=== PATIENT | male | born 1975 | race Caucasian/White ===

== ENCOUNTER 2018-10-20 14:09 | Observation (INO) | payer BC, SELFPAY ==
[2018-10-20] VITALS (14 sets, daily range): BP systolic 106–138; BP diastolic 58–88; PULSE 50–62; RESP 14–17; TEMP 36.6–36.8; O2SAT 96–100; BMI 34.0; BMI 33.9
--- NOTE | 2018-10-20 14:24 | EKG12_ITS ---
Test Reason : CHEST PAIN Blood Pressure : / mmHG Vent. Rate : 057 BPM Atrial Rate : 057 BPM P-R Int : 132 ms QRS Dur : 094 ms QT Int : 410 ms P-R-T Axes : 056 041 036 degrees QTc Int : 399 ms Sinus bradycardia Otherwise normal ECG Confirmed by VIK VINCENT, GREY ([id number]), primer expeditor and drier SUGEY CHANG ([id number]) on 10/24/2018 10:42:28 AM Referred By: STEVEN Confirmed By:GREY CHERY MD
--- NOTE | 2018-10-20 14:24 | RAD_ITS ---
STUDY: X-RAY CHEST REASON FOR EXAM: Male, 43 years old. Chest pain. TECHNIQUE: Single AP portable view of the chest. COMPARISON: None. FINDINGS: EKG electrodes are seen. The lungs are clear and expanded. Scattered calcified granulomas. There is no demonstrated pleural abnormality. Normal size heart. Normal mediastinum and eun. Normal visualized pulmonary arteries. Normal visualized aortic arch and descending thoracic aorta. There are degenerative changes of the visualized thoracic spine. Normal visualized ribs, clavicles, and shoulders. There is no demonstrated abnormality of the visualized soft tissue structures of the upper abdomen. RAD/Chest 1 View (Portable) IMPRESSION: Normal x-ray examination of the chest. Electronically Signed: Irvin Schumacher MD at 15:10 EST Tel [phone], Service support ,
[2018-10-20 14:54] LABS: Absolute Lymphocyte Count 1.44 X10^3/ul (0.83-4.51); Basophil# 0.01 X10^3/uL; Basophil% 0.3 % (0-1); Eosinophil# 0.05 X10^3/uL; Eosinophils% 1.3 % (0-5); Hematocrit 40.3 % (40-54); Lymphocyte # 1.44 X10^3/ul (4.0); Lymphocyte % 36.9 % (19-41); Mean Corp Hgb Conc 34.7 g/gl (32-36); Mean Corpuscular Hgb 30.4 pg (27.0-32.0); Mean Corpuscular Volume 87.6 fL (80-94); Mean Platelet Vol. 10.1 fl (6.2-12.0); Monocyte# 0.44 X10^3/uL; Monocyte% 11.3 % (0-10); Neutrophil # 1.96 X10^3/uL (2.7-7.7); Neutrophil % 50.2 % (47-70); Platelet Count 130 K/mm3 (150-450); RBC Distribution Width CV 13.2 % (11.6-14.6); RBC Distribution Width SD 42.1 fl (35.1-43.9); White Blood Count 3.9 K/mm3 (4.4-11.0)
[2018-10-20 14:55] LABS: POSITIVE COUNT NO; POSITIVE DIFFERENTIAL NO; POSITIVE MORPHOLOGY NO
[2018-10-20 14:56] LABS: Prothrombin Time (Protime)PT. 13.4 SECONDS (11.7-14.9)
[2018-10-20 15:08] LABS: Anion Gap 9 (5-15); BUN 13 mg/dL (7-18); BUN/Creat Ratio 12.9 RATIO (10-20); Calcium,Total 8.8 mg/dL (8.5-10.1); Chloride 105 mmol/L (98-107); Creatinine, Serum 1.01 mg/dL (0.70-1.30); EST Glomerular Filtration Rate 85 mL/min (>60); Est Glom Filt Rate - Afr Amer 103 mL/min (>60); Estimated Creatinine Clearance 96.37 ml/min; Glucose 87 mg/dL (74-106); Potassium 3.8 mmol/L (3.5-5.1); Sodium Level 141 mmol/L (136-145)
[2018-10-20] MEDS: Aspirin 81 MG TAB.CHEW 243 MG PO (15:13)
--- NOTE | 2018-10-20 15:13 | ED.VISSUMM ---
- ER Visit Summary Date of Service: 10/20/18 Chief Complaint: Chest pain History of Present Illness: The patient is a 43 M who presents for 1 week of intermittent chest pain. Patient has been having left-sided chest pain that waxes and wanes in intensity. Last time he was pain-free was this morning. He describes it as a pressure that does not radiate into the arms, back, right chest, abdomen or neck. It is worse with breathing and movement of his torso, but is constantly. Patient denies fever, shortness of breath, abdominal pain, nausea or vomiting, URI symptoms. Patient took 81 mg of aspirin prior to presentation. He has a history of myocardial infarction, hypertension, hypercholesterolemia, status post 1 stent. He is on Plavix. Physical Examination: Vital signs: afebrile, hemodynamically stable, no hypoxia on room air General: well nourished, well developed, in no distress Skin: warm, dry, no rash, no pallor HEENT: normocephalic and atraumatic; PERRL, EOMI, moist mucous membranes Cardiovascular: regular rate and rhythm without murmurs, no peripheral edema, 2+ pulses all distal extremities Respiratory: No increased work of breathing, lungs are clear to auscultation bilaterally, no rales, rhonchi or wheezing Abdominal: Abdomen is soft, nontender with normoactive bowel sounds, no guarding or rebound, no masses MSK: Moves all extremities, no deformities, normal strength Neuro: Awake and alert, oriented ?4. No facial droop, sensation and motor function intact and symmetric Test Results: Abnormal Lab Results 10/20/18 10/20/18 10/20/18 14:34 14:34 14:34 WBC 3.9 L RBC 4.60 Hgb 14.0 Hct 40.3 MCV 87.6 MCH 30.4 MCHC 34.7 RDW 13.2 RDW Differential 42.1 Plt Count 130 L MPV 10.1 Immature Gran % (Auto) 0.000 Neut % (Auto) 50.2 Lymph % (Auto) 36.9 [place] % (Auto) 11.3 H Eos % (Auto) 1.3 Baso % (Auto) 0.3 Absolute Neuts (auto) 2.0 Absolute Lymphs (auto) 1.44 Total Counted Not Reportable PT 13.4 INR 1.0 Sodium 141 Potassium 3.8 Chloride 105 Carbon Dioxide 27.0 Anion Gap 9 BUN 13 Creatinine 1.01 Estim Creat Clear Calc 96.37 Est GFR (MDRD) Af Amer 103 Est GFR (MDRD) Non-Af 85 BUN/Creatinine Ratio 12.9 Glucose 87 Calcium 8.8 Troponin I < 0.015 Clinical Impression(s) from Imaging Studies Chest X-Ray 10/20/18 14:24 IMPRESSION: Normal x-ray examination of the chest. Electronically Signed: Irvin Schumacher MD at 15:10 EST Tel [phone], Service support , Medications Given Discontinued Medications Aspirin (Aspirin, Baby) 243 mg PO X1 ONE Stop: 10/20/18 15:09 Last Admin: 10/20/18 15:13 Dose: 243 mg Nitroglycerin (Nitrostat) 0.4 mg SUBLINGUAL X1 ONE Stop: 10/20/18 16:00 Last Admin: 10/20/18 16:06 Dose: 0.4 mg Emergency Department Course and Treatment: Patient currently is pain-free. He was given 3 baby aspirin. EKG showed a sinus rhythm rate of [address] changes, no ectopy. Prominent T waves in V2. Chest x-ray showed no acute process. Troponin negative. Labs otherwise unremarkable. On reevaluation of the patient, he stated he was still having the dull discomfort in the left chest, and thus he was ordered nitro. Patient was discussed with Dr. Hayes, marshmallow machine operator, who recommended patient receive further chest pain rule out. Patient was discussed with Dr. Bronson for admission as observation status for chest pain with significant cardiac history. Treatment Plan: [] Disposition: [] Impression: Chest pain, history of ACS This note was generated with [employer] dictation software. It may contain incorrect words, spelling, and punctuation that were not noted in review of the chart prior to signing ED Disposition - Plan for ED Patient: Chief Complaint: Chest Pain Referrals: Jonah Feliz PA [Primary Care Provider] -
--- NOTE | 2018-10-20 15:16 | ED.DCSUM_ITS ---
- ER Visit Summary Date of Service: 10/20/18 Chief Complaint: Chest pain History of Present Illness: The patient is a 43 M who presents for 1 week of intermittent chest pain. Patient has been having left-sided chest pain that waxes and wanes in intensity. Last time he was pain-free was this morning. He describes it as a pressure that does not radiate into the arms, back, right chest, abdomen or neck. It is worse with breathing and movement of his torso, but is constantly. Patient denies fever, shortness of breath, abdominal pain, nausea or vomiting, URI symptoms. Patient took 81 mg of aspirin prior to presentation. He has a history of myocardial infarction, hypertension, hypercholesterolemia, status post 1 stent. He is on Plavix. Physical Examination: Vital signs: afebrile, hemodynamically stable, no hypoxia on room air General: well nourished, well developed, in no distress Skin: warm, dry, no rash, no pallor HEENT: normocephalic and atraumatic; PERRL, EOMI, moist mucous membranes Cardiovascular: regular rate and rhythm without murmurs, no peripheral edema, 2+ pulses all distal extremities Respiratory: No increased work of breathing, lungs are clear to auscultation bilaterally, no rales, rhonchi or wheezing Abdominal: Abdomen is soft, nontender with normoactive bowel sounds, no guarding or rebound, no masses MSK: Moves all extremities, no deformities, normal strength Neuro: Awake and alert, oriented ?4. No facial droop, sensation and motor function intact and symmetric Test Results: Abnormal Lab Results 10/20/18 10/20/18 10/20/18 14:34 14:34 14:34 WBC 3.9 L RBC 4.60 Hgb 14.0 Hct 40.3 MCV 87.6 MCH 30.4 MCHC 34.7 RDW 13.2 RDW Differential 42.1 Plt Count 130 L MPV 10.1 Immature Gran % (Auto) 0.000 Neut % (Auto) 50.2 Lymph % (Auto) 36.9 [place] % (Auto) 11.3 H Eos % (Auto) 1.3 Baso % (Auto) 0.3 Absolute Neuts (auto) 2.0 Absolute Lymphs (auto) 1.44 Total Counted Not Reportable PT 13.4 INR 1.0 Sodium 141 Potassium 3.8 Chloride 105 Carbon Dioxide 27.0 Anion Gap 9 BUN 13 Creatinine 1.01 Estim Creat Clear Calc 96.37 Est GFR (MDRD) Af Amer 103 Est GFR (MDRD) Non-Af 85 BUN/Creatinine Ratio 12.9 Glucose 87 Calcium 8.8 Troponin I < 0.015 Clinical Impression(s) from Imaging Studies Chest X-Ray 10/20/18 14:24 IMPRESSION: Normal x-ray examination of the chest. Electronically Signed: Irvin Schumacher MD at 15:10 EST Tel [phone], Service support , Medications Given Discontinued Medications Aspirin (Aspirin, Baby) 243 mg PO X1 ONE Stop: 10/20/18 15:09 Last Admin: 10/20/18 15:13 Dose: 243 mg Nitroglycerin (Nitrostat) 0.4 mg SUBLINGUAL X1 ONE Stop: 10/20/18 16:00 Last Admin: 10/20/18 16:06 Dose: 0.4 mg Emergency Department Course and Treatment: Patient currently is pain-free. He was given 3 baby aspirin. EKG showed a sinus rhythm rate of [address] changes, no ectopy. Prominent T waves in V2. Chest x-ray showed no acute process. Troponin negative. Labs otherwise unremarkable. On reevaluation of the patient, he stated he was still having the dull discomfort in the left chest, and thus he was ordered nitro. Patient was discussed with Dr. Hayes, dry cleaning machine operator, who recommended patient receive further chest pain rule out. Patient was discussed with Dr. Bronson for admission as observation status for chest pain with significant cardiac history. Treatment Plan: [] Disposition: [] Impression: Chest pain, history of ACS This note was generated with [employer] dictation software. It may contain incorrect words, spelling, and punctuation that were not noted in review of the chart prior to signing ED Disposition - Plan for ED Patient: Chief Complaint: Chest Pain Referrals: Jonah Feliz PA [Primary Care Provider] -
--- NOTE | 2018-10-20 16:53 | HP.PCM_ITS ---
Problem List (1) Hyperlipidemia Status: Chronic (2) Hypertension Status: Chronic (3) Depression Status: Chronic (4) CAD (coronary artery disease) Status: Chronic History of Present Illness Date of Admission: 10/20/18 Chief Complaint: Chest pain. The patient is a 43 year old M who presents emergency room due to chest pain. Patient states this has been ongoing intermittently over the past week. He denies chest pain associated with exertion. He states he seems to notice increased pain with movement of his upper extremities and turning of neck. He denies associated shortness of breath, dizziness, lightheadedness, diaphoresis. He has not taken anything to relieve his pain. He denies pain radiation. He reports his last stress test was in May 2018 while he was in [place]. This was reported to be normal. He has a past medical history of CAD status post PCI, hypertension, hyperlipidemia, depression, GERD. He follows with Dr. Alan, [facility] cardiology. Past Medical History Past Medical History (Chronic Problems): Chronic Problems Hyperlipidemia (Chronic) Hypertension (Chronic) Depression (Chronic) CAD (coronary artery disease) (Chronic) Allergies No Known Allergies Allergy (Verified 11/02/16 15:17) Home Medications: Ambulatory Orders Medication Instructions Recorded Escitalopram Oxalate [Lexapro] 10 mg PO DAILY 11/09/15 Aspirin [Aspirin, Baby] 81 mg PO DAILY@0800 10/20/18 Atorvastatin Calcium [Lipitor] 80 mg PO QHS 10/20/18 Clopidogrel Bisulfate [Plavix] 75 mg PO DAILY 10/20/18 Erythromycin Ophthalmic 1 applicatio EACH EYE QHS 10/20/18 Fluorometholone 1 drop EACH EYE TID 10/20/18 Isosorbide Mononitrate [Imdur] 30 mg PO DAILY 10/20/18 Metoprolol(XL)Succ [Toprol Xl 25 mg PO QHS 10/20/18 (Beta German)] Nitroglycerin [Nitrostat] 0.4 mg SUBLINGUAL Q5M PRN 10/20/18 Ranitidine [Zantac] 150 mg PO BID 10/20/18 Surgical History: - - Turbinate surgery, septoplasty. Psychiatric History: Depression Lives: With Family Smoking Status: Never smoker Tobacco Use: Non-smoker Alcohol: Occasional Drugs: None - *Family History Maternal History Items: Hypertension Paternal History Items: - - Leukemia Review of Systems Constitutional: Denies: Chills, Fever, Weight Change HEENT: Denies: Head Aches, Sinus Congestion, Sinus Drainage Cardiovascular: Reports: Chest Pain. Denies: Edema, Light Headedness, Palpitations, Syncope Respiratory: Denies: Cough, Shortness of breath at rest, Sputum production Gastrointestinal: Denies: Abdominal Pain, Nausea, Vomiting Genitourinary: Denies: Dysuria Musculoskeletal: Denies: Joint Pain, Joint Tenderness Skin: Denies: Rash, Wounds Neurological: Denies: Numbness, Tingling, Focal weakness Psychiatric: Reports: Depression Hematologic/ Lymphatic: Denies: Easy Bruising, Easy Bleeding VTE Information - Inpt Only VTE Present on Admission: No VTE Mechan Device Prophylaxis: None VTE Pharm Prophylaxis ordered?: Yes - Physical Exam General: Alert, Oriented x3, Cooperative HEENT: Atraumatic, PERRLA, EOMI, Normocephalic Neck: Supple, No JVD, Negative Carotid Bruits Lungs: Clear to auscultation, Normal air movement Cardiovascular: Regular Rhythm, Normal S1, Normal S2, No murmurs, - - Mildly bradycardic Abdomen: Bowel Sounds Present, Soft, Non Tender, Non-Distended Extremities: No clubbing, No cyanosis, No edema, Capillary Refill Less than 3 Seconds Skin: No rashes, No breakdown Musculoskeletal: No Tenderness to Palpation of Joints or Extremities Neurological: Cranial nerves II-XII grossly intact, Neuro grossly intact Psych/Mental Status: Normal Affect, Appropriate Vital Signs Temp Pulse Resp BP Pulse Ox 98.2 F 53 L 17 106/67 98 10/20/18 14:10 10/20/18 16:24 10/20/18 16:24 10/20/18 16:24 10/20/18 16:24 Oxygen Flow Rate (L/min) 2 Oxygen Delivery Method Nasal Cannula Weight: 237 lb Body Mass Index (BMI) 34.0 Laboratory Tests Past 24 Hrs 10/20/18 10/20/18 10/20/18 14:34 14:34 14:34 WBC 3.9 L RBC 4.60 Hgb 14.0 Hct 40.3 MCV 87.6 MCH 30.4 MCHC 34.7 RDW 13.2 RDW Differential 42.1 Plt Count 130 L MPV 10.1 Immature Gran % (Auto) 0.000 Neut % (Auto) 50.2 Lymph % (Auto) 36.9 [place] % (Auto) 11.3 H Eos % (Auto) 1.3 Baso % (Auto) 0.3 Absolute Neuts (auto) 2.0 Absolute Lymphs (auto) 1.44 Total Counted Not Reportable PT 13.4 INR 1.0 Sodium 141 Potassium 3.8 Chloride 105 Carbon Dioxide 27.0 Anion Gap 9 BUN 13 Creatinine 1.01 Estim Creat Clear Calc 96.37 Est GFR (MDRD) Af Amer 103 Est GFR (MDRD) Non-Af 85 BUN/Creatinine Ratio 12.9 Glucose 87 Calcium 8.8 Troponin I < 0.015 Assessment/Plan 1. Atypical chest pain-patient reports typically associated with movement. Given prior history of [place], rule out ACS. EKG sinus bradycardia without ST-T changes. Troponin negative. Trend enzymes. Repeat EKG in a.m. Stress test in a.m. 2. CAD status post PCI-follows with Dr. Alan, [facility] cardiology. Continue asp irin, statin, Plavix, isosorbide, metoprolol. 3. Hypertension-stable, continue home isosorbide, metoprolol. 4. Hyperlipidemia-continue statin. 5. Depression-continue home Lexapro regimen. 6. GERD- Continue PPI. DVT prophylaxis-Lovenox subcu This patient was seen by KATLYN Cali under the supervision of Dr. Bronson.
--- NOTE | 2018-10-20 17:10 | EKG12_ITS ---
Test Reason : CP ADMISSION Blood Pressure : / mmHG Vent. Rate : 047 BPM Atrial Rate : 047 BPM P-R Int : 134 ms QRS Dur : 090 ms QT Int : 452 ms P-R-T Axes : 058 030 016 degrees QTc Int : 400 ms Sinus bradycardia Confirmed by ASHLI VINCENT, BARBARA ([id number]), editor farm journal SUGEY CHANG ([id number]) on 10/24/2018 11:42:25 AM Referred By: RASHID Confirmed By:BARBARA CORNELIUS MD
[2018-10-20] MEDS: Erythromycin Base 1 OPTH.TUBE 1 APPLIC EACH EYE (22:21)
[2018-10-20] MEDS: FLUOROMETHOLONE 5 ML DROPS.SUSP EACH EYE (22:22)
[2018-10-20] MEDS: Atorvastatin Calcium 80 MG Tablet PO (22:25)
[2018-10-20] MEDS: Famotidine 20 MG Tablet PO (22:25)
[2018-10-21 04:00] VITALS: BP 135/72; PULSE 56; RESP 16; TEMP 36.6; O2SAT 97
[2018-10-21] MEDS: FLUOROMETHOLONE 5 ML DROPS.SUSP EACH EYE ×2 (05:38→12:09)
[2018-10-21] MEDS: Aspirin 81 MG TAB.CHEW PO (05:39)
[2018-10-21] MEDS: Clopidogrel Bisulfate 75 MG Tablet PO (05:39)
--- NOTE | 2018-10-21 05:55 | EKG12_ITS ---
Test Reason : AM EKG Blood Pressure : / mmHG Vent. Rate : 054 BPM Atrial Rate : 054 BPM P-R Int : 138 ms QRS Dur : 092 ms QT Int : 438 ms P-R-T Axes : 070 041 003 degrees QTc Int : 415 ms Sinus bradycardia Confirmed by ASHLI VINCENT, BARBARA ([id number]), assistant editor SUGEY CHANG ([id number]) on 10/24/2018 11:30:14 AM Referred By: DR PEDRO Confirmed By:BARBARA CORNELIUS MD
[2018-10-21 06:00] LABS: Absolute Lymphocyte Count 1.15 X10^3/ul (0.83-4.51); Absolute Neutrophil Count 1.6 X10^3/uL (2.0-7.7); Basophil# 0.02 X10^3/uL; Basophil% 0.6 % (0-1); Eosinophil# 0.09 X10^3/uL; Eosinophils% 2.7 % (0-5); Hematocrit 39.3 % (40-54); Hemoglobin 13.6 g/dl (13.0-16.5); Lymphocyte # 1.15 X10^3/ul (4.0); Lymphocyte % 35.1 % (19-41); Mean Corp Hgb Conc 34.6 g/gl (32-36); Mean Corpuscular Hgb 30.5 pg (27.0-32.0); Mean Corpuscular Volume 88.1 fL (80-94); Mean Platelet Vol. 10.6 fl (6.2-12.0); Monocyte% 12.2 % (0-10); Neutrophil # 1.61 X10^3/uL (2.7-7.7); Neutrophil % 49.1 % (47-70); Platelet Count 123 K/mm3 (150-450); RBC Distribution Width CV 13.1 % (11.6-14.6); RBC Distribution Width SD 41.1 fl (35.1-43.9); Red Blood Count 4.46 M/mm3 (4.6-6.2); White Blood Count 3.3 K/mm3 (4.4-11.0)
[2018-10-21 06:02] LABS: POSITIVE COUNT NO; POSITIVE DIFFERENTIAL NO; POSITIVE MORPHOLOGY NO
[2018-10-21 06:03] LABS: International Normalized Ratio 1.1; Prothrombin Time (Protime)PT. 14.1 SECONDS (11.7-14.9)
[2018-10-21 06:04] LABS: Partial Thromboplast Time 27.8 Seconds (24.1-36.2)
[2018-10-21 06:10] LABS: Anion Gap 8 (5-15); BUN 10 mg/dL (7-18); BUN/Creat Ratio 11.4 RATIO (10-20); Calcium,Total 8.8 mg/dL (8.5-10.1); Chloride 106 mmol/L (98-107); Creatinine, Serum 0.88 mg/dL (0.70-1.30); EST Glomerular Filtration Rate 100 mL/min (>60); Est Glom Filt Rate - Afr Amer 121 mL/min (>60); Estimated Creatinine Clearance 110.61 ml/min; Glucose 90 mg/dL (74-106); Potassium 3.7 mmol/L (3.5-5.1); Sodium Level 141 mmol/L (136-145)
[2018-10-21 10:00] VITALS: BP 138/81; PULSE 58; RESP 16; TEMP 36.4; O2SAT 96
--- NOTE | 2018-10-21 11:23 | DCINST_ITS ---
- Discharge Diagnoses Current Active Problems: Current Active and Chronic Problems Hyperlipidemia (Chronic) Hypertension (Chronic) Depression (Chronic) CAD (coronary artery disease) (Chronic) You will use the following diet at home:: Cardiac Discharge Activity: Return to Normal Activity Call your doctor if you observe: Shortness of breath, Dizziness, Fainting spells, Chest pain Allergies/Adverse Reactions: Allergies No Known Allergies Allergy (Verified 11/02/16 15:17) Medications to take at Discharge Escitalopram Oxalate [Lexapro] 10 mg PO DAILY 11/09/15 Aspirin [Aspirin, Baby] 81 mg PO DAILY@0800 10/20/18 Atorvastatin Calcium [Lipitor] 80 mg PO QHS 10/20/18 Clopidogrel Bisulfate [Plavix] 75 mg PO DAILY 10/20/18 Erythromycin Ophthalmic 1 applicatio EACH EYE QHS 10/20/18 Fluorometholone 1 drop EACH EYE TID 10/20/18 Isosorbide Mononitrate [Imdur] 30 mg PO DAILY 10/20/18 Nitroglycerin [Nitrostat] 0.4 mg SUBLINGUAL Q5M PRN 10/20/18 Ranitidine [Zantac] 150 mg PO BID 10/20/18 Acetaminophen [Tylenol Extra Strength] 1,000 mg PO Q8H PRN PRN #30 tablet 10/21/18 Metoprolol(XL)Succ [Toprol Xl (Beta German)] 12.5 mg PO QHS #0 10/21/18 The following prescriptions were given: Acetaminophen [Tylenol Extra Strength] 1,000 mg PO Q8H PRN PRN #30 tablet PRN Reason: Pain Primary Care Physician: Jonah Feliz PA [Primary Care Provider] - Please follow up with your Primary Care Physician in: 1 Week Test Results: Test results from this visit will be discussed in further detail at your follow- up appointment, if applicable. Please Follow Up With: Dada Rebolledo DO - Pulmonary, establish for ANTOINETTE When: 2-4 Weeks Please Follow Up With: Gary Alan MD When: 1-2 Weeks Proposed Discharge Date: 10/21/18
--- NOTE | 2018-10-21 11:53 | STRESSREP ---
Stress Test Report Date: 10/21/2018 Procedure: Exercise tolerance test/imaging study Indications: Chest pain; CAD; PCI Consent: Per the patient Procedure: The patient exercised on a [place] protocol for 10 minutes completing Stage III and 1 minute of Stage IV achieving a peak heart rate of 160 bpm (90 % predicted maximal heart rate) with a peak blood pressure 160/82 mmHg and a peak MET capacity of 11 METs. The baseline ECG demonstrated sinus bradycardia; nonspecific ST/T wave abnormality. The peak exercise ECG demonstrated no obvious ECG changes. There were occasional PVCs pretest, during exercise, and recovery; intermittent ventricular bigeminy/trigeminy during exercise. The functional capacity was considered good. There was [no complaint of chest discomfort during exercise or recovery]. The examination was discontinued secondary to dyspnea. Impression: 1. Technically adequate (percent predicted maximal heart rate greater than 85%) exercise tolerance test 2. Peak exercise ECG with no obvious ECG changes 3. There were occasional PVCs pretest, during exercise, and recovery; intermittent ventricular bigeminy/trigeminy during exercise 4. Nuclear images pending Myocardial perfusion imaging study: Technique: The patient was injected with 14.1 mCi of technetium 99m Cardiolite and subsequently rest SPECT Cardiolite nuclear imaging was obtained in the horizontal long, vertical long, and short axis views. The patient exercised on a [place]in protocol for 10 minutes completing Stage III and 1 minute of Stage IV achieving a peak heart rate of 160 bpm (90 % predicted maximal heart rate) with a peak blood pressure 162/82 mmHg and a peak MET capacity of 11 METs. The patient was injected with 44.4 mCi of technetium 99m Cardiolite and subsequently stress SPECT Cardiolite nuclear imaging was obtained in the horizontal long, vertical long, and short axis views. A gated Cardiolite study at peak stress was obtained. Interpretation: Rest and stress SPECT Cardiolite nuclear imaging status post realignment, normalization, and attenuation correction, demonstrates the appearance of a small area of subtle diminished tracer uptake near the apical segments without significant change between rest and stress. [There is end systolic thickening and brightening]. The gated Cardiolite study demonstrates [myocardial thickening and inward wall motion]. The reported LVEF is 59 %. Impression: 1. Rest and stress SPECT Cardiolite nuclear imaging demonstrate perfusion changes appearing compatible with physiologic apical thinning with no myocardial perfusion changes considered diagnostic for associated stress-induced myocardial ischemia or previous myocardial injury/infarction. 2. The gated Cardiolite study reports an LVEF of 59%. This note was generated with [employer] software. It may contain incorrect words, spelling, and punctuation that were not noted in checking the note before signing.
[2018-10-21 12:04] VITALS: PULSE 59
[2018-10-21] MEDS: Isosorbide Mononitrate 30 MG Tablet PO (12:07)
[2018-10-21] MEDS: Escitalopram Oxalate 10 MG Tablet PO (12:08)
[2018-10-21] MEDS: Famotidine 20 MG Tablet PO (12:08)
--- NOTE | 2018-10-21 12:15 | PCM.DC.SUM ---
<Ade Melgoza - Last Filed: 10/21/18 12:22> Discharge Date and Diagnosis Date of Admission: 10/20/18 Date of Discharge: 10/21/18 - Primary Discharge Diagnosis 1. Musculoskeletal chest pain 2. CAD with history of PCI/prior [place] 3. Hypertension 4. Hyperlipidemia 5. Depression 6. GERD - Secondary Discharge Diagnosis Chronic Problems Hyperlipidemia (Chronic) Hypertension (Chronic) Depression (Chronic) CAD (coronary artery disease) (Chronic) Hospital Course and Treatment Imaging Results: Diagnostic Data Chest X-Ray 10/20/18 14:24 IMPRESSION: Normal x-ray examination of the chest. Electronically Signed: Irvin Schmuacher MD at 15:10 EST Tel [phone], Service support , Operations: None Procedures: Stress test Summary of Care Provided: The patient is a 43 year old M admitted 10/20/2018 due to chest pain. 1. Musculoskeletal chest pain-pain reproducible with movement of head/neck and arms. ACS ruled out. EKG sinus bradycardia without ST-T changes. Troponin negative. Trend enzymes. Patient underwent nuclear stress test which was negative for ischemia. Discharge on Tylenol 1,000mg every 8 hours as needed for pain. Follow-up with primary care physician 1 week. Follow-up with primary certified ophthalmic assistant, Dr. Washburn [facility] cardiology in 1-2 weeks. 2. CAD status post PCI-follows with Dr. Alan, [facility] cardiology. Continue aspirin, statin, Plavix, isosorbide, metoprolol. Home metoprolol regimen decreased to 12.5 mg p.o. nightly due to mild bradycardia. 3. Hypertension-stable, continue home isosorbide, metoprolol. 4. Hyperlipidemia-continue statin. 5. Depression-continue home Lexapro regimen. 6. GERD- Continue PPI. General: Alert, Oriented x3, Cooperative HEENT: Atraumatic, PERRLA, EOMI, Normocephalic Neck: Supple, No JVD, Negative Carotid Bruits Lungs: Clear to auscultation, Normal air movement Cardiovascular: Regular Rhythm, Normal S1, Normal S2, No murmurs, - - Mildly bradycardic Abdomen: Bowel Sounds Present, Soft, Non Tender, Non-Distended Extremities: No clubbing, No cyanosis, No edema, Capillary Refill Less than 3 Seconds Skin: No rashes, No breakdown Musculoskeletal: No Tenderness to Palpation of Joints or Extremities Neurological: Cranial nerves II-XII grossly intact, Neuro grossly intact Psych/Mental Status: Normal Affect, Appropriate Patient seen and examined prior to discharge. Physical assessment as noted above. Patient is stable for discharge with follow up recommendations as noted above. This patient was seen by KATLYN Cali under the supervision of Dr. Nicholas. - Physical Exam Vital Signs Temp Pulse Resp BP Pulse Ox 97.6 F L 58 L 16 138/81 H 96 10/21/18 10:00 10/21/18 10:00 10/21/18 10:00 10/21/18 10:00 10/21/18 10:00 Oxygen Flow Rate (L/min) 2 Oxygen Delivery Method Room Air Weight: 236 lb 8.896 oz Body Mass Index (BMI) 33.9 Intake and Output for Last 24 Hours 10/19/18 10/20/18 10/21/18 23:59 23:59 23:59 Intake Total 200 / 200 450 / 450 Balance 200 / 200 450 / 450 Laboratory Tests Past 24 Hrs 10/20/18 10/20/18 10/20/18 14:34 14:34 14:34 WBC 3.9 L RBC 4.60 Hgb 14.0 Hct 40.3 MCV 87.6 MCH 30.4 MCHC 34.7 RDW 13.2 RDW Differential 42.1 Plt Count 130 L MPV 10.1 Immature Gran % (Auto) 0.000 Neut % (Auto) 50.2 Lymph % (Auto) 36.9 [place] % (Auto) 11.3 H Eos % (Auto) 1.3 Baso % (Auto) 0.3 Absolute Neuts (auto) 2.0 Absolute Lymphs (auto) 1.44 Total Counted Not Reportable PT 13.4 INR 1.0 APTT Sodium 141 Potassium 3.8 Chloride 105 Carbon Dioxide 27.0 Anion Gap 9 BUN 13 Creatinine 1.01 Estim Creat Clear Calc 96.37 Est GFR (MDRD) Af Amer 103 Est GFR (MDRD) Non-Af 85 BUN/Creatinine Ratio 12.9 Glucose 87 Calcium 8.8 Troponin I < 0.015 10/20/18 10/20/18 10/21/18 17:25 20:52 05:30 WBC 3.3 L RBC 4.46 L Hgb 13.6 Hct 39.3 L MCV 88.1 MCH 30.5 MCHC 34.6 RDW 13.1 RDW Differential 41.1 Plt Count 123 L MPV 10.6 Immature Gran % (Auto) 0.300 Neut % (Auto) 49.1 Lymph % (Auto) 35.1 [place] % (Auto) 12.2 H Eos % (Auto) 2.7 Baso % (Auto) 0.6 Absolute Neuts (auto) 1.6 L Absolute Lymphs (auto) 1.15 Total Counted Not Reportable PT INR APTT Sodium Potassium Chloride Carbon Dioxide Anion Gap BUN Creatinine Estim Creat Clear Calc Est GFR (MDRD) Af Amer Est GFR (MDRD) Non-Af BUN/Creatinine Ratio Glucose Calcium Troponin I < 0.015 < 0.015 10/21/18 10/21/18 05:30 05:30 WBC RBC Hgb Hct MCV MCH MCHC RDW RDW Differential Plt Count MPV Immature Gran % (Auto) Neut % (Auto) Lymph % (Auto) [place] % (Auto) Eos % (Auto) Baso % (Auto) Absolute Neuts (auto) Absolute Lymphs (auto) Total Counted PT 14.1 INR 1.1 APTT 27.8 Sodium 141 Potassium 3.7 Chloride 106 Carbon Dioxide 27.0 Anion Gap 8 BUN 10 Creatinine 0.88 Estim Creat Clear Calc 110.61 Est GFR (MDRD) Af Amer 121 Est GFR (MDRD) Non-Af 100 BUN/Creatinine Ratio 11.4 Glucose 90 Calcium 8.8 Troponin I Discharge Diet: Low fat/ Low Cholesterol Discharge Activity: Return to Normal Activity Call your doctor if you observe: Shortness of breath, Dizziness, Fainting spells, Chest pain Home Medications: Medications to take at Discharge Escitalopram Oxalate [Lexapro] 10 mg PO DAILY 11/09/15 Aspirin [Aspirin, Baby] 81 mg PO DAILY@0800 10/20/18 Atorvastatin Calcium [Lipitor] 80 mg PO QHS 10/20/18 Clopidogrel Bisulfate [Plavix] 75 mg PO DAILY 10/20/18 Erythromycin Ophthalmic 1 applicatio EACH EYE QHS 10/20/18 Fluorometholone 1 drop EACH EYE TID 10/20/18 Isosorbide Mononitrate [Imdur] 30 mg PO DAILY 10/20/18 Nitroglycerin [Nitrostat] 0.4 mg SUBLINGUAL Q5M PRN 10/20/18 Ranitidine [Zantac] 150 mg PO BID 10/20/18 Acetaminophen [Tylenol Extra Strength] 1,000 mg PO Q8H PRN PRN #30 tablet 10/21/18 Metoprolol(XL)Succ [Toprol Xl (Beta German)] 12.5 mg PO QHS #0 10/21/18 Following Prescrptions Were Given to Patient: Acetaminophen [Tylenol Extra Strength] 1,000 mg PO Q8H PRN PRN #30 tablet PRN Reason: Pain Primary Care Physician: Jonah Feliz PA [Primary Care Provider] - Please follow up with your Primary Care Physician in: 1 Week Please Follow Up With: Dada Rebolledo DO - Pulmonary, establish for ANTOINETTE When: 2-4 Weeks Please Follow Up With: Gary Alan MD When: 1-2 Weeks Disposition: Home Minutes spent on discharge:: 35 Patient Condition:: Stable Medical Necessity - Tobacco Use Smoking Status: Never smoker Tobacco Use: Non-smoker Meaningful Use Info Meaningful Use Diagnoses (Choose all that apply): None applicable <Paintsil,[place] - Last Filed: 10/21/18 13:46> Discharge Date and Diagnosis - Secondary Discharge Diagnosis Chronic Problems Hyperlipidemia (Chronic) Hypertension (Chronic) Depression (Chronic) CAD (coronary artery disease) (Chronic) Hospital Course and Treatment Imaging Results: 10/21/18 05:55 Nuclear Stress Test - Treadmil [NM] AM (NON MEDS) Summary of Care Provided: The patient is a 43 year old M with past medical history of CAD/[place], hypertension, hyperlipidemia, ANTOINETTE on CPAP who comes in with complaints of chest pain, which comes and goes ongoing for about a week. No associated dizziness or palpitations orthopnea PND or diaphoresis. His admitting EKG was unremarkable without any ST-T changes. He was admitted to a telemetry bed, monitored with his bradycardia noted on telemetry. He had a stress test in the morning that was negative. Physical exam on admission was suggestive of musculoskeletal pain. Patient was managed on Tylenol as needed, and advised to continue his aspirin and Plavix. Follow-up with Dr. Washburn in the outpatient Subjective: The day of discharge, patient complains of slight left sided chest pain, worse with deep palpation. Denied any dizziness or palpitations or shortness of breath - Physical Exam General: Alert, Oriented x3, Cooperative, No apparent distress HEENT: Atraumatic, PERRLA, EOMI, Normocephalic Oral: Moist Mucosa Neck: Supple, No JVD, Negative Carotid Bruits Lungs: Clear to auscultation, Normal air movement Cardiovascular: Regular rate, Regular Rhythm, Normal S1, Normal S2, No murmurs, - - Tenderness over the left anterior chest wall Abdomen: Bowel Sounds Present, Soft, Non Tender, Non-Distended, No Hepato-splenomegaly - on deep palpation Extremities: No edema, Capillary Refill Less than 3 Seconds Skin: No rashes, No breakdown Musculoskeletal: No Tenderness to Palpation of Joints or Extremities Neurological: Cranial nerves II-XII grossly intact, Neuro grossly intact Psych/Mental Status: Normal Affect, Appropriate Vital Signs Temp Pulse Resp BP Pulse Ox 97.6 F L 59 L 16 138/81 H 96 10/21/18 10:00 10/21/18 12:04 10/21/18 10:00 10/21/18 10:00 10/21/18 10:00 Oxygen Flow Rate (L/min) 2 Oxygen Delivery Method Room Air Weight: 107.3 kg Body Mass Index (BMI) 33.9 Intake and Output for Last 24 Hours 10/19/18 10/20/18 10/21/18 23:59 23:59 23:59 Intake Total 200 / 200 450 / 450 Balance 200 / 200 450 / 450 Laboratory Tests Past 24 Hrs 10/20/18 10/20/18 10/20/18 14:34 14:34 14:34 WBC 3.9 L RBC 4.60 Hgb 14.0 Hct 40.3 MCV 87.6 MCH 30.4 MCHC 34.7 RDW 13.2 RDW Differential 42.1 Plt Count 130 L MPV 10.1 Immature Gran % (Auto) 0.000 Neut % (Auto) 50.2 Lymph % (Auto) 36.9 [place] % (Auto) 11.3 H Eos % (Auto) 1.3 Baso % (Auto) 0.3 Absolute Neuts (auto) 2.0 Absolute Lymphs (auto) 1.44 Total Counted Not Reportable PT 13.4 INR 1.0 APTT Sodium 141 Potassium 3.8 Chloride 105 Carbon Dioxide 27.0 Anion Gap 9 BUN 13 Creatinine 1.01 Estim Creat Clear Calc 96.37 Est GFR (MDRD) Af Amer 103 Est GFR (MDRD) Non-Af 85 BUN/Creatinine Ratio 12.9 Glucose 87 Calcium 8.8 Troponin I < 0.015 10/20/18 10/20/18 10/21/18 17:25 20:52 05:30 WBC 3.3 L RBC 4.46 L Hgb 13.6 Hct 39.3 L MCV 88.1 MCH 30.5 MCHC 34.6 RDW 13.1 RDW Differential 41.1 Plt Count 123 L MPV 10.6 Immature Gran % (Auto) 0.300 Neut % (Auto) 49.1 Lymph % (Auto) 35.1 [place] % (Auto) 12.2 H Eos % (Auto) 2.7 Baso % (Auto) 0.6 Absolute Neuts (auto) 1.6 L Absolute Lymphs (auto) 1.15 Total Counted Not Reportable PT INR APTT Sodium Potassium Chloride Carbon Dioxide Anion Gap BUN Creatinine Estim Creat Clear Calc Est GFR (MDRD) Af Amer Est GFR (MDRD) Non-Af BUN/Creatinine Ratio Glucose Calcium Troponin I < 0.015 < 0.015 10/21/18 10/21/18 05:30 05:30 WBC RBC Hgb Hct MCV MCH MCHC RDW RDW Differential Plt Count MPV Immature Gran % (Auto) Neut % (Auto) Lymph % (Auto) [place] % (Auto) Eos % (Auto) Baso % (Auto) Absolute Neuts (auto) Absolute Lymphs (auto) Total Counted PT 14.1 INR 1.1 APTT 27.8 Sodium 141 Potassium 3.7 Chloride 106 Carbon Dioxide 27.0 Anion Gap 8 BUN 10 Creatinine 0.88 Estim Creat Clear Calc 110.61 Est GFR (MDRD) Af Amer 121 Est GFR (MDRD) Non-Af 100 BUN/Creatinine Ratio 11.4 Glucose 90 Calcium 8.8 Troponin I Code Visit OBSV E&M: 94052 Observation care discharge
--- NOTE | 2018-10-21 12:19 | DS.PCM_ITS ---
<Ade Melgoza - Last Filed: 10/21/18 12:22> Discharge Date and Diagnosis Date of Admission: 10/20/18 Date of Discharge: 10/21/18 - Primary Discharge Diagnosis 1. Musculoskeletal chest pain 2. CAD with history of PCI/prior [place] 3. Hypertension 4. Hyperlipidemia 5. Depression 6. GERD - Secondary Discharge Diagnosis Chronic Problems Hyperlipidemia (Chronic) Hypertension (Chronic) Depression (Chronic) CAD (coronary artery disease) (Chronic) Hospital Course and Treatment Imaging Results: Diagnostic Data Chest X-Ray 10/20/18 14:24 IMPRESSION: Normal x-ray examination of the chest. Electronically Signed: Irvin Schumacher MD at 15:10 EST Tel [phone], Service support , Operations: None Procedures: Stress test Summary of Care Provided: The patient is a 43 year old M admitted 10/20/2018 due to chest pain. 1. Musculoskeletal chest pain-pain reproducible with movement of head/neck and arms. ACS ruled out. EKG sinus bradycardia without ST-T changes. Troponin negative. Trend enzymes. Patient underwent nuclear stress test which was negative for ischemia. Discharge on Tylenol 1,000mg every 8 hours as needed for pain. Follow-up with primary care physician 1 week. Follow-up with primary car diologist, Dr. Washburn [facility] cardiology in 1-2 weeks. 2. CAD status post PCI-follows with Dr. Alan, [facility] cardiology. Continue aspirin, statin, Plavix, isosorbide, metoprolol. Home metoprolol regimen decreased to 12.5 mg p.o. nightly due to mild bradycardia. 3. Hypertension-stable, continue home isosorbide, metoprolol. 4. Hyperlipidemia-continue statin. 5. Depression-continue home Lexapro regimen. 6. GERD- Continue PPI. General: Alert, Oriented x3, Cooperative HEENT: Atraumatic, PERRLA, EOMI, Normocephalic Neck: Supple, No JVD, Negative Carotid Bruits Lungs: Clear to auscultation, Normal air movement Cardiovascular: Regular Rhythm, Normal S1, Normal S2, No murmurs, - - Mildly bradycardic Abdomen: Bowel Sounds Present, Soft, Non Tender, Non-Distended Extremities: No clubbing, No cyanosis, No edema, Capillary Refill Less than 3 Seconds Skin: No rashes, No breakdown Musculoskeletal: No Tenderness to Palpation of Joints or Extremities Neurological: Cranial nerves II-XII grossly intact, Neuro grossly intact Psych/Mental Status: Normal Affect, Appropriate Patient seen and examined prior to discharge. Physical assessment as noted above. Patient is stable for discharge with follow up recommendations as noted above. This patient was seen by KATLYN Cali under the supervision of Dr. Nicholas. - Physical Exam Vital Signs Temp Pulse Resp BP Pulse Ox 97.6 F L 58 L 16 138/81 H 96 10/21/18 10:00 10/21/18 10:00 10/21/18 10:00 10/21/18 10:00 10/21/18 10:00 Oxygen Flow Rate (L/min) 2 Oxygen Delivery Method Room Air Weight: 236 lb 8.896 oz Body Mass Index (BMI) 33.9 Intake and Output for Last 24 Hours 10/19/18 10/20/18 10/21/18 23:59 23:59 23:59 Intake Total 200 / 200 450 / 450 Balance 200 / 200 450 / 450 Laboratory Tests Past 24 Hrs 10/20/18 10/20/18 10/20/18 14:34 14:34 14:34 WBC 3.9 L RBC 4.60 Hgb 14.0 Hct 40.3 MCV 87.6 MCH 30.4 MCHC 34.7 RDW 13.2 RDW Differential 42.1 Plt Count 130 L MPV 10.1 Immature Gran % (Auto) 0.000 Neut % (Auto) 50.2 Lymph % (Auto) 36.9 [place] % (Auto) 11.3 H Eos % (Auto) 1.3 Baso % (Auto) 0.3 Absolute Neuts (auto) 2.0 Absolute Lymphs (auto) 1.44 Total Counted Not Reportable PT 13.4 INR 1.0 APTT Sodium 141 Potassium 3.8 Chloride 105 Carbon Dioxide 27.0 Anion Gap 9 BUN 13 Creatinine 1.01 Estim Creat Clear Calc 96.37 Est GFR (MDRD) Af Amer 103 Est GFR (MDRD) Non-Af 85 BUN/Creatinine Ratio 12.9 Glucose 87 Calcium 8.8 Troponin I < 0.015 12/10/18 12/10/18 12/11/18 17:25 20:52 05:30 WBC 3.3 L RBC 4.46 L Hgb 13.6 Hct 39.3 L MCV 88.1 MCH 30.5 MCHC 34.6 RDW 13.1 RDW Differential 41.1 Plt Count 123 L MPV 10.6 Immature Gran % (Auto) 0.300 Neut % (Auto) 49.1 Lymph % (Auto) 35.1 [place] % (Auto) 12.2 H Eos % (Auto) 2.7 Baso % (Auto) 0.6 Absolute Neuts (auto) 1.6 L Absolute Lymphs (auto) 1.15 Total Counted Not Reportable PT INR APTT Sodium Potassium Chloride Carbon Dioxide Anion Gap BUN Creatinine Estim Creat Clear Calc Est GFR (MDRD) Af Amer Est GFR (MDRD) Non-Af BUN/Creatinine Ratio Glucose Calcium Troponin I < 0.015 < 0.015 10/21/18 10/21/18 05:30 05:30 WBC RBC Hgb Hct MCV MCH MCHC RDW RDW Differential Plt Count MPV Immature Gran % (Auto) Neut % (Auto) Lymph % (Auto) [place] % (Auto) Eos % (Auto) Baso % (Auto) Absolute Neuts (auto) Absolute Lymphs (auto) Total Counted PT 14.1 INR 1.1 APTT 27.8 Sodium 141 Potassium 3.7 Chloride 106 Carbon Dioxide 27.0 Anion Gap 8 BUN 10 Creatinine 0.88 Estim Creat Clear Calc 110.61 Est GFR (MDRD) Af Amer 121 Est GFR (MDRD) Non-Af 100 BUN/Creatinine Ratio 11.4 Glucose 90 Calcium 8.8 Troponin I Discharge Diet: Low fat/ Low Cholesterol Discharge Activity: Return to Normal Activity Call your doctor if you observe: Shortness of breath, Dizziness, Fainting spells, Chest pain Home Medications: Medications to take at Discharge Escitalopram Oxalate [Lexapro] 10 mg PO DAILY 11/09/15 Aspirin [Aspirin, Baby] 81 mg PO DAILY@0800 10/20/18 Atorvastatin Calcium [Lipitor] 80 mg PO QHS 10/20/18 Clopidogrel Bisulfate [Plavix] 75 mg PO DAILY 10/20/18 Erythromycin Ophthalmic 1 applicatio EACH EYE QHS 10/20/18 Fluorometholone 1 drop EACH EYE TID 10/20/18 Isosorbide Mononitrate [Imdur] 30 mg PO DAILY 10/20/18 Nitroglycerin [Nitrostat] 0.4 mg SUBLINGUAL Q5M PRN 10/20/18 Ranitidine [Zantac] 150 mg PO BID 10/20/18 Acetaminophen [Tylenol Extra Strength] 1,000 mg PO Q8H PRN PRN #30 tablet 10/21/18 Metoprolol(XL)Succ [Toprol Xl (Beta German)] 12.5 mg PO QHS #0 10/21/18 Following Prescrptions Were Given to Patient: Acetaminophen [Tylenol Extra Strength] 1,000 mg PO Q8H PRN PRN #30 tablet PRN Reason: Pain Primary Care Physician: Jonah Feliz PA [Primary Care Provider] - Please follow up with your Primary Care Physician in: 1 Week Please Follow Up With: Dada Rebolledo DO - Pulmonary, establish for ANTOINETTE When: 2-4 Weeks Please Follow Up With: Gary Alan MD When: 1-2 Weeks Disposition: Home Minutes spent on discharge:: 35 Patient Condition:: Stable Medical Necessity - Tobacco Use Smoking Status: Never smoker Tobacco Use: Non-smoker Meaningful Use Info Meaningful Use Diagnoses (Choose all that apply): None applicable <Paintsil,[place] - Last Filed: 10/21/18 13:46> Discharge Date and Diagnosis - Secondary Discharge Diagnosis Chronic Problems Hyperlipidemia (Chronic) Hypertension (Chronic) Depression (Chronic) CAD (coronary artery disease) (Chronic) Hospital Course and Treatment Imaging Results: 10/21/18 05:55 Nuclear Stress Test - Treadmil [NM] AM (NON MEDS) Summary of Care Provided: The patient is a 43 year old M with past medical history of CAD/[place], hypertension, hyperlipidemia, ANTOINETTE on CPAP who comes in with complaints of chest pain, which comes and goes ongoing for about a week. No associated dizziness or palpitations orthopnea PND or diaphoresis. His admitting EKG was unremarkable without any ST-T changes. He was admitted to a telemetry bed, monitored with his bradycardia noted on telemetry. He had a stress test in the morning that was negative. Physical exam on admission was suggestive of musculoskeletal pain. Patient was managed on Tylenol as needed, and advised to continue his aspirin and Plavix. Follow-up with Dr. Washburn in the outpatient Subjective: The day of discharge, patient complains of slight left sided chest pain, worse with deep palpation. Denied any dizziness or palpitations or shortness of breath - Physical Exam General: Alert, Oriented x3, Cooperative, No apparent distress HEENT: Atraumatic, PERRLA, EOMI, Normocephalic Oral: Moist Mucosa Neck: Supple, No JVD, Negative Carotid Bruits Lungs: Clear to auscultation, Normal air movement Cardiovascular: Regular rate, Regular Rhythm, Normal S1, Normal S2, No murmurs, - - Tenderness over the left anterior chest wall Abdomen: Bowel Sounds Present, Soft, Non Tender, Non-Distended, No Hepato- splenomegaly - on deep palpation Extremities: No edema, Capillary Refill Less than 3 Seconds Skin: No rashes, No breakdown Musculoskeletal: No Tenderness to Palpation of Joints or Extremities Neurological: Cranial nerves II-XII grossly intact, Neuro grossly intact Psych/Mental Status: Normal Affect, Appropriate Vital Signs Temp Pulse Resp BP Pulse Ox 97.6 F L 59 L 16 138/81 H 96 10/21/18 10:00 10/21/18 12:04 10/21/18 10:00 10/21/18 10:00 10/21/18 10:00 Oxygen Flow Rate (L/min) 2 Oxygen Delivery Method Room Air Weight: 107.3 kg Body Mass Index (BMI) 33.9 Intake and Output for Last 24 Hours 10/19/18 10/20/18 10/21/18 23:59 23:59 23:59 Intake Total 200 / 200 450 / 450 Balance 200 / 200 450 / 450 Laboratory Tests Past 24 Hrs 10/20/18 10/20/18 10/20/18 14:34 14:34 14:34 WBC 3.9 L RBC 4.60 Hgb 14.0 Hct 40.3 MCV 87.6 MCH 30.4 MCHC 34.7 RDW 13.2 RDW Differential 42.1 Plt Count 130 L MPV 10.1 Immature Gran % (Auto) 0.000 Neut % (Auto) 50.2 Lymph % (Auto) 36.9 [place] % (Auto) 11.3 H Eos % (Auto) 1.3 Baso % (Auto) 0.3 Absolute Neuts (auto) 2.0 Absolute Lymphs (auto) 1.44 Total Counted Not Reportable PT 13.4 INR 1.0 APTT Sodium 141 Potassium 3.8 Chloride 105 Carbon Dioxide 27.0 Anion Gap 9 BUN 13 Creatinine 1.01 Estim Creat Clear Calc 96.37 Est GFR (MDRD) Af Amer 103 Est GFR (MDRD) Non-Af 85 BUN/Creatinine Ratio 12.9 Glucose 87 Calcium 8.8 Troponin I < 0.015 10/20/18 10/20/18 10/21/18 17:25 20:52 05:30 WBC 3.3 L RBC 4.46 L Hgb 13.6 Hct 39.3 L MCV 88.1 MCH 30.5 MCHC 34.6 RDW 13.1 RDW Differential 41.1 Plt Count 123 L MPV 10.6 Immature Gran % (Auto) 0.300 Neut % (Auto) 49.1 Lymph % (Auto) 35.1 [place] % (Auto) 12.2 H Eos % (Auto) 2.7 Baso % (Auto) 0.6 Absolute Neuts (auto) 1.6 L Absolute Lymphs (auto) 1.15 Total Counted Not Reportable PT INR APTT Sodium Potassium Chloride Carbon Dioxide Anion Gap BUN Creatinine Estim Creat Clear Calc Est GFR (MDRD) Af Amer Est GFR (MDRD) Non-Af BUN/Creatinine Ratio Glucose Calcium Troponin I < 0.015 < 0.015 10/21/18 10/21/18 05:30 05:30 WBC RBC Hgb Hct MCV MCH MCHC RDW RDW Differential Plt Count MPV Immature Gran % (Auto) Neut % (Auto) Lymph % (Auto) [place] % (Auto) Eos % (Auto) Baso % (Auto) Absolute Neuts (auto) Absolute Lymphs (auto) Total Counted PT 14.1 INR 1.1 APTT 27.8 Sodium 141 Potassium 3.7 Chloride 106 Carbon Dioxide 27.0 Anion Gap 8 BUN 10 Creatinine 0.88 Estim Creat Clear Calc 110.61 Est GFR (MDRD) Af Amer 121 Est GFR (MDRD) Non-Af 100 BUN/Creatinine Ratio 11.4 Glucose 90 Calcium 8.8 Troponin I Code Visit OBSV E&M: [id number] Observation care discharge
--- OUTSIDE RECORDS SUMMARY | 2018-12-06 21:47 | XMS RPT_ITS ---
:1975 Author Organization OHIP Care Team Providers Name Role Phone Teresa Pedro Admitting Unavailable Jonah Feliz Primary Care Unavailable Teresa Pedro Consulting Unavailable Teresa Pedro Attending Unavailable Jonah Feliz Primary Care Unavailable Teresa Pedro Admitting Unavailable Paintsil, [place] Attending Unavailable Teresa Pedro Admitting Unavailable Jonah Feliz Primary Care Unavailable Paintsil, [place] Consulting Unavailable Paintsil, [place] Attending Unavailable Durga, Ryan Attending Unavailable Teresa Pedro Referring Unavailable Opheliaisteri, Ryan Attending Unavailable Timmy Torre Referring Unavailable Dada Rebolledo D.O. Attending Unavailable Jonah Feliz Referring Unavailable MONIQUE, GARY E Attending Unavailable MONIQUE, GARY E Referring Unavailable Jonah FELIZ (PA-C) Attending Unavailable MONIQUE, GARY E Attending Unavailable TYE, BIMAL J Attending Unavailable Jonah FELIZ (PA-C) Referring Unavailable MONIQUE, GARY E Attending Unavailable TYE, BIMAL J Referring Unavailable TYE, BIMAL J Attending Unavailable MONIQUE, GARY E Referring Unavailable MONIQUE, GARY E Referring Unavailable MONIQUE, GARY E Referring Unavailable MONIQUE, GARY E Attending Unavailable MONIQUE, GARY E Referring Unavailable MONIQUE, GARY E Referring Unavailable MONIQUE, GARY E Referring Unavailable Jonah FELIZ (EVER-C) Attending Unavailable MONIQUE, GARY E Referring Unavailable Jonah FELIZ (PA-C) Attending Unavailable Jonha FELIZ (PA-C) Referring Unavailable ELVIRA PATRICK (RD) Attending Unavailable MONIQUE, GARY E Referring Unavailable TYE, BIMAL J Attending Unavailable MONIQUE, GARY Attending Unavailable MONIQUE, GARY Referring Unavailable IMCA Primary Care Unavailable MONIQUE, GARY Attending Unavailable MONIQUE, GARY Referring Unavailable MONIQUE, GARY Attending Unavailable IMCA Referring Unavailable [facility] Primary Care Unavailable PROBLEMS PROBLEMS DATE TYPE CONDITION / CODE ATTENDING STATUS SOURCE 12/01/2018 Unknown G47.33 - Obstructive Dada Rebolledo, Active [place] sleep apnea (adult) [facility] G47.33(ICD-10) Repository 11/12/2018 Unknown R07.9 - Chest pain, [place], Active [place] unspecified / [facility] R07.9(ICD-10) Hospital Repository 11/19/2018 Unknown R00.1 - Bradycardia, [place], Active [place] unspecified / [facility] R00.1(ICD-10) Hospital Repository 11/19/2018 Unknown R07.89 - Other chest [place], Active [place] pain / [facility] R07.89(ICD-10) Hospital Repository 11/19/2018 Unknown I10 - Essential [place], Active [place] (primary) [facility] hypertension / Hospital I10(ICD-10) Repository 11/19/2018 Unknown I25.10 - [place], Active [place] Atherosclerotic [facility] heart disease of Hospital big sandy coronary Repository artery without angina pectoris / I25.10(ICD-10) 11/19/2018 Unknown Z95.5 - Presence of [place], Active [place] coronary angioplasty [facility] implant and graft / Hospital Z95.5(ICD-10) Repository 06/16/2018 Active Decreased white NA Active [place] blood cell count, Clinic Main unspecified / [place] D72.819(ICD-10) Repository 06/16/2018 Active Essential (primary) NA Active [place] hypertension / Clinic [facility] I10(ICD-10) [place] Repository 09/19/2017 Active Atherosclerotic NA Active [place] heart disease of [facility] big sandy coronary [place] artery without Repository angina pectoris / I25.10(ICD-10) 05/05/2018 Active Viral wart, NA Active [place] unspecified / Clinic Main B07.9(ICD-10) [place] Repository 12/09/2017 Active Unknown / MONIQUE, Active [place] UNK(Unknown) [facility] Other [place] Repository 12/09/2017 Admitting Unknown / MONIQUE, Active [place] [facility] diagnosis UNK(Unknown) [facility] Repository PROCEDURES PROCEDURES No Procedure Records FoundRESULTS RESULTS PULMONARY VISIT REPORT Observed: 12/01/2018 Status: F Source: [place] 1:39 PM [facility] REPOSITORY [facility] of [address] [place] [address] OFFICE VISIT Date of Service: 12/01/18 MR#: [id number] Acct: [id number] Name: ALLISONHARSHIL Rep #: [id number] : 1975 Provider: Dada Rebolledo D.O. Age/Sex: 43/M [facility] Status: Signed Assessment AND Plan 1. ANTOINETTE (obstructive sleep apnea) G47.33 Plan The patient has known obstructive sleep apnea and is currently prescribed nocturnal CPAP therapy. His current pressure settings are not known. However, despite reporting compliance with the use of nocturnal Pap therapy, he reports residual nonrestorative sleep and daytime hypersomnolence. Therefore, I have recommended that the patient undergo a re-titration polysomnogram. His settings will be updated accordingly upon completion of the test. Orders Orders: 2. CAD (coronary artery disease) I25.10 Plan Continue current medical management. Plan Detail Other Medications New: Follow Up 6 Weeks (DMB) HPI HPI Comments Details: The patient is a 43-year-old male who presents to the clinic today in referral for evaluation of obstructive sleep apnea. The patient reports having been diagnosed with obstructive sleep apnea multitude of years ago. He was previously evaluated by a sleep medicine physician in [place]. He is not able to tell me exactly how long it has been since his last polysomnogram. However, he states that his current CPAP machine was replaced in 2015. He states that he sleeps on average approximately 6 hours nightly. 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 He does report compliance with his currently prescribed nocturnal CPAP therapy. However, despite its use, the patient does report residual nonrestorative sleep and daytime hypersomnolence. His weight has remained relatively stable since his initial diagnostic polysomnogram. The patient is a lifelong non-smoker. His prior DME provider was [facility]. He is currently transitioning to [facility]. He denies fevers, chills or night sweats. He additionally denies the presence of chest pain, dizziness or lightheadedness. Intake Vital Signs12/01/18 Height 5 ft 10 in 12/01/18 Weight: 236 lb 12/01/18 Body Mass Index (BMI) 33.8 Intake Visit Reasons: HOPSITALIZATION SLEEP APNEA Chief Complaint: Chest Pain Real Estate Assessor Required: No Is patient in pain?: No Allergies No Known Allergies Allergy (Verified 12/01/18 13:06) Medications Escitalopram Oxalate [Lexapro] 10 mg PO DAILY 11/09/15 [History Confirmed 12/01/18] Aspirin [Aspirin, Baby] 81 mg PO DAILY@0800 10/20/18 [History Confirmed 12/01/18] Atorvastatin Calcium [Lipitor] 80 mg PO QHS 10/20/18 [History Confirmed 12/01/18] Clopidogrel Bisulfate [Plavix] 75 mg PO DAILY 10/20/18 [History Confirmed 12/01/18] Erythromycin Ophthalmic 1 applicatio EACH EYE QHS 10/20/18 [History Confirmed 12/01/18] Fluorometholone 1 drp EACH EYE TID 10/20/18 [History Confirmed 12/01/18] Isosorbide Mononitrate [Imdur] 30 mg PO DAILY 10/20/18 [History Confirmed 12/01/18] Nitroglycerin [Nitrostat] 0.4 mg SUBLINGUAL Q5M PRN 10/20/18 [History Confirmed 12/01/18] Ranitidine [Zantac] 150 mg PO BID 10/20/18 [History Confirmed 12/01/18] Acetaminophen [Tylenol Extra Strength] 1,000 mg PO Q8H PRN PRN #30 tab 10/21/18 [Rx Confirmed 12/01/18] Metoprolol(XL)Succ [Toprol Xl (Beta Cassidy)] 12.5 mg PO QHS #0 10/21/18 [Rx Confirmed 12/01/18] Lactobacillus acidophilus capsule 10,000 mmu cells PO DAILY 12/01/18 [History Confirmed 12/01/18] clotrimazole-betamethasone 1 %-0.05 % topical cream 1 applic TOPICAL HS g 12/01/18 [History Confirmed 12/01/18] melatonin 10 mg capsule 20 mg PO HS cap 12/01/18 [History Confirmed 12/01/18] nystatin 100,000 unit/gram topical cream 1 applic TOPICAL BID 12/01/18 [History Confirmed 12/01/18] PFSH Family History Father ALL (acute lymphoblastic leukemia) Arthritis Glaucoma Mother Tachycardia Sister Thyroid disorder Social History household members: significant other housing: house 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, [employer] pets and animals: No Smoking Status: Never smoker second hand exposure: No alcohol intake: current alcohol intake frequency: a few times a week Alcohol type: hard liquor, beer substance use type: does not use Review of Systems Const CONSTITUTIONAL: Negative anorexia, body ache, chills, daytime sleepiness, fever(s), night sweats, oral thrush, stops breathing during sleep, weight loss, sleeping in chair, fatigue, weight loss, weight gain, frequent colds, seasonal allergies, other, orthopnea or headache(s) EETM Ear Nose Throat Mouth: Positive hearing normal; negative hoarseness, dry mouth in morning, change in vision, itchy eyes, eye pain, swallowing Difficulty, ear pain, nose bleed, headache(s), mouth pain, nasal congestion, nasal discharge, post nasal drip, sinus pain, sinus pressure, sore throat, other or hard of hearing Cardio Cardiovascular: Negative chest pain, chest pain at rest, chest pain with activity, irregular heart rhythm, edema, shortness of breath when lying down, palpitations, murmur or other Resp Respiratory: Positive as per HPI and shortness of breath shortness of breath: Positive with activity; negative pain with cough, wheezing, chest congestion, cough, chest tightness, pain on inspiration, inhalers, increase use of rescue inhalers, snoring, apnea or other Gastro Gastrointestional: Negative bloody stools, change in appetite, difficulty swallowing, reflux, hematemesis, melena stool, loose stool, constipation or other Genitourinary: Negative blood in urine, nocturia, pain with urination or other Musc Musculoskeletal: Negative body pain, back pain, neck pain or other Skin/Breast Skin/Breast: Negative dry skin, itching, rash, unusual bruising, breast lump or other Neuro Neurological: Negative restless legs, confusion, weakness or other Psych Psychocological: Negative abnormal sleep pattern, anxiety, thoughts of hurting self/others, hopelessness or other Lymph Lymphatic: Negative easy bleeding, easy bruising, swollen lymph nodes or other Exam Const Constitutional: Positive cooperative, in no acute respiratory distress, well developed, well nourished, good hygiene, obese and conversant Head Head: Positive normocephalic and atraumatic; negative cyanosis of lips/distal nose Eyes Eye: Positive clear conjunctiva; negative nystagmus or scleral abnormality Ears Ear: Positive external ears normal and hearing normal; negative hard of hearing Nose Nose: Positive external nose normal; negative epistaxis Mouth Mouth: Positive oral mucosae normal and posterior oropharynx is adequate; negative no lesions or post nasal drip Mallampati Score: II: Mallampati Score Neck Neck: Positive normal visual inspection and trachea midline; negative lymphadenopathy Chest Wall Chest: Positive symmetric chest movement Normal AP diameter. Resp lung sounds: Positive clear to auscultation and good air exchange; negative wheezes, rhonchi or rales Cardio Cardiac: Positive regular rate, regular rhythm, S1 normal and S2 normal; negative rub, gallop or murmur GI GI: Positive normal bowel sounds and obese Soft without distention Genitourinary: Positive deferred Musc Musculoskeletal: Positive steady gait Skin Pulmonary Skin Exam: Positive intact; negative lesion, ulcers, dermal atrophy or rash Pulses Pulse: Yes Pedal pulses present: Extremities Extremities: No clubbing, No cyanosis, No edema Neuro Neurologic: Yes no focal neuro deficits, Yes cooperative, Yes conversant Lymph Lymphatic: No lymphadenopathy Psych Appearance: Positive grossly normal Mental Status: Positive mental status grossly normal Mood: Positive congruent mood Affect: Positive normal affect Coding Level of Care Code Off vis,new,level 4 Diagnoses ANTOINETTE (obstructive sleep apnea) G47.33 CAD (coronary artery disease) I25.10 12/01/18 1339 <Electronically signed by Dada Rebolledo DO> Date Dada Rebolledo DO Cosigner Signature: Date (if applicable) CC: Jonah Feliz OBSOLETRichard Observed: 12/01/2018 Status: COMPLETED Source: [place] 12:00 AM [facility] Refill (CAWSTR) HARSHIL ALLISON ([id number]) 1975 M Date Time Provider Department 12/01/18 GARY AMAYA During your visit today, we recorded the following information about you: Allergies As of Date: 12/01/2018 Noted Allergy Reaction SEASONAL ALLERGIES 07/29/2018 14 - Other: See Comments Comments: Sneezing, runny nose Date Reviewed: 10/27/2018 Reviewed by: Britney Romero Ma - Fully Assessed Reason for Visit: Refill Request [94] Order(s):isosorbide mononitrate ER (IMDUR) 30 mg 24 hr tabletTAKE 1 TABLET BY MOUTH EVERY DAYDisp: 90 tabletRfl: 3 metoprolol succinate ER (TOPROL XL) 25 mg 24 hr tabletTAKE 1 TABLET EVERY DAYDisp: 90 tabletRfl: 3 Prescriptions as of 12/01/2018 Sig: ISOSORBIDE MONONITRATE ER 30 * TAKE 1 TABLET BY MOUTH EVERY * METOPROLOL SUCCINATE ER 25 MG* TAKE 1 TABLET EVERY DAY FLUOROMETHOLONE 0.1 % EYE REBEL* Use 1 Drop in both eyes three* NYSTATIN 100,000 UNIT/GRAM TO* Apply 1 application to affect* ATORVASTATIN 80 MG TABLET Take 1 tablet by mouth once d* CLOPIDOGREL 75 MG TABLET TAKE 1 TABLET EVERY DAY ESCITALOPRAM 10 MG TABLET Take 1 tablet by mouth once d* FLUTICASONE 50 MCG/ACTUATION * Use 2 Sprays in each nostril * LORATADINE 10 MG TABLET Take 1 tablet by mouth once d* MELATONIN 10 MG DISINTEGRATIN* Take 1 tablet by mouth daily * ACETAMINOPHEN 500 MG TABLET Take 1,000 mg by mouth every * CLOTRIMAZOLE-BETAMETHASONE 1 * Apply 1 application to affect* ATORVASTATIN 80 MG TABLET Take 1 tablet by mouth once d* ASPIRIN 81 MG CHEWABLE TABLET Take 81 mg by mouth once danni* RANITIDINE 150 MG TABLET Take 150 mg by mouth twice da* NITROGLYCERIN 0.4 MG SUBLINGU* Dissolve 0.4 mg under the ton* Problem List As Of Date 12/01/2018 Noted Resolved Coronary artery disease involving big sandy [place]*INVALID FOR* More... Depression, major [F32.9] INVALID FOR* Eczema [L30.9] INVALID FOR* GERD without esophagitis [K21.9] INVALID FOR* ANTOINETTE (obstructive sleep apnea) [G47.33] INVALID FOR* CPAP (continuous positive airway pressure) depe*INVALID FOR* Hypertension, essential [I10] INVALID FOR* Chronic neck and back pain [M54.2, M54.9, G89.2*INVALID FOR* Prescriptions ordered this encounter Disp Refills Start End ISOSORBIDE MONONITRATE ER 30 MG TABL* 90 t* 3 12/01/2018 Cmt: Med-sync patient. IF TOO SOON, WE WILL PUT NEW RX ON HOLD FOR NEXT CYCLE. Sig: TAKE 1 TABLET BY MOUTH EVERY DAY METOPROLOL SUCCINATE ER 25 MG TABLET* 90 t* 3 12/01/2018 Cmt: Med-sync patient. IF TOO SOON, WE WILL PUT NEW RX ON HOLD FOR NEXT CYCLE. Sig: TAKE 1 TABLET EVERY DAY Medications Discontinued During This Encounter isosorbide mononitrate ER (IMDUR) 30* 30 t* 6 05/22/2018 12/01/2018 Route: ORAL Sig: Take 1 tablet by mouth once daily. Disc: Reason for discontinue is not on file. metoprolol succinate ER (TOPROL XL) * 90 t* 3 12/09/2017 12/01/2018 Route: ORAL Sig: Take 1 tablet by mouth once daily. Disc: Reason for discontinue is not on file. Encounter Status:Closed by DIMITRI MORRISON MA on 12/01/18 PROGRESS Observed: 10/27/2018 Status: COMPLETED Source: [place] 1:29 PM [facility] O ID: [id number] Author: Bimal Yepez Service: (none) Author Type: Physician Type: Progress Notes Filed: 10/27/2018 3:32 PM Note Text: No chief complaint on file. HPI: Patient presents today for office visit for hospital follow up(not TCM) Nursing Notes: Britney Romero Ma 10/27/2018 1:27 PM Unsigned HOSPITAL/ER FOLLOW UP: Reason for visit: chest pain , x 2 weeks Which facility: [facility] Date of visit: 10/20/18 -10/21/18 Diagnosis: Musculoskeletal chest pain Testing done: chest xray, stress test, labs Treatment given: none Current symptoms: still currently with chest pain. DERM: Rash in groin area. 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 No OTC creams used this time. Has has this in the past and antifungal helped. White count was minimally decreased at 3.9. They suggested he have him follow up with Dada Rebolledo for ANTOINETTE and Dr. Amaya. Chest pain hurts when moving. Has a stressful job. No trauma. No cough or fever or chills. Has occasional heartburn but does take ranitidine. Still using cpap. Sees Dr. Rebolledo on 12/01. Has a wart on left hand. Discussed using compound w. Component Latest Ref Rng AND Units 05/05/2018 06/16/2018 WBC 3.70 - 11.00 k/uL 3.45 (L) 3.78 RBC 4.20 - 6.00 m/uL 4.49 4.61 Hemoglobin 13.0 - 17.0 g/dL 13.5 14.0 Hematocrit 39.0 - 51.0 % 40.2 41.0 MCV 80.0 - 100.0 fL 89.5 88.9 MCH 26.0 - 34.0 pG 30.1 30.4 MCHC 30.5 - 36.0 g/dL 33.6 34.1 RDW-CV 11.5 - 15.0 % 14.1 13.3 Platelet Count 150 - 400 k/uL 160 138 (L) MPV 9.0 - 12.7 fL 11.2 11.7 Neut% % 52.2 48.7 Abs Neut (ANC) 1.45 - 7.50 k/uL 1.79 1.84 Lymph% % 33.0 35.2 Abs Lymph 1.00 - 4.00 k/uL 1.14 1.33 [place]% % 12.2 12.7 Abs [place] <0.87 k/uL 0.42 0.48 Eosin% % 2.0 2.6 Abs Eosin <0.46 k/uL 0.07 0.10 Baso% % 0.6 0.8 Abs Baso <0.11 k/uL <0.03 0.03 Nucleated Reds 0 /100 WBC 0.0 0.0 Absolute nRBC <0.01 k/uL <0.01 <0.01 Diff Type Auto Diff Auto Diff Protein, Total 6.3 - 8.0 g/dL 7.5 Albumin 3.9 - 4.9 g/dL 4.1 Calcium 8.5 - 10.2 mg/dL 9.2 Bilirubin, Total 0.2 - 1.3 mg/dL 0.4 Alkaline Phosphatase 36 - 108 U/L 73 AST 14 - 40 U/L 36 Glucose 74 - 99 mg/dL 93 BUN 9 - 24 mg/dL 8 (L) Creatinine 0.73 - 1.22 mg/dL 0.88 Sodium 136 - 144 mmol/L 140 Potassium 3.7 - 5.1 mmol/L 4.3 Chloride 97 - 105 mmol/L 103 CO2 22 - 30 mmol/L 25 Anion Gap 9 - 18 mmol/L 12 ALT 10 - 54 U/L 36 eGFR- >60 eGFR-All Other Races . >60 Cholesterol, Total <200 mg/dL 104 Triglyceride <150 mg/dL 72 HDL Cholesterol >39 mg/dL 43 LDL Cholesterol <100 mg/dL 47 Non HDL Cholesterol <130 mg/dL 61 Fasting Time hrs 10 VLDL Cholesterol <30 mg/dL 14 TC:HDL Ratio <5.10 2.42 LDL:HDL Ratio <2.54 1.09 MEDICATIONS: Current Outpatient Prescriptions: aspirin 81 mg chewable tablet Take 81 mg by mouth once daily. atorvastatin (LIPITOR) 80 mg tablet Take 1 tablet by mouth once daily. clopidogrel (PLAVIX) 75 mg tablet TAKE 1 TABLET EVERY DAY escitalopram oxalate (LEXAPRO) 10 mg tablet Take 1 tablet by mouth once daily. fluticasone (FLONASE) 50 mcg/actuation nasal spray Use 2 Sprays in each nostril once daily. Rinse mouth after use. isosorbide mononitrate ER (IMDUR) 30 mg 24 hr tablet Take 1 tablet by mouth once daily. loratadine (CLARITIN) 10 mg tablet Take 1 tablet by mouth once daily. melatonin 10 mg ODT Take 1 tablet by mouth daily at bedtime. metoprolol succinate ER (TOPROL XL) 25 mg 24 hr tablet Take 1 tablet by mouth once daily. ranitidine (ZANTAC) 150 mg tablet Take 150 mg by mouth twice daily. acetaminophen (TYLENOL EXTRA STRENGTH) 500 mg tablet Take 1,000 mg by mouth every 8 hours as needed. atorvastatin (LIPITOR) 80 mg tablet Take 1 tablet by mouth once daily. clotrimazole-betamethasone (LOTRISONE) cream Apply 1 application to affected area twice daily. UNTIL CLEAR FOR UP TO 2-3 WEEKS fluorometholone (FML LIQUID FILM) 0.1 % ophthalmic suspension Use 1 Drop in both eyes three times daily. nitroglycerin sublingual (NITROQUICK) 0.4 mg SL tablet Dissolve 0.4 mg under the tongue every 5 minutes as needed. No current facility-administered medications for this visit. ALLERGIES: ALLERGIES Allergen Reactions - Seasonal Allergies Other: See Comments Sneezing, runny nose PAST MEDICAL HISTORY Diagnosis Date - GERD (gastroesophageal reflux disease) - STEMI (ST elevation myocardial infarction) ([facility]) 06/2017 PAST SURGICAL HISTORY Procedure Laterality Date - SEPTOPLASTY 2007 Turbinate Reduction FAMILY HISTORY Problem Relation Age of Onset - Heart Mother irregular heart - Hypertension Mother - Hyperlipidemia Mother - Hypertension Father - Glaucoma Father - other (Other) Father AML in remission - Thyroid Sister Social History Marital status: Spouse name: Years of education: Number of children: 4 Social History Main Topics Smoking status: Former Smoker Packs/day: 0.00 Years: 0.00 Types: Cigars Smokeless tobacco: Never Used Comment: rare use Alcohol use: Yes Comment: occasional: beer mixed drinks weekends Drug use: No Sexual activity: Yes Partners with: Female control/protection: Condom Social History Narrative Watch sports, Gro, JumpSoft, 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 REVIEW OF SYSTEMS : No history of dysuria, frequency or incontinence All other reviewed and negative other than HPI. HEALTH MAINTENANCE: Reviewed health maintenance issues today and recommended the following in detail. There are no preventive care reminders to display for this patient. VITALS: BP 122/68 Pulse 64 Resp 16 Wt 107.3 kg (236 lb 9.6 oz) BMI 33.23 kg/m? Last 4 Encounter Wt Readings: Date: Wt: 10/27/2018 107.3 kg (236 lb 9.6 oz) 09/01/2018 109.3 kg (241 lb) 09/01/2018 110.7 kg (244 lb) 07/29/2018 104.8 kg (231 lb) PHYSICAL EXAMINATION: General appearance: Well appearing, alert, in no acute distress, well-hydrated, well nourished. Skin: red fungal appearing rash. Small wart on hand-discussed otc treatment. Head: Normocephalic, no masses, lesions, tenderness or abnormalities Lungs: lungs clear to auscultation. No wheezing, rhonchi, rales Heart: RRR without murmur, gallop, or rubs. No ectopy Abdomen: Normal abdominal exam, Abdomen soft, non-tender. Bowel sounds normal. No masses, organomegaly Extremities: No deformities, edema, skin discoloration, clubbing or cyanosis. Good capillary refill. Musculoskeletal: No joint swelling, deformity, or tenderness Chest wall tenderness. ASSESSMENT/PLAN: 1. Chest pain, unspecified type - ICD9: 786.50, ICD10: R07.9 (primary diagnosis) - appears musculoskeletal. - tylenol prn, ice - consider physical therapy if persists. 2. Hypertension, essential - ICD9: 401.9, ICD10: I10 - good control - Continue current medication(s) - Goal of BP <130/80 3. Coronary artery disease involving big sandy coronary artery of big sandy heart without angina pectoris - ICD9: 414.01, ICD10: I25.10 - call if any issues. 4. ANTOINETTE (obstructive sleep apnea) - ICD9: 327.23, ICD10: G47.33 - stable. 5. CPAP (continuous positive airway pressure) dependence - ICD9: V46.8, ICD10: Z99.89 See pulm 6. Tinea cruris - ICD9: 110.3, ICD10: B35.6 Call if any issues. - NYSTATIN 100,000 UNIT/GRAM TOPICAL CREAM 7. Leukopenia, unspecified type - ICD9: 288.50, ICD10: D72.819 - recheck labs. - CBC + DIFF Bimal Yepez MD CNOV Observed: 10/27/2018 Status: COMPLETED Source: [place] 12:00 PM [facility] Office Visit (FAMPWS) HARSHIL ALLISON ([id number]) 1975 M Date Time Provider Department 10/27/18 12:00 PM BIMAL YEPEZ FAMPWS During your visit today, we recorded the following information about you: Pulse Respiration Blood pressure Weight 64/minute 16/minute 122/68 107.3 kg Britney Romero Ma 10/27/2018 1:35 PM Signed HOSPITAL/ER FOLLOW UP: Reason for visit: chest pain , x 2 weeks Which facility: [facility] Date of visit: 10/20/18 -10/21/18 Diagnosis: Musculoskeletal chest pain Testing done: chest xray, stress test, labs Treatment given: none Current symptoms: still currently with chest pain. DERM: Rash in groin area. 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 No OTC creams used this time. Has has this in the past and antifungal helped. Bimal Yepez MD 10/27/2018 3:32 PM Signed No chief complaint on file. HPI: Patient presents today for office visit for hospital follow up(not TCM) Nursing Notes: Britney Danielletaiwo Quinn 10/27/2018 1:27 PM Unsigned HOSPITAL/ER FOLLOW UP: Reason for visit: chest pain , x 2 weeks Which facility: [facility] Date of visit: 10/20/18 -10/21/18 Diagnosis: Musculoskeletal chest pain Testing done: chest xray, stress test, labs Treatment given: none Current symptoms: still currently with chest pain. DERM: Rash in groin area. 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 No OTC creams used this time. Has has this in the past and antifungal helped. White count was minimally decreased at 3.9. They suggested he have him follow up with Dada Rebolledo for ANTOINETTE and Dr. Amaya. Chest pain hurts when moving. Has a stressful job. No trauma. No cough or fever or chills. Has occasional heartburn but does take ranitidine. Still using cpap. Sees Dr. Rebolledo on 12/01. Has a wart on left hand. Discussed using compound w. Component Latest Ref Rng AND Units 05/05/2018 06/16/2018 WBC 3.70 - 11.00 k/uL 3.45 (L) 3.78 RBC 4.20 - 6.00 m/uL 4.49 4.61 Hemoglobin 13.0 - 17.0 g/dL 13.5 14.0 Hematocrit 39.0 - 51.0 % 40.2 41.0 MCV 80.0 - 100.0 fL 89.5 88.9 MCH 26.0 - 34.0 pG 30.1 30.4 MCHC 30.5 - 36.0 g/dL 33.6 34.1 RDW-CV 11.5 - 15.0 % 14.1 13.3 Platelet Count 150 - 400 k/uL 160 138 (L) MPV 9.0 - 12.7 fL 11.2 11.7 Neut% % 52.2 48.7 Abs Neut (ANC) 1.45 - 7.50 k/uL 1.79 1.84 Lymph% % 33.0 35.2 Abs Lymph 1.00 - 4.00 k/uL 1.14 1.33 [place]% % 12.2 12.7 Abs [place] <0.87 k/uL 0.42 0.48 Eosin% % 2.0 2.6 Abs Eosin <0.46 k/uL 0.07 0.10 Baso% % 0.6 0.8 Abs Baso <0.11 k/uL <0.03 0.03 Nucleated Reds 0 /100 WBC 0.0 0.0 Absolute nRBC <0.01 k/uL <0.01 <0.01 Diff Type Auto Diff Auto Diff Protein, Total 6.3 - 8.0 g/dL 7.5 Albumin 3.9 - 4.9 g/dL 4.1 Calcium 8.5 - 10.2 mg/dL 9.2 Bilirubin, Total 0.2 - 1.3 mg/dL 0.4 Alkaline Phosphatase 36 - 108 U/L 73 AST 14 - 40 U/L 36 Glucose 74 - 99 mg/dL 93 BUN 9 - 24 mg/dL 8 (L) Creatinine 0.73 - 1.22 mg/dL 0.88 Sodium 136 - 144 mmol/L 140 Potassium 3.7 - 5.1 mmol/L 4.3 Chloride 97 - 105 mmol/L 103 CO2 22 - 30 mmol/L 25 Anion Gap 9 - 18 mmol/L 12 ALT 10 - 54 U/L 36 eGFR- >60 eGFR-All Other Races . >60 Cholesterol, Total <200 mg/dL 104 Triglyceride <150 mg/dL 72 HDL Cholesterol >39 mg/dL 43 LDL Cholesterol <100 mg/dL 47 Non HDL Cholesterol <130 mg/dL 61 Fasting Time hrs 10 VLDL Cholesterol <30 mg/dL 14 TC:HDL Ratio <5.10 2.42 LDL:HDL Ratio <2.54 1.09 MEDICATIONS: Current Outpatient Prescriptions: aspirin 81 mg chewable tablet Take 81 mg by mouth once daily. atorvastatin (LIPITOR) 80 mg tablet Take 1 tablet by mouth once daily. clopidogrel (PLAVIX) 75 mg tablet TAKE 1 TABLET EVERY DAY escitalopram oxalate (LEXAPRO) 10 mg tablet Take 1 tablet by mouth once daily. fluticasone (FLONASE) 50 mcg/actuation nasal spray Use 2 Sprays in each nostril once daily. Rinse mouth after use. isosorbide mononitrate ER (IMDUR) 30 mg 24 hr tablet Take 1 tablet by mouth once daily. loratadine (CLARITIN) 10 mg tablet Take 1 tablet by mouth once daily. melatonin 10 mg ODT Take 1 tablet by mouth daily at bedtime. metoprolol succinate ER (TOPROL XL) 25 mg 24 hr tablet Take 1 tablet by mouth once daily. ranitidine (ZANTAC) 150 mg tablet Take 150 mg by mouth twice daily. acetaminophen (TYLENOL EXTRA STRENGTH) 500 mg tablet Take 1,000 mg by mouth every 8 hours as needed. atorvastatin (LIPITOR) 80 mg tablet Take 1 tablet by mouth once daily. clotrimazole-betamethasone (LOTRISONE) cream Apply 1 application to affected area twice daily. UNTIL CLEAR FOR UP TO 2-3 WEEKS fluorometholone (FML LIQUID FILM) 0.1 % ophthalmic suspension Use 1 Drop in both eyes three times daily. nitroglycerin sublingual (NITROQUICK) 0.4 mg SL tablet Dissolve 0.4 mg under the tongue every 5 minutes as needed. No current facility-administered medications for this visit. ALLERGIES: ALLERGIES Allergen Reactions - Seasonal Allergies Other: See Comments Sneezing, runny nose PAST MEDICAL HISTORY Diagnosis Date - GERD (gastroesophageal reflux disease) - STEMI (ST elevation myocardial infarction) ([facility]) 06/2017 PAST SURGICAL HISTORY Procedure Laterality Date - SEPTOPLASTY 2007 Turbinate Reduction FAMILY HISTORY Problem Relation Age of Onset - Heart Mother irregular heart - Hypertension Mother - Hyperlipidemia Mother - Hypertension Father - Glaucoma Father - other (Other) Father AML in remission - Thyroid Sister Social History Marital status: Spouse name: Years of education: Number of children: 4 Social History Main Topics Smoking status: Former Smoker Packs/day: 0.00 Years: 0.00 Types: Cigars Smokeless tobacco: Never Used Comment: rare use Alcohol use: Yes Comment: occasional: beer mixed drinks weekends Drug use: No Sexual activity: Yes Partners with: Female control/protection: Condom Social History Narrative Watch 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 REVIEW OF SYSTEMS : No history of dysuria, frequency or incontinence All other reviewed and negative other than HPI. HEALTH MAINTENANCE: Reviewed health maintenance issues today and recommended the following in detail. There are no preventive care reminders to display for this patient. VITALS: BP 122/68 Pulse 64 Resp 16 Wt 107.3 kg (236 lb 9.6 oz) BMI 33.23 kg/m? Last 4 Encounter Wt Readings: Date: Wt: 10/27/2018 107.3 kg (236 lb 9.6 oz) 09/01/2018 109.3 kg (241 lb) 09/01/2018 110.7 kg (244 lb) 07/29/2018 104.8 kg (231 lb) PHYSICAL EXAMINATION: General appearance: Well appearing, alert, in no acute distress, well-hydrated, well nourished. Skin: red fungal appearing rash. Small wart on hand-discussed otc treatment. Head: Normocephalic, no masses, lesions, tenderness or abnormalities Lungs: lungs clear to auscultation. No wheezing, rhonchi, rales Heart: RRR without murmur, gallop, or rubs. No ectopy Abdomen: Normal abdominal exam, Abdomen soft, non-tender. Bowel sounds normal. No masses, organomegaly Extremities: No deformities, edema, skin discoloration, clubbing or cyanosis. Good capillary refill. Musculoskeletal: No joint swelling, deformity, or tenderness Chest wall tenderness. ASSESSMENT/PLAN: 1. Chest pain, unspecified type - ICD9: 786.50, ICD10: R07.9 (primary diagnosis) - appears musculoskeletal. - tylenol prn, ice - consider physical therapy if persists. 2. Hypertension, essential - ICD9: 401.9, ICD10: I10 - good control - Continue current medication(s) - Goal of BP <130/80 3. Coronary artery disease involving big sandy coronary artery of big sandy heart without angina pectoris - ICD9: 414.01, ICD10: I25.10 - call if any issues. 4. ANTOINETTE (obstructive sleep apnea) - ICD9: 327.23, ICD10: G47.33 - stable. 5. CPAP (continuous positive airway pressure) dependence - ICD9: V46.8, ICD10: Z99.89 See pulm 6. Tinea cruris - ICD9: 110.3, ICD10: B35.6 Call if any issues. - NYSTATIN 100,000 UNIT/GRAM TOPICAL CREAM 7. Leukopenia, unspecified type - ICD9: 288.50, ICD10: D72.819 - recheck labs. - CBC + DIFF Bimal Yepez MD Referring Provider: SELF [[id number]] Allergies As of Date: 10/27/2018 Noted Allergy Reaction SEASONAL ALLERGIES 07/29/2018 14 - Other: See Comments Comments: Sneezing, runny nose Date Reviewed: 10/27/2018 Reviewed by: Britney Romero Ma - Fully Assessed Primary Visit Diagnosis:Chest pain, unspecified type [R07.9] Other Visit Diagnoses:Hypertension, essential [I10] Coronary artery disease involving big sandy coronary artery of big sandy heart without angina pectoris [I25.10] ANTOINETTE (obstructive sleep apnea) [G47.33] CPAP (continuous positive airway pressure) dependence [Z99.89] Tinea cruris [B35.6] Leukopenia, unspecified type [D72.819] Order(s):CBC + DIFF [SQCBCDIF] Order #: [id number] FUTURE nystatin (MYCOSTATIN) creamApply 1 application to affected area twice daily.Disp: 45 gRfl: 0 Prescriptions as of 10/27/2018 Sig: ASPIRIN 81 MG CHEWABLE TABLET Take 81 mg by mouth once danni* ATORVASTATIN 80 MG TABLET Take 1 tablet by mouth once d* CLOPIDOGREL 75 MG TABLET TAKE 1 TABLET EVERY DAY ESCITALOPRAM 10 MG TABLET Take 1 tablet by mouth once d* FLUTICASONE 50 MCG/ACTUATION * Use 2 Sprays in each nostril * ISOSORBIDE MONONITRATE ER 30 * Take 1 tablet by mouth once d* LORATADINE 10 MG TABLET Take 1 tablet by mouth once d* MELATONIN 10 MG DISINTEGRATIN* Take 1 tablet by mouth daily * METOPROLOL SUCCINATE ER 25 MG* Take 1 tablet by mouth once d* RANITIDINE 150 MG TABLET Take 150 mg by mouth twice da* ACETAMINOPHEN 500 MG TABLET Take 1,000 mg by mouth every * ATORVASTATIN 80 MG TABLET Take 1 tablet by mouth once d* CLOTRIMAZOLE-BETAMETHASONE 1 * Apply 1 application to affect* FLUOROMETHOLONE 0.1 % EYE REBEL* Use 1 Drop in both eyes three* NITROGLYCERIN 0.4 MG SUBLINGU* Dissolve 0.4 mg under the ton* NYSTATIN 100,000 UNIT/GRAM TO* Apply 1 application to affect* Problem List As Of Date 10/27/2018 Noted Resolved Coronary artery disease involving big sandy talbert*INVALID FOR* More... Depression, major [F32.9] INVALID FOR* Eczema [L30.9] INVALID FOR* GERD without esophagitis [K21.9] INVALID FOR* ANTOINETTE (obstructive sleep apnea) [G47.33] INVALID FOR* CPAP (continuous positive airway pressure) depe*INVALID FOR* Hypertension, essential [I10] INVALID FOR* Chronic neck and back pain [M54.2, M54.9, G89.2*INVALID FOR* Visit Notes: >> Britney Romero Ma [facility] Oct 27, 2018 1:18 PM Status: Signed HOSPITAL/ER FOLLOW UP: Reason for visit: chest pain , x 2 weeks Which facility: [facility] Date of visit: 10/20/18 -10/21/18 Diagnosis: Musculoskeletal chest pain Testing done: chest xray, stress test, labs Treatment given: none Current symptoms: still currently with chest pain. DERM: Rash in groin area. 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 No OTC creams used this time. Has has this in the past and antifungal helped. Prescriptions ordered this encounter Disp Refills Start End NYSTATIN 100,000 UNIT/GRAM TOPICAL C* 45 g 0 10/27/2018 Route: TOPICAL Sig: Apply 1 application to affected area twice daily. Disposition: Return if symptoms worsen or fail to improve. Follow-up and Disposition History Recorded Letter Text [facility] [address] [place], [place] [address] Harshil Allison [address] [place], [place] [id number] Clinic #: [id number] 10/27/2018 Patient was seen in the office today Sincerely: Bimal Yepez MD Encounter Status:Closed by BIMAL YEPEZ MD on 10/27/18 12 LEAD ELECTROCARDIOGRAM Observed: 10/24/2018 Status: F Source: [place] 11:42 AM [facility] Cardiovascular Services [address] [place] [address] 12 Lead EKG 10/20/18 1722 MR#: [id number] Acct: [id number] Name: HARSHIL ALLISON Rep #: [id number] : 1975 43 From: Ryan Cornelius MD Attending Dr: Ruth Nicholas MD Status: DIS MOHSEN Ordering Dr: Jonah Pedro DO Date: 10/20/18 Location: [facility] Sex: M C Admitted: 10/20/18 Test Reason : CP ADMISSION Blood Pressure : / mmHG Vent. Rate : 047 BPM Atrial Rate : 047 BPM P-R Int : 134 ms QRS Dur : 090 ms QT Int : 452 ms P-R-T Axes : 058 030 016 degrees QTc Int : 400 ms Sinus bradycardia Confirmed by RYAN CORNELIUS MD ([id number]), editor in chief newspaper SUGEY CHANG ([id number]) on 10/24/2018 11:42:25 AM Referred By: RASHID Confirmed By:RYAN CORNELIUS MD 10/24/18 1142 Date Ryan Cornelius MD CC: Jonah Feliz; Ruth Nicholas MD; Teresa Pedro Signed 12 LEAD ELECTROCARDIOGRAM Observed: 10/24/2018 Status: F Source: [place] 11:30 AM [facility] Cardiovascular Services [address] [place] [address] 12 Lead EKG 10/21/18 0533 MR#: [id number] Acct: [id number] Name: HARSHIL ALLISON Rep #: [id number] : 1975 43 From: Ryan Cornelius MD Attending Dr: Ruth Nicholas MD Status: DIS MOHSEN Ordering Dr: Jonah Pedro DO Date: 10/21/18 Location: [facility] Sex: M C Admitted: 10/20/18 Test Reason : AM EKG Blood Pressure : / mmHG Vent. Rate : 054 BPM Atrial Rate : 054 BPM P-R Int : 138 ms QRS Dur : 092 ms QT Int : 438 ms P-R-T Axes : 070 041 003 degrees QTc Int : 415 ms Sinus bradycardia Confirmed by RYAN CORNELIUS MD ([id number]), editor in chief newspaper SUGEY CHANG ([id number]) on 10/24/2018 11:30:14 AM Referred By: DR PEDRO Confirmed By:RYAN CORNELIUS MD 10/24/18 1130 Date Ryan Cornelius MD CC: Jonah Feliz; Ruth Nicholas MD; Teresa Pedro Signed 12 LEAD ELECTROCARDIOGRAM Observed: 10/24/2018 Status: F Source: [place] 10:42 AM [facility] Cardiovascular Services [address] [address] 12 Lead EKG 10/20/18 1423 MR#: [id number] Acct: [id number] Name: HARSHIL ALLISON Rep #: [id number] : 1975 43 From: Cuate Massey MD Attending Dr: Ruth Nicholas MD Status: DIS MOHSEN Ordering Dr: Provider,Ed P. Date: 10/20/18 Location: [facility] Sex: M C Admitted: 10/20/18 Test Reason : CHEST PAIN Blood Pressure : / mmHG Vent. Rate : 057 BPM Atrial Rate : 057 BPM P-R Int : 132 ms QRS Dur : 094 ms QT Int : 410 ms P-R-T Axes : 056 041 036 degrees QTc Int : 399 ms Sinus bradycardia Otherwise normal ECG Confirmed by VIK VINCENT, CUATE ([id number]), editor in chief newspaper SUGEY CHANG ([id number]) on 10/24/2018 10:42:28 AM Referred By: LD Confirmed By:CUATE MASSEY MD 10/24/18 1042 Date Cuate Massey MD CC: oJnah Feliz; Ruth Nicholas MD; ED PHYSICIAN PROVIDER Signed DISCHARGE SUMMARY Observed: 10/21/2018 Status: F Source: [place] 1:46 PM [facility] Medical Records Department [address] [place] [address] Discharge Summary 10/21/18 1215 MR#: [id number] Acct: [id number] Name: HARSHIL ALLISON Rep #: [id number] : 1975 43 From: Ade PACKC PCP: Jonah Feliz Status: DIS MOHSEN Y [id number] <Ade Melgoza - Last Filed: 10/21/18 12:22> Discharge Date and Diagnosis Date of Admission: 10/20/18 Date of Discharge: 10/21/18 - Primary Discharge Diagnosis 1. Musculoskeletal chest pain 2. CAD with history of PCI/prior SC 3. Hypertension 4. Hyperlipidemia 5. Depression 6. GERD - Secondary Discharge Diagnosis Chronic Problems Hyperlipidemia (Chronic) Hypertension (Chronic) Depression (Chronic) CAD (coronary artery disease) (Chronic) Hospital Course and Treatment Imaging Results: Diagnostic Data Chest X-Ray 10/20/18 14:24 IMPRESSION: Normal x-ray examination of the chest. Electronically Signed: Irvin Schumacher MD at 15:10 EST Tel [phone], Service support , Operations: None Procedures: Stress test Summary of Care Provided: The patient is a 43 year old M admitted 10/20/2018 due to chest pain. 1. Musculoskeletal chest pain-pain reproducible with movement of head/neck and arms. ACS ruled out. EKG sinus bradycardia without ST-T changes. Troponin negative. Trend enzymes. Patient underwent nuclear stress test which was negative for ischemia. Discharge on Tylenol 1,000mg every 8 hours as needed for pain. Follow-up with primary care physician 1 week. Follow-up with primary developer advisor, Dr. Washburn [facility] cardiology in 1-2 weeks. 2. CAD status post PCI-follows with Dr. Amaya, [facility] cardiology. Continue aspirin, statin, Plavix, isosorbide, metoprolol. Home metoprolol regimen decreased to 12.5 mg p.o. nightly due to mild bradycardia. 3. Hypertension-stable, continue home isosorbide, metoprolol. 4. Hyperlipidemia-continue statin. 5. Depression-continue home Lexapro regimen. 6. GERD- Continue PPI. General: Alert, Oriented x3, Cooperative HEENT: Atraumatic, PERRLA, EOMI, Normocephalic Neck: Supple, No JVD, Negative Carotid Bruits Lungs: Clear to auscultation, Normal air movement Cardiovascular: Regular Rhythm, Normal S1, Normal S2, No murmurs, - - Mildly bradycardic Abdomen: Bowel Sounds Present, Soft, Non Tender, Non-Distended Extremities: No clubbing, No cyanosis, No edema, Capillary Refill Less than 3 Seconds Skin: No rashes, No breakdown Musculoskeletal: No Tenderness to Palpation of Joints or Extremities Neurological: Cranial nerves II-XII grossly intact, Neuro grossly intact Psych/Mental Status: Normal Affect, Appropriate Patient seen and examined prior to discharge. Physical assessment as noted above. Patient is stable for discharge with follow up recommendations as noted above. This patient was seen by KATLYN Cali under the supervision of Dr. Nicholas. - Physical Exam Vital Signs Temp Pulse Resp BP Pulse Ox 97.6 F L 58 L 16 138/81 H 96 10/21/18 10:00 10/21/18 10:00 10/21/18 10:00 10/21/18 10:00 10/21/18 10:00 Oxygen Flow Rate (L/min) 2 Oxygen Delivery Method Room Air Weight: 236 lb 8.896 oz Body Mass Index (BMI) 33.9 Intake and Output for Last 24 Hours Intake Total 200 / 200 450 / 450 Balance 200 / 200 450 / 450 Laboratory Tests Past 24 Hrs WBC 3.3 L RBC 4.46 L Hgb 13.6 Hct 39.3 L MCV 88.1 MCH 30.5 MCHC 34.6 RDW 13.1 RDW Differential 41.1 WBC RBC Hgb Hct Discharge Diet: Low fat/ Low Cholesterol Discharge Activity: Return to Normal Activity Call your doctor if you observe: Shortness of breath, Dizziness, Fainting spells, Chest pain Home Medications: Medications to take at Discharge Escitalopram Oxalate [Lexapro] 10 mg PO DAILY 11/09/15 Aspirin [Aspirin, Baby] 81 mg PO DAILY@0800 10/20/18 Atorvastatin Calcium [Lipitor] 80 mg PO QHS 10/20/18 Clopidogrel Bisulfate [Plavix] 75 mg PO DAILY 10/20/18 Erythromycin Ophthalmic 1 applicatio EACH EYE QHS 10/20/18 Fluorometholone 1 drop EACH EYE TID 10/20/18 Isosorbide Mononitrate [Imdur] 30 mg PO DAILY 10/20/18 Nitroglycerin [Nitrostat] 0.4 mg SUBLINGUAL Q5M PRN 10/20/18 Ranitidine [Zantac] 150 mg PO BID 10/20/18 Acetaminophen [Tylenol Extra Strength] 1,000 mg PO Q8H PRN PRN #30 tablet 10/21/18 Metoprolol(XL)Succ [Toprol Xl (Beta Cassidy)] 12.5 mg PO QHS #0 10/21/18 Following Prescrptions Were Given to Patient: Acetaminophen [Tylenol Extra Strength] 1,000 mg PO Q8H PRN PRN #30 tablet PRN Reason: Pain Primary Care Physician: Jonah Feliz PA [Primary Care Provider] - Please follow up with your Primary Care Physician in: 1 Week Please Follow Up With: Dada Rebolledo DO - Pulmonary, establish for ANTOINETTE When: 2-4 Weeks Please Follow Up With: Gary Amaya MD When: 1-2 Weeks Disposition: Home Minutes spent on discharge:: 35 Patient Condition:: Stable Medical Necessity - Tobacco Use Smoking Status: Never smoker Tobacco Use: Non-smoker Meaningful Use Info Meaningful Use Diagnoses (Choose all that apply): None applicable <YuHuntington - Last Filed: 10/21/18 13:46> Discharge Date and Diagnosis - Secondary Discharge Diagnosis Chronic Problems Hyperlipidemia (Chronic) Hypertension (Chronic) Depression (Chronic) CAD (coronary artery disease) (Chronic) Hospital Course and Treatment Imaging Results: 10/21/18 05:55 Nuclear Stress Test - Treadmil [NM] AM (NON MEDS) Summary of Care Provided: The patient is a 43 year old M with past medical history of CAD/SC, hypertension, hyperlipidemia, ANTOINETTE on CPAP who comes in with complaints of chest pain, which comes and goes ongoing for about a week. No associated dizziness or palpitations orthopnea PND or diaphoresis. His admitting EKG was unremarkable without any ST-T changes. He was admitted to a telemetry bed, monitored with his bradycardia noted on telemetry. He had a stress test in the morning that was negative. Physical exam on admission was suggestive of musculoskeletal pain. Patient was managed on Tylenol as needed, and advised to continue his aspirin and Plavix. Follow-up with Dr. Washburn in the outpatient Subjective: The day of discharge, patient complains of slight left sided chest pain, worse with deep palpation. Denied any dizziness or palpitations or shortness of breath - Physical Exam General: Alert, Oriented x3, Cooperative, No apparent distress HEENT: Atraumatic, PERRLA, EOMI, Normocephalic Oral: Moist Mucosa Neck: Supple, No JVD, Negative Carotid Bruits Lungs: Clear to auscultation, Normal air movement Cardiovascular: Regular rate, Regular Rhythm, Normal S1, Normal S2, No murmurs, - - Tenderness over the left anterior chest wall Abdomen: Bowel Sounds Present, Soft, Non Tender, Non-Distended, No Hepato-splenomegaly - on deep palpation Extremities: No edema, Capillary Refill Less than 3 Seconds Skin: No rashes, No breakdown Musculoskeletal: No Tenderness to Palpation of Joints or Extremities Neurological: Cranial nerves II-XII grossly intact, Neuro grossly intact Psych/Mental Status: Normal Affect, Appropriate Vital Signs Temp Pulse Resp BP Pulse Ox 97.6 F L 59 L 16 138/81 H 96 10/21/18 10:00 10/21/18 12:04 10/21/18 10:00 10/21/18 10:00 10/21/18 10:00 Oxygen Flow Rate (L/min) 2 Oxygen Delivery Method Room Air Weight: 107.3 kg Body Mass Index (BMI) 33.9 Intake and Output for Last 24 Hours Intake Total 200 / 200 450 / 450 Balance 200 / 200 450 / 450 Laboratory Tests Past 24 Hrs WBC 3.3 L RBC 4.46 L Hgb 13.6 Hct 39.3 L MCV 88.1 MCH 30.5 MCHC 34.6 RDW 13.1 RDW Differential 41.1 WBC RBC Hgb Hct Code Visit OBSV MICHAEL: [id number] Observation care discharge 10/21/18 1223 <Electronically signed by Ade POTTS> Date Ade POTTS 10/21/18 1346<Electronically signed by Ruth Nicholas MD> Cosigner Signature (if applicable): Date Ruth Nicholas MD CC: Jonah Feliz; [employer]SEM[employer] Ade Melgoza; Ruth Nicholas MD; Gary Amaya MD Signed STRESS REPORT Observed: 10/21/2018 Status: F Source: [place] 11:57 AM [facility] Cardiovascular Services [address] [place] [address] MR#: [id number] Acct: [id number] Name: HARSHIL ALLISON Rep #: [id number] : 1975 43 From: Ryan Cornelius MD Primary Care: Jonah Feliz Status: ADM MOHSEN Ordering Dr: Suman: Jonah oPmpa Stress Test Report Date: 10/21/2018 Procedure: Exercise tolerance test/imaging study Indications: Chest pain; CAD; PCI Consent: Per the patient Procedure: The patient exercised on a [place] protocol for 10 minutes completing Stage III and 1 minute of Stage IV achieving a peak heart rate of 160 bpm (90 % predicted maximal heart rate) with a peak blood pressure 160/82 mmHg and a peak MET capacity of 11 METs. The baseline ECG demonstrated sinus bradycardia; nonspecific ST/T wave abnormality. The peak exercise ECG demonstrated no obvious ECG changes. There were occasional PVCs pretest, during exercise, and recovery; intermittent ventricular bigeminy/trigeminy during exercise. The functional capacity was considered good. There was [no complaint of chest discomfort during exercise or recovery]. The examination was discontinued secondary to dyspnea. Impression: 1. Technically adequate (percent predicted maximal heart rate greater than 85%) exercise tolerance test 2. Peak exercise ECG with no obvious ECG changes 3. There were occasional PVCs pretest, during exercise, and recovery; intermittent ventricular bigeminy/trigeminy during exercise 4. Nuclear images pending Myocardial perfusion imaging study: Technique: The patient was injected with 14.1 mCi of technetium 99m Cardiolite and subsequently rest SPECT Cardiolite nuclear imaging was obtained in the horizontal long, vertical long, and short axis views. The patient exercised on a Destin protocol for 10 minutes completing Stage III and 1 minute of Stage IV achieving a peak heart rate of 160 bpm (90 % predicted maximal heart rate) with a peak blood pressure 162/82 mmHg and a peak MET capacity of 11 METs. The patient was injected with 44.4 mCi of technetium 99m Cardiolite and subsequently stress SPECT Cardiolite nuclear imaging was obtained in the horizontal long, vertical long, and short axis views. A gated Cardiolite study at peak stress was obtained. Interpretation: Rest and stress SPECT Cardiolite nuclear imaging status post realignment, normalization, and attenuation correction, demonstrates the appearance of a small area of subtle diminished tracer uptake near the apical segments without significant change between rest and stress. [There is end systolic thickening and brightening]. The gated Cardiolite study demonstrates [myocardial thickening and inward wall motion]. The reported LVEF is 59 %. Impression: 1. Rest and stress SPECT Cardiolite nuclear imaging demonstrate perfusion changes appearing compatible with physiologic apical thinning with no myocardial perfusion changes considered diagnostic for associated stress-induced myocardial ischemia or previous myocardial injury/infarction. 2. The gated Cardiolite study reports an LVEF of 59%. This note was generated with [employer] software. It may contain incorrect words, spelling, and punctuation that were not noted in checking the note before signing. 10/21/18 115 <Electronically signed by Ryan Cornelius MD> Date Ryan Cornelius MD CC: Jonah Feliz; Ruth Nicholas MD Date Dictated: 10/21/181152 Date Transcribed: 10/21/181152 Blocking Machine Operator Second: PM Signed DISCHARGE INSTRUCTION Observed: 10/21/2018 Status: F Source: [place] 11:23 AM [facility] Medical Records Department [address] [place] [address] Instructions for Home/Discharge Instructions 10/21/18 1121 MR#: [id number] Acct: [id number] Name: HARSHIL ALLISON Luis Rep #: [id number] : 1975 43 From: Ade POTTS PCP: Jonah Feliz Status: ADM MOHSEN - Discharge Diagnoses Current Active Problems: Current Active and Chronic Problems Hyperlipidemia (Chronic) Hypertension (Chronic) Depression (Chronic) CAD (coronary artery disease) (Chronic) You will use the following diet at home:: Cardiac Discharge Activity: Return to Normal Activity Call your doctor if you observe: Shortness of breath, Dizziness, Fainting spells, Chest pain Allergies/Adverse Reactions: Allergies No Known Allergies Allergy (Verified 11/02/16 15:17) Medications to take at Discharge Escitalopram Oxalate [Lexapro] 10 mg PO DAILY 11/09/15 Aspirin [Aspirin, Baby] 81 mg PO DAILY@0800 10/20/18 Atorvastatin Calcium [Lipitor] 80 mg PO QHS 10/20/18 Clopidogrel Bisulfate [Plavix] 75 mg PO DAILY 10/20/18 Erythromycin Ophthalmic 1 applicatio EACH EYE QHS 10/20/18 Fluorometholone 1 drop EACH EYE TID 10/20/18 Isosorbide Mononitrate [Imdur] 30 mg PO DAILY 10/20/18 Nitroglycerin [Nitrostat] 0.4 mg SUBLINGUAL Q5M PRN 10/20/18 Ranitidine [Zantac] 150 mg PO BID 10/20/18 Acetaminophen [Tylenol Extra Strength] 1,000 mg PO Q8H PRN PRN #30 tablet 10/21/18 Metoprolol(XL)Succ [Toprol Xl (Beta Cassidy)] 12.5 mg PO QHS #0 10/21/18 The following prescriptions were given: Acetaminophen [Tylenol Extra Strength] 1,000 mg PO Q8H PRN PRN #30 tablet PRN Reason: Pain Primary Care Physician: Jonah Feliz PA [Primary Care Provider] - Please follow up with your Primary Care Physician in: 1 Week Test Results: Test results from this visit will be discussed in further detail at your follow-up appointment, if applicable. Please Follow Up With: Dada Rebolledo, DO - Pulmonary, establish for ANTOINETTE When: 2-4 Weeks Please Follow Up With: Gary Amaya MD When: 1-2 Weeks Proposed Discharge Date: 10/21/18 10/21/18 1123 <Electronically signed by Ade POTTS> Date Ade POTTS CC: Jonah Feliz CBC W/DIFF, AUTOMATED Collected: 10/21/2018 Status: F Source: [place] 5:30 AM [facility] [place] CODE TESTS RESULT OUT OF RANGE REFERENCE UNITS LAB L100.1000 4.4-11.0 K/mm3 Low WBC 3.3 LAB L100.1200 4.6-6.2 M/mm3 Low RBC 4.46 LAB L100.1300 13.0-16.5 g/dl Normal HGB 13.6 LAB L100.1400 40-54 % Low HCT 39.3 LAB L100.1500 80-94 fL Normal MCV 88.1 LAB L100.1600 27.0-32.0 pg Normal MCH 30.5 LAB L100.1700 32-36 g/gl Normal MCHC 34.6 LAB L100.1810 11.6-14.6 % Normal RDW CV 13.1 LAB L100.1820 35.1-43.9 fl Normal RDW SD 41.1 LAB L100.1900 150-450 K/mm3 Low PLT 123 LAB L100.2000 6.2-12.0 fl Normal MPV 10.6 LAB L100.2100 47-70 % Normal NEUT% 49.1 LAB L100.2200 19-41 % Normal LY% 35.1 LAB L100.2300 0-10 % High MONO% 12.2 LAB L100.2400 0-5 % Normal EO% 2.7 LAB L100.2500 0-1 % Normal BASO% 0.6 LAB L100.2550 0.0-0.9 % Normal IM GRAN % 0.300 Result Comment: IG% - Immature Granulocytes (promyelocytes, myelocytes and metamyelocytes) > 1% indicates that a LEFT SHIFT is Present. LAB L100.2620 2.0-7.7 X10 3/uL Low Absolute Neut 1.6 LAB L100.2720 0.83-4.51 X10 3/ul Normal Absolute Lymph 1.15 Performed By: #### L100.0100 #### [facility] [address] [place], [place], [id number] PROTHROMBIN TIME W/INR Collected: 10/21/2018 Status: F Source: [place] 5:30 AM [facility] [place] TYPE CODE TESTS RESULT OUT OF RANGE REFERENCE UNITS LAB L300.4150 11.7-14.9 SECONDS Normal PROTIME 14.1 LAB L300.4200 Normal INR 1.1 Performed By: #### L300.3900, L300.4310, L500.2500 #### [facility] [address] [place], [address] PARTIAL THROMBOPLAST Collected: 10/21/2018 Status: F Source: [place] TIME 5:30 AM [facility] [place] TYPE CODE TESTS RESULT OUT OF RANGE REFERENCE UNITS LAB L300.4310 24.1-36.2 Seconds Normal PTT 27.8 Performed By: #### L300.3900, L300.4310, L500.2500 #### [facility] [address] [place], [address] BASIC METABOLIC Collected: 10/21/2018 Status: F Source: [place] PROFILE (B[place]) 5:30 AM [facility] [place] TYPE CODE TESTS RESULT OUT OF RANGE REFERENCE UNITS LAB L501.0100 74-106 mg/dL Normal GLU 90 Result Comment: Please note revised GLUCOSE reference range effective 2017. LAB L501.1000 7-18 mg/dL Normal BUN 10 LAB L501.1100 0.70-1.30 mg/dL Normal CREAT,SERUM 0.88 Result Comment: The validity of the calculated GFR AND GFRAA in patients over 70 years has not been determined. Clinical correlation is essential. LAB L501.1110 >60 mL/min Normal EST GFR 100 Result Comment: Non- GFR Calc LAB L501.1115 >60 mL/min Normal EST GFR - AA 121 Result Comment: GFR Calc LAB L501.1255 ml/min Normal Estimated CRCL 110.61 LAB L501.1300 10-20 RATIO BUN/CRE Normal 11.4 LAB L501.2200 8.5-10 mg/dL .1 CA Normal 8.8 LAB L501.5300 136-14 mmol/L 5 NA Normal 141 LAB L501.5600 3.5-5. mmol/L 1 K Normal 3.7 LAB L501.5900 98-107 mmol/L CL Normal 106 LAB L501.6100 21.0-3 mmol/L 2.0 CO2 Normal 27.0 LAB L501.6200 5-15 GAP Normal 8 Performed By: #### L300.3900, L300.4310, L500.2500 #### [facility] [address] [place], [address] TROPONIN-I Collected: 10/20/2018 Status: F Source: [place] 8:52 PM [facility] [place] Order Comment: 'TROP' Serial specimen #1, #2 or #3: 3 TYPE CODE TESTS RESULT OUT OF RANGE REFERENCE UNITS LAB L501.4010 <0.045 ng/mL Normal < 0.015 TROPONIN-I Result Comment: TROPONIN-I EXPECTED VALUES <0.045 Negative 0.045 - 0.590 Consistent with Cardiac Damage > OR = 0.600 Critical Value Not every elevated troponin is indicative of SC. These values should be used with clinical judgement in examining the patient's clinical picture for diagnosis. To establish a diagnosis of SC versus myocardial injury, there must be a demonstrated rise and/or fall in the troponin values, in addition to ischemic symptoms, EKG changes, new regional wall motion abnormality, and/or angiographical evidence. PLEASE NOTE: REFERENCE RANGES EDITED 18 Performed By: #### L501.4010 #### [facility] [address] [place], [address] HISTORY AND PHYSICAL Observed: 10/20/2018 Status: F Source: [place] EXAM 8:50 PM [facility] [place] [facility] Medical Records Department [address] [place] [address] History and Physical 10/20/18 1648 MR#: [id number] Acct: [id number] Name: HARSHIL ALLSION Rep #: [id number] : 1975 43 From: Ade Melgoza [employer] PCP: Jonah Feliz Status: ADM MOHSEN Y Location: [place] [address] ADDENDUM by Teresa Pedro on 10/20/18 at 2050 Code Visit This patient was seen in conjunction with Ade Melgoza NP. I have independently interviewed and examined the patient and reviewed pertinent historical, laboratory and other data. Please refer to history and physical note for details of this patient's presentation, findings and recommendations. I have reviewed Ade's note and concur fully with documented findings. In brief, patient is a 43YO male admitted with chest pain. Patient describes chest pain that has been present unremittingly for 1 week. He does have a history of coronary artery disease, hyperlipidemia, hypertension and depression. 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 He tells us he had a stress test in May 2018 in [place] and it was reportedly normal. He follows with Dr. Goyo Washburn for cardiology. He denies any cough, nausea, vomiting, diaphoresis, radiation of the pain. Physical examination: Alert and oriented x3, no apparent distress neck-brisk carotid upstroke with good pulse volume, no JVD Lungs-clear to auscultation throughout with no wheezes, rhonchi or rales Heart-regular rate and rhythm, normal S1, normal S2, no murmur, no gallop, no rub, no ectopic activity No calf tenderness Abdomen - soft, nontender, nondistended, normal bowel sounds Assessment: 1. Atypical chest pain in a patient with a history of coronary artery disease 2. Hypertension 3. Hyperlipidemia 4. Depression I have discussed my assessment with sicca and orders have been written. I talked with the patient about thrombocytopenia and leukopenia. He denies any history of lupus. He does not drink to excess. Denies any recent cough, sore throat. He states he has been told in the past that his white blood cell count and platelets were low but has not seen a engineering technical specialist. I advised him to consider consultation with hematology in the future. OBSV Richard RAMIREZ M: [id number] Initial observation care L3 10/20/182049 <Electronically signed by Jonah Pedro DO> Date Jonah Pedro DO cc: Jonah Feliz; KATLYN Melgoza; Teresa Pedro * Signed Problem List (1) Hyperlipidemia Status: Chronic (2) Hypertension Status: Chronic (3) Depression Status: Chronic (4) CAD (coronary artery disease) Status: Chronic History of Present Illness Date of Admission: 10/20/18 Chief Complaint: Chest pain. The patient is a 43 year old M who presents emergency room due to chest pain. Patient states this has been ongoing intermittently over the past week. He denies chest pain associated with exertion. He states he seems to notice increased pain with movement of his upper extremities and turning of neck. He denies associated shortness of breath, dizziness, lightheadedness, diaphoresis. He has not taken anything to relieve his pain. He denies pain radiation. He reports his last stress test was in May 2018 while he was in [place]. This was reported to be normal. He has a past medical history of CAD status post PCI, hypertension, hyperlipidemia, depression, GERD. He follows with Dr. Amaya, [facility] cardiology. Past Medical History Past Medical History (Chronic Problems): Chronic Problems Hyperlipidemia (Chronic) Hypertension (Chronic) Depression (Chronic) CAD (coronary artery disease) (Chronic) Allergies No Known Allergies Allergy (Verified 11/02/16 15:17) Home Medications: Ambulatory Orders Medication Instructions Recorded Surgical History: - - Turbinate surgery, septoplasty. Psychiatric History: Depression Lives: With Family Smoking Status: Never smoker Tobacco Use: Non-smoker Alcohol: Occasional Drugs: None - *Family History Maternal History Items: Hypertension Paternal History Items: - - Leukemia Review of Systems Constitutional: Denies: Chills, Fever, Weight Change HEENT: Denies: Head Aches, Sinus Congestion, Sinus Drainage Cardiovascular: Reports: Chest Pain. Denies: Edema, Light Headedness, Palpitations, Syncope Respiratory: Denies: Cough, Shortness of breath at rest, Sputum production Gastrointestinal: Denies: Abdominal Pain, Nausea, Vomiting Genitourinary: Denies: Dysuria Musculoskeletal: Denies: Joint Pain, Joint Tenderness Skin: Denies: Rash, Wounds Neurological: Denies: Numbness, Tingling, Focal weakness Psychiatric: Reports: Depression Hematologic/ Lymphatic: Denies: Easy Bruising, Easy Bleeding VTE Information - Inpt Only VTE Present on Admission: No VTE Mechan Device Prophylaxis: None VTE Pharm Prophylaxis ordered?: Yes - Physical Exam General: Alert, Oriented x3, Cooperative HEENT: Atraumatic, PERRLA, EOMI, Normocephalic Neck: Supple, No JVD, Negative Carotid Bruits Lungs: Clear to auscultation, Normal air movement Cardiovascular: Regular Rhythm, Normal S1, Normal S2, No murmurs, - - Mildly bradycardic Abdomen: Bowel Sounds Present, Soft, Non Tender, Non-Distended Extremities: No clubbing, No cyanosis, No edema, Capillary Refill Less than 3 Seconds Skin: No rashes, No breakdown Musculoskeletal: No Tenderness to Palpation of Joints or Extremities Neurological: Cranial nerves II-XII grossly intact, Neuro grossly intact Psych/Mental Status: Normal Affect, Appropriate Vital Signs Temp Pulse Resp BP Pulse Ox 98.2 F 53 L 17 106/67 98 10/20/18 14:10 10/20/18 16:24 10/20/18 16:24 10/20/18 16:24 10/20/18 16:24 Oxygen Flow Rate (L/min) 2 Oxygen Delivery Method Nasal Cannula Weight: 237 lb Body Mass Index (BMI) 34.0 Laboratory Tests Past 24 Hrs Assessment/Plan 1. Atypical chest pain-patient reports typically associated with movement. Given prior history of SC, rule out ACS. EKG sinus bradycardia without ST-T changes. Troponin negative. Trend enzymes. Repeat EKG in a.m. Stress test in a.m. 2. CAD status post PCI-follows with Dr. Amaya, [facility] cardiology. Continue aspirin, statin, Plavix, isosorbide, metoprolol. 3. Hypertension-stable, continue home isosorbide, metoprolol. 4. Hyperlipidemia-continue statin. 5. Depression-continue home Lexapro regimen. 6. GERD- Continue PPI. DVT prophylaxis-Lovenox subcu This patient was seen by KATLYN Cali under the supervision of Dr. Pedro. 10/20/18 1701 <Electronically signed by Ade PACKC> Date Ade PACKC 10/20/182043<Electronically signed by Jonah Pdero DO> Cosigner Signature: Date (if applicable) Jonah Pedro DO CC: Jonah Feliz; AKTLYN Melgoza; Teresa Pedro Signed TROPONIN-I Collected: 10/20/2018 Status: F Source: [place] 5:25 PM [facility] [place] Order Comment: 'TROP' Serial specimen #1, #2 or #3: 2 TYPE CODE TESTS RESULT OUT OF RANGE REFERENCE UNITS LAB L501.4010 <0.045 ng/mL Normal < 0.015 TROPONIN-I Result Comment: TROPONIN-I EXPECTED VALUES <0.045 Negative 0.045 - 0.590 Consistent with Cardiac Damage > OR = 0.600 Critical Value Not every elevated troponin is indicative of SC. These values should be used with clinical judgement in examining the patient's clinical picture for diagnosis. To establish a diagnosis of SC versus myocardial injury, there must be a demonstrated rise and/or fall in the troponin values, in addition to ischemic symptoms, EKG changes, new regional wall motion abnormality, and/or angiographical evidence. PLEASE NOTE: REFERENCE RANGES EDITED 18 Performed By: #### L501.4010 #### [facility] [address] [place], [address] EMERGENCY DEPARTMENT Observed: 10/20/2018 Status: F Source: [place] SUMMARY 5:24 PM [facility] [place] [facility] Medical Records Department [address] [place] [address] Emergency Department Summary 10/20/18 1513 MR#: [id number] Acct: [id number] Name: HARSHIL ALLISON Rep #: [id number] : 1975 43 From: Britney Sheffield MD PCP: Jonah Feliz Status: ADM MOHSEN - ER Visit Summary Date of Service: 10/20/18 Chief Complaint: Chest pain History of Present Illness: The patient is a 43 M who presents for 1 week of intermittent chest pain. Patient has been having left-sided chest pain that waxes and wanes in intensity. Last time he was pain-free was this morning. He describes it as a pressure that does not radiate into the arms, back, right chest, abdomen or neck. It is worse with breathing and movement of his torso, but is constantly. Patient denies fever, shortness of breath, abdominal pain, nausea or vomiting, URI symptoms. Patient took 81 mg of aspirin prior to presentation. He has a history of myocardial infarction, hypertension, hypercholesterolemia, status post 1 stent. He is on Plavix. Physical Examination: Vital signs: afebrile, hemodynamically stable, no hypoxia on room air General: well nourished, well developed, in no distress Skin: warm, dry, no rash, no pallor HEENT: normocephalic and atraumatic; PERRL, EOMI, moist mucous membranes Cardiovascular: regular rate and rhythm without murmurs, no peripheral edema, 2+ pulses all distal extremities Respiratory: No increased work of breathing, lungs are clear to auscultation bilaterally, no rales, rhonchi or wheezing Abdominal: Abdomen is soft, nontender with normoactive bowel sounds, no guarding or rebound, no masses MSK: Moves all extremities, no deformities, normal strength Neuro: Awake and alert, oriented 4. No facial droop, sensation and motor function intact and symmetric Test Results: Abnormal Lab Results Clinical Impression(s) from Imaging Studies Chest X-Ray 10/20/18 14:24 IMPRESSION: Normal x-ray examination of the chest. Electronically Signed: Irvin Schumacher MD at 15:10 EST Tel [phone], Service support , Medications Given Discontinued Medications Aspirin (Aspirin, Baby) 243 mg PO X1 ONE Stop: 10/20/18 15:09 Last Admin: 10/20/18 15:13 Dose: 243 mg Nitroglycerin (Nitrostat) 0.4 mg SUBLINGUAL X1 ONE Stop: 10/20/18 16:00 Last Admin: 10/20/18 16:06 Dose: 0.4 mg Emergency Department Course and Treatment: Patient currently is pain-free. He was given 3 baby aspirin. EKG showed a sinus rhythm rate of [address] changes, no ectopy. Prominent T waves in V2. Chest x-ray showed no acute process. Troponin negative. Labs otherwise unremarkable. On reevaluation of the patient, he stated he was still having the dull discomfort in the left chest, and thus he was ordered nitro. Patient was discussed with Dr. Hayes, developer advisor, who recommended patient receive further chest pain rule out. Patient was discussed with Dr. Pedro for admission as observation status for chest pain with significant cardiac history. Treatment Plan: [] Disposition: [] Impression: Chest pain, history of ACS This note was generated with Content Fleetation software. It may contain incorrect words, spelling, and punctuation that were not noted in review of the chart prior to signing ED Disposition - Plan for ED Patient: Chief Complaint: Chest Pain Referrals: Jonah Feliz PA [Primary Care Provider] - What to do if you have Problems For any increased pain, shortness of breath, bleeding, nausea or vomiting, chest pain, or any unexpected problems, contact your Primary Care Provider. Call [facility] ([phone]) or report to the closest Emergency Room. Call 911 if necessary. 10/20/18 1724 <Electronically signed by Britney Sheffield MD> Date Britney Sheffield MD Cosigner Signature (If Indicated): Date CC: Jonah Feliz CBC W/DIFF, AUTOMATED Collected: 10/20/2018 Status: F Source: [place] 2:34 PM [facility] [place] TYPE CODE TESTS RESULT OUT OF RANGE REFERENCE UNITS LAB L100.1000 4.4-11.0 K/mm3 Low WBC 3.9 LAB L100.1200 4.6-6.2 M/mm3 Normal RBC 4.60 LAB L100.1300 13.0-16.5 g/dl Normal HGB 14.0 LAB L100.1400 40-54 % Normal HCT 40.3 LAB L100.1500 80-94 fL Normal MCV 87.6 LAB L100.1600 27.0-32.0 pg Normal MCH 30.4 LAB L100.1700 32-36 g/gl Normal MCHC 34.7 LAB L100.1810 11.6-14.6 % Normal RDW CV 13.2 LAB L100.1820 35.1-43.9 fl Normal RDW SD 42.1 LAB L100.1900 150-450 K/mm3 Low PLT 130 LAB L100.2000 6.2-12.0 fl Normal MPV 10.1 LAB L100.2100 47-70 % Normal NEUT% 50.2 LAB L100.2200 19-41 % Normal LY% 36.9 LAB L100.2300 0-10 % High MONO% 11.3 LAB L100.2400 0-5 % Normal EO% 1.3 LAB L100.2500 0-1 % Normal BASO% 0.3 LAB L100.2550 0.0-0.9 % Normal IM GRAN % 0.000 Result Comment: IG% - Immature Granulocytes (promyelocytes, myelocytes and metamyelocytes) > 1% indicates that a LEFT SHIFT is Present. LAB L100.2620 2.0-7.7 X10 3/uL Normal Absolute Neut 2.0 LAB L100.2720 0.83-4.51 X10 3/ul Normal Absolute Lymph 1.44 Performed By: #### L100.0100, L500.2500, L501.4010, L300.3900 #### [facility] [address] [place], [address] BASIC METABOLIC Collected: 10/20/2018 Status: F Source: [place] PROFILE ([facility]) 2:34 PM [facility] [place] TYPE CODE TESTS RESULT OUT OF RANGE REFERENCE UNITS LAB L501.0100 74-106 mg/dL Normal GLU 87 Result Comment: Please note revised GLUCOSE reference range effective 2017. LAB L501.1000 7-18 mg/dL Normal BUN 13 LAB L501.1100 0.70-1.30 mg/dL Normal CREAT,SERUM 1.01 Result Comment: The validity of the calculated GFR AND GFRAA in patients over 70 years has not been determined. Clinical correlation is essential. LAB L501.1110 >60 mL/min Normal EST GFR 85 Result Comment: Non- GFR Calc LAB L501.1115 >60 mL/min Normal EST GFR - AA 103 Result Comment: GFR Calc LAB L501.1255 ml/min Normal Estimated CRCL 96.37 LAB L501.1300 10-20 RATIO Normal BUN/CRE 12.9 LAB L501.2200 8.5-10 mg/dL Normal .1 CA 8.8 LAB L501.5300 136-14 mmol/L Normal 5 NA 141 LAB L501.5600 3.5-5. mmol/L Normal 1 K 3.8 LAB L501.5900 98-107 mmol/L Normal CL 105 LAB L501.6100 21.0-3 mmol/L Normal 2.0 CO2 27.0 LAB L501.6200 5-15 Normal GAP 9 Performed By: #### L100.0100, L500.2500, L501.4010, L300.3900 #### [facility] [address] [place], [address] TROPONIN-I Collected: 10/20/2018 Status: F Source: [place] 2:34 PM [facility] [place] TYPE CODE TESTS RESULT OUT OF RANGE REFERENCE UNITS LAB L501.4010 <0.045 ng/mL Normal < 0.015 TROPONIN-I Result Comment: TROPONIN-I EXPECTED VALUES <0.045 Negative 0.045 - 0.590 Consistent with Cardiac Damage > OR = 0.600 Critical Value Not every elevated troponin is indicative of SC. These values should be used with clinical judgement in examining the patient's clinical picture for diagnosis. To establish a diagnosis of SC versus myocardial injury, there must be a demonstrated rise and/or fall in the troponin values, in addition to ischemic symptoms, EKG changes, new regional wall motion abnormality, and/or angiographical evidence. PLEASE NOTE: REFERENCE RANGES EDITED 18 Performed By: #### L100.0100, L500.2500, L501.4010, L300.3900 #### [facility] [address] [facility] [place], [address] PROTHROMBIN TIME W/INR Collected: 10/20/2018 Status: F Source: [place] 2:34 PM [facility] [place] TYPE CODE TESTS RESULT OUT OF RANGE REFERENCE UNITS LAB L300.4150 11.7-14.9 SECONDS Normal PROTIME 13.4 LAB L300.4200 Normal INR 1.0 Performed By: #### L100.0100, L500.2500, L501.4010, L300.3900 #### [facility] [address] [place], [address] CHEST 1 VIEW Observed: 10/20/2018 Status: F Source: [place] (PORTABLE) 2:25 PM [facility] [place] [facility] Imaging Services [address] [place] [address] Chest 1 View (Portable) MR#: [id number] Acct: [id number] Name: HARSHIL ALLISON Rep #: [id number] : 1975 M 43 From: Irvin Schumacher MD PCP: Jonah Feliz Status: PRE ER Study: Chest 1 View (Portable) Date of Exam: 10/20/18 Exam# [id number] Ordering Dr: Britney Sheffield MD STUDY: X-RAY CHEST REASON FOR EXAM: Male, 43 years old. Chest pain. TECHNIQUE: Single AP portable view of the chest. COMPARISON: None. FINDINGS: EKG electrodes are seen. The lungs are clear and expanded. Scattered calcified granulomas. There is no demonstrated pleural abnormality. Normal size heart. Normal mediastinum and eun. Normal visualized pulmonary arteries. Normal visualized aortic arch and descending thoracic aorta. There are degenerative changes of the visualized thoracic spine. Normal visualized ribs, clavicles, and shoulders. There is no demonstrated abnormality of the visualized soft tissue structures of the upper abdomen. RAD/Chest 1 View (Portable) IMPRESSION: Normal x-ray examination of the chest. Electronically Signed: Irvin Schumacher MD at 15:10 EST Tel [phone], Service support , CC: Jonah Feliz; Britney Sheffield MD Blocking Machine Operator Second: Signed OBSOLETE Observed: 09/29/2018 Status: COMPLETED Source: [place] 12:00 AM CLIN[facility] OTHER CAMPUS REPOSITORY Refill (AGCARDWST) HARSHIL ALLISON ([id number]) 1975 M Date Time Provider Department 09/29/18 MONIQUE GARY E AGCARDWST During your visit today, we recorded the following information about you: Allergies As of Date: 09/29/2018 Noted Allergy Reaction SEASONAL ALLERGIES 07/29/2018 14 - Other: See Comments Comments: Sneezing, runny nose Date Reviewed: 09/01/2018 Reviewed by: Elvira (Skinny) Celina - Fully Assessed Reason for Visit: Refill Request [94] Order(s):atorvastatin (LIPITOR) 80 mg tabletTake 1 tablet by mouth once daily.Disp: 90 tabletRfl: 3 Prescriptions as of 09/29/2018 Sig: ATORVASTATIN 80 MG TABLET Take 1 tablet by mouth once d* CLOPIDOGREL 75 MG TABLET TAKE 1 TABLET EVERY DAY ESCITALOPRAM 10 MG TABLET Take 1 tablet by mouth once d* FLUTICASONE 50 MCG/ACTUATION * Use 2 Sprays in each nostril * LORATADINE 10 MG TABLET Take 1 tablet by mouth once d* MELATONIN 1 MG TABLET Take 2 tablets by mouth daily* ISOSORBIDE MONONITRATE ER 30 * Take 1 tablet by mouth once d* ACETAMINOPHEN 500 MG TABLET Take 1,000 mg by mouth every * CLOTRIMAZOLE-BETAMETHASONE 1 * Apply 1 application to affect* METOPROLOL SUCCINATE ER 25 MG* Take 1 tablet by mouth once d* ATORVASTATIN 80 MG TABLET Take 1 tablet by mouth once d* ASPIRIN 81 MG CHEWABLE TABLET Take 81 mg by mouth once danni* RANITIDINE 150 MG TABLET Take 150 mg by mouth once kira* NITROGLYCERIN 0.4 MG SUBLINGU* Dissolve 0.4 mg under the ton* Problem List As Of Date 09/29/2018 Noted Resolved Coronary artery disease involving [place]*INVALID FOR* More... Depression, major [F32.9] INVALID FOR* Eczema [L30.9] INVALID FOR* GERD without esophagitis [K21.9] INVALID FOR* ANTOINETTE (obstructive sleep apnea) [G47.33] INVALID FOR* CPAP (continuous positive airway pressure) depe*INVALID FOR* Hypertension, essential [I10] INVALID FOR* Chronic neck and back pain [M54.2, M54.9, G89.2*INVALID FOR* Prescriptions ordered this encounter Disp Refills Start End ATORVASTATIN 80 MG TABLET 90 t* 3 09/29/2018 Cmt: Med-sync patient. If too soon, we will put new RX on hold for next cycle. Route: ORAL Sig: Take 1 tablet by mouth once daily. 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 No 0 on a scale of 0 to 10 Diet History: Breakfast - oatmeal instant (maple brown sugar, fruit and cream)with water; coffee 1/3 caf black; on weekends may add cream occasionally and sugar or flavored creamer Snack - boredom eating while driving. Lunch - pork loin or chicken breast, veggies, katey chips Snack - veggies Dinner - pork loin or chicken breast, tuna fish with guac and [place], veggies, occ canned veg (low sodium), wraps; bread Snack - no, likely late dinner Beverages - water, 1-2 cans pop per day Vitamins/Supplements - no BBQ sauce, hot sauce, ital dressing Packing meals for the week Peppers, carrots, alex, cucumber, spinach, snap peas Snack on katey chips, tortilla chips and guac (two throughout the week) On truck bread, peanut butter and honey. microwave Allergies: Seasonal Allergies Medications: Current Outpatient Prescriptions: clopidogrel (PLAVIX) 75 mg tablet TAKE 1 TABLET EVERY DAY Disp: 30 tablet Rfl: 11 escitalopram oxalate (LEXAPRO) 10 mg tablet Take 1 tablet by mouth once daily. Disp: 30 tablet Rfl: 5 fluticasone (FLONASE) 50 mcg/actuation nasal spray Use 2 Sprays in each nostril once daily. Rinse mouth after use. Disp: 1 Bottle Rfl: 11 loratadine (CLARITIN) 10 mg tablet Take 1 tablet by mouth once daily. Disp: 30 tablet Rfl: 11 melatonin 1 mg tablet Take 2 tablets by mouth daily at bedtime. Disp: Rfl: isosorbide mononitrate ER (IMDUR) 30 mg 24 hr tablet Take 1 tablet by mouth once daily. Disp: 30 tablet Rfl: 6 acetaminophen (TYLENOL EXTRA STRENGTH) 500 mg tablet Take 1,000 mg by mouth every 8 hours as needed. Disp: Rfl: clotrimazole-betamethasone (LOTRISONE) cream Apply 1 application to affected area twice daily. UNTIL CLEAR FOR UP TO 2-3 WEEKS Disp: 30 g Rfl: 2 metoprolol succinate ER (TOPROL XL) 25 mg 24 hr tablet Take 1 tablet by mouth once daily. Disp: 90 tablet Rfl: 3 atorvastatin (LIPITOR) 80 mg tablet Take 1 tablet by mouth once daily. Disp: 90 tablet Rfl: 3 aspirin 81 mg chewable tablet Take 81 mg by mouth once daily. Disp: Rfl: ranitidine (ZANTAC) 150 mg tablet Take 150 mg by mouth once daily. Disp: Rfl: nitroglycerin sublingual (NITROQUICK) 0.4 mg SL tablet Dissolve 0.4 mg under the tongue every 5 minutes as needed. Disp: Rfl: No current facility-administered medications for this visit. Anthropometrics: Height: Last 1 Encounter Ht Readings: Date: Ht: 09/01/2018 179.7 cm (5' 10.75) Current weight: Last 1 Encounter Wt Readings: Date: Wt: 09/01/2018 109.3 kg (241 lb) Body mass index is 33.85 kg/m?. Resting Metabolic Rate: 2002 NUTRITION ASSESSMENT: Malnutrition Screening Significant unintentional weight loss? No Eating less than 75% of usual intake for more than 2 weeks? No RECOMMENDED MALNUTRITION DIAGNOSIS: NO MALNUTRITION IDENTIFIED Educational materials provided: Cholesterol Lowering Strategies, Healthy Eating for a Low Fat, Low Cholesterol Diet, Fiber (Improving your health with), Plant Based Sources of [place] 3 Fats, Low-fat vegan diet in treatment and management of heart diease and Mediterranean Diet READINESS TO LEARN Cognitive ability: Alert and oriented Motivation to learn: Interested Family support: Unable to assess - Family not present Instruction provided to: Patient Patient learns best by: Individual Instruction Factors affecting learning: None Physical limitations affecting learning: None Patient presents for initial MNT a relates to ASHD, HTN. Questions about how to eat. 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 Intake noted for high vegetable intake, including lean meats, mostly whole grain starches, healthy fats but larger portions; does include sugar and sugar beverages daily. Excess snacking during the day related to boredom while driving. No exercise and sedentary during the day Nutrition Diagnosis: Inadequate bio active substance intake related to food and nutrition related knowledge deficit as evidenced by low intake/lack of plant stanols, phytochemicals, [place] 3 f.a. . Nutrition Intervention 09/01/2018: comprehensive nutrition educaiton 1. Consider tracking intake with apps [employer] or [employer]. 2. Add in regular exercise 30-45 min most days preferably all 3. All beverages calorie free and sugar free, no regular pop 4. Choose whole grain, high fiber breads and cereals only 1. follow a low-fat low-cholesterol diet 2. Do not skip meals. Cholesterol levels may be higher when you eat fewer meals. 3. Consume whole grains (whole grain breads/cereals, oatmeal, barley, popcorn). Include 20-35 grams of fiber per day. 4. Consume fresh/frozen fruit and vegetables (blueberries, nectarines, raspberries, apples, apricots, figs, prunes, dark leafy greens and include a variety of colors) 5. Consume lean protein (chicken, turkey breast, fish lean beef and pork). Avoid eating red meats more than twice per week. Aim for cheese and meats with 3 grams of fat or less per ounce. 6. Use low fat cooking methods such as baking, broiling, roasted, and grilled 7. Use healthy fats such as olive oil, flaxseed oil, walnuts, almonds, pecans, olives and avocado but in limited amounts. 8. Increase foods rich in omega-3 fatty acids (salmon, tuna, mclaughlin, sardines, rodney) Aim for 2 servings per week (6 ounces total). Almonds/walnuts and ground flaxseed (2 Tablespoons/day). 10. Read food labels. Avoid products made with partially hydrogenated fats/oils. 11 Use fucntional foods:Plant sterols and stanols (1.3 grams plant sterols or 3.4 grams plant stanols per day); 3 g/d of glucan fiber from oats and barley; 7g/day or more fro psyllium seed husk such as Metamucil; 25 g/day soy protien; 1.5 oz/day tree nuts. 12. If you are overweight, losing weight will help lower your total cholesterol level and raise your HDL level. Try using the Healthy Plate method. 13. Be physically active for at least 30-45 minutes per day 5-6 days per week. Nutrition Monitoring AND Evaluation: lipid lowering diet Criteria: patient update Need for Follow up: 4-6 week Referred/Supervised by: Dar/Pratima SCHMID Billing Type: Initial Assess/15 min 3 units SIGNATURE: Elvira Patrick MS RD LD PATIENT NAME: Harshil Allison DATE: September 01, 2018 TIME: 10:52 AM Elvira Patrick MS RD LD 09/01/2018 11:29 AM Addendum 1. Consider tracking intake with apps [employer] or [employer]. 2. Add in regular exercise 30-45 min most days preferably all 3. All beverages calorie free and sugar free, no regular pop 4. Choose whole grain, high fiber breads and cereals only 1. follow a low-fat low-cholesterol diet 2. Do not skip meals. Cholesterol levels may be higher when you eat fewer meals. 3. Consume whole grains (whole grain breads/cereals, oatmeal, barley, popcorn). Include 20-35 grams of fiber per day. 4. Consume fresh/frozen fruit and vegetables (blueberries, nectarines, raspberries, apples, apricots, figs, prunes, dark leafy greens and include a variety of colors) 5. Consume lean protein (chicken, turkey breast, fish lean beef and pork). Avoid eating red meats more than twice per week. Aim for cheese and meats with 3 grams of fat or less per ounce. 6. Use low fat cooking methods such as baking, broiling, roasted, and grilled 7. Use healthy fats such as olive oil, flaxseed oil, walnuts, almonds, pecans, olives and avocado but in limited amounts. 8. Increase foods rich in omega-3 fatty acids (salmon, tuna, mclaughlin, sardines, rodney) Aim for 2 servings per week (6 ounces total). Almonds/walnuts and ground flaxseed (2 Tablespoons/day). 10. Read food labels. Avoid products made with partially hydrogenated fats/oils. 11 Use fucntional foods:Plant sterols and stanols (1.3 grams plant sterols or 3.4 grams plant stanols per day); 3 g/d of glucan fiber from oats and barley; 7g/day or more fro psyllium seed husk such as Metamucil; 25 g/day soy protien; 1.5 oz/day tree nuts. 12. If you are overweight, losing weight will help lower your total cholesterol level and raise your HDL level. Try using the Healthy Plate method. 13. Be physically active for at least 30-45 minutes per day 5-6 days per week. Previous Version Document on: 09/01/2018 by: Elvira Patrick [[id number]] of: [employer] Worksheet Document on: 09/01/2018 by: Elvira Patrick [[id number]] of: After Visit Summary Other instructions from your clinician: 1. Consider tracking intake with apps [employer] or [employer]. 2. Add in regular exercise 30-45 min most days preferably all 3. All beverages calorie free and sugar free, no regular pop 4. Choose whole grain, high fiber breads and cereals only 1. follow a low-fat low-cholesterol diet 2. Do not skip meals. Cholesterol levels may be higher when you eat fewer meals. 3. Consume whole grains (whole grain breads/cereals, oatmeal, barley, popcorn). Include 20-35 grams of fiber per day. 4. Consume fresh/frozen fruit and vegetables (blueberries, nectarines, raspberries, apples, apricots, figs, prunes, dark leafy greens and include a variety of colors) 5. Consume lean protein (chicken, turkey breast, fish lean beef and pork). Avoid eating red meats more than twice per week. Aim for cheese and meats with 3 grams of fat or less per ounce. 6. Use low fat cooking methods such as baking, broiling, roasted, and grilled 7. Use healthy fats such as olive oil, flaxseed oil, walnuts, almonds, pecans, olives and avocado but in limited amounts. 8. Increase foods rich in omega-3 fatty acids (salmon, tuna, mclaughlin, sardines, rodney) Aim for 2 servings per week (6 ounces total). Almonds/walnuts and ground flaxseed (2 Tablespoons/day). 10. Read food labels. Avoid products made with partially hydrogenated fats/oils. 11 Use fucntional foods:Plant sterols and stanols (1.3 grams plant sterols or 3.4 grams plant stanols per day); 3 g/d of glucan fiber from oats and barley; 7g/day or more fro psyllium seed husk such as Metamucil; 25 g/day soy protien; 1.5 oz/day tree nuts. 12. If you are overweight, losing weight will help lower your total cholesterol level and raise your HDL level. Try using the Healthy Plate method. 13. Be physically active for at least 30-45 minutes per day 5-6 days per week. Primary Visit Diagnosis:Coronary artery disease involving [place] coronary artery of [place] heart without angina pectoris [I25.10] Other Visit Diagnoses:Hypertension, essential [I10] Class 1 obesity due to excess calories with serious comorbidity and body mass index (BMI) of 34.0 to 34.9 in adult [E66.09, Z68.34] Dietary counseling [Z71.3] During your visit today, we recorded the following information about you: Weight Height 109.3 kg 1.797 m Allergies As of Date: 09/01/2018 Noted Allergy Reaction SEASONAL ALLERGIES 07/29/2018 14 - Other: See Comments Comments: Sneezing, runny nose Date Reviewed: 09/01/2018 Reviewed by: Elvira Patrick - Fully Assessed Prescriptions as of 09/01/2018 Sig: CLOPIDOGREL 75 MG TABLET TAKE 1 TABLET EVERY DAY ESCITALOPRAM 10 MG TABLET Take 1 tablet by mouth once d* FLUTICASONE 50 MCG/ACTUATION * Use 2 Sprays in each nostril * LORATADINE 10 MG TABLET Take 1 tablet by mouth once d* MELATONIN 1 MG TABLET Take 2 tablets by mouth daily* ISOSORBIDE MONONITRATE ER 30 * Take 1 tablet by mouth once d* ACETAMINOPHEN 500 MG TABLET Take 1,000 mg by mouth every * CLOTRIMAZOLE-BETAMETHASONE 1 * Apply 1 application to affect* METOPROLOL SUCCINATE ER 25 MG* Take 1 tablet by mouth once d* ATORVASTATIN 80 MG TABLET Take 1 tablet by mouth once d* ASPIRIN 81 MG CHEWABLE TABLET Take 81 mg by mouth once danni* RANITIDINE 150 MG TABLET Take 150 mg by mouth once kira* NITROGLYCERIN 0.4 MG SUBLINGU* Dissolve 0.4 mg under the ton* Encounter Status:Closed by CELINA HARRIS, ELVIRA on 09/01/18 PROGRESS Observed: 09/01/2018 Status: COMPLETED Source: [place] 10:49 AM [facility] ID: [id number] Author: Elvira Patrick Service: (none) Author Type: Registered Dietitian Type: Progress Notes Filed: 09/01/2018 12:31 PM Note Text: Nutrition Therapy Initial Assessment Patient states reason for visit: for healthy eating Activity: Patient's exercise is: Activities of Daily 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 No 0 on a scale of 0 to 10 Diet History: Breakfast - oatmeal instant (maple brown sugar, fruit and cream)with water; coffee 1/3 caf black; on weekends may add cream occasionally and sugar or flavored creamer Snack - boredom eating while driving. Lunch - pork loin or chicken breast, veggies, katey chips Snack - veggies Dinner - pork loin or chicken breast, tuna fish with guac and [place], veggies, occ canned veg (low sodium), wraps; bread Snack - no, likely late dinner Beverages - water, 1-2 cans pop per day Vitamins/Supplements - no BBQ sauce, hot sauce, ital dressing Packing meals for the week Peppers, carrots, alex, cucumber, spinach, snap peas Snack on katey chips, tortilla chips and guac (two throughout the week) On truck bread, peanut butter and honey. microwave Allergies: Seasonal Allergies Medications: Current Outpatient Prescriptions: clopidogrel (PLAVIX) 75 mg tablet TAKE 1 TABLET EVERY DAY Disp: 30 tablet Rfl: 11 escitalopram oxalate (LEXAPRO) 10 mg tablet Take 1 tablet by mouth once daily. Disp: 30 tablet Rfl: 5 fluticasone (FLONASE) 50 mcg/actuation nasal spray Use 2 Sprays in each nostril once daily. Rinse mouth after use. Disp: 1 Bottle Rfl: 11 loratadine (CLARITIN) 10 mg tablet Take 1 tablet by mouth once daily. Disp: 30 tablet Rfl: 11 melatonin 1 mg tablet Take 2 tablets by mouth daily at bedtime. Disp: Rfl: isosorbide mononitrate ER (IMDUR) 30 mg 24 hr tablet Take 1 tablet by mouth once daily. Disp: 30 tablet Rfl: 6 acetaminophen (TYLENOL EXTRA STRENGTH) 500 mg tablet Take 1,000 mg by mouth every 8 hours as needed. Disp: Rfl: clotrimazole-betamethasone (LOTRISONE) cream Apply 1 application to affected area twice daily. UNTIL CLEAR FOR UP TO 2-3 WEEKS Disp: 30 g Rfl: 2 metoprolol succinate ER (TOPROL XL) 25 mg 24 hr tablet Take 1 tablet by mouth once daily. Disp: 90 tablet Rfl: 3 atorvastatin (LIPITOR) 80 mg tablet Take 1 tablet by mouth once daily. Disp: 90 tablet Rfl: 3 aspirin 81 mg chewable tablet Take 81 mg by mouth once daily. Disp: Rfl: ranitidine (ZANTAC) 150 mg tablet Take 150 mg by mouth once daily. Disp: Rfl: nitroglycerin sublingual (NITROQUICK) 0.4 mg SL tablet Dissolve 0.4 mg under the tongue every 5 minutes as needed. Disp: Rfl: No current facility-administered medications for this visit. Anthropometrics: Height: Last 1 Encounter Ht Readings: Date: Ht: 09/01/2018 179.7 cm (5' 10.75) Current weight: Last 1 Encounter Wt Readings: Date: Wt: 09/01/2018 109.3 kg (241 lb) Body mass index is 33.85 kg/m?. Resting Metabolic Rate: 2003 NUTRITION ASSESSMENT: Malnutrition Screening Significant unintentional weight loss? No Eating less than 75% of usual intake for more than 2 weeks? No RECOMMENDED MALNUTRITION DIAGNOSIS: NO MALNUTRITION IDENTIFIED Educational materials provided: Cholesterol Lowering Strategies, Healthy Eating for a Low Fat, Low Cholesterol Diet, Fiber (Improving your health with), Plant Based Sources of [place] 3 Fats, Low-fat vegan diet in treatment and management of heart diease and Mediterranean Diet READINESS TO LEARN Cognitive ability: Alert and oriented Motivation to learn: Interested Family support: Unable to assess - Family not present Instruction provided to: Patient Patient learns best by: Individual Instruction Factors affecting learning: None Physical limitations affecting learning: None Patient presents for initial MNT a relates to ASHD, HTN. Questions about how to eat. 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 Intake noted for high vegetable intake, including lean meats, mostly whole grain starches, healthy fats but larger portions; does include sugar and sugar beverages daily. Excess snacking during the day related to boredom while driving. No exercise and sedentary during the day Nutrition Diagnosis: Inadequate bio active substance intake related to food and nutrition related knowledge deficit as evidenced by low intake/lack of plant stanols, phytochemicals, [place] 3 f.a. . Nutrition Intervention 09/01/2018: comprehensive nutrition educaiton 1. Consider tracking intake with apps [employer] or [employer]. 2. Add in regular exercise 30-45 min most days preferably all 3. All beverages calorie free and sugar free, no regular pop 4. Choose whole grain, high fiber breads and cereals only 1. follow a low-fat low-cholesterol diet 2. Do not skip meals. Cholesterol levels may be higher when you eat fewer meals. 3. Consume whole grains (whole grain breads/cereals, oatmeal, barley, popcorn). Include 20-35 grams of fiber per day. 4. Consume fresh/frozen fruit and vegetables (blueberries, nectarines, raspberries, apples, apricots, figs, prunes, dark leafy greens and include a variety of colors) 5. Consume lean protein (chicken, turkey breast, fish lean beef and pork). Avoid eating red meats more than twice per week. Aim for cheese and meats with 3 grams of fat or less per ounce. 6. Use low fat cooking methods such as baking, broiling, roasted, and grilled 7. Use healthy fats such as olive oil, flaxseed oil, walnuts, almonds, pecans, olives and avocado but in limited amounts. 8. Increase foods rich in omega-3 fatty acids (salmon, tuna, mclaughlin, sardines, rodney) Aim for 2 servings per week (6 ounces total). Almonds/walnuts and ground flaxseed (2 Tablespoons/day). 10. Read food labels. Avoid products made with partially hydrogenated fats/oils. 11 Use fucntional foods:Plant sterols and stanols (1.3 grams plant sterols or 3.4 grams plant stanols per day); 3 g/d of glucan fiber from oats and barley; 7g/day or more fro psyllium seed husk such as Metamucil; 25 g/day soy protien; 1.5 oz/day tree nuts. 12. If you are overweight, losing weight will help lower your total cholesterol level and raise your HDL level. Try using the Healthy Plate method. 13. Be physically active for at least 30-45 minutes per day 5-6 days per week. Nutrition Monitoring AND Evaluation: lipid lowering diet Criteria: patient update Need for Follow up: 4-6 week Referred/Supervised by: Dar/Pratima SCHMID Billing Type: Initial Assess/15 min 3 units SIGNATURE: Elvira Patrick MS RD LD PATIENT NAME: Harshil Allison DATE: September 01, 2018 TIME: 10:52 AM PROGRESS Observed: 09/01/2018 Status: COMPLETED Source: [place] 10:02 AM [facility] [place] RE[facility]IT[facility] ID: [id number] Author: Jonah Delgadillo (Vikash) Tray Service: (none) Author Type: Physician Manager Latin Type: Progress Notes Filed: 09/02/2018 8:07 AM Note Text: 43 year old male with c/o 1. Still having vision problems from keratitis a month ago. See Dr. García. Has problems seeing at night. 2. Chronic neck and back pain: doing well. Would like adjustment today. Stiff. Worse with benja. No radiating pain, numbness, tingling or los of strength 3. Hand eczema improved with cortisone cream. Fairly well controlled with minimal use. 4. NSTEMI/ angina: doesn't recall last with episode with chest pain. Scheduled f/u in January 5. ANTOINETTE: compliant 6. Depression: doing well. Compliant with Lexapro. Not in counseling currently. 7. GERD: a little more lately. Notes at night. Takes extra tablet Ranitidine 150mg. 8. HLD: stable compliant with atorvastatin. No muscles aches, diarrhea. HISTORIES FAMILY HISTORY Problem Relation Age of Onset - Heart Mother irregular heart - Hypertension Mother - Hyperlipidemia Mother - Hypertension Father - Glaucoma Father - other (Other) Father AML in remission - Thyroid Sister PAST MEDICAL HISTORY Diagnosis Date - GERD (gastroesophageal reflux disease) - STEMI (ST elevation myocardial infarction) ([facility]) 06/2017 PAST SURGICAL HISTORY Procedure Laterality Date - SEPTOPLASTY 2006 Turbinate Reduction Social History Marital status: Spouse name: Years of education: Number of children: 4 Social History Main Topics Smoking status: Former Smoker Packs/day: 0.00 Years: 0.00 Types: Cigars Smokeless tobacco: Never Used Comment: rare use Alcohol use: Yes Comment: occasional: beer mixed drinks weekends Drug use: No Sexual activity: Yes Partners with: Female control/protection: Condom Social History Narrative Watch sports, Gro, [employer], dance ACTIVE PROBLEM LIST Coronary Artery Disease Involving [place] Coronary Artery of [place] Heart Without Angina Pectoris Depression, Major Eczema Gerd Without Esophagitis Antoinette (Obstructive Sleep Apnea) Cpap (Continuous Positive Airway Pressure) Dependence Current Outpatient Prescriptions: clopidogrel (PLAVIX) 75 mg tablet TAKE 1 TABLET EVERY DAY Disp: 30 tablet Rfl: 11 escitalopram oxalate (LEXAPRO) 10 mg tablet Take 1 tablet by mouth once daily. Disp: 30 tablet Rfl: 5 fluticasone (FLONASE) 50 mcg/actuation nasal spray Use 2 Sprays in each nostril once daily. Rinse mouth after use. Disp: 1 Bottle Rfl: 11 loratadine (CLARITIN) 10 mg tablet Take 1 tablet by mouth once daily. Disp: 30 tablet Rfl: 11 melatonin 1 mg tablet Take 2 tablets by mouth daily at bedtime. Disp: Rfl: isosorbide mononitrate ER (IMDUR) 30 mg 24 hr tablet Take 1 tablet by mouth once daily. Disp: 30 tablet Rfl: 6 acetaminophen (TYLENOL EXTRA STRENGTH) 500 mg tablet Take 1,000 mg by mouth every 8 hours as needed. Disp: Rfl: clotrimazole-betamethasone (LOTRISONE) cream Apply 1 application to affected area twice daily. UNTIL CLEAR FOR UP TO 2-3 WEEKS Disp: 30 g Rfl: 2 metoprolol succinate ER (TOPROL XL) 25 mg 24 hr tablet Take 1 tablet by mouth once daily. Disp: 90 tablet Rfl: 3 atorvastatin (LIPITOR) 80 mg tablet Take 1 tablet by mouth once daily. Disp: 90 tablet Rfl: 3 aspirin 81 mg chewable tablet Take 81 mg by mouth once daily. Disp: Rfl: ranitidine (ZANTAC) 150 mg tablet Take 150 mg by mouth once daily. Disp: Rfl: nitroglycerin sublingual (NITROQUICK) 0.4 mg SL tablet Dissolve 0.4 mg under the tongue every 5 minutes as needed. Disp: Rfl: No current facility-administered medications for this visit. There are no preventive care reminders to display for this patient. EXAM: BP 100/70 Pulse (!) 56 Temp 36.1 ?C (97 ?F) (Tympanic) Resp 16 Wt 110.7 kg (244 lb) BMI 34.23 kg/m? weight increase Pleasant adult male in no acute distress. Alert and oriented all spheres. Normal affect and cognition. Speech normal. No deficits to learning or comprehension. Mood positive Skin warm, dry, pink to lips and nailbeds. Normal turgor. Respirations regular and unlabored. HEENT WNL. TM's clear. Nose and oropharynx free from injection or lesion. No cervical lymph nodes. Thyroid non-tender, no masses Chest CTA. HRRR without murmur or gallop.Extrem: no clubbing, cyanosis, edema. Extremities are warm and pink with prompt capillary refill. Neck supple. Mild restrictions bilaterally with rotation. side bending. Back some tenderness upper back. Extrem: no clubbing, cyanosis, edema. Distal pulses 2+/4, prompt capillary refill. OMT: HVLA to cervical and thoracic segments. ASSESSMENT/PLAN: 1. Coronary artery disease involving big sandy coronary artery of big sandy heart without angina pectoris - ICD9: 414.01, ICD10: I25.10 (primary diagnosis) Stable, asymptomatic 2. Episode of recurrent major depressive disorder, unspecified depression episode severity (HCC) - ICD9: 296.30, ICD10: F33.9 Stable. Local Dirtapro works. Not seeing therapist currently 3. Eczema, unspecified type - ICD9: 692.9, ICD10: L30.9 - discussed skin care of rash - follow up if symptoms persist or worsen. 4. GERD without esophagitis - ICD9: 530.81, ICD10: K21.9 - Discussed lifestyle modifications including losing weight, limiting caffeine, no meals three hours before sleep and head of bed elevation: strongly encouraged. 5. ANTOINETTE (obstructive sleep apnea) - ICD9: 327.23, ICD10: G47.33 Compliant 6. Hypertension, essential - ICD9: 401.9, ICD10: I10 - good control - Recommended regular aerobic exercise. - Recommend home blood pressure monitoring, to bring results in on next visit - Goal of BP <130/80 7. Chronic neck and back pain - ICD9: 723.1, 724.5, ICD10: M54.2, M54.9, G89.29 Somatic dysfucntion - Ice for localized tenderness - OMT prn Recheck in 6 months Jonah Feliz PA-C CNOV Observed: 09/01/2018 Status: COMPLETED Source: [place] 9:40 AM [facility] Office Visit (FAMPWS) HARSHIL ALLISON ([id number]) 1975 M Date Time Provider Department 09/01/18 9:40 AM Jonah FELIZ) NISHA During your visit today, we recorded the following information about you: Temperature Pulse Respiration Blood pressure 97 degrees 56/minute 16/minute 100/70 Weight 110.7 kg Jonah Feliz PA-C 09/02/2018 8:07 AM Addendum 43 year old male with c/o 1. Still having vision problems from keratitis a month ago. See Dr. García. Has problems seeing at night. 2. Chronic neck and back pain: doing well. Would like adjustment today. Stiff. Worse with benja. No radiating pain, numbness, tingling or los of strength 3. Hand eczema improved with cortisone cream. Fairly well controlled with minimal use. 4. NSTEMI/ angina: doesn't recall last with episode with chest pain. Scheduled f/u in January 5. ANTOINETTE: compliant 6. Depression: doing well. Compliant with Lexapro. Not in counseling currently. 7. GERD: a little more lately. Notes at night. Takes extra tablet Ranitidine 150mg. 8. HLD: stable compliant with atorvastatin. No muscles aches, diarrhea. HISTORIES FAMILY HISTORY Problem Relation Age of Onset - Heart Mother irregular heart - Hypertension Mother - Hyperlipidemia Mother - Hypertension Father - Glaucoma Father - other (Other) Father AML in remission - Thyroid Sister PAST MEDICAL HISTORY Diagnosis Date - GERD (gastroesophageal reflux disease) - STEMI (ST elevation myocardial infarction) ([facility]) 06/2017 PAST SURGICAL HISTORY Procedure Laterality Date - SEPTOPLASTY 2007 Turbinate Reduction Social History Marital status: Spouse name: Years of education: Number of children: 4 Social History Main Topics Smoking status: Former Smoker Packs/day: 0.00 Years: 0.00 Types: Cigars Smokeless tobacco: Never Used Comment: rare use Alcohol use: Yes Comment: occasional: beer mixed drinks weekends Drug use: No Sexual activity: Yes Partners with: Female control/protection: Condom Social History Narrative Watch [employer], Gro, [employer], dance ACTIVE PROBLEM LIST Coronary Artery Disease Involving [place] Coronary Artery of [place] Heart Without Angina Pectoris Depression, Major Eczema Gerd Without Esophagitis Antoinette (Obstructive Sleep Apnea) Cpap (Continuous Positive Airway Pressure) Dependence Current Outpatient Prescriptions: clopidogrel (PLAVIX) 75 mg tablet TAKE 1 TABLET EVERY DAY Disp: 30 tablet Rfl: 11 escitalopram oxalate (LEXAPRO) 10 mg tablet Take 1 tablet by mouth once daily. Disp: 30 tablet Rfl: 5 fluticasone (FLONASE) 50 mcg/actuation nasal spray Use 2 Sprays in each nostril once daily. Rinse mouth after use. Disp: 1 Bottle Rfl: 11 loratadine (CLARITIN) 10 mg tablet Take 1 tablet by mouth once daily. Disp: 30 tablet Rfl: 11 melatonin 1 mg tablet Take 2 tablets by mouth daily at bedtime. Disp: Rfl: isosorbide mononitrate ER (IMDUR) 30 mg 24 hr tablet Take 1 tablet by mouth once daily. Disp: 30 tablet Rfl: 6 acetaminophen (TYLENOL EXTRA STRENGTH) 500 mg tablet Take 1,000 mg by mouth every 8 hours as needed. Disp: Rfl: clotrimazole-betamethasone (LOTRISONE) cream Apply 1 application to affected area twice daily. UNTIL CLEAR FOR UP TO 2-3 WEEKS Disp: 30 g Rfl: 2 metoprolol succinate ER (TOPROL XL) 25 mg 24 hr tablet Take 1 tablet by mouth once daily. Disp: 90 tablet Rfl: 3 atorvastatin (LIPITOR) 80 mg tablet Take 1 tablet by mouth once daily. Disp: 90 tablet Rfl: 3 aspirin 81 mg chewable tablet Take 81 mg by mouth once daily. Disp: Rfl: ranitidine (ZANTAC) 150 mg tablet Take 150 mg by mouth once daily. Disp: Rfl: nitroglycerin sublingual (NITROQUICK) 0.4 mg SL tablet Dissolve 0.4 mg under the tongue every 5 minutes as needed. Disp: Rfl: No current facility-administered medications for this visit. There are no preventive care reminders to display for this patient. EXAM: BP 100/70 Pulse (!) 56 Temp 36.1 ?C (97 ?F) (Tympanic) Resp 16 Wt 110.7 kg (244 lb) BMI 34.23 kg/m? weight increase Pleasant adult male in no acute distress. Alert and oriented all spheres. Normal affect and cognition. Speech normal. No deficits to learning or comprehension. Mood positive Skin warm, dry, pink to lips and nailbeds. Normal turgor. Respirations regular and unlabored. HEENT WNL. TM's clear. Nose and oropharynx free from injection or lesion. No cervical lymph nodes. Thyroid non-tender, no masses Chest CTA. HRRR without murmur or gallop.Extrem: no clubbing, cyanosis, edema. Extremities are warm and pink with prompt capillary refill. Neck supple. Mild restrictions bilaterally with rotation. side bending. Back some tenderness upper back. Extrem: no clubbing, cyanosis, edema. Distal pulses 2+/4, prompt capillary refill. OMT: HVLA to cervical and thoracic segments. ASSESSMENT/PLAN: 1. Coronary artery disease involving big sandy coronary artery of big sandy heart without angina pectoris - ICD9: 414.01, ICD10: I25.10 (primary diagnosis) Stable, asymptomatic 2. Episode of recurrent major depressive disorder, unspecified depression episode severity (HCC) - ICD9: 296.30, ICD10: F33.9 Stable. lexapro works. Not seeing therapist currently 3. Eczema, unspecified type - ICD9: 692.9, ICD10: L30.9 - discussed skin care of rash - follow up if symptoms persist or worsen. 4. GERD without esophagitis - ICD9: 530.81, ICD10: K21.9 - Discussed lifestyle modifications including losing weight, limiting caffeine, no meals three hours before sleep and head of bed elevation: strongly encouraged. 5. ANTOINETTE (obstructive sleep apnea) - ICD9: 327.23, ICD10: G47.33 Compliant 6. Hypertension, essential - ICD9: 401.9, ICD10: I10 - good control - Recommended regular aerobic exercise. - Recommend home blood pressure monitoring, to bring results in on next visit - Goal of BP <130/80 7. Chronic neck and back pain - ICD9: 723.1, 724.5, ICD10: M54.2, M54.9, G89.29 Somatic dysfucntion - Ice for localized tenderness - OMT prn Recheck in 6 months Jonah Feliz PA-C Referring Provider: Jonah FELIZ (VIKASH) [[id number]] Allergies As of Date: 09/01/2018 Noted Allergy Reaction SEASONAL ALLERGIES 07/29/2018 14 - Other: See Comments Comments: Sneezing, runny nose Date Reviewed: 09/01/2018 Reviewed by: Elvira (Jil Patrick - Fully Assessed Reason for Visit: F/U 6 months [1177] Primary Visit Diagnosis:Coronary artery disease involving big sandy coronary artery of big sandy heart without angina pectoris [I25.10] Other Visit Diagnoses:Episode of recurrent major depressive disorder, unspecified depression episode severity (HCC) [F33.9] Eczema, unspecified type [L30.9] GERD without esophagitis [K21.9] ANTOINETTE (obstructive sleep apnea) [G47.33] Hypertension, essential [I10] Chronic neck and back pain [M54.2, M54.9, G89.29] Prescriptions as of 09/01/2018 Sig: CLOPIDOGREL 75 MG TABLET TAKE 1 TABLET EVERY DAY ESCITALOPRAM 10 MG TABLET Take 1 tablet by mouth once d* FLUTICASONE 50 MCG/ACTUATION * Use 2 Sprays in each nostril * LORATADINE 10 MG TABLET Take 1 tablet by mouth once d* MELATONIN 1 MG TABLET Take 2 tablets by mouth daily* ISOSORBIDE MONONITRATE ER 30 * Take 1 tablet by mouth once d* ACETAMINOPHEN 500 MG TABLET Take 1,000 mg by mouth every * CLOTRIMAZOLE-BETAMETHASONE 1 * Apply 1 application to affect* METOPROLOL SUCCINATE ER 25 MG* Take 1 tablet by mouth once d* ATORVASTATIN 80 MG TABLET Take 1 tablet by mouth once d* ASPIRIN 81 MG CHEWABLE TABLET Take 81 mg by mouth once danni* RANITIDINE 150 MG TABLET Take 150 mg by mouth once kira* NITROGLYCERIN 0.4 MG SUBLINGU* Dissolve 0.4 mg under the ton* Problem List As Of Date 09/01/2018 Noted Resolved Coronary artery disease involving big sandy talbert*INVALID FOR* More... Depression, major [F32.9] INVALID FOR* Eczema [L30.9] INVALID FOR* GERD without esophagitis [K21.9] INVALID FOR* ANTOINETTE (obstructive sleep apnea) [G47.33] INVALID FOR* CPAP (continuous positive airway pressure) depe*INVALID FOR* Hypertension, essential [I10] INVALID FOR* Chronic neck and back pain [M54.2, M54.9, G89.2*INVALID FOR* Medications Discontinued During This Encounter ciprofloxacin HCl (CILOXAN) 0.3 % op* 1 Jose Luis* 0 07/29/2018 09/01/2018 Class: Print RX Route: BOTH EYES Sig: Use 1 Drop in both eyes four times daily. Disc: Reason for discontinue is not on file. clindamycin (CLEOCIN) 150 mg capsule 40 c* 0 05/05/2018 09/01/2018 Route: ORAL Sig: Take 1 capsule by mouth four times daily. Patient not taking: Reported on 05/22/2018 Disc: Reason for discontinue is not on file. diphenhydrAMINE (BENADRYL) 25 mg cap* 09/01/2018 Class: Historical Med Route: ORAL Sig: Take 50 mg by mouth at bedtime as needed. Disc: Reason for discontinue is not on file. [id number]-[id number]-YS (TYLE* 30 t* 0 07/26/2018 09/01/2018 Route: ORAL Sig: Take 1 Dose by mouth as directed. Disc: Reason for discontinue is not on file. Disposition: Return in about 6 months (around 03/02/2019). Follow-up and Disposition History Recorded Letter Text [facility] [address], [place] [address] Harshil Allison [facility] [address] Clinic #: [id number] 09/01/2018 To Whom it may concern, Harshil Allison was examined here for an acute conjunctivitis and keratitis which required referral to an billing adjudicator. I am recommending restriction on night driving until his next follow up 09/22/18. Thank you, Luan Feliz PA-C Encounter Status:Closed by Jonah FELIZ PA-C on 09/01/18 PROGRESS Observed: 08/04/2018 Status: COMPLETED Source: [place] 2:38 PM [facility] HNO ID: [id number] Author: Mando Norris (Chadd Avina Service: (none) Author Type: Parole Hearing Officer Type: Progress Notes Filed: 08/04/2018 2:38 PM Note Text: Cardiac rehab session report and summary documented in [employer] system. TONEY Zelaya CNOV Observed: 08/04/2018 Status: COMPLETED Source: [place] 1:30 PM [facility] Office Visit (CAWSTR) HARSHIL ALLISON ([id number]) 1975 M Date Time Provider Department 08/04/18 1:30 PM CHANTE AVINA (JANICE) CAWSTR During your visit today, we recorded the following information about you: TONEY Zelaya 08/04/2018 2:38 PM Signed Cardiac rehab session report and summary documented in [employer] system. TONEY Zelaya Referring Provider: GARY AMAYA [[id number]] Allergies As of Date: 08/04/2018 Noted Allergy Reaction SEASONAL ALLERGIES 07/29/2018 14 - Other: See Comments Comments: Sneezing, runny nose Date Reviewed: 07/29/2018 Reviewed by: Leanne Gallardo Ma - Fully Assessed Reason for Visit: Cardiac Rehab [[id number]] Primary Visit Diagnosis:Stable angina (HCC) [I20.8] Prescriptions as of 08/04/2018 Sig: CLOPIDOGREL 75 MG TABLET TAKE 1 TABLET EVERY DAY ESCITALOPRAM 10 MG TABLET Take 1 tablet by mouth once d* FLUTICASONE 50 MCG/ACTUATION * Use 2 Sprays in each nostril * LORATADINE 10 MG TABLET Take 1 tablet by mouth once d* CIPROFLOXACIN 0.3 % EYE DROPS Use 1 Drop in both eyes four * MELATONIN 1 MG TABLET Take 2 tablets by mouth daily* [id number]* Take 1 Dose by mouth as direc* ISOSORBIDE MONONITRATE ER 30 * Take 1 tablet by mouth once d* CLINDAMYCIN HCL 150 MG CAPSULE Take 1 capsule by mouth four * Patient not taking: Reported on 05/22/2018 DIPHENHYDRAMINE 25 MG CAPSULE Take 50 mg by mouth at bedtim* ACETAMINOPHEN 500 MG TABLET Take 1,000 mg by mouth every * CLOTRIMAZOLE-BETAMETHASONE 1 * Apply 1 application to affect* METOPROLOL SUCCINATE ER 25 MG* Take 1 tablet by mouth once d* ATORVASTATIN 80 MG TABLET Take 1 tablet by mouth once d* ASPIRIN 81 MG CHEWABLE TABLET Take 81 mg by mouth once danni* RANITIDINE 150 MG TABLET Take 150 mg by mouth once kira* NITROGLYCERIN 0.4 MG SUBLINGU* Dissolve 0.4 mg under the ton* Problem List As Of Date 08/04/2018 Noted Resolved Coronary artery disease involving big sandy talbert*INVALID FOR* More... Depression, major [F32.9] INVALID FOR* Eczema [L30.9] INVALID FOR* GERD without esophagitis [K21.9] INVALID FOR* ANTOINETTE (obstructive sleep apnea) [G47.33] INVALID FOR* CPAP (continuous positive airway pressure) depe*INVALID FOR* Encounter Status:Closed by Mando BAÑUELOS on 08/04/18 OBSOLETE Observed: 07/30/2018 Status: COMPLETED Source: [place] 12:00 AM CLINIC OTHER [place] REPOSITORY Refill (AGCARDWST) HARSHIL ALLISON ([id number]) 1975 M Date Time Provider Department 07/30/18 GARY AMAYA AGCARDWST During your visit today, we recorded the following information about you: Allergies As of Date: 07/30/2018 Noted Allergy Reaction SEASONAL ALLERGIES 07/29/2018 14 - Other: See Comments Comments: Sneezing, runny nose Date Reviewed: 07/29/2018 Reviewed by: Leanne Gallardo Ma - Fully Assessed Reason for Visit: Refill Request [94] Order(s):clopidogrel (PLAVIX) 75 mg tabletTAKE 1 TABLET EVERY DAYDisp: 30 tabletRfl: 11 Prescriptions as of 07/30/2018 Sig: CLOPIDOGREL 75 MG TABLET TAKE 1 TABLET EVERY DAY FLUTICASONE 50 MCG/ACTUATION * Use 2 Sprays in each nostril * LORATADINE 10 MG TABLET Take 1 tablet by mouth once d* CIPROFLOXACIN 0.3 % EYE DROPS Use 1 Drop in both eyes four * MELATONIN 1 MG TABLET Take 2 tablets by mouth daily* POLYMYXIN B SULFATE 10,000 UN* Use 1 Drop in both eyes every* [id number]* Take 1 Dose by mouth as direc* ISOSORBIDE MONONITRATE ER 30 * Take 1 tablet by mouth once d* CLINDAMYCIN HCL 150 MG CAPSULE Take 1 capsule by mouth four * Patient not taking: Reported on 05/22/2018 DIPHENHYDRAMINE 25 MG CAPSULE Take 50 mg by mouth at bedtim* ACETAMINOPHEN 500 MG TABLET Take 1,000 mg by mouth every * CLOTRIMAZOLE-BETAMETHASONE 1 * Apply 1 application to affect* X ESCITALOPRAM 10 MG TABLET Take 1 tablet by mouth once d* METOPROLOL SUCCINATE ER 25 MG* Take 1 tablet by mouth once d* ATORVASTATIN 80 MG TABLET Take 1 tablet by mouth once d* ASPIRIN 81 MG CHEWABLE TABLET Take 81 mg by mouth once danni* RANITIDINE 150 MG TABLET Take 150 mg by mouth once kira* NITROGLYCERIN 0.4 MG SUBLINGU* Dissolve 0.4 mg under the ton* Problem List As Of Date 07/30/2018 Noted Resolved Coronary artery disease involving big sandy talbert*INVALID FOR* More... Depression, major [F32.9] INVALID FOR* Eczema [L30.9] INVALID FOR* GERD without esophagitis [K21.9] INVALID FOR* ANTOINETTE (obstructive sleep apnea) [G47.33] INVALID FOR* CPAP (continuous positive airway pressure) depe*INVALID FOR* Prescriptions ordered this encounter Disp Refills Start End CLOPIDOGREL 75 MG TABLET 30 t* 11 07/31/2018 Cmt: Med-syn patient. If too soon, we will put new RX on hold for next cycle. Sig: TAKE 1 TABLET EVERY DAY Medications Discontinued During This Encounter clopidogrel (PLAVIX) 75 mg tablet 90 t* 3 12/09/2017 07/31/2018 Route: ORAL Sig: Take 1 tablet by mouth once daily. Disc: Reason for discontinue is not on file. Encounter Status:Closed by SHAVONNE ORTIZ RN on 07/31/18 PROGRESS Observed: 07/29/2018 Status: COMPLETED Source: [place] 4:52 PM [facility] HNO ID: [id number] Author: Jonah Feliz Service: (none) Author Type: Physician Manager Latin Type: Progress Notes Filed: 07/29/2018 5:07 PM Note Text: 43 year old male complaining of redness, irritation and crusting of Bilateral eye(s) Duration: 7 days Change or loss of vision? Yes: halos and blurring continuous in both eyes over last 3 days. Irritation? Yes Pain? No Light sensitivity? No Itching? Yes Matting? Yes Tearing? No Discharge? No FB exposure? No Nasal congestion? Yes Sinus pressure? Yes Cough? Yes Production? No Seasonal allergy history? Yes Any prescription or OTC treatments since onset of symptoms?: Yes If Yes what medications: Bleph !0 prescribed 3 days ago in [facility]. No improvement. Denies excessive rubbing. 2. Chronic mild neck and upper back pain. EXAM: OBJECTIVE: BP 100/66 Pulse 72 Resp 16 Wt 104.8 kg (231 lb) BMI 32.41 kg/m? General appearance: Pleasant overweight adult man in no acute distress. Respirations: regular, unlabored Color: pink to lips and nailbeds Skin: warm, dry, no unusual rashes or lesions Head: Normocephalic Eyes: bilateral eye (s) with marked diffuse conjunctival injection without active exudate. PERRLA, EOMI, corneal light reflex symmetric bilaterally. mild light sensitivity. no preauricular lymph node. Vision intact to small print. mild limbal flush and edema. Anterior chambers are deep. Ears: TM's and ear canals are clear bilaterally with normal landmarks, no swelling or deformity external ear Nose/Sinuses: Nose patent. No turbinate swelling. Active exudate: none. Maxillary and frontal sinuses nontender to percussion. Neck: Neck supple, no lymphadenopathy; thyroid without mass or tenderness. Chest: normally shaped, equal expansion with breaths. Lungs: Lungs clear to auscultation and percussion. No crackles or wheezes. Heart: RRR without murmur, gallop, or rubs. S1 and S2 normal. Neck supple. Mild restricted ROM to left with lateral rotation and side bending. Spurling's negative. ASSESSMENT/PLAN: 1. Bacterial conjunctivitis - ICD9: 372.39, 041.9, ICD10: H10.9 (primary diagnosis) - see medication orders - course and contagiousness issues discussed, including hand washing. - Instructed to call if high fever, development of periorbital redness or swelling, eye pain, visual changes, concerns or if symptoms persist. - Referral to Ophthalmology due to sx of vision disturbance, worrisome for iritis. Sent to [facility] for futrhter evaluation 2. Seasonal allergic rhinitis due to pollen - ICD9: 477.0, ICD10: J30.1 Refill meds 3. Somatic dysfunction of cervical region - ICD9: 739.1, ICD10: M99.01 Follow up prn Push fluids, Ice/ moist heat, lineaments, OTC analgesics as needed,. Stretching and posture reviewed. VIKASH Keller Observed: 07/29/2018 Status: COMPLETED Source: [place] 10:40 AM [facility] Office Visit (FAMPWS) HARSHIL ALLISON ([id number]) 1975 M Date Time Provider Department 07/29/18 10:40 AM Jonah FELIZ) FAMPWS During your visit today, we recorded the following information about you: Pulse Respiration Blood pressure Weight 72/minute 16/minute 100/66 104.8 kg M Elie Feliz PA-C 07/29/2018 1:03 PM Signed [facility] or conjunctivitis is a self-limited (goes away without treatment) condition usually caused by viruses, although it may also be caused by bacteria, allergies, or any kind or irritation or injury to the eye. All forms are self-limited, but sometimes antibiotic drops will help a bacterial infection go away quicker. Antibiotics ( which kill bacteria) will not help viral conjunctivitis. BACTERIAL conjunctivitis often has marked redness though little irritation with a lot of green or yellow pus that drains. It is very contagious through contact. VIRAL conjunctivitis is often associated with cold symptoms, and in children, ear infection. It may vary with the amount of redness, is mildly irritating and usually has little drainage other than some crusting on waking. It does not need to be treated with antibiotics unless there is draining pus. It is mildly contagious, and can be transferred through contact with eyes or with cold secretions. It is difficult to prevent transfer of the infection into the other eye. If you touch the eye, make sure to wash your hands. Cold symptoms with conjunctivitis may last anywhere from 2 days to 2 weeks. The infection may be transmitted to others through contact with eye or nasal secretions, sneezing, or coughing. ALLERGIC conjunctivitis is usually very itchy with intense urge to rub eyes and often accompanied by burning in the eyes or skin around the eyes. It is not uncommon to have some mild crusts on eyelashes on waking, and often will have small amounts of stringy, rope-like mucus. It usually comes along with other allergy symptoms such as sneezing, watery nasal drip, throat irritation and/ or dry cough. It is not contagious. If there is crusted drainage in the morning, remove gently by soaking the area with a warm wet washcloth. If you wear contacts, leave then out until the infection has completely cleared. If you wear them, protein deposits can build up on the contact which can scratch the cornea. If at any point you develop eye pain, inability to keep the eye open in direct light, visual disturbance that does not resolve with blinking, or symptoms persist longer than 3-4 days without improvement, call the office immediately. If symptoms fail to improve in 5-7 days, fever > 100.5F, general worsening, or other concerning symptoms, call Jonah Feliz PA-C or return to [facility]. Ciloxin eye drops as directed per prescription. If the eye seems to be worse after using the drops, it is possible it could be a reaction to the medication. If this persists, call the office. Jonah Feliz PA-C 07/29/2018 5:07 PM Signed 43 year old male complaining of redness, irritation and crusting of Bilateral eye(s) Duration: 7 days Change or loss of vision? Yes: halos and blurring continuous in both eyes over last 3 days. Irritation? Yes Pain? No Light sensitivity? No Itching? Yes Matting? Yes Tearing? No Discharge? No FB exposure? No Nasal congestion? Yes Sinus pressure? Yes Cough? Yes Production? No Seasonal allergy history? Yes Any prescription or OTC treatments since onset of symptoms?: Yes If Yes what medications: Bleph !0 prescribed 3 days ago in . No improvement. Denies excessive rubbing. 2. Chronic mild neck and upper back pain. EXAM: OBJECTIVE: BP 100/66 Pulse 72 Resp 16 Wt 104.8 kg (231 lb) BMI 32.41 kg/m? General appearance: Pleasant overweight adult man in no acute distress. Respirations: regular, unlabored Color: pink to lips and nailbeds Skin: warm, dry, no unusual rashes or lesions Head: Normocephalic Eyes: bilateral eye (s) with marked diffuse conjunctival injection without active exudate. PERRLA, EOMI, corneal light reflex symmetric bilaterally. mild light sensitivity. no preauricular lymph node. Vision intact to small print. mild limbal flush and edema. Anterior chambers are deep. Ears: TM's and ear canals are clear bilaterally with normal landmarks, no swelling or deformity external ear Nose/Sinuses: Nose patent. No turbinate swelling. Active exudate: none. Maxillary and frontal sinuses nontender to percussion. Neck: Neck supple, no lymphadenopathy; thyroid without mass or tenderness. Chest: normally shaped, equal expansion with breaths. Lungs: Lungs clear to auscultation and percussion. No crackles or wheezes. Heart: RRR without murmur, gallop, or rubs. S1 and S2 normal. Neck supple. Mild restricted ROM to left with lateral rotation and side bending. Spurling's negative. ASSESSMENT/PLAN: 1. Bacterial conjunctivitis - ICD9: 372.39, 041.9, ICD10: H10.9 (primary diagnosis) - see medication orders - course and contagiousness issues discussed, including hand washing. - Instructed to call if high fever, development of periorbital redness or swelling, eye pain, visual changes, concerns or if symptoms persist. - Referral to Ophthalmology due to sx of vision disturbance, worrisome for iritis. Sent to [facility] for futrhter evaluation 2. Seasonal allergic rhinitis due to pollen - ICD9: 477.0, ICD10: J30.1 Refill meds 3. Somatic dysfunction of cervical region - ICD9: 739.1, ICD10: M99.01 Follow up prn Push fluids, Ice/ moist heat, lineaments, OTC analgesics as needed,. Stretching and posture reviewed. Jonah Feliz PA-C Referring Provider: SELF [[id number]] Allergies As of Date: 07/29/2018 Noted Allergy Reaction SEASONAL ALLERGIES 07/29/2018 14 - Other: See Comments Comments: Sneezing, runny nose Date Reviewed: 07/29/2018 Reviewed by: Leanne Gallardo Ma - Fully Assessed Reason for Visit: Conjunctivitis [24] Cmt: both eyes Primary Visit Diagnosis:Bacterial conjunctivitis [H10.9] Other Visit Diagnoses:Seasonal allergic rhinitis due to pollen [J30.1] Somatic dysfunction of cervical region [M99.01] Order(s):fluticasone (FLONASE) 50 mcg/actuation nasal sprayUse 2 Sprays in each nostril once daily. Rinse mouth after use.Disp: 1 BottleRfl: 11 loratadine (CLARITIN) 10 mg tabletTake 1 tablet by mouth once daily.Disp: 30 tabletRfl: 11 ciprofloxacin HCl (CILOXAN) 0.3 % ophthalmic solutionUse 1 Drop in both eyes four times daily.Disp: 1 BottleRfl: 0 Prescriptions as of 07/29/2018 Sig: MELATONIN 1 MG TABLET Take 2 tablets by mouth daily* POLYMYXIN B SULFATE 10,000 UN* Use 1 Drop in both eyes every* ISOSORBIDE MONONITRATE ER 30 * Take 1 tablet by mouth once d* ACETAMINOPHEN 500 MG TABLET Take 1,000 mg by mouth every * ESCITALOPRAM 10 MG TABLET Take 1 tablet by mouth once d* CLOTRIMAZOLE-BETAMETHASONE 1 * Apply 1 application to affect* METOPROLOL SUCCINATE ER 25 MG* Take 1 tablet by mouth once d* CLOPIDOGREL 75 MG TABLET Take 1 tablet by mouth once d* ATORVASTATIN 80 MG TABLET Take 1 tablet by mouth once d* ASPIRIN 81 MG CHEWABLE TABLET Take 81 mg by mouth once danni* RANITIDINE 150 MG TABLET Take 150 mg by mouth once kira* NITROGLYCERIN 0.4 MG SUBLINGU* Dissolve 0.4 mg under the ton* FLUTICASONE 50 MCG/ACTUATION * Use 2 Sprays in each nostril * LORATADINE 10 MG TABLET Take 1 tablet by mouth once d* CIPROFLOXACIN 0.3 % EYE DROPS Use 1 Drop in both eyes four * PMWUCUCBJOKGB-ONQBHMHQINDRU-C* Take 1 Dose by mouth as direc* CLINDAMYCIN HCL 150 MG CAPSULE Take 1 capsule by mouth four * Patient not taking: Reported on 05/22/2018 DIPHENHYDRAMINE 25 MG CAPSULE Take 50 mg by mouth at bedtim* Problem List As Of Date 07/29/2018 Noted Resolved Coronary artery disease involving big sandy talbert*INVALID FOR* More... Depression, major [F32.9] INVALID FOR* Eczema [L30.9] INVALID FOR* GERD without esophagitis [K21.9] INVALID FOR* ANTOINETTE (obstructive sleep apnea) [G47.33] INVALID FOR* CPAP (continuous positive airway pressure) depe*INVALID FOR* Other instructions from your clinician: [facility] [employer] or conjunctivitis is a self-limited (goes away without treatment) condition usually caused by viruses, although it may also be caused by bacteria, allergies, or any kind or irritation or injury to the eye. All forms are self-limited, but sometimes antibiotic drops will help a bacterial infection go away quicker. Antibiotics ( which kill bacteria) will not help viral conjunctivitis. BACTERIAL conjunctivitis often has marked redness though little irritation with a lot of green or yellow pus that drains. It is very contagious through contact. VIRAL conjunctivitis is often associated with cold symptoms, and in children, ear infection. It may vary with the amount of redness, is mildly irritating and usually has little drainage other than some crusting on waking. It does not need to be treated with antibiotics unless there is draining pus. It is mildly contagious, and can be transferred through contact with eyes or with cold secretions. It is difficult to prevent transfer of the infection into the other eye. If you touch the eye, make sure to wash your hands. Cold symptoms with conjunctivitis may last anywhere from 2 days to 2 weeks. The infection may be transmitted to others through contact with eye or nasal secretions, sneezing, or coughing. ALLERGIC conjunctivitis is usually very itchy with intense urge to rub eyes and often accompanied by burning in the eyes or skin around the eyes. It is not uncommon to have some mild crusts on eyelashes on waking, and often will have small amounts of stringy, rope-like mucus. It usually comes along with other allergy symptoms such as sneezing, watery nasal drip, throat irritation and/ or dry cough. It is not contagious. If there is crusted drainage in the morning, remove gently by soaking the area with a warm wet washcloth. If you wear contacts, leave then out until the infection has completely cleared. If you wear them, protein deposits can build up on the contact which can scratch the cornea. If at any point you develop eye pain, inability to keep the eye open in direct light, visual disturbance that does not resolve with blinking, or symptoms persist longer than 3-4 days without improvement, call the office immediately. If symptoms fail to improve in 5-7 days, fever > 100.5F, general worsening, or other concerning symptoms, call Jonah Feliz PA-C or return to [facility]. Ciloxin eye drops as directed per prescription. If the eye seems to be worse after using the drops, it is possible it could be a reaction to the medication. If this persists, call the office. Prescriptions ordered this encounter Disp Refills Start End FLUTICASONE 50 MCG/ACTUATION NASAL S* 1 Jose Luis* 11 07/29/2018 Class: OTC Route: EACH NOSTRIL Sig: Use 2 Sprays in each nostril once daily. Rinse mouth after use. LORATADINE 10 MG TABLET 30 t* 11 07/29/2018 Class: OTC Route: ORAL Sig: Take 1 tablet by mouth once daily. CIPROFLOXACIN 0.3 % EYE DROPS 1 Jose Luis* 0 07/29/2018 Class: Print RX Route: BOTH EYES Sig: Use 1 Drop in both eyes four times daily. Encounter Status:Closed by Jonah FELIZ PA-C on 07/29/18 PROGRESS Observed: 07/28/2018 Status: COMPLETED Source: [place] 2:38 PM [facility] HNO ID: [id number] Author: Mando Avina (Rcep) Service: (none) Author Type: Parole Hearing Officer Type: Progress Notes Filed: 07/28/2018 2:39 PM Note Text: Cardiac rehab session report and summary documented in [facility] system. TONEY Zelaya CNOV Observed: 07/28/2018 Status: COMPLETED Source: [place] 1:30 PM [facility] Office Visit (CA[facility]STR) HARSHIL ALLISON ([id number]) 1975 M Date Time Provider Department 07/28/18 1:30 PM CHANTE AVINA) [facility] During your visit today, we recorded the following information about you: TONEY Zelaya 07/28/2018 2:39 PM Signed Cardiac rehab session report and summary documented in [facility] system. TONEY Zelaya Referring Provider: GARY AMAYA [[id number]] Allergies As of Date: 07/28/2018 (No Known Allergies) Date Reviewed: 07/07/2018 Reviewed by: Shavonne Ortiz RN - Fully Assessed Reason for Visit: Cardiac Rehab [[id number]] Primary Visit Diagnosis:Stable angina (HCC) [I20.8] Prescriptions as of 07/28/2018 Sig: MELATONIN 1 MG TABLET Take 2 tablets by mouth daily* POLYMYXIN B SULFATE 10,000 UN* Use 1 Drop in both eyes every* YBAXNXATYFUGK-YJMRVLVXMCKAJ-Y* Take 1 Dose by mouth as direc* ISOSORBIDE MONONITRATE ER 30 * Take 1 tablet by mouth once d* CLINDAMYCIN HCL 150 MG CAPSULE Take 1 capsule by mouth four * Patient not taking: Reported on 05/22/2018 DIPHENHYDRAMINE 25 MG CAPSULE Take 50 mg by mouth at bedtim* ACETAMINOPHEN 500 MG TABLET Take 1,000 mg by mouth every * ESCITALOPRAM 10 MG TABLET Take 1 tablet by mouth once d* CLOTRIMAZOLE-BETAMETHASONE 1 * Apply 1 application to affect* METOPROLOL SUCCINATE ER 25 MG* Take 1 tablet by mouth once d* CLOPIDOGREL 75 MG TABLET Take 1 tablet by mouth once d* ATORVASTATIN 80 MG TABLET Take 1 tablet by mouth once d* ASPIRIN 81 MG CHEWABLE TABLET Take 81 mg by mouth once danni* RANITIDINE 150 MG TABLET Take 150 mg by mouth once kira* NITROGLYCERIN 0.4 MG SUBLINGU* Dissolve 0.4 mg under the ton* Problem List As Of Date 07/28/2018 Noted Resolved Coronary artery disease involving big sandy talbert*INVALID FOR* More... Depression, major [F32.9] INVALID FOR* Eczema [L30.9] INVALID FOR* GERD without esophagitis [K21.9] INVALID FOR* ANTOINETTE (obstructive sleep apnea) [G47.33] INVALID FOR* CPAP (continuous positive airway pressure) depe*INVALID FOR* Encounter Status:Closed by Mando BAÑUELOS on 07/28/18 PROGRESS Observed: 07/26/2018 Status: COMPLETED Source: [place] 1:19 PM [facility] O ID: [id number] Author: Alisa Hill Service: (none) Author Type: Nurse Practitioner Type: Progress Notes Filed: 07/26/2018 1:24 PM Note Text: Subjective Conjunctivitis Associated symptoms include congestion, eye discharge and eye redness. Pertinent negatives include no fever, no double vision, no photophobia, no ear pain, no headaches, no sore throat, no cough, no wheezing and no eye pain. pt presents with c/o bilateral eye redness and yellow drainage x 2 days. Has also had nasal congestion and post nasal drip x 5 days. Feels those sx are improving. Review of Systems Constitutional: Negative for chills and fever. HENT: Positive for congestion. Negative for ear pain and sore throat. Eyes: Positive for discharge and redness. Negative for blurred vision, double vision, photophobia and pain. Respiratory: Negative for cough, sputum production, shortness of breath and wheezing. Cardiovascular: Negative for chest pain. Skin: Negative. Neurological: Negative for headaches. Objective Physical Exam Constitutional: He is oriented to person, place, and time and well-developed, well-nourished, and in no distress. No distress. HENT: Head: Normocephalic. Right Ear: Hearing, tympanic membrane, external ear and ear canal normal. Left Ear: Hearing, tympanic membrane, external ear and ear canal normal. Nose: Nose normal. No mucosal edema. Mouth/Throat: Uvula is midline, oropharynx is clear and moist and mucous membranes are normal. No oropharyngeal exudate. Eyes: Pupils are equal, round, and reactive to light. EOM are normal. Right eye exhibits discharge and exudate. Right eye exhibits no chemosis and no hordeolum. Left eye exhibits discharge and exudate. Left eye exhibits no chemosis and no hordeolum. Right conjunctiva is injected. Left conjunctiva is injected. Pupils unequal: vision 20/20 via steven card. Neck: Neck supple. Cardiovascular: Normal rate, regular rhythm and normal heart sounds. Exam reveals no gallop and no friction rub. No murmur heard. Pulmonary/Chest: Effort normal and breath sounds normal. No respiratory distress. He has no wheezes. He has no rales. Neurological: He is alert and oriented to person, place, and time. Skin: Skin is warm and dry. He is not diaphoretic. BP 106/82 Pulse 70 Temp 36.4 ?C (97.5 ?F) (Left Tympanic) Resp 16 Wt 104.1 kg (229 lb 9.6 oz) SpO2 98% BMI 32.21 kg/m? .Patient presents with: Conjunctivitis: x 24 hours PAST MEDICAL HISTORY Diagnosis Date - GERD (gastroesophageal reflux disease) - STEMI (ST elevation myocardial infarction) ([facility]) 06/2017 PAST SURGICAL HISTORY Procedure Laterality Date - SEPTOPLASTY 2007 Turbinate Reduction ALLERGIES Patient has no known allergies. MEDICATIONS melatonin 1 mg tablet Take 2 tablets by mouth daily at bedtime. isosorbide mononitrate ER (IMDUR) 30 mg 24 hr tablet Take 1 tablet by mouth once daily. acetaminophen (TYLENOL EXTRA STRENGTH) 500 mg tablet Take 1,000 mg by mouth every 8 hours as needed. escitalopram oxalate (LEXAPRO) 10 mg tablet Take 1 tablet by mouth once daily. clotrimazole-betamethasone (LOTRISONE) cream Apply 1 application to affected area twice daily. UNTIL CLEAR FOR UP TO 2-3 WEEKS metoprolol succinate ER (TOPROL XL) 25 mg 24 hr tablet Take 1 tablet by mouth once daily. clopidogrel (PLAVIX) 75 mg tablet Take 1 tablet by mouth once daily. atorvastatin (LIPITOR) 80 mg tablet Take 1 tablet by mouth once daily. aspirin 81 mg chewable tablet Take 81 mg by mouth once daily. ranitidine (ZANTAC) 150 mg tablet Take 150 mg by mouth once daily. nitroglycerin sublingual (NITROQUICK) 0.4 mg SL tablet Dissolve 0.4 mg under the tongue every 5 minutes as needed. trimethoprim-polymyxin eye drops (POLYTRIM) ophthalmic solution Use 1 Drop in both eyes every 6 hours for 7 days. Use in the affected eye. Fyuyhfecfksbm-Nwueakbveqodb-XI (TYLENOL COLD HEAD CONGEST SEVR) 5-325-200 mg tab Take 1 Dose by mouth as directed. clindamycin (CLEOCIN) 150 mg capsule Take 1 capsule by mouth four times daily. diphenhydrAMINE (BENADRYL) 25 mg capsule Take 50 mg by mouth at bedtime as needed. FAMILY HISTORY Problem Relation Age of Onset - Heart Mother irregular heart - Hypertension Mother - Hyperlipidemia Mother - Hypertension Father - Glaucoma Father - other (Other) Father AML in remission - Thyroid Sister Social History Substance Use Topics - Smoking status: Former Smoker Types: Cigars - Smokeless tobacco: Never Used Comment: rare use - Alcohol use Yes Comment: occasional: beer mixed drinks weekends ASSESSMENT/PLAN: 1. Viral URI - ICD9: 465.9, ICD10: J06.9 (primary diagnosis) - Discussed viral etiology and rationale for treatment. - Symptomatic treatment with prn analgesia - Supportive care with fluids and rest - Follow up in 3-5 days if symptoms persist or sooner if worsening of symptoms - DNNCZWAELOLUY-PMNBYRFJHDDYX-JOPCPFCSZJL 5 MG-325 MG-200 MG TABLET 2. Bacterial conjunctivitis - ICD9: 372.39, 041.9, ICD10: H10.9 - see medication orders - course and contagiousness issues discussed, including hand washing. - Instructed to call if high fever, development of periorbital redness or swelling, eye pain, visual changes, concerns or if symptoms persist. - POLYMYXIN B SULFATE 10,000 UNIT-TRIMETHOPRIM 1 MG/ML EYE DROPS The patient is instructed to return or seek emergency treatment if symptoms become worse or with any acute change in condition. The patient verbalizes understanding and is in agreement with plan of care. Alisa Hill CNP CNOV Observed: 07/26/2018 Status: COMPLETED Source: [place] 12:30 PM [facility] Office Visit (WSTR) HARSHIL ALLISON ([id number]) 1975 M Date Time Provider Department 07/26/18 12:30 PM ALISA HILL [facility] During your visit today, we recorded the following information about you: Temperature Pulse Respiration Blood pressure 97.5 degrees 70/minute 16/minute 106/82 Weight 104.1 kg Alisa Hill APRN.CNP 07/26/2018 1:24 PM Signed Subjective Conjunctivitis Associated symptoms include congestion, eye discharge and eye redness. Pertinent negatives include no fever, no double vision, no photophobia, no ear pain, no headaches, no sore throat, no cough, no wheezing and no eye pain. pt presents with c/o bilateral eye redness and yellow drainage x 2 days. Has also had nasal congestion and post nasal drip x 5 days. Feels those sx are improving. Review of Systems Constitutional: Negative for chills and fever. HENT: Positive for congestion. Negative for ear pain and sore throat. Eyes: Positive for discharge and redness. Negative for blurred vision, double vision, photophobia and pain. Respiratory: Negative for cough, sputum production, shortness of breath and wheezing. Cardiovascular: Negative for chest pain. Skin: Negative. Neurological: Negative for headaches. Objective Physical Exam Constitutional: He is oriented to person, place, and time and well-developed, well-nourished, and in no distress. No distress. HENT: Head: Normocephalic. Right Ear: Hearing, tympanic membrane, external ear and ear canal normal. Left Ear: Hearing, tympanic membrane, external ear and ear canal normal. Nose: Nose normal. No mucosal edema. Mouth/Throat: Uvula is midline, oropharynx is clear and moist and mucous membranes are normal. No oropharyngeal exudate. Eyes: Pupils are equal, round, and reactive to light. EOM are normal. Right eye exhibits discharge and exudate. Right eye exhibits no chemosis and no hordeolum. Left eye exhibits discharge and exudate. Left eye exhibits no chemosis and no hordeolum. Right conjunctiva is injected. Left conjunctiva is injected. Pupils unequal: vision 20/20 via steven card. Neck: Neck supple. Cardiovascular: Normal rate, regular rhythm and normal heart sounds. Exam reveals no gallop and no friction rub. No murmur heard. Pulmonary/Chest: Effort normal and breath sounds normal. No respiratory distress. He has no wheezes. He has no rales. Neurological: He is alert and oriented to person, place, and time. Skin: Skin is warm and dry. He is not diaphoretic. BP 106/82 Pulse 70 Temp 36.4 ?C (97.5 ?F) (Left Tympanic) Resp 16 Wt 104.1 kg (229 lb 9.6 oz) SpO2 98% BMI 32.21 kg/m? .Patient presents with: Conjunctivitis: x 24 hours PAST MEDICAL HISTORY Diagnosis Date - GERD (gastroesophageal reflux disease) - STEMI (ST elevation myocardial infarction) ([facility]) 06/2017 PAST SURGICAL HISTORY Procedure Laterality Date - SEPTOPLASTY 2007 Turbinate Reduction ALLERGIES Patient has no known allergies. MEDICATIONS melatonin 1 mg tablet Take 2 tablets by mouth daily at bedtime. isosorbide mononitrate ER (IMDUR) 30 mg 24 hr tablet Take 1 tablet by mouth once daily. acetaminophen (TYLENOL EXTRA STRENGTH) 500 mg tablet Take 1,000 mg by mouth every 8 hours as needed. escitalopram oxalate (LEXAPRO) 10 mg tablet Take 1 tablet by mouth once daily. clotrimazole-betamethasone (LOTRISONE) cream Apply 1 application to affected area twice daily. UNTIL CLEAR FOR UP TO 2-3 WEEKS metoprolol succinate ER (TOPROL XL) 25 mg 24 hr tablet Take 1 tablet by mouth once daily. clopidogrel (PLAVIX) 75 mg tablet Take 1 tablet by mouth once daily. atorvastatin (LIPITOR) 80 mg tablet Take 1 tablet by mouth once daily. aspirin 81 mg chewable tablet Take 81 mg by mouth once daily. ranitidine (ZANTAC) 150 mg tablet Take 150 mg by mouth once daily. nitroglycerin sublingual (NITROQUICK) 0.4 mg SL tablet Dissolve 0.4 mg under the tongue every 5 minutes as needed. trimethoprim-polymyxin eye drops (POLYTRIM) ophthalmic solution Use 1 Drop in both eyes every 6 hours for 7 days. Use in the affected eye. Seoqxqsfivvbr-Umvewascjcmmc-XQ (TYLENOL COLD HEAD CONGEST SEVR) 5-325-200 mg tab Take 1 Dose by mouth as directed. clindamycin (CLEOCIN) 150 mg capsule Take 1 capsule by mouth four times daily. diphenhydrAMINE (BENADRYL) 25 mg capsule Take 50 mg by mouth at bedtime as needed. FAMILY HISTORY Problem Relation Age of Onset - Heart Mother irregular heart - Hypertension Mother - Hyperlipidemia Mother - Hypertension Father - Glaucoma Father - other (Other) Father AML in remission - Thyroid Sister Social History Substance Use Topics - Smoking status: Former Smoker Types: Cigars - Smokeless tobacco: Never Used Comment: rare use - Alcohol use Yes Comment: occasional: beer mixed drinks weekends ASSESSMENT/PLAN: 1. Viral URI - ICD9: 465.9, ICD10: J06.9 (primary diagnosis) - Discussed viral etiology and rationale for treatment. - Symptomatic treatment with prn analgesia - Supportive care with fluids and rest - Follow up in 3-5 days if symptoms persist or sooner if worsening of symptoms - EJKMWGOLEEDST-YOEYLRYUNOAHU-HCXVVKOWTFQ 5 MG-325 MG-200 MG TABLET 2. Bacterial conjunctivitis - ICD9: 372.39, 041.9, ICD10: H10.9 - see medication orders - course and contagiousness issues discussed, including hand washing. - Instructed to call if high fever, development of periorbital redness or swelling, eye pain, visual changes, concerns or if symptoms persist. - POLYMYXIN B SULFATE 10,000 UNIT-TRIMETHOPRIM 1 MG/ML EYE DROPS The patient is instructed to return or seek emergency treatment if symptoms become worse or with any acute change in condition. The patient verbalizes understanding and is in agreement with plan of care. Alisa Hill CNP Referring Provider: SELF [[id number]] Allergies As of Date: 07/26/2018 (No Known Allergies) Date Reviewed: 07/07/2018 Reviewed by: Shavonne Ortiz RN - Fully Assessed Reason for Visit: Conjunctivitis [24] Cmt: x 24 hours Primary Visit Diagnosis:Viral URI [J06.9] Other Visit Diagnosis:Bacterial conjunctivitis [H10.9] Order(s):trimethoprim-polymyxin eye drops (POLYTRIM) ophthalmic solutionUse 1 Drop in both eyes every 6 hours for 7 days. Use in the affected eye.Disp: 1.4 mLRfl: 0 Rmrqckqyittat-Kqyymyxkbmuae-OG (TYLENOL COLD HEAD CONGEST SEVR) 5-325-200 mg tabTake 1 Dose by mouth as directed.Disp: 30 tabletRfl: 0 Prescriptions as of 07/26/2018 Sig: MELATONIN 1 MG TABLET Take 2 tablets by mouth daily* ISOSORBIDE MONONITRATE ER 30 * Take 1 tablet by mouth once d* ACETAMINOPHEN 500 MG TABLET Take 1,000 mg by mouth every * ESCITALOPRAM 10 MG TABLET Take 1 tablet by mouth once d* CLOTRIMAZOLE-BETAMETHASONE 1 * Apply 1 application to affect* METOPROLOL SUCCINATE ER 25 MG* Take 1 tablet by mouth once d* CLOPIDOGREL 75 MG TABLET Take 1 tablet by mouth once d* ATORVASTATIN 80 MG TABLET Take 1 tablet by mouth once d* ASPIRIN 81 MG CHEWABLE TABLET Take 81 mg by mouth once danni* RANITIDINE 150 MG TABLET Take 150 mg by mouth once kira* NITROGLYCERIN 0.4 MG SUBLINGU* Dissolve 0.4 mg under the ton* POLYMYXIN B SULFATE 10,000 UN* Use 1 Drop in both eyes every* ARZBZPEJONBWF-TUFCABRHBGUSM-F* Take 1 Dose by mouth as direc* CLINDAMYCIN HCL 150 MG CAPSULE Take 1 capsule by mouth four * Patient not taking: Reported on 05/22/2018 DIPHENHYDRAMINE 25 MG CAPSULE Take 50 mg by mouth at bedtim* Problem List As Of Date 07/26/2018 Noted Resolved Coronary artery disease involving big sandy talbert*INVALID FOR* More... Depression, major [F32.9] INVALID FOR* Eczema [L30.9] INVALID FOR* GERD without esophagitis [K21.9] INVALID FOR* ANTOINETTE (obstructive sleep apnea) [G47.33] INVALID FOR* CPAP (continuous positive airway pressure) depe*INVALID FOR* Prescriptions ordered this encounter Disp Refills Start End POLYMYXIN B SULFATE 10,000 UNIT-TRIM* 1.4 * 0 07/26/2018 08/02/2018 Route: BOTH EYES Sig: Use 1 Drop in both eyes every 6 hours for 7 days. Use in the affected eye. HJGCNSQNVSNTL-JVFSBZGIGNVXL-HFRXFUSE* 30 t* 0 07/26/2018 Route: ORAL Sig: Take 1 Dose by mouth as directed. Letter Text Alisa Hill APRN.CNP Urgent [facility] [address] [facility] [address] Dept: [phone] 07/26/2018 Harshil Allison [address] [facility] [address] To Whom it May Concern: This is to certify that Harshil Allison was seen at our office for medical care. If you have any questions please feel free to call. Sincerely: Alisa Hill APRN.CNP Encounter Status:Closed by ALISA HILL CNP on 07/26/18 CNOV Observed: 07/07/2018 Status: COMPLETED Source: [place] 1:30 PM [facility] Office Visit (CAWSTR) HARSHIL ALLISON ([id number]) 1975 M Date Time Provider Department 07/07/18 1:30 PM CHANTE AVINA) CA[facility] During your visit today, we recorded the following information about you: TONEY Zelaya 07/07/2018 10:33 AM Signed Cardiac rehab session report and summary documented in [facility] system. Fabi Avina [facility] Referring Provider: GARY AMAYA [[id number]] Allergies As of Date: 07/07/2018 (No Known Allergies) Date Reviewed: 07/07/2018 Reviewed by: Shavonne Ortiz RN - Fully Assessed Reason for Visit: Cardiac Rehab [3551] Primary Visit Diagnosis:Stable angina (HCC) [I20.8] Prescriptions as of 07/07/2018 Sig: ISOSORBIDE MONONITRATE ER 30 * Take 1 tablet by mouth once d* CLINDAMYCIN HCL 150 MG CAPSULE Take 1 capsule by mouth four * Patient not taking: Reported on 05/22/2018 DIPHENHYDRAMINE 25 MG CAPSULE Take 50 mg by mouth at bedtim* ACETAMINOPHEN 500 MG TABLET Take 1,000 mg by mouth every * ESCITALOPRAM 10 MG TABLET Take 1 tablet by mouth once d* CLOTRIMAZOLE-BETAMETHASONE 1 * Apply 1 application to affect* METOPROLOL SUCCINATE ER 25 MG* Take 1 tablet by mouth once d* CLOPIDOGREL 75 MG TABLET Take 1 tablet by mouth once d* ATORVASTATIN 80 MG TABLET Take 1 tablet by mouth once d* ASPIRIN 81 MG CHEWABLE TABLET Take 81 mg by mouth once danni* RANITIDINE 150 MG TABLET Take 150 mg by mouth once kira* NITROGLYCERIN 0.4 MG SUBLINGU* Dissolve 0.4 mg under the ton* Problem List As Of Date 07/07/2018 Noted Resolved Coronary artery disease involving big sandy talbert*INVALID FOR* More... Depression, major [F32.9] INVALID FOR* Eczema [L30.9] INVALID FOR* GERD without esophagitis [K21.9] INVALID FOR* ANTOINETTE (obstructive sleep apnea) [G47.33] INVALID FOR* CPAP (continuous positive airway pressure) depe*INVALID FOR* Encounter Status:Closed by Mando BAÑUELOS on 07/07/18 PROGRESS Observed: 07/07/2018 Status: COMPLETED Source: [place] 10:32 AM [facility] O ID: [id number] Author: Mando Norris (janice) Alvaro Service: (none) Author Type: Parole Hearing Officer Type: Progress Notes Filed: 07/07/2018 10:33 AM Note Text: Cardiac rehab session report and summary documented in [facility] system. TONEY Zelaya PROGRESS Observed: 07/07/2018 Status: COMPLETED Source: [place] 9:02 AM [facility] O ID: [id number] Author: Gary Amaya Service: (none) Author Type: Physician Type: Progress Notes Filed: 07/08/2018 8:27 AM Note Text: PERTINENT CARDIAC HISTORY ASHD - IMI 06/27, PCI dominant Cx (DIDIER) 06/27 HL ANTOINETTE - CPAP ADHERENCE TO GUIDELINES PORTER-I or ARB for HF with prior LVEF<40 (NQF 0081) - N/A ASA or Plavix for ASHD (NQF 0067) - met Beta cassidy for ASHD with prior SC or prior LVEF<40 (NQF 0070) - met Beta cassidy for HF with prior LVEF<40 (NQF 0083) - N/A PORTER-I or ARB for ASHD with DM or prior LVEF<40 (NQF 0066) - met Statin therapy for ASHD or FHL or DM - met BMI documented and plan if >25 (NQF 0421) - lifestyle recommendation form Tobacco use screening and referral (NQF 0028) - lifestyle recommendation form Recommendation for whole food, plant based diet - lifestyle recommendation form CLINICAL IMPRESSION/PLAN: Harshil Allison has stable ischemic heart disease. I've encouraged him to continue his long acting nitrates. We discussed the concept of endothelial dysfunction related to small vessel disease and moderate plaque. He has been encouraged to continue his move toward plant based diet. He has no epicardial lesions at this time which are flow-limiting. I will see him in 6 months or as needed. If there is increased chest pain or shortness of breath, he has been advised to contact me. Written and verbal health teaching given to patient, patient verbalizes understanding and agrees with treatment plan. DIAGNOSIS FOR VISIT: ASHD Hyperlipidemia HISTORY OF PRESENT ILLNESS Harshil Allison returns for follow-up of his coronary disease. 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 His back pain has improved with Osteopathic treatment. He's had no angina. He denies orthopnea, edema, syncope, palpitations, TIAs, amaurosis. He has started his isosorbide and is tolerating this well. Has an appointment with administrative assistant coordinator in the near future. He is committed to moving toward a plant based diet. ALLERGIES: ALLERGIES No Known Allergies CURRENT OUTPATIENT MEDICATIONS: isosorbide mononitrate ER (IMDUR) 30 mg 24 hr tablet Take 1 tablet by mouth once daily. acetaminophen (TYLENOL EXTRA STRENGTH) 500 mg tablet Take 1,000 mg by mouth every 8 hours as needed. escitalopram oxalate (LEXAPRO) 10 mg tablet Take 1 tablet by mouth once daily. clotrimazole-betamethasone (LOTRISONE) cream Apply 1 application to affected area twice daily. UNTIL CLEAR FOR UP TO 2-3 WEEKS metoprolol succinate ER (TOPROL XL) 25 mg 24 hr tablet Take 1 tablet by mouth once daily. clopidogrel (PLAVIX) 75 mg tablet Take 1 tablet by mouth once daily. atorvastatin (LIPITOR) 80 mg tablet Take 1 tablet by mouth once daily. aspirin 81 mg chewable tablet Take 81 mg by mouth once daily. ranitidine (ZANTAC) 150 mg tablet Take 150 mg by mouth once daily. nitroglycerin sublingual (NITROQUICK) 0.4 mg SL tablet Dissolve 0.4 mg under the tongue every 5 minutes as needed. clindamycin (CLEOCIN) 150 mg capsule Take 1 capsule by mouth four times daily. diphenhydrAMINE (BENADRYL) 25 mg capsule Take 50 mg by mouth at bedtime as needed. PHYSICAL EXAMINATION: VITAL SIGNS: BP 144/77 Pulse 58 Wt 240 lb 11.2 oz (109.2kg) Chest: Clear to percussion and auscultation. Trachea is midline. Air entry is equal. Cardiac: Regular rhythm. S1 and S2 are normal. PMI is nondisplaced. There is a soft systolic ejection. Carotids are brisk without bruits. JVP is less than 10 cm. Abdomen: Soft and nontender. There are no pulsatile masses or bruits. No liver enlargement. Bowel sounds are active. Extremities: No edema. Pulses are intact and symmetrical. Recent labs were reviewed. LDL is 47. Electronically Signed: Gary Amaya MD July 07, 2018 9:02 AM CC: VIKASH Keller Observed: 07/07/2018 Status: COMPLETED Source: [place] 8:30 AM [facility] Office Visit ([facility]) HARSHIL ALLISON ([id number]) 1975 M Date Time Provider Department 07/07/18 8:30 AM GARY AMAYA During your visit today, we recorded the following information about you: Pulse Blood pressure Weight 58/minute 144/77 109.2 kg Gary Amaya MD 07/08/2018 8:27 AM Signed PERTINENT CARDIAC HISTORY ASHD - IMI 06/27, PCI dominant Cx (DIDIER) 06/27 HL ANTOINETTE - CPAP ADHERENCE TO GUIDELINES PORTER-I or ARB for HF with prior LVEF<40 (NQF 0081) - N/A ASA or Plavix for ASHD (NQF 0067) - met Beta cassidy for ASHD with prior SC or prior LVEF<40 (NQF 0070) - met Beta cassidy for HF with prior LVEF<40 (NQF 0083) - N/A PORTER-I or ARB for ASHD with DM or prior LVEF<40 (NQF 0066) - met Statin therapy for ASHD or FHL or DM - met BMI documented and plan if >25 (NQF 0421) - lifestyle recommendation form Tobacco use screening and referral (NQF 0028) - lifestyle recommendation form Recommendation for whole food, plant based diet - lifestyle recommendation form CLINICAL IMPRESSION/PLAN: Harshil Allison has stable ischemic heart disease. I've encouraged him to continue his long acting nitrates. We discussed the concept of endothelial dysfunction related to small vessel disease and moderate plaque. He has been encouraged to continue his move toward plant based diet. He has no epicardial lesions at this time which are flow-limiting. I will see him in 6 months or as needed. If there is increased chest pain or shortness of breath, he has been advised to contact me. Written and verbal health teaching given to patient, patient verbalizes understanding and agrees with treatment plan. DIAGNOSIS FOR VISIT: ASHD Hyperlipidemia HISTORY OF PRESENT ILLNESS Harshil Allison returns for follow-up of his coronary disease. 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 His back pain has improved with Osteopathic treatment. He's had no angina. He denies orthopnea, edema, syncope, palpitations, TIAs, amaurosis. He has started his isosorbide and is tolerating this well. Has an appointment with administrative assistant coordinator in the near future. He is committed to moving toward a plant based diet. ALLERGIES: ALLERGIES No Known Allergies CURRENT OUTPATIENT MEDICATIONS: isosorbide mononitrate ER (IMDUR) 30 mg 24 hr tablet Take 1 tablet by mouth once daily. acetaminophen (TYLENOL EXTRA STRENGTH) 500 mg tablet Take 1,000 mg by mouth every 8 hours as needed. escitalopram oxalate (LEXAPRO) 10 mg tablet Take 1 tablet by mouth once daily. clotrimazole-betamethasone (LOTRISONE) cream Apply 1 application to affected area twice daily. UNTIL CLEAR FOR UP TO 2-3 WEEKS metoprolol succinate ER (TOPROL XL) 25 mg 24 hr tablet Take 1 tablet by mouth once daily. clopidogrel (PLAVIX) 75 mg tablet Take 1 tablet by mouth once daily. atorvastatin (LIPITOR) 80 mg tablet Take 1 tablet by mouth once daily. aspirin 81 mg chewable tablet Take 81 mg by mouth once daily. ranitidine (ZANTAC) 150 mg tablet Take 150 mg by mouth once daily. nitroglycerin sublingual (NITROQUICK) 0.4 mg SL tablet Dissolve 0.4 mg under the tongue every 5 minutes as needed. clindamycin (CLEOCIN) 150 mg capsule Take 1 capsule by mouth four times daily. diphenhydrAMINE (BENADRYL) 25 mg capsule Take 50 mg by mouth at bedtime as needed. PHYSICAL EXAMINATION: VITAL SIGNS: BP 144/77 Pulse 58 Wt 240 lb 11.2 oz (109.2kg) Chest: Clear to percussion and auscultation. Trachea is midline. Air entry is equal. Cardiac: Regular rhythm. S1 and S2 are normal. PMI is nondisplaced. There is a soft systolic ejection. Carotids are brisk without bruits. JVP is less than 10 cm. Abdomen: Soft and nontender. There are no pulsatile masses or bruits. No liver enlargement. Bowel sounds are active. Extremities: No edema. Pulses are intact and symmetrical. Recent labs were reviewed. LDL is 47. Electronically Signed: Gary Amaya MD July 07, 2018 9:02 AM CC: VIKASH Keller MD 07/07/2018 9:02 AM Signed LIFESTYLE CHANGE A healthy lifestyle is the most important component of your overall treatment plan. Please give serious thought to the following areas and commit to making residential changes. EAT A WHOLE FOOD, PLANT BASED DIET The nutrition your body gets is more important than the medicine you take. What matters most is the overall way you eat. We encourage you to minimize the use of animal products (which include dairy and all meats except fatty fish) and use whole, unprocessed plant foods to provide your protein, vitamins and other nutrients. We have a lot of information to share with you on this topic. This is not a diet. It is a way of life that you will keep with you. EXERCISE REGULARLY It is not important to spend hours in the gym, lifting weights and perspiring heavily. A total of 2-3 hours per week of aerobic (causing you to be moderately short of breath) exercise is sufficient to improve your health. Talk to us before you begin a new exercise program, if you have heart disease or experience shortness of breath or chest pain. REDUCE STRESS Chronic emotional and physical stress leads to disease. Ways of reducing stress include meditation, visualization, prayer, yoga and other forms of relaxation therapy. Consistency is the reaves. Find a technique that works for you and do it every day. CULTIVATE RELATIONSHIPS Loneliness and isolation have a major negative impact on health. Seek out others who can love, care for and nurture you. Avoid hurtful relationships. MAINTAIN IDEAL BODY WEIGHT The best way to do this is to do all the things above. Our bodies naturally find the right weight if we keep moving and feed ourselves the right food. If your BMI is greater than 25, we strongly recommend a referral to a weight management program. Please speak to us or your family physician about available programs. AVOID NICOTINE IN ALL FORMS This includes all tobacco products, whether chewed, smoked, vaped, or rubbed on the skin. Smoking cessation programs, which can make use of tobacco substitutes, medications to suppress cravings and behavior management, are available. Please contact your family physician about programs in your area. Referring Provider: GARY AMAYA [[id number]] Allergies As of Date: 07/07/2018 (No Known Allergies) Date Reviewed: 07/07/2018 Reviewed by: Shavonne Ortiz RN - Fully Assessed Reason for Visit: Recheck [92] Primary Visit Diagnosis:Other hyperlipidemia [E78.4] Other Visit Diagnosis:ASHD (arteriosclerotic heart disease) [I25.10] Prescriptions as of 07/07/2018 Sig: ISOSORBIDE MONONITRATE ER 30 * Take 1 tablet by mouth once d* ACETAMINOPHEN 500 MG TABLET Take 1,000 mg by mouth every * ESCITALOPRAM 10 MG TABLET Take 1 tablet by mouth once d* CLOTRIMAZOLE-BETAMETHASONE 1 * Apply 1 application to affect* METOPROLOL SUCCINATE ER 25 MG* Take 1 tablet by mouth once d* CLOPIDOGREL 75 MG TABLET Take 1 tablet by mouth once d* ATORVASTATIN 80 MG TABLET Take 1 tablet by mouth once d* ASPIRIN 81 MG CHEWABLE TABLET Take 81 mg by mouth once danni* RANITIDINE 150 MG TABLET Take 150 mg by mouth once kira* NITROGLYCERIN 0.4 MG SUBLINGU* Dissolve 0.4 mg under the ton* CLINDAMYCIN HCL 150 MG CAPSULE Take 1 capsule by mouth four * Patient not taking: Reported on 05/22/2018 DIPHENHYDRAMINE 25 MG CAPSULE Take 50 mg by mouth at bedtim* Problem List As Of Date 07/07/2018 Noted Resolved Coronary artery disease involving big sandy talbert*INVALID FOR* More... Depression, major [F32.9] INVALID FOR* Eczema [L30.9] INVALID FOR* GERD without esophagitis [K21.9] INVALID FOR* ANTOINETTE (obstructive sleep apnea) [G47.33] INVALID FOR* CPAP (continuous positive airway pressure) depe*INVALID FOR* Other instructions from your clinician: LIFESTYLE CHANGE A healthy lifestyle is the most important component of your overall treatment plan. Please give serious thought to the following areas and commit to making residential changes. EAT A WHOLE FOOD, PLANT BASED DIET The nutrition your body gets is more important than the medicine you take. What matters most is the overall way you eat. We encourage you to minimize the use of animal products (which include dairy and all meats except fatty fish) and use whole, unprocessed plant foods to provide your protein, vitamins and other nutrients. We have a lot of information to share with you on this topic. This is not a diet. It is a way of life that you will keep with you. EXERCISE REGULARLY It is not important to spend hours in the gym, lifting weights and perspiring heavily. A total of 2-3 hours per week of aerobic (causing you to be moderately short of breath) exercise is sufficient to improve your health. Talk to us before you begin a new exercise program, if you have heart disease or experience shortness of breath or chest pain. REDUCE STRESS Chronic emotional and physical stress leads to disease. Ways of reducing stress include meditation, visualization, prayer, yoga and other forms of relaxation therapy. Consistency is the reaves. Find a technique that works for you and do it every day. CULTIVATE RELATIONSHIPS Loneliness and isolation have a major negative impact on health. Seek out others who can love, care for and nurture you. Avoid hurtful relationships. MAINTAIN IDEAL BODY WEIGHT The best way to do this is to do all the things above. Our bodies naturally find the right weight if we keep moving and feed ourselves the right food. If your BMI is greater than 25, we strongly recommend a referral to a weight management program. Please speak to us or your family physician about available programs. AVOID NICOTINE IN ALL FORMS This includes all tobacco products, whether chewed, smoked, vaped, or rubbed on the skin. Smoking cessation programs, which can make use of tobacco substitutes, medications to suppress cravings and behavior management, are available. Please contact your family physician about programs in your area. Encounter Status:Closed by GARY AMAYA MD on 07/08/18 PROGRESS Observed: 06/30/2018 Status: COMPLETED Source: [place] 2:43 PM [facility] HNO ID: [id number] Author: Mando Desouzaember Avina Service: (none) Author Type: Parole Hearing Officer Type: Progress Notes Filed: 06/30/2018 2:44 PM Note Text: Cardiac rehab session report and summary documented in [facility] system. Fabi Avina JANICE CNOV Observed: 06/30/2018 Status: COMPLETED Source: [place] 1:30 PM [facility] Office Visit ([facility]) HARSHIL ALLISON ([id number]) 1975 M Date Time Provider Department 06/30/18 1:30 PM CHANTE AVINA ([facility]) [facility] During your visit today, we recorded the following information about you: TONEY Zelaya 06/30/2018 2:44 PM Signed Cardiac rehab session report and summary documented in [facility] system. TONEY Zelaya Referring Provider: GARY AMAYA [[id number]] Allergies As of Date: 06/30/2018 (No Known Allergies) Date Reviewed: 06/16/2018 Reviewed by: Renate Arreola LPN - Fully Assessed Reason for Visit: Cardiac Rehab [[id number]] Primary Visit Diagnosis:Stable angina (HCC) [I20.8] Prescriptions as of 06/30/2018 Sig: ISOSORBIDE MONONITRATE ER 30 * Take 1 tablet by mouth once d* CLINDAMYCIN HCL 150 MG CAPSULE Take 1 capsule by mouth four * Patient not taking: Reported on 05/22/2018 DIPHENHYDRAMINE 25 MG CAPSULE Take 50 mg by mouth at bedtim* ACETAMINOPHEN 500 MG TABLET Take 1,000 mg by mouth every * ESCITALOPRAM 10 MG TABLET Take 1 tablet by mouth once d* CLOTRIMAZOLE-BETAMETHASONE 1 * Apply 1 application to affect* METOPROLOL SUCCINATE ER 25 MG* Take 1 tablet by mouth once d* CLOPIDOGREL 75 MG TABLET Take 1 tablet by mouth once d* ATORVASTATIN 80 MG TABLET Take 1 tablet by mouth once d* ASPIRIN 81 MG CHEWABLE TABLET Take 81 mg by mouth once danni* RANITIDINE 150 MG TABLET Take 150 mg by mouth once kira* NITROGLYCERIN 0.4 MG SUBLINGU* Dissolve 0.4 mg under the ton* Problem List As Of Date 06/30/2018 Noted Resolved Coronary artery disease involving big sandy talbert*INVALID FOR* More... Depression, major [F32.9] INVALID FOR* Eczema [L30.9] INVALID FOR* GERD without esophagitis [K21.9] INVALID FOR* ANTOINETTE (obstructive sleep apnea) [G47.33] INVALID FOR* CPAP (continuous positive airway pressure) depe*INVALID FOR* Encounter Status:Closed by Mando BAÑUELOS on 06/30/18 PROGRESS Observed: 06/23/2018 Status: COMPLETED Source: [place] 3:23 PM [facility] HNO ID: [id number] Author: Mando Desouzaember Avina Service: (none) Author Type: Parole Hearing Officer Type: Progress Notes Filed: 06/23/2018 3:24 PM Note Text: Cardiac rehab session report and summary documented in [facility] system. TONEY Zelaya CNOV Observed: 06/23/2018 Status: COMPLETED Source: [place] 1:30 PM [facility] Office Visit ([facility]) HARSHIL ALLISON ([id number]) 1975 M Date Time Provider Department 06/23/18 1:30 PM CHANTE AVINAJANICE) [facility] During your visit today, we recorded the following information about you: TONEY Zelaya 06/23/2018 3:24 PM Signed Cardiac rehab session report and summary documented in [facility] system. TONEY Zelaya Referring Provider: GARY AMAYA [[id number]] Allergies As of Date: 06/23/2018 (No Known Allergies) Date Reviewed: 06/16/2018 Reviewed by: Renate Arreola LPN - Fully Assessed Reason for Visit: Cardiac Rehab [[id number]] Primary Visit Diagnosis:Stable angina (HCC) [I20.8] Prescriptions as of 06/23/2018 Sig: ISOSORBIDE MONONITRATE ER 30 * Take 1 tablet by mouth once d* CLINDAMYCIN HCL 150 MG CAPSULE Take 1 capsule by mouth four * Patient not taking: Reported on 05/22/2018 DIPHENHYDRAMINE 25 MG CAPSULE Take 50 mg by mouth at bedtim* ACETAMINOPHEN 500 MG TABLET Take 1,000 mg by mouth every * ESCITALOPRAM 10 MG TABLET Take 1 tablet by mouth once d* CLOTRIMAZOLE-BETAMETHASONE 1 * Apply 1 application to affect* METOPROLOL SUCCINATE ER 25 MG* Take 1 tablet by mouth once d* CLOPIDOGREL 75 MG TABLET Take 1 tablet by mouth once d* ATORVASTATIN 80 MG TABLET Take 1 tablet by mouth once d* ASPIRIN 81 MG CHEWABLE TABLET Take 81 mg by mouth once danni* RANITIDINE 150 MG TABLET Take 150 mg by mouth once kira* NITROGLYCERIN 0.4 MG SUBLINGU* Dissolve 0.4 mg under the ton* Problem List As Of Date 06/23/2018 Noted Resolved Coronary artery disease involving big sandy talbert*INVALID FOR* More... Depression, major [F32.9] INVALID FOR* Eczema [L30.9] INVALID FOR* GERD without esophagitis [K21.9] INVALID FOR* ANTOINETTE (obstructive sleep apnea) [G47.33] INVALID FOR* CPAP (continuous positive airway pressure) depe*INVALID FOR* Encounter Status:Closed by Mando BAÑUELOS on 06/23/18 PROGRESS Observed: 06/16/2018 Status: COMPLETED Source: [place] 11:14 AM [facility] HNO ID: [id number] Author: Bimal Yepez Service: (none) Author Type: Physician Type: Progress Notes Filed: 06/16/2018 3:06 PM Note Text: Patient presents with: Back Pain: upper back right side to midback Rash: has used triamcinalone cream which helped some CC: back pain and rash. HPI: rash that starts in the left inner thigh, patient thinking it might be a heat rash. Patient has tried to used triamcilinone cream, has only used it once.Upper back pain. Has pain in upper back in mid thoracic spine. Reproduced with movement. No left chest pain. No change with exertion. No shortness of breath. No edema. After palpation today on exam, seems to be better. No cough or congestion. No edema. Is following with cardiology. Lab work regarding abscess, wanting to know if WBC count check has been returned. Still pending. GERD: managed with ranitidine MEDICATIONS: Current Outpatient Prescriptions: isosorbide mononitrate ER (IMDUR) 30 mg 24 hr tablet Take 1 tablet by mouth once daily. diphenhydrAMINE (BENADRYL) 25 mg capsule Take 50 mg by mouth at bedtime as needed. escitalopram oxalate (LEXAPRO) 10 mg tablet Take 1 tablet by mouth once daily. metoprolol succinate ER (TOPROL XL) 25 mg 24 hr tablet Take 1 tablet by mouth once daily. clopidogrel (PLAVIX) 75 mg tablet Take 1 tablet by mouth once daily. atorvastatin (LIPITOR) 80 mg tablet Take 1 tablet by mouth once daily. aspirin 81 mg chewable tablet Take 81 mg by mouth once daily. ranitidine (ZANTAC) 150 mg tablet Take 150 mg by mouth once daily. nitroglycerin sublingual (NITROQUICK) 0.4 mg SL tablet Dissolve 0.4 mg under the tongue every 5 minutes as needed. clindamycin (CLEOCIN) 150 mg capsule Take 1 capsule by mouth four times daily. (Patient not taking: Reported on 05/22/2018 ) acetaminophen (TYLENOL EXTRA STRENGTH) 500 mg tablet Take 1,000 mg by mouth every 8 hours as needed. clotrimazole-betamethasone (LOTRISONE) cream Apply 1 application to affected area twice daily. UNTIL CLEAR FOR UP TO 2-3 WEEKS No current facility-administered medications for this visit. ALLERGIES: ALLERGIES No Known Allergies PAST MEDICAL HISTORY Diagnosis Date - GERD (gastroesophageal reflux disease) - STEMI (ST elevation myocardial infarction) ([facility]) 06/2017 PAST SURGICAL HISTORY Procedure Laterality Date - SEPTOPLASTY 2006 Turbinate Reduction FAMILY HISTORY Problem Relation Age of Onset - Heart Mother irregular heart - Hypertension Mother - Hyperlipidemia Mother - Hypertension Father - Glaucoma Father - Other [OTHER] Father AML in remission - Thyroid Sister Social History Marital status: Spouse name: Years of education: Number of children: 4 Social History Main Topics Smoking status: Former Smoker Packs/day: 0.00 Years: 0.00 Types: Cigars Smokeless tobacco: Never Used Comment: rare use Alcohol use: Yes Comment: occasional: beer mixed drinks weekends Drug use: No Sexual activity: Yes Partners with: Female control/protection: Condom Social History Narrative Watch sports, Gro, [employer], 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 REVIEW OF SYSTEMS All other reviewed and negative other than HPI. HEALTH MAINTENANCE: Reviewed health maintenance issues today and recommended the following in detail. INFLUENZA(1) due on 07/12/2018 VITALS: BP 114/72 Pulse 64 Resp 16 Wt 103.9 kg (229 lb) BMI 32.13 kg/m? Last 4 Encounter Wt Readings: Date: Wt: 06/16/2018 103.9 kg (229 lb) 05/22/2018 103.3 kg (227 lb 12.8 oz) 05/05/2018 103.9 kg (229 lb) 04/14/2018 104.8 kg (231 lb) PHYSICAL EXAMINATION: General appearance: Well appearing, alert, in no acute distress, well-hydrated, well nourished. Skin: Rash present on inguinal crease, no raised margins, erythematous. Skin color, texture, turgor normal, no suspicious rashes or lesions. Head: Normocephalic, no masses, lesions, tenderness or abnormalities Neck: Supple, no adenopathy; thyroid symmetric, normal size, no bruits Back: Normal exam, increased tension between T4-T7, with tenderness Lungs: Lungs clear to auscultation. No wheezing, rhonchi, rales Heart: RRR without murmur, gallop, or rubs. No ectopy Abdomen: Normal abdominal exam, Abdomen soft, non-tender. Bowel sounds normal. No masses, organomegaly Extremities: No deformities, edema, skin discoloration, clubbing or cyanosis. Good capillary refill. Musculoskeletal: No joint swelling, deformity, or tenderness. Was initially tender over thoracic ASSESSMENT/PLAN: 1. Acute midline thoracic back pain - ICD9: 724.1, ICD10: M54.6 (primary diagnosis) - consider physical therapy if continues. Is currently asymptomatic. - appears to be muscular 2. Coronary artery disease involving big sandy coronary artery of big sandy heart without angina pectoris - ICD9: 414.01, ICD10: I25.10 - follow with cardiology 3. Dermatitis - ICD9: 692.9, ICD10: L30.9 - discussed skin care of rash - follow up if symptoms persist or worsen. Bimal Yepez MD CNOV Observed: 06/16/2018 Status: COMPLETED Source: [place] 11:00 AM [facility] Office Visit (FAMPWS) HARSHIL ALLISON ([id number]) 1975 M Date Time Provider Department 8/6/18 11:00 AM BIMAL YEPEZ During your visit today, we recorded the following information about you: Pulse Respiration Blood pressure Weight 64/minute 16/minute 114/72 103.9 kg Bimal Yepez MD 06/16/2018 3:06 PM Signed Patient presents with: Back Pain: upper back right side to midback Rash: has used triamcinalone cream which helped some CC: back pain and rash. HPI: rash that starts in the left inner thigh, patient thinking it might be a heat rash. Patient has tried to used triamcilinone cream, has only used it once.Upper back pain. Has pain in upper back in mid thoracic spine. Reproduced with movement. No left chest pain. No change with exertion. No shortness of breath. No edema. After palpation today on exam, seems to be better. No cough or congestion. No edema. Is following with cardiology. Lab work regarding abscess, wanting to know if WBC count check has been returned. Still pending. GERD: managed with ranitidine MEDICATIONS: Current Outpatient Prescriptions: isosorbide mononitrate ER (IMDUR) 30 mg 24 hr tablet Take 1 tablet by mouth once daily. diphenhydrAMINE (BENADRYL) 25 mg capsule Take 50 mg by mouth at bedtime as needed. escitalopram oxalate (LEXAPRO) 10 mg tablet Take 1 tablet by mouth once daily. metoprolol succinate ER (TOPROL XL) 25 mg 24 hr tablet Take 1 tablet by mouth once daily. clopidogrel (PLAVIX) 75 mg tablet Take 1 tablet by mouth once daily. atorvastatin (LIPITOR) 80 mg tablet Take 1 tablet by mouth once daily. aspirin 81 mg chewable tablet Take 81 mg by mouth once daily. ranitidine (ZANTAC) 150 mg tablet Take 150 mg by mouth once daily. nitroglycerin sublingual (NITROQUICK) 0.4 mg SL tablet Dissolve 0.4 mg under the tongue every 5 minutes as needed. clindamycin (CLEOCIN) 150 mg capsule Take 1 capsule by mouth four times daily. (Patient not taking: Reported on 05/22/2018 ) acetaminophen (TYLENOL EXTRA STRENGTH) 500 mg tablet Take 1,000 mg by mouth every 8 hours as needed. clotrimazole-betamethasone (LOTRISONE) cream Apply 1 application to affected area twice daily. UNTIL CLEAR FOR UP TO 2-3 WEEKS No current facility-administered medications for this visit. ALLERGIES: ALLERGIES No Known Allergies PAST MEDICAL HISTORY Diagnosis Date - GERD (gastroesophageal reflux disease) - STEMI (ST elevation myocardial infarction) ([facility]) 06/2017 PAST SURGICAL HISTORY Procedure Laterality Date - SEPTOPLASTY 2007 Turbinate Reduction FAMILY HISTORY Problem Relation Age of Onset - Heart Mother irregular heart - Hypertension Mother - Hyperlipidemia Mother - Hypertension Father - Glaucoma Father - Other [OTHER] Father AML in remission - Thyroid Sister Social History Marital status: Spouse name: Years of education: Number of children: 4 Social History Main Topics Smoking status: Former Smoker Packs/day: 0.00 Years: 0.00 Types: Cigars Smokeless tobacco: Never Used Comment: rare use Alcohol use: Yes Comment: occasional: beer mixed drinks weekends Drug use: No Sexual activity: Yes Partners with: Female control/protection: Condom Social History Narrative Watch sports, Gro, Jump[employer], 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 REVIEW OF SYSTEMS All other reviewed and negative other than HPI. HEALTH MAINTENANCE: Reviewed health maintenance issues today and recommended the following in detail. INFLUENZA(1) due on 07/12/2018 VITALS: BP 114/72 Pulse 64 Resp 16 Wt 103.9 kg (229 lb) BMI 32.13 kg/m? Last 4 Encounter Wt Readings: Date: Wt: 06/16/2018 103.9 kg (229 lb) 05/22/2018 103.3 kg (227 lb 12.8 oz) 05/05/2018 103.9 kg (229 lb) 04/14/2018 104.8 kg (231 lb) PHYSICAL EXAMINATION: General appearance: Well appearing, alert, in no acute distress, well-hydrated, well nourished. Skin: Rash present on inguinal crease, no raised margins, erythematous. Skin color, texture, turgor normal, no suspicious rashes or lesions. Head: Normocephalic, no masses, lesions, tenderness or abnormalities Neck: Supple, no adenopathy; thyroid symmetric, normal size, no bruits Back: Normal exam, increased tension between T4-T7, with tenderness Lungs: Lungs clear to auscultation. No wheezing, rhonchi, rales Heart: RRR without murmur, gallop, or rubs. No ectopy Abdomen: Normal abdominal exam, Abdomen soft, non-tender. Bowel sounds normal. No masses, organomegaly Extremities: No deformities, edema, skin discoloration, clubbing or cyanosis. Good capillary refill. Musculoskeletal: No joint swelling, deformity, or tenderness. Was initially tender over thoracic ASSESSMENT/PLAN: 1. Acute midline thoracic back pain - ICD9: 724.1, ICD10: M54.6 (primary diagnosis) - consider physical therapy if continues. Is currently asymptomatic. - appears to be muscular 2. Coronary artery disease involving big sandy coronary artery of big sandy heart without angina pectoris - ICD9: 414.01, ICD10: I25.10 - follow with cardiology 3. Dermatitis - ICD9: 692.9, ICD10: L30.9 - discussed skin care of rash - follow up if symptoms persist or worsen. Bimal Yepez MD Referring Provider: SELF [[id number]] Allergies As of Date: 06/16/2018 (No Known Allergies) Date Reviewed: 06/16/2018 Reviewed by: Renate Arreola LPN - Fully Assessed Reason for Visit: Back Pain [12] Cmt: upper back right side to midback Rash [1087] Cmt: has used triamcinalone cream which helped some Reason For Visit History Recorded Primary Visit Diagnosis:Acute midline thoracic back pain [M54.6] Other Visit Diagnoses:Coronary artery disease involving big sandy coronary artery of big sandy heart without angina pectoris [I25.10] Dermatitis [L30.9] Prescriptions as of 06/16/2018 Sig: ISOSORBIDE MONONITRATE ER 30 * Take 1 tablet by mouth once d* DIPHENHYDRAMINE 25 MG CAPSULE Take 50 mg by mouth at bedtim* ESCITALOPRAM 10 MG TABLET Take 1 tablet by mouth once d* METOPROLOL SUCCINATE ER 25 MG* Take 1 tablet by mouth once d* CLOPIDOGREL 75 MG TABLET Take 1 tablet by mouth once d* ATORVASTATIN 80 MG TABLET Take 1 tablet by mouth once d* ASPIRIN 81 MG CHEWABLE TABLET Take 81 mg by mouth once danni* RANITIDINE 150 MG TABLET Take 150 mg by mouth once kira* NITROGLYCERIN 0.4 MG SUBLINGU* Dissolve 0.4 mg under the ton* CLINDAMYCIN HCL 150 MG CAPSULE Take 1 capsule by mouth four * Patient not taking: Reported on 05/22/2018 ACETAMINOPHEN 500 MG TABLET Take 1,000 mg by mouth every * CLOTRIMAZOLE-BETAMETHASONE 1 * Apply 1 application to affect* Problem List As Of Date 06/16/2018 Noted Resolved Coronary artery disease involving big sandy talbert*INVALID FOR* More... Depression, major [F32.9] INVALID FOR* Eczema [L30.9] INVALID FOR* GERD without esophagitis [K21.9] INVALID FOR* ANTOINETTE (obstructive sleep apnea) [G47.33] INVALID FOR* CPAP (continuous positive airway pressure) depe*INVALID FOR* Disposition: Return if symptoms worsen or fail to improve. Follow-up and Disposition History Recorded Encounter Status:Closed by BIMAL YEPEZ MD on 06/16/18 PROGRESS Observed: 06/16/2018 Status: COMPLETED Source: [place] 10:49 AM [facility] HNO ID: [id number] Author: Mando Norris (Toney) Alvaro Service: (none) Author Type: Parole Hearing Officer Type: Progress Notes Filed: 06/16/2018 10:50 AM Note Text: Cardiac rehab session report and summary documented in [facility] system. TONEY Zelaya TROPONIN T Collected: 06/16/2018 Status: F Source: [place] 8:37 AM [facility] TYPE CODE TESTS RESULT OUT OF REFERENCE UNITS RANGE LAB TROPT 0.000-0.029 ng/mL Troponin T <0.010 Performed By: #### CHELO #### [facility] [address] [place] [id number] CBC AND DIFFERENTIAL Collected: 06/16/2018 Status: F Source: [place] 8:37 AM [facility] TYPE CODE TESTS RESULT OUT OF REFERENCE UNITS RANGE LAB WBC 3.70-11.00 k/uL WBC 3.78 LAB RBC 4.20-6.00 m/uL RBC 4.61 LAB HGB 13.0-17.0 g/dL Hemoglobin 14.0 LAB HCT 39.0-51.0 % Hematocrit 41.0 LAB MCV 80.0-100.0 fL MCV 88.9 LAB MCH 26.0-34.0 pG MCH 30.4 LAB MCHC 30.5-36.0 g/dL MCHC 34.1 LAB RDWCV 11.5-15.0 % RDW-CV 13.3 LAB PLTCT 150-400 k/uL Low Platelet Count 138 LAB MPV 9.0-12.7 fL MPV 11.7 LAB ANEUT % Neut% 48.7 LAB AANEUT 1.45-7.50 k/uL Abs Neut 1.84 LAB ALYMP % Lymph% 35.2 LAB AALYMP 1.00-4.00 k/uL Abs Lymph 1.33 LAB AMONO % [place]% 12.7 LAB AAMONO <0.87 k/uL Abs [place] 0.48 LAB AEOS % Eosin% 2.6 LAB AAEOS <0.46 k/uL Abs Eosin 0.10 LAB ABASO % Baso% 0.8 LAB AABASO <0.11 k/uL Abs Baso 0.03 LAB AUNRBC 0 /100 WBC NRBCs 0.0 LAB ABNRBC <0.01 k/uL Absolute nRBC <0.01 LAB DTYP DTYPE Auto Diff Performed By: #### CBCDIF #### [facility] [address] [place] [id number] CNOV Observed: 06/16/2018 Status: COMPLETED Source: [place] 8:30 AM [facility] Office Visit (CAWSTR) HARSHIL ALLISON ([id number]) 1975 M Date Time Provider Department 06/16/18 8:30 AM CHANTE AVINAJANICE) CAWSTR During your visit today, we recorded the following information about you: TONEY Zelaya 06/16/2018 10:50 AM Signed Cardiac rehab session report and summary documented in [facility] system. TONEY Zelaya Referring Provider: GARY AMAYA [[id number]] Allergies As of Date: 06/16/2018 (No Known Allergies) Date Reviewed: 05/22/2018 Reviewed by: Shavonne Ortiz RN - Fully Assessed Reason for Visit: Cardiac Rehab [3051] Primary Visit Diagnosis:Stable angina (HCC) [I20.8] Prescriptions as of 06/16/2018 Sig: ISOSORBIDE MONONITRATE ER 30 * Take 1 tablet by mouth once d* CLINDAMYCIN HCL 150 MG CAPSULE Take 1 capsule by mouth four * Patient not taking: Reported on 05/22/2018 DIPHENHYDRAMINE 25 MG CAPSULE Take 50 mg by mouth at bedtim* ACETAMINOPHEN 500 MG TABLET Take 1,000 mg by mouth every * ESCITALOPRAM 10 MG TABLET Take 1 tablet by mouth once d* CLOTRIMAZOLE-BETAMETHASONE 1 * Apply 1 application to affect* METOPROLOL SUCCINATE ER 25 MG* Take 1 tablet by mouth once d* CLOPIDOGREL 75 MG TABLET Take 1 tablet by mouth once d* ATORVASTATIN 80 MG TABLET Take 1 tablet by mouth once d* ASPIRIN 81 MG CHEWABLE TABLET Take 81 mg by mouth once danni* RANITIDINE 150 MG TABLET Take 150 mg by mouth once kira* NITROGLYCERIN 0.4 MG SUBLINGU* Dissolve 0.4 mg under the ton* Problem List As Of Date 06/16/2018 Noted Resolved Coronary artery disease involving big sandy talbert*INVALID FOR* More... Depression, major [F32.9] INVALID FOR* Eczema [L30.9] INVALID FOR* GERD without esophagitis [K21.9] INVALID FOR* ANTOINETTE (obstructive sleep apnea) [G47.33] INVALID FOR* CPAP (continuous positive airway pressure) depe*INVALID FOR* Encounter Status:Closed by Mando BAÑUELOS on 06/16/18 PROGRESS Observed: 05/22/2018 Status: COMPLETED Source: [place] 4:18 PM [facility] O ID: [id number] Author: Gary Amaya Service: (none) Author Type: Physician Type: Progress Notes Filed: 05/24/2018 11:51 AM Note Text: PERTINENT CARDIAC HISTORY ASHD - IMI 06/27, PCI dominant Cx (DIDIER) 06/27 HL ANTOINETTE - CPAP ADHERENCE TO GUIDELINES PORTER-I or ARB for HF with prior LVEF<40 (NQF 0081) - N/A ASA or Plavix for ASHD (NQF 0067) - met Beta cassidy for ASHD with prior SC or prior LVEF<40 (NQF 0070) - met Beta cassidy for HF with prior LVEF<40 (NQF 0083) - N/A PORTER-I or ARB for ASHD with DM or prior LVEF<40 (NQF 0066) - met Statin therapy for ASHD or FHL or DM - met BMI documented and plan if >25 (NQF 0421) - lifestyle recommendation form Tobacco use screening and referral (NQF 0028) - lifestyle recommendation form Recommendation for whole food, plant based diet - lifestyle recommendation form CLINICAL IMPRESSION/PLAN: Harshil Allison has definite ischemic heart disease. There is no obstructive disease by angiography at this time, and yet he has had slight troponin elevation. I'm not certain what his baseline troponin is. Initial troponin was undetectable. Subsequent troponins were in the 0.2 range consistent with muscle enzyme release. It is possible that he has small vessel disease or had an episode of spasm. I recommend optimal medical therapy. There is no lesion at this time requiring intervention. He has been advised to start isosorbide 30 milligrams daily. I have suggested cardiac rehabilitation so we can observe ST changes and symptoms during exercise. I also suggested physical therapy for his back pain which is contributing and is clearly musculoskeletal. This is exacerbated by range of motion, twisting and by sudden jerk to the spine. He would also benefit from nutrition consultation. He wishes to move toward a plant based diet. These consultations will be made. I encouraged him to continue his current medication. 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 However, he should avoid activities which exacerbate his musculoskeletal pain. He may benefit from long-acting calcium channel blockers if there is a component of coronary spasm or small vessel disease. He will continue high-dose statin therapy and dual antiplatelet therapy indefinitely. Troponin I level will be done in a few weeks to reestablish baseline. I will see him next month as scheduled. If he has current symptoms, he has been advised to contact me. Written and verbal health teaching given to patient, patient verbalizes understanding and agrees with treatment plan. DIAGNOSIS FOR VISIT: ASHD Hypertension HISTORY OF PRESENT ILLNESS Harshil Allison comes for follow-up of his coronary disease. He was recently in [place] on a trip and developed interscapular discomfort radiating into the pectoral region. He went to the emergency department and was observed overnight. He was discharged on the addition of long-acting nitrates, which he has not started. He's had no further discomfort of that type. He reports that he had no chest discomfort during a exercise stress test, although this was abnormal, leading to angiography. Angiography showed moderate disease in the second OM branch. He had no relief of the index pain with nitrates. He has noted similar pain while lifting or twisting in a certain fashion. He also notes pain with sudden jarring of his back like stepping down hard. He has had no exertional chest tightness. He reports stable exercise tolerance. He has returned to driving but has been limiting his activity and is no longer lifting. He denies orthopnea, edema, palpitations, TIAs, amaurosis and claudication. ALLERGIES: ALLERGIES No Known Allergies CURRENT OUTPATIENT MEDICATIONS: diphenhydrAMINE (BENADRYL) 25 mg capsule Take 50 mg by mouth at bedtime as needed. acetaminophen (TYLENOL EXTRA STRENGTH) 500 mg tablet Take 1,000 mg by mouth every 8 hours as needed. escitalopram oxalate (LEXAPRO) 10 mg tablet Take 1 tablet by mouth once daily. metoprolol succinate ER (TOPROL XL) 25 mg 24 hr tablet Take 1 tablet by mouth once daily. clopidogrel (PLAVIX) 75 mg tablet Take 1 tablet by mouth once daily. atorvastatin (LIPITOR) 80 mg tablet Take 1 tablet by mouth once daily. aspirin 81 mg chewable tablet Take 81 mg by mouth once daily. ranitidine (ZANTAC) 150 mg tablet Take 150 mg by mouth once daily. nitroglycerin sublingual (NITROQUICK) 0.4 mg SL tablet Dissolve 0.4 mg under the tongue every 5 minutes as needed. clindamycin (CLEOCIN) 150 mg capsule Take 1 capsule by mouth four times daily. clotrimazole-betamethasone (LOTRISONE) cream Apply 1 application to affected area twice daily. UNTIL CLEAR FOR UP TO 2-3 WEEKS PAST MEDICAL HISTORY Diagnosis Date - GERD (gastroesophageal reflux disease) - STEMI (ST elevation myocardial infarction) ([facility]) 06/2017 PAST SURGICAL HISTORY Procedure Laterality Date - SEPTOPLASTY 2007 Turbinate Reduction FAMILY HISTORY Problem Relation Age of Onset - Heart Mother irregular heart - Hypertension Mother - Hyperlipidemia Mother - Hypertension Father - Glaucoma Father - Other [OTHER] Father AML in remission - Thyroid Sister Social History Marital status: Spouse name: Years of education: Number of children: 4 Social History Main Topics Smoking status: Former Smoker Packs/day: 0.00 Years: 0.00 Types: Cigars Smokeless tobacco: Never Used Comment: rare use Alcohol use: Yes Comment: occasional: beer mixed drinks weekends Drug use: No Sexual activity: Yes Partners with: Female control/protection: Condom Social History Narrative Watch sports, Netflix, karioke, dance REVIEW OF SYSTEMS: General: No chills, fever, weight loss, night sweats. Respiratory: No productive cough. Cardiac: As noted above. GI: No melena. : No dysuria. Musculoskeletal: No myalgias. PHYSICAL EXAMINATION: S/he is alert and in no distress. VITAL SIGNS: BP 124/74 Pulse 63 Wt 227 lb 12.8 oz (103.3kg) SHEENT: Skin is warm and dry. No xanthelasmas appreciated. Pharynx is benign. There is no oral cyanosis. Neck: supple. No adenopathy or thyroid enlargement. Chest: Clear to percussion and auscultation. Trachea is midline. Air entry is equal. There is no chest wall tenderness. Cardiac: Regular rhythm. S1 and S2 are normal. PMI is nondisplaced. There are no murmurs, rubs or gallops. No click is heard. Carotids are brisk without bruits. JVP is less than 10 cm. Abdomen: Soft and nontender. There are no pulsatile masses or bruits. No liver enlargement. Bowel sounds are active. Extremities: No edema. Pulses are intact and symmetrical. No clubbing or cyanosis. No femoral bruits. Neurologic: Grossly normal motor and sensory. S/he is alert and oriented x4. Records from [place] were reviewed. This pain presentation was described as interscapular and partially reproducible by palpation. Peak troponin was 0.2 Initial troponin was undetectable. There was a flat curve. Stress ECG showed mild ST depression. There was equivocal inferolateral ischemia. Angiography showed moderate disease in the proximal second obtuse marginal. This was personally reviewed and I concur that this is not flow limiting. EKG showed hyperacute anterior T waves, which have been present in the past. Electronically Signed: Gary Amaya MD May 22, 2018 4:22 PM CC:VIKASH Keller Observed: 05/22/2018 Status: COMPLETED Source: [place] 3:45 PM [facility] Office Visit (NVWSTR) HARSHIL ALLISON ([id number]) 1975 M Date Time Provider Department 05/22/18 3:45 PM GARY AMAYA During your visit today, we recorded the following information about you: Pulse Blood pressure Weight 63/minute 124/74 103.3 kg Gary Amaya MD 05/24/2018 11:51 AM Signed PERTINENT CARDIAC HISTORY ASHD - IMI 06/27, PCI dominant Cx (DIDIER) 06/27 HL ANTOINETTE - CPAP ADHERENCE TO GUIDELINES PORTER-I or ARB for HF with prior LVEF<40 (NQF 0081) - N/A ASA or Plavix for ASHD (NQF 0067) - met Beta cassidy for ASHD with prior SC or prior LVEF<40 (NQF 0070) - met Beta cassidy for HF with prior LVEF<40 (NQF 0083) - N/A PORTER-I or ARB for ASHD with DM or prior LVEF<40 (NQF 0066) - met Statin therapy for ASHD or FHL or DM - met BMI documented and plan if >25 (NQF 0421) - lifestyle recommendation form Tobacco use screening and referral (NQF 0028) - lifestyle recommendation form Recommendation for whole food, plant based diet - lifestyle recommendation form CLINICAL IMPRESSION/PLAN: Harshil Allison has definite ischemic heart disease. There is no obstructive disease by angiography at this time, and yet he has had slight troponin elevation. I'm not certain what his baseline troponin is. Initial troponin was undetectable. Subsequent troponins were in the 0.2 range consistent with muscle enzyme release. It is possible that he has small vessel disease or had an episode of spasm. I recommend optimal medical therapy. There is no lesion at this time requiring intervention. He has been advised to start isosorbide 30 milligrams daily. I have suggested cardiac rehabilitation so we can observe ST changes and symptoms during exercise. I also suggested physical therapy for his back pain which is contributing and is clearly musculoskeletal. This is exacerbated by range of motion, twisting and by sudden jerk to the spine. He would also benefit from nutrition consultation. He wishes to move toward a plant based diet. These consultations will be made. I encouraged him to continue his current medication. 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 However, he should avoid activities which exacerbate his musculoskeletal pain. He may benefit from long-acting calcium channel blockers if there is a component of coronary spasm or small vessel disease. He will continue high-dose statin therapy and dual antiplatelet therapy indefinitely. Troponin I level will be done in a few weeks to reestablish baseline. I will see him next month as scheduled. If he has current symptoms, he has been advised to contact me. Written and verbal health teaching given to patient, patient verbalizes understanding and agrees with treatment plan. DIAGNOSIS FOR VISIT: ASHD Hypertension HISTORY OF PRESENT ILLNESS Harshil Allison comes for follow-up of his coronary disease. He was recently in [place] on a trip and developed interscapular discomfort radiating into the pectoral region. He went to the emergency department and was observed overnight. He was discharged on the addition of long-acting nitrates, which he has not started. He's had no further discomfort of that type. He reports that he had no chest discomfort during a exercise stress test, although this was abnormal, leading to angiography. Angiography showed moderate disease in the second OM branch. He had no relief of the index pain with nitrates. He has noted similar pain while lifting or twisting in a certain fashion. He also notes pain with sudden jarring of his back like stepping down hard. He has had no exertional chest tightness. He reports stable exercise tolerance. He has returned to driving but has been limiting his activity and is no longer lifting. He denies orthopnea, edema, palpitations, TIAs, amaurosis and claudication. ALLERGIES: ALLERGIES No Known Allergies CURRENT OUTPATIENT MEDICATIONS: diphenhydrAMINE (BENADRYL) 25 mg capsule Take 50 mg by mouth at bedtime as needed. acetaminophen (TYLENOL EXTRA STRENGTH) 500 mg tablet Take 1,000 mg by mouth every 8 hours as needed. escitalopram oxalate (LEXAPRO) 10 mg tablet Take 1 tablet by mouth once daily. metoprolol succinate ER (TOPROL XL) 25 mg 24 hr tablet Take 1 tablet by mouth once daily. clopidogrel (PLAVIX) 75 mg tablet Take 1 tablet by mouth once daily. atorvastatin (LIPITOR) 80 mg tablet Take 1 tablet by mouth once daily. aspirin 81 mg chewable tablet Take 81 mg by mouth once daily. ranitidine (ZANTAC) 150 mg tablet Take 150 mg by mouth once daily. nitroglycerin sublingual (NITROQUICK) 0.4 mg SL tablet Dissolve 0.4 mg under the tongue every 5 minutes as needed. clindamycin (CLEOCIN) 150 mg capsule Take 1 capsule by mouth four times daily. clotrimazole-betamethasone (LOTRISONE) cream Apply 1 application to affected area twice daily. UNTIL CLEAR FOR UP TO 2-3 WEEKS PAST MEDICAL HISTORY Diagnosis Date - GERD (gastroesophageal reflux disease) - STEMI (ST elevation myocardial infarction) ([facility]) 06/2017 PAST SURGICAL HISTORY Procedure Laterality Date - SEPTOPLASTY 2006 Turbinate Reduction FAMILY HISTORY Problem Relation Age of Onset - Heart Mother irregular heart - Hypertension Mother - Hyperlipidemia Mother - Hypertension Father - Glaucoma Father - Other [OTHER] Father AML in remission - Thyroid Sister Social History Marital status: Spouse name: Years of education: Number of children: 4 Social History Main Topics Smoking status: Former Smoker Packs/day: 0.00 Years: 0.00 Types: Cigars Smokeless tobacco: Never Used Comment: rare use Alcohol use: Yes Comment: occasional: beer mixed drinks weekends Drug use: No Sexual activity: Yes Partners with: Female control/protection: Condom Social History Narrative Watch sports, Gro, Jump[employer], dance REVIEW OF SYSTEMS: General: No chills, fever, weight loss, night sweats. Respiratory: No productive cough. Cardiac: As noted above. GI: No melena. : No dysuria. Musculoskeletal: No myalgias. PHYSICAL EXAMINATION: S/he is alert and in no distress. VITAL SIGNS: BP 124/74 Pulse 63 Wt 227 lb 12.8 oz (103.3kg) SHEENT: Skin is warm and dry. No xanthelasmas appreciated. Pharynx is benign. There is no oral cyanosis. Neck: supple. No adenopathy or thyroid enlargement. Chest: Clear to percussion and auscultation. Trachea is midline. Air entry is equal. There is no chest wall tenderness. Cardiac: Regular rhythm. S1 and S2 are normal. PMI is nondisplaced. There are no murmurs, rubs or gallops. No click is heard. Carotids are brisk without bruits. JVP is less than 10 cm. Abdomen: Soft and nontender. There are no pulsatile masses or bruits. No liver enlargement. Bowel sounds are active. Extremities: No edema. Pulses are intact and symmetrical. No clubbing or cyanosis. No femoral bruits. Neurologic: Grossly normal motor and sensory. S/he is alert and oriented x4. Records from [place] were reviewed. This pain presentation was described as interscapular and partially reproducible by palpation. Peak troponin was 0.2 Initial troponin was undetectable. There was a flat curve. Stress ECG showed mild ST depression. There was equivocal inferolateral ischemia. Angiography showed moderate disease in the proximal second obtuse marginal. This was personally reviewed and I concur that this is not flow limiting. EKG showed hyperacute anterior T waves, which have been present in the past. Electronically Signed: Gary Amaya MD May 22, 2018 4:22 PM CC:VIKASH Keller MD 05/22/2018 4:21 PM Signed LIFESTYLE CHANGE A healthy lifestyle is the most important component of your overall treatment plan. Please give serious thought to the following areas and commit to making residential changes. EAT A WHOLE FOOD, PLANT BASED DIET The nutrition your body gets is more important than the medicine you take. What matters most is the overall way you eat. We encourage you to minimize the use of animal products (which include dairy and all meats except fatty fish) and use whole, unprocessed plant foods to provide your protein, vitamins and other nutrients. We have a lot of information to share with you on this topic. This is not a diet. It is a way of life that you will keep with you. EXERCISE REGULARLY It is not important to spend hours in the gym, lifting weights and perspiring heavily. A total of 2-3 hours per week of aerobic (causing you to be moderately short of breath) exercise is sufficient to improve your health. Talk to us before you begin a new exercise program, if you have heart disease or experience shortness of breath or chest pain. REDUCE STRESS Chronic emotional and physical stress leads to disease. Ways of reducing stress include meditation, visualization, prayer, yoga and other forms of relaxation therapy. Consistency is the reaves. Find a technique that works for you and do it every day. CULTIVATE RELATIONSHIPS Loneliness and isolation have a major negative impact on health. Seek out others who can love, care for and nurture you. Avoid hurtful relationships. MAINTAIN IDEAL BODY WEIGHT The best way to do this is to do all the things above. Our bodies naturally find the right weight if we keep moving and feed ourselves the right food. If your BMI is greater than 25, we strongly recommend a referral to a weight management program. Please speak to us or your family physician about available programs. AVOID NICOTINE IN ALL FORMS This includes all tobacco products, whether chewed, smoked, vaped, or rubbed on the skin. Smoking cessation programs, which can make use of tobacco substitutes, medications to suppress cravings and behavior management, are available. Please contact your family physician about programs in your area. Referring Provider: SELF [200] Allergies As of Date: 05/22/2018 (No Known Allergies) Date Reviewed: 05/22/2018 Reviewed by: Shavonne Ortiz RN - Fully Assessed Reason for Visit: Recheck [92] Primary Visit Diagnosis:ASHD (arteriosclerotic heart disease) [I25.10] Other Visit Diagnosis:Hypertension, essential [I10] Order(s):CONSULT TO NUTRITION THERAPY [9020] Order #: [id number]: 1 CONSULT TO PHYSICAL THERAPY [9032] Order #: [id number]: 1 CONSULT TO CARD REHAB PHASE II [] Order #: [id number]: 1 isosorbide mononitrate ER (IMDUR) 30 mg 24 hr tabletTake 1 tablet by mouth once daily.Disp: 30 tabletRfl: 6 TROPONIN I [SQTROP] Order #: [id number] FUTURE Prescriptions as of 05/22/2018 Sig: DIPHENHYDRAMINE 25 MG CAPSULE Take 50 mg by mouth at bedtim* ACETAMINOPHEN 500 MG TABLET Take 1,000 mg by mouth every * ESCITALOPRAM 10 MG TABLET Take 1 tablet by mouth once d* METOPROLOL SUCCINATE ER 25 MG* Take 1 tablet by mouth once d* CLOPIDOGREL 75 MG TABLET Take 1 tablet by mouth once d* ATORVASTATIN 80 MG TABLET Take 1 tablet by mouth once d* ASPIRIN 81 MG CHEWABLE TABLET Take 81 mg by mouth once danni* RANITIDINE 150 MG TABLET Take 150 mg by mouth once kira* NITROGLYCERIN 0.4 MG SUBLINGU* Dissolve 0.4 mg under the ton* ISOSORBIDE MONONITRATE ER 30 * Take 1 tablet by mouth once d* CLINDAMYCIN HCL 150 MG CAPSULE Take 1 capsule by mouth four * Patient not taking: Reported on 05/22/2018 CLOTRIMAZOLE-BETAMETHASONE 1 * Apply 1 application to affect* Problem List As Of Date 05/22/2018 Noted Resolved Coronary artery disease involving big sandy talbert*INVALID FOR* More... Depression, major [F32.9] INVALID FOR* Eczema [L30.9] INVALID FOR* GERD without esophagitis [K21.9] INVALID FOR* ANTOINETTE (obstructive sleep apnea) [G47.33] INVALID FOR* CPAP (continuous positive airway pressure) depe*INVALID FOR* Other instructions from your clinician: LIFESTYLE CHANGE A healthy lifestyle is the most important component of your overall treatment plan. Please give serious thought to the following areas and commit to making residential changes. EAT A WHOLE FOOD, PLANT BASED DIET The nutrition your body gets is more important than the medicine you take. What matters most is the overall way you eat. We encourage you to minimize the use of animal products (which include dairy and all meats except fatty fish) and use whole, unprocessed plant foods to provide your protein, vitamins and other nutrients. We have a lot of information to share with you on this topic. This is not a diet. It is a way of life that you will keep with you. EXERCISE REGULARLY It is not important to spend hours in the gym, lifting weights and perspiring heavily. A total of 2-3 hours per week of aerobic (causing you to be moderately short of breath) exercise is sufficient to improve your health. Talk to us before you begin a new exercise program, if you have heart disease or experience shortness of breath or chest pain. REDUCE STRESS Chronic emotional and physical stress leads to disease. Ways of reducing stress include meditation, visualization, prayer, yoga and other forms of relaxation therapy. Consistency is the reaves. Find a technique that works for you and do it every day. CULTIVATE RELATIONSHIPS Loneliness and isolation have a major negative impact on health. Seek out others who can love, care for and nurture you. Avoid hurtful relationships. MAINTAIN IDEAL BODY WEIGHT The best way to do this is to do all the things above. Our bodies naturally find the right weight if we keep moving and feed ourselves the right food. If your BMI is greater than 25, we strongly recommend a referral to a weight management program. Please speak to us or your family physician about available programs. AVOID NICOTINE IN ALL FORMS This includes all tobacco products, whether chewed, smoked, vaped, or rubbed on the skin. Smoking cessation programs, which can make use of tobacco substitutes, medications to suppress cravings and behavior management, are available. Please contact your family physician about programs in your area. Prescriptions ordered this encounter Disp Refills Start End ISOSORBIDE MONONITRATE ER 30 MG TABL* 30 t* 6 05/22/2018 Route: ORAL Sig: Take 1 tablet by mouth once daily. Encounter Status:Closed by GARY AMAYA MD on 05/24/18 CBC AND DIFFERENTIAL Collected: 05/05/2018 Status: F Source: [place] 9:34 AM [facility] [place] REPOSITORY TYPE CODE TESTS RESULT OUT OF REFERENCE UNITS RANGE LAB WBC 3.70-11.00 k/uL Low WBC 3.45 LAB RBC 4.20-6.00 m/uL RBC 4.49 LAB HGB 13.0-17.0 g/dL Hemoglobin 13.5 LAB HCT 39.0-51.0 % Hematocrit 40.2 LAB MCV 80.0-100.0 fL MCV 89.5 LAB MCH 26.0-34.0 pG MCH 30.1 LAB MCHC 30.5-36.0 g/dL MCHC 33.6 LAB RDWCV 11.5-15.0 % RDW-CV 14.1 LAB PLTCT 150-400 k/uL Platelet Count 160 LAB MPV 9.0-12.7 fL MPV 11.2 LAB ANEUT % Neut% 52.2 LAB AANEUT 1.45-7.50 k/uL Abs Neut 1.79 LAB ALYMP % Lymph% 33.0 LAB AALYMP 1.00-4.00 k/uL Abs Lymph 1.14 LAB AMONO % [place]% 12.2 LAB AAMONO <0.87 k/uL Abs [place] 0.42 LAB AEOS % Eosin% 2.0 LAB AAEOS <0.46 k/uL Abs Eosin 0.07 LAB ABASO % Baso% 0.6 LAB AABASO <0.11 k/uL Abs Baso <0.03 LAB AUNRBC 0 /100 WBC NRBCs 0.0 LAB ABNRBC <0.01 k/uL Absolute nRBC <0.01 LAB DTYP DTYPE Auto Diff Performed By: #### CBCDIF, CMP, LIPB #### [facility] [address] [place] [id number] COMP METABOLIC PANEL Collected: 05/05/2018 Status: F Source: [place] 9:34 AM [facility] REPOSITORY TYPE CODE TESTS RESULT OUT OF REFERENCE UNITS RANGE LAB TP 6.3-8.0 g/dL Protein, Total 7.5 LAB ALB 3.9-4.9 g/dL Albumin 4.1 LAB CA 8.5-10.2 mg/dL Calcium, Total 9.2 LAB TBIL 0.2-1.3 mg/dL Bilirubin, Total 0.4 LAB ALKP 36-108 U/L Alkaline Phosphatase 73 LAB AST 14-40 U/L AST 36 LAB GLU 74-99 mg/dL Glucose 93 Result Comment: The [place] [employer] (ADA) provides guidance for cutoff values for fasting glucose and random glucose. The ADA defines fasting as no caloric intake for at least 8 hours. Fas ting plasma glucose results between 100 to 125 mg/dL indicate increased risk for diabetes (prediabetes). Fasting plasma glucose results greater than or equal to 126 mg/dL meet the criteria for diagnosis of diabetes. In the absence of unequivocal hyperglycemia, results should be confirmed by repeat testing. In a patient with classic symptoms of hyperglycemia or hyperglycemic crisis, random plasma glucose results greater than or equal to 200 mg/dL meet the criteria for diagnosis of diabetes. Reference: Standards of Medical Care in Diabetes 2016, [place] [employer]. Diabetes Care. 2016.39(Suppl 1). LAB BUN 9-24 mg/dL BUN Low 8 LAB CRET 0.73-1.22 mg/dL Creatinine 0.88 LAB NA 136-144 mmol/L Sodium 140 LAB K 3.7-5.1 mmol/L Potassium 4.3 LAB CL 97-105 mmol/L Chloride 103 LAB CO2 22-30 mmol/L CO2 25 LAB AGAP 9-18 mmol/L Anion Gap 12 LAB ALT 10-54 U/L ALT 36 LAB GFRAA eGFR- Amer. >60 LAB GFRNAA . eGFR-All Other Races >60 Result Comment: eGFR (Estimated GFR) Units of measure: mL/min/1.73 meters squared eGFR is derived from the reexpressed MDRD Study equation using the following parameters: serum creatinine, age, gender and race. The creatinine assay has been calibrated to be traceable to IDMS. An eGFR <60 mL/min/1.73m2 for >3 months is consistent with chronic kidney disease. Refer to KDOQI guidelines for clinical interpretation. In patients with unstable renal function, e.g. those with acute kidney injury, the eGFR may not accurately reflect actual GFR. Performed By: #### CBCDIF, CMP, LIPB #### [facility] [address] [place] [id number] LIPID PANEL, BASIC Collected: 05/05/2018 Status: F Source: [place] 9:34 AM [facility] REPOSITORY TYPE CODE TESTS RESULT OUT OF REFERENCE UNITS RANGE LAB CHOL <200 mg/dL Cholesterol 104 Result Comment: <200 mg/dL, Desirable 200-239 mg/dL, Borderline high >239 mg/dL, High LAB TRIGLY <150 mg/dL Triglyceride 72 Result Comment: <150 mg/dL, Normal 150-199 mg/dL, Borderline high 200-499 mg/dL, High >499 mg/dL, Very high LAB HDL >39 mg/dL HDL-Cholesterol 43 Result Comment: 40-59 mg/dL, Acceptable >59 mg/dL, High: Negative risk factor for coronary heart disease <40 mg/dL, Low: Positive risk factor for coronary heart disease LAB LDL <100 mg/dL LDL-Cholesterol 47 Result Comment: <100 mg/dL, Optimal 100-129 mg/dL, Near optimal/above optimal 130-159 mg/dL, Borderline high 160-189 mg/dL, High >189 mg/dL, Very high Secondary prevention optimal LDL Cholesterol levels are recommended to be < 70 mg/dL LAB NONHDL <130 mg/dL Non HDL Cholesterol 61 Result Comment: <130 mg/dL, Optimal 130-159 mg/dL, Near optimal/above optimal 160-189 mg/dL, Borderline high 190-219 mg/dL, High >219 mg/dL, Very high Secondary prevention optimal non HDL Cholesterol levels are recommended to be < 100 mg/dL LAB FT hrs Fasting Time 10 LAB VLDL <30 mg/dL VLDL Cholesterol 14 LAB TCHDL <5.10 TC:HDL Ratio 2.42 LAB LDLHDL <2.54 LDL:HDL Ratio 1.09 Result Comment: Reference: 1. National Cholesterol Education Program ATP III Guideline At-A-Glance Quick Desk Reference: National Heart, Lung, and Blood [place]. National Institutes of Health. 2001: NIH Publication No. 01-3305. 2. An International Atherosclerosis Society position paper: global recommendations for the management of dyslipidemia: executive summary, Atherosclerosis. 2014: 232(2):410-413. Performed By: #### CBCDIF, CMP, LIPB #### [facility] [address] [place], [place] [address] PROGRESS Observed: 05/05/2018 Status: COMPLETED Source: [place] 9:02 AM [facility] [place] REPOSITORY HNO ID: [id number] Author: Bimal Yepez Service: (none) Author Type: Physician Type: Progress Notes Filed: 05/05/2018 5:42 PM Note Text: Patient presents with: Abscess: Left arm, one week Wart: left hand HPI: Patient presents today for office visit for follow up. Complains of skin abscess. Had one cultured in the past that was MRSA. Discussed mrsa in detail. He had opened it on its own. No fever or red streaks. Has a wart on dorsum of left hand and want cryo performed again. Understands risks and benefits in detail. MEDICATIONS: Current Outpatient Prescriptions: diphenhydrAMINE (BENADRYL) 25 mg capsule Take 50 mg by mouth at bedtime as needed. acetaminophen (TYLENOL EXTRA STRENGTH) 500 mg tablet Take 1,000 mg by mouth every 8 hours as needed. escitalopram oxalate (LEXAPRO) 10 mg tablet Take 1 tablet by mouth once daily. clotrimazole-betamethasone (LOTRISONE) cream Apply 1 application to affected area twice daily. UNTIL CLEAR FOR UP TO 2-3 WEEKS clopidogrel (PLAVIX) 75 mg tablet Take 1 tablet by mouth once daily. atorvastatin (LIPITOR) 80 mg tablet Take 1 tablet by mouth once daily. aspirin 81 mg chewable tablet Take 81 mg by mouth once daily. ranitidine (ZANTAC) 150 mg tablet Take 150 mg by mouth once daily. nitroglycerin sublingual (NITROQUICK) 0.4 mg SL tablet Dissolve 0.4 mg under the tongue every 5 minutes as needed. metoprolol succinate ER (TOPROL XL) 25 mg 24 hr tablet Take 1 tablet by mouth once daily. No current facility-administered medications for this visit. ALLERGIES: ALLERGIES No Known Allergies PAST MEDICAL HISTORY Diagnosis Date - GERD (gastroesophageal reflux disease) - STEMI (ST elevation myocardial infarction) ([facility]) 06/2017 PAST SURGICAL HISTORY Procedure Laterality Date - SEPTOPLASTY 2007 Turbinate Reduction FAMILY HISTORY Problem Relation Age of Onset - Heart Mother irregular heart - Hypertension Mother - Hyperlipidemia Mother - Hypertension Father - Glaucoma Father - Other [OTHER] Father AML in remission - Thyroid Sister Social History Marital status: Spouse name: Years of education: Number of children: 4 Social History Main Topics Smoking status: Former Smoker Packs/day: 0.00 Years: 0.00 Types: Cigars Smokeless tobacco: Never Used Comment: rare use Alcohol use: Yes Comment: occasional: beer mixed drinks weekends Drug use: No Sexual activity: Yes Partners with: Female control/protection: Condom Social History Narrative Watch sports, Gro, Jump[employer], 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 REVIEW OF SYSTEMS All other reviewed and negative other than HPI. HEALTH MAINTENANCE: Reviewed health maintenance issues today and recommended the following in detail. There are no preventive care reminders to display for this patient. VITALS: BP 118/64 Pulse 68 Temp 36.4 ?C (97.6 ?F) (Tympanic) Resp 16 Wt 103.9 kg (229 lb) BMI 32.13 kg/m? Last 4 Encounter Wt Readings: Date: Wt: 05/05/2018 103.9 kg (229 lb) 04/14/2018 104.8 kg (231 lb) 02/24/2018 101.2 kg (223 lb) 02/02/2018 99.3 kg (219 lb) PHYSICAL EXAMINATION: General appearance: Well appearing, alert, in no acute distress, well-hydrated, well nourished. Skin: nickel sized area. nonfluctuent and non amenable to I and D. No red streaks or drainage. Wart as above ASSESSMENT/PLAN: 1. Abscess of left arm - ICD9: 682.3, ICD10: L02.414 (primary diagnosis) - No lymphangetic streaking, this was defined for patient to watch for and to seek medical care immediately if appears - warm compresses. - Call if symptoms worsen at all or if not better in one to two weeks - CLINDAMYCIN HCL 150 MG CAPSULE 2. Viral warts, unspecified type - ICD9: 078.10, ICD10: B07.9 - Procedure: Risks and benefits of procedure discussed including pain, hyper or hypopigmentation, damage to underlying nerves or blood vessels, and need for further treatment if ineffective. 2 freeze/thaw cycles with Cry-AC liquid nitrogen spray gun Bimal Yepez MD CNOV Observed: 05/05/2018 Status: COMPLETED Source: [place] 8:40 AM [facility] RE[facility] Office Visit ([facility]) HARSHIL ALLISON ([id number]) 1975 M Date Time Provider Department 05/05/18 8:40 AM [facility] During your visit today, we recorded the following information about you: Temperature Pulse Respiration Blood pressure 97.6 degrees 68/minute 16/minute 118/64 Weight 103.9 kg Bimal Yepez MD 05/05/2018 5:42 PM Signed Patient presents with: Abscess: Left arm, one week Wart: left hand HPI: Patient presents today for office visit for follow up. Complains of skin abscess. Had one cultured in the past that was MRSA. Discussed mrsa in detail. He had opened it on its own. No fever or red streaks. Has a wart on dorsum of left hand and want cryo performed again. Understands risks and benefits in detail. MEDICATIONS: Current Outpatient Prescriptions: diphenhydrAMINE (BENADRYL) 25 mg capsule Take 50 mg by mouth at bedtime as needed. acetaminophen (TYLENOL EXTRA STRENGTH) 500 mg tablet Take 1,000 mg by mouth every 8 hours as needed. escitalopram oxalate (LEXAPRO) 10 mg tablet Take 1 tablet by mouth once daily. clotrimazole-betamethasone (LOTRISONE) cream Apply 1 application to affected area twice daily. UNTIL CLEAR FOR UP TO 2-3 WEEKS clopidogrel (PLAVIX) 75 mg tablet Take 1 tablet by mouth once daily. atorvastatin (LIPITOR) 80 mg tablet Take 1 tablet by mouth once daily. aspirin 81 mg chewable tablet Take 81 mg by mouth once daily. ranitidine (ZANTAC) 150 mg tablet Take 150 mg by mouth once daily. nitroglycerin sublingual (NITROQUICK) 0.4 mg SL tablet Dissolve 0.4 mg under the tongue every 5 minutes as needed. metoprolol succinate ER (TOPROL XL) 25 mg 24 hr tablet Take 1 tablet by mouth once daily. No current facility-administered medications for this visit. ALLERGIES: ALLERGIES No Known Allergies PAST MEDICAL HISTORY Diagnosis Date - GERD (gastroesophageal reflux disease) - STEMI (ST elevation myocardial infarction) ([facility]) 06/2017 PAST SURGICAL HISTORY Procedure Laterality Date - SEPTOPLASTY 2006 Turbinate Reduction FAMILY HISTORY Problem Relation Age of Onset - Heart Mother irregular heart - Hypertension Mother - Hyperlipidemia Mother - Hypertension Father - Glaucoma Father - Other [OTHER] Father AML in remission - Thyroid Sister Social History Marital status: Spouse name: Years of education: Number of children: 4 Social History Main Topics Smoking status: Former Smoker Packs/day: 0.00 Years: 0.00 Types: Cigars Smokeless tobacco: Never Used Comment: rare use Alcohol use: Yes Comment: occasional: beer mixed drinks weekends Drug use: No Sexual activity: Yes Partners with: Female control/protection: Condom Social History Narrative Watch sports, Gro, Jump[employer], 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 REVIEW OF SYSTEMS All other reviewed and negative other than HPI. HEALTH MAINTENANCE: Reviewed health maintenance issues today and recommended the following in detail. There are no preventive care reminders to display for this patient. VITALS: BP 118/64 Pulse 68 Temp 36.4 ?C (97.6 ?F) (Tympanic) Resp 16 Wt 103.9 kg (229 lb) BMI 32.13 kg/m? Last 4 Encounter Wt Readings: Date: Wt: 05/05/2018 103.9 kg (229 lb) 04/14/2018 104.8 kg (231 lb) 02/24/2018 101.2 kg (223 lb) 02/02/2018 99.3 kg (219 lb) PHYSICAL EXAMINATION: General appearance: Well appearing, alert, in no acute distress, well-hydrated, well nourished. Skin: nickel sized area. nonfluctuent and non amenable to I and D. No red streaks or drainage. Wart as above ASSESSMENT/PLAN: 1. Abscess of left arm - ICD9: 682.3, ICD10: L02.414 (primary diagnosis) - No lymphangetic streaking, this was defined for patient to watch for and to seek medical care immediately if appears - warm compresses. - Call if symptoms worsen at all or if not better in one to two weeks - CLINDAMYCIN HCL 150 MG CAPSULE 2. Viral warts, unspecified type - ICD9: 078.10, ICD10: B07.9 - Procedure: Risks and benefits of procedure discussed including pain, hyper or hypopigmentation, damage to underlying nerves or blood vessels, and need for further treatment if ineffective. 2 freeze/thaw cycles with Cry-AC liquid nitrogen spray gun Bimal Yepez MD Referring Provider: SELF [200] Allergies As of Date: 05/05/2018 (No Known Allergies) Date Reviewed: 05/05/2018 Reviewed by: Britney Romero Ma - Fully Assessed Reason for Visit: Abscess [4034] Cmt: Left arm, one week Wart [927] Cmt: left hand Reason For Visit History Recorded Primary Visit Diagnosis:Abscess of left arm [L02.414] Other Visit Diagnosis:Viral warts, unspecified type [B07.9] Order(s):clindamycin (CLEOCIN) 150 mg capsuleTake 1 capsule by mouth four times daily.Disp: 40 capsuleRfl: 0 Prescriptions as of 05/05/2018 Sig: DIPHENHYDRAMINE 25 MG CAPSULE Take 50 mg by mouth at bedtim* ACETAMINOPHEN 500 MG TABLET Take 1,000 mg by mouth every * ESCITALOPRAM 10 MG TABLET Take 1 tablet by mouth once d* CLOTRIMAZOLE-BETAMETHASONE 1 * Apply 1 application to affect* CLOPIDOGREL 75 MG TABLET Take 1 tablet by mouth once d* ATORVASTATIN 80 MG TABLET Take 1 tablet by mouth once d* ASPIRIN 81 MG CHEWABLE TABLET Take 81 mg by mouth once danni* RANITIDINE 150 MG TABLET Take 150 mg by mouth once kira* NITROGLYCERIN 0.4 MG SUBLINGU* Dissolve 0.4 mg under the ton* CLINDAMYCIN HCL 150 MG CAPSULE Take 1 capsule by mouth four * METOPROLOL SUCCINATE ER 25 MG* Take 1 tablet by mouth once d* Problem List As Of Date 05/05/2018 Noted Resolved Coronary artery disease involving big sandy talbert*INVALID FOR* More... Depression, major [F32.9] INVALID FOR* Eczema [L30.9] INVALID FOR* GERD without esophagitis [K21.9] INVALID FOR* ANTOINETTE (obstructive sleep apnea) [G47.33] INVALID FOR* CPAP (continuous positive airway pressure) depe*INVALID FOR* Prescriptions ordered this encounter Disp Refills Start End CLINDAMYCIN HCL 150 MG CAPSULE 40 c* 0 05/05/2018 Route: ORAL Sig: Take 1 capsule by mouth four times daily. Medications Discontinued During This Encounter triamcinolone acetonide topical 0.5 * 15 g 3 10/23/2017 05/05/2018 Route: TOPICAL Sig: Apply 1 application to affected area twice daily. Patient not taking: Reported on 04/14/2018 Disc: Course of therapy completed Disposition: Return if symptoms worsen or fail to improve. Follow-up and Disposition History Recorded Encounter Status:Closed by BIMAL YEPEZ MD on 05/05/18 PROGRESS Observed: 04/14/2018 Status: COMPLETED Source: [place] 10:57 AM [facility] HNO ID: [id number] Author: Gary Amaya Service: (none) Author Type: Physician Type: Progress Notes Filed: 04/14/2018 5:59 PM Note Text: PERTINENT CARDIAC HISTORY [facility] - IMI 06/27, PCI dominant Cx (DIDIER) 06/27 HL ANTOINETTE - CPAP ADHERENCE TO GUIDELINES PORTER-I or ARB for HF with prior LVEF<40 (NQF 0081) - N/A ASA or Plavix for ASHD (NQF 0067) - met Beta cassidy for ASHD with prior SC or prior LVEF<40 (NQF 0070) - met Beta cassidy for HF with prior LVEF<40 (NQF 0083) - N/A PORTER-I or ARB for ASHD with DM or prior LVEF<40 (NQF 0066) - met Statin therapy for ASHD or FHL or DM - met BMI documented and plan if >25 (NQF 0421) - lifestyle recommendation form Tobacco use screening and referral (NQF 0028) - lifestyle recommendation form Recommendation for whole food, plant based diet - lifestyle recommendation form CLINICAL IMPRESSION/PLAN: Harshil Allison is doing well. His chest pain has been atypical in the past. He has had no recent interscapular pain. It is still unclear whether he was having ischemia at the time of his initial presentation. I've advised him to limit his caffeine and sodium intake. He has been released to increase the amount of lifting but I have suggested that he limit himself to 50 pounds. He will let me know if he needs further specific instructions. I've asked him to call if he has increasing chest pain or exercise intolerance. I will see him in 6 months or as needed. Written and verbal health teaching given to patient, patient verbalizes understanding and agrees with treatment plan. DIAGNOSIS FOR VISIT: COTTAGE GROVED HISTORY OF PRESENT ILLNESS Harshil Allison returns for follow-up of his coronary disease. He reports that his exercise tolerance has been good. He's had occasional musculoskeletal type pain, the most recent being around the end of January. He has been walking. He has not been doing any weightlifting for exercise, but helped his sister move several days ago and had no difficulty. He would like to increase the amount of lifting he is doing at work. He's had no recent angina. He denies orthopnea, edema, syncope, palpitations, TIAs, amaurosis and claudication. ALLERGIES: ALLERGIES No Known Allergies CURRENT OUTPATIENT MEDICATIONS: diphenhydrAMINE (BENADRYL) 25 mg capsule Take 50 mg by mouth at bedtime as needed. acetaminophen (TYLENOL EXTRA STRENGTH) 500 mg tablet Take 1,000 mg by mouth every 8 hours as needed. escitalopram oxalate (LEXAPRO) 10 mg tablet Take 1 tablet by mouth once daily. clotrimazole-betamethasone (LOTRISONE) cream Apply 1 application to affected area twice daily. UNTIL CLEAR FOR UP TO 2-3 WEEKS metoprolol succinate ER (TOPROL XL) 25 mg 24 hr tablet Take 1 tablet by mouth once daily. clopidogrel (PLAVIX) 75 mg tablet Take 1 tablet by mouth once daily. atorvastatin (LIPITOR) 80 mg tablet Take 1 tablet by mouth once daily. aspirin 81 mg chewable tablet Take 81 mg by mouth once daily. ranitidine (ZANTAC) 150 mg tablet Take 150 mg by mouth once daily. nitroglycerin sublingual (NITROQUICK) 0.4 mg SL tablet Dissolve 0.4 mg under the tongue every 5 minutes as needed. triamcinolone acetonide topical 0.5 % ointment Apply 1 application to affected area twice daily. PHYSICAL EXAMINATION: VITAL SIGNS: BP 116/82 Pulse 64 Ht 5' 10.79 (1.80m) Wt 231 lb (104.8kg) BMI 32.41 kg/(m2). Chest: Clear to percussion and auscultation. Trachea is midline. Air entry is equal. Cardiac: Regular rhythm. S1 and S2 are normal. PMI is nondisplaced. There are no murmurs, rubs or gallops. Carotids are brisk without bruits. JVP is less than 10 cm. Abdomen: Soft and nontender. There are no pulsatile masses or bruits. No liver enlargement. Bowel sounds are active. Extremities: No edema. Pulses are intact and symmetrical. Labs were reviewed. Renal function is normal. LDL was 61. Electronically Signed: Gary Amaya MD April 14, 2018 10:57 AM CC: VIKASH Keller Observed: 04/14/2018 Status: COMPLETED Source: [place] 10:30 AM [facility] Office Visit (CAWSTR) HARSHIL ALLISON ([id number]) 1975 M Date Time Provider Department 04/14/18 10:30 AM GARY AMAYA During your visit today, we recorded the following information about you: Pulse Blood pressure Weight Height 64/minute 116/82 104.8 kg 1.798 m Gary Amaya MD 04/14/2018 5:59 PM Signed PERTINENT CARDIAC HISTORY ASHD - IMI 06/27, PCI dominant Cx (DIDIER) 06/27 HL ANTOINETTE - CPAP ADHERENCE TO GUIDELINES PORTER-I or ARB for HF with prior LVEF<40 (NQF 0081) - N/A ASA or Plavix for ASHD (NQF 0067) - met Beta cassidy for ASHD with prior SC or prior LVEF<40 (NQF 0070) - met Beta cassidy for HF with prior LVEF<40 (NQF 0083) - N/A PORTER-I or ARB for ASHD with DM or prior LVEF<40 (NQF 0066) - met Statin therapy for ASHD or FHL or DM - met BMI documented and plan if >25 (NQF 0421) - lifestyle recommendation form Tobacco use screening and referral (NQF 0028) - lifestyle recommendation form Recommendation for whole food, plant based diet - lifestyle recommendation form CLINICAL IMPRESSION/PLAN: Harshil Allison is doing well. His chest pain has been atypical in the past. He has had no recent interscapular pain. It is still unclear whether he was having ischemia at the time of his initial presentation. I've advised him to limit his caffeine and sodium intake. He has been released to increase the amount of lifting but I have suggested that he limit himself to 50 pounds. He will let me know if he needs further specific instructions. I've asked him to call if he has increasing chest pain or exercise intolerance. I will see him in 6 months or as needed. Written and verbal health teaching given to patient, patient verbalizes understanding and agrees with treatment plan. DIAGNOSIS FOR VISIT: ASHD HISTORY OF PRESENT ILLNESS Harshil Allison returns for follow-up of his coronary disease. He reports that his exercise tolerance has been good. He's had occasional musculoskeletal type pain, the most recent being around the end of January. He has been walking. He has not been doing any weightlifting for exercise, but helped his sister move several days ago and had no difficulty. He would like to increase the amount of lifting he is doing at work. He's had no recent angina. He denies orthopnea, edema, syncope, palpitations, TIAs, amaurosis and claudication. ALLERGIES: ALLERGIES No Known Allergies CURRENT OUTPATIENT MEDICATIONS: diphenhydrAMINE (BENADRYL) 25 mg capsule Take 50 mg by mouth at bedtime as needed. acetaminophen (TYLENOL EXTRA STRENGTH) 500 mg tablet Take 1,000 mg by mouth every 8 hours as needed. escitalopram oxalate (LEXAPRO) 10 mg tablet Take 1 tablet by mouth once daily. clotrimazole-betamethasone (LOTRISONE) cream Apply 1 application to affected area twice daily. UNTIL CLEAR FOR UP TO 2-3 WEEKS metoprolol succinate ER (TOPROL XL) 25 mg 24 hr tablet Take 1 tablet by mouth once daily. clopidogrel (PLAVIX) 75 mg tablet Take 1 tablet by mouth once daily. atorvastatin (LIPITOR) 80 mg tablet Take 1 tablet by mouth once daily. aspirin 81 mg chewable tablet Take 81 mg by mouth once daily. ranitidine (ZANTAC) 150 mg tablet Take 150 mg by mouth once daily. nitroglycerin sublingual (NITROQUICK) 0.4 mg SL tablet Dissolve 0.4 mg under the tongue every 5 minutes as needed. triamcinolone acetonide topical 0.5 % ointment Apply 1 application to affected area twice daily. PHYSICAL EXAMINATION: VITAL SIGNS: BP 116/82 Pulse 64 Ht 5' 10.79 (1.80m) Wt 231 lb (104.8kg) BMI 32.41 kg/(m2). Chest: Clear to percussion and auscultation. Trachea is midline. Air entry is equal. Cardiac: Regular rhythm. S1 and S2 are normal. PMI is nondisplaced. There are no murmurs, rubs or gallops. Carotids are brisk without bruits. JVP is less than 10 cm. Abdomen: Soft and nontender. There are no pulsatile masses or bruits. No liver enlargement. Bowel sounds are active. Extremities: No edema. Pulses are intact and symmetrical. Labs were reviewed. Renal function is normal. LDL was 61. Electronically Signed: Gary Amaya MD April 14, 2018 10:57 AM CC: VIKASH Keller MD 04/14/2018 10:57 AM Signed LIFESTYLE CHANGE A healthy lifestyle is the most important component of your overall treatment plan. Please give serious thought to the following areas and commit to making terminal operations manager changes. EAT A WHOLE FOOD, PLANT BASED DIET The nutrition your body gets is more important than the medicine you take. What matters most is the overall way you eat. We encourage you to minimize the use of animal products (which include dairy and all meats except fatty fish) and use whole, unprocessed plant foods to provide your protein, vitamins and other nutrients. We have a lot of information to share with you on this topic. This is not a diet. It is a way of life that you will keep with you. EXERCISE REGULARLY It is not important to spend hours in the gym, lifting weights and perspiring heavily. A total of 2-3 hours per week of aerobic (causing you to be moderately short of breath) exercise is sufficient to improve your health. Talk to us before you begin a new exercise program, if you have heart disease or experience shortness of breath or chest pain. REDUCE STRESS Chronic emotional and physical stress leads to disease. Ways of reducing stress include meditation, visualization, prayer, yoga and other forms of relaxation therapy. Consistency is the reaves. Find a technique that works for you and do it every day. CULTIVATE RELATIONSHIPS Loneliness and isolation have a major negative impact on health. Seek out others who can love, care for and nurture you. Avoid hurtful relationships. MAINTAIN IDEAL BODY WEIGHT The best way to do this is to do all the things above. Our bodies naturally find the right weight if we keep moving and feed ourselves the right food. If your BMI is greater than 25, we strongly recommend a referral to a weight management program. Please speak to us or your family physician about available programs. AVOID NICOTINE IN ALL FORMS This includes all tobacco products, whether chewed, smoked, vaped, or rubbed on the skin. Smoking cessation programs, which can make use of tobacco substitutes, medications to suppress cravings and behavior management, are available. Please contact your family physician about programs in your area. Referring Provider: SELF [[id number]] Allergies As of Date: 04/14/2018 (No Known Allergies) Date Reviewed: 04/14/2018 Reviewed by: Delma La - Fully Assessed Reason for Visit: Follow Up [171] Primary Visit Diagnosis:ASHD (arteriosclerotic heart disease) [I25.10] Prescriptions as of 04/14/2018 Sig: DIPHENHYDRAMINE 25 MG CAPSULE Take 50 mg by mouth at bedtim* ACETAMINOPHEN 500 MG TABLET Take 1,000 mg by mouth every * ESCITALOPRAM 10 MG TABLET Take 1 tablet by mouth once d* CLOTRIMAZOLE-BETAMETHASONE 1 * Apply 1 application to affect* METOPROLOL SUCCINATE ER 25 MG* Take 1 tablet by mouth once d* CLOPIDOGREL 75 MG TABLET Take 1 tablet by mouth once d* ATORVASTATIN 80 MG TABLET Take 1 tablet by mouth once d* ASPIRIN 81 MG CHEWABLE TABLET Take 81 mg by mouth once danni* RANITIDINE 150 MG TABLET Take 150 mg by mouth once kira* NITROGLYCERIN 0.4 MG SUBLINGU* Dissolve 0.4 mg under the ton* TRIAMCINOLONE ACETONIDE 0.5 %* Apply 1 application to affect* Patient not taking: Reported on 04/14/2018 Problem List As Of Date 04/14/2018 Noted Resolved Coronary artery disease involving big sandy [place]*INVALID FOR* More... Depression, major [F32.9] INVALID FOR* Eczema [L30.9] INVALID FOR* GERD without esophagitis [K21.9] INVALID FOR* ANTOINETTE (obstructive sleep apnea) [G47.33] INVALID FOR* CPAP (continuous positive airway pressure) depe*INVALID FOR* Other instructions from your clinician: LIFESTYLE CHANGE A healthy lifestyle is the most important component of your overall treatment plan. Please give serious thought to the following areas and commit to making residential changes. EAT A WHOLE FOOD, PLANT BASED DIET The nutrition your body gets is more important than the medicine you take. What matters most is the overall way you eat. We encourage you to minimize the use of animal products (which include dairy and all meats except fatty fish) and use whole, unprocessed plant foods to provide your protein, vitamins and other nutrients. We have a lot of information to share with you on this topic. This is not a diet. It is a way of life that you will keep with you. EXERCISE REGULARLY It is not important to spend hours in the gym, lifting weights and perspiring heavily. A total of 2-3 hours per week of aerobic (causing you to be moderately short of breath) exercise is sufficient to improve your health. Talk to us before you begin a new exercise program, if you have heart disease or experience shortness of breath or chest pain. REDUCE STRESS Chronic emotional and physical stress leads to disease. Ways of reducing stress include meditation, visualization, prayer, yoga and other forms of relaxation therapy. Consistency is the reaves. Find a technique that works for you and do it every day. CULTIVATE RELATIONSHIPS Loneliness and isolation have a major negative impact on health. Seek out others who can love, care for and nurture you. Avoid hurtful relationships. MAINTAIN IDEAL BODY WEIGHT The best way to do this is to do all the things above. Our bodies naturally find the right weight if we keep moving and feed ourselves the right food. If your BMI is greater than 25, we strongly recommend a referral to a weight management program. Please speak to us or your family physician about available programs. AVOID NICOTINE IN ALL FORMS This includes all tobacco products, whether chewed, smoked, vaped, or rubbed on the skin. Smoking cessation programs, which can make use of tobacco substitutes, medications to suppress cravings and behavior management, are available. Please contact your family physician about programs in your area. Letter Text Gary Amaya M.D. Department of Cardiology [address] [place] [address]. [place], [place] [address] Harshil Allison April 14, 2018 1975 To whom it may concern: Harshil Allison is under my care and has been released to return to work. He has been advised to limit regular lifting to no more than 50 pounds. Sincerely, Gary Amaya MD Encounter Status:Closed by GARY AMAYA MD on 04/14/18 PROGRESS Observed: 02/24/2018 Status: COMPLETED Source: [place] 1:21 PM [facility] HNO ID: [id number] Author: Jonah Delgadillo (Pa-C) Tray Service: (none) Author Type: Physician Manager Latin Type: Progress Notes Filed: 02/24/2018 6:26 PM Note Text: 42 year old male with c/o here to establish care 1. Neck and back pain: asking for OMT. Chronic. Saw chiropractor in [place]. No numbness, tingling or radiating pain. 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 2. Hand rash. Identifies as eczema. Using bag balm. On-going for most of adult like. 3. Warts x 2 on posterior left hand. On for a few years, one for a few months. 4. NSTEMI in June 2017; sees Goyo Amaya. Has chest pain a Lot: feels like something that needs scratched. No anything similar to chest pain with SC. Reviewed with developer advisor, not concerned. On metoprolol. No use of NTG. On ASA 81mg, Lipitor and Plavix. No complications with medication. No SOB, dyspnea, orthopnea, racing or irregular heartbeats, palpitations, syncopal sx, nausea, or heartburn. 5. Identifies heartburn. Takes ranitidine OTC once a day which keeps it controlled. No change in bowel habits, black stools or rectal bleeding. 6. ANTOINETTE: wears CPAP 7. Depression. In counseling Edith Miramontes. Managed well on Lexapro over last 2 years. Sleep is good. No thought self self harm. HISTORIES No family history on file. PAST MEDICAL HISTORY Diagnosis Date - GERD (gastroesophageal reflux disease) - STEMI (ST elevation myocardial infarction) ([facility]) 06/2017 PAST SURGICAL HISTORY Procedure Laterality Date - SEPTOPLASTY 2007 Turbinate Reduction Social History Marital status: Spouse name: Years of education: Number of children: Social History Main Topics Smoking status: Former Smoker Packs/day: 0.00 Years: 0.00 Types: Cigars Smokeless status: Never Used Alcohol use: Yes Comment: occasional Drug use: No ACTIVE PROBLEM LIST Coronary Artery Disease Involving [place] Coronary Artery of [place] Heart Without Angina Pectoris Depression, Major Eczema Gerd Without Esophagitis Antoinette (Obstructive Sleep Apnea) Cpap (Continuous Positive Airway Pressure) Dependence Current Outpatient Prescriptions: diphenhydrAMINE (BENADRYL) 25 mg capsule Take 50 mg by mouth at bedtime as needed. Disp: Rfl: acetaminophen (TYLENOL EXTRA STRENGTH) 500 mg tablet Take 1,000 mg by mouth every 8 hours as needed. Disp: Rfl: escitalopram oxalate (LEXAPRO) 10 mg tablet Take 1 tablet by mouth once daily. Disp: 30 tablet Rfl: 1 metoprolol succinate ER (TOPROL XL) 25 mg 24 hr tablet Take 1 tablet by mouth once daily. Disp: 90 tablet Rfl: 3 clopidogrel (PLAVIX) 75 mg tablet Take 1 tablet by mouth once daily. Disp: 90 tablet Rfl: 3 atorvastatin (LIPITOR) 80 mg tablet Take 1 tablet by mouth once daily. Disp: 90 tablet Rfl: 3 triamcinolone acetonide topical 0.5 % ointment Apply 1 application to affected area twice daily. Disp: 15 g Rfl: 3 aspirin 81 mg chewable tablet Take 81 mg by mouth once daily. Disp: Rfl: ranitidine (ZANTAC) 150 mg tablet Take 150 mg by mouth once daily. Disp: Rfl: nitroglycerin sublingual (NITROQUICK) 0.4 mg SL tablet Dissolve 0.4 mg under the tongue every 5 minutes as needed. Disp: Rfl: No current facility-administered medications for this visit. TETANUS due on 1985 ONE PNEUMOVAX PRIOR TO AGE 64 due on 1993 EXAM: BP 100/64 Pulse 64 Temp (!) 35.9 ?C (96.7 ?F) (Tympanic) Resp 20 Ht 179.8 cm (5' 10.79) Wt 101.2 kg (223 lb) BMI 31.29 kg/m2 Pleasant overweight adult male in no acute distress. Alert and oriented all spheres. Normal affect and cognition. Speech normal. No deficits to learning or comprehension. Skin warm, dry, pink to lips and nailbeds. Normal turgor. Respirations regular and unlabored. HEENT WNL. TM's clear. Nose and oropharynx free from injection or lesion. No cervical lymph nodes. Thyroid non-tender, no masses Neck TTP on bilateral posterior muscles. Mild restriction with pain on right side. Chest CTA. HRRR without murmur or gallop. Abd: rounded, bowel sounds active. No pulsatile masses. Non- tender. No rebound, guarding, or peritoneal signs. No masses. No organomegaly. Clemente's punch: negative. No flank pain. No inguinal or axillary lymphadenopathy. Back with normal posture: even hips and shoulders. Flexion to mid calf. SIJs are open. Neck normal lordosis. Tender trigger points bilaterally. TTPs also in upper back. Extrem: no clubbing, cyanosis, edema. Extremities are warm and pink with prompt capillary refill. Bilateral hand with powdery and scaly dermatitis with cracks and small fissures in joint and palm lines. ASSESSMENT/PLAN: 1. Need for Tdap vaccination - ICD9: V06.1, ICD10: Z23 (primary diagnosis) - TDAP 2. Episode of recurrent major depressive disorder, unspecified depression episode severity (HCC) - ICD9: 296.30, ICD10: F33.9 Controlled well on medication: refill and follow - ESCITALOPRAM 10 MG TABLET 3. Coronary artery disease involving big [place] coronary artery of big [place] heart without angina pectoris - ICD9: 414.01, ICD10: I25.10 Follows with Goyo Amaya - LIPID PANEL BASIC - COMP METABOLIC PANEL . Tinea manuum - ICD9: 110.2, ICD10: B35.2 - Treat with lotrisone twice a day until rash resolves and then another week 5. Viral warts, unspecified type - ICD9: 078.10, ICD10: B07.9 We discussed risks and benefits of cryotherapy as well as other options for wart treament: agreed to proceed. 15 sec freeze twice to each area. - CBC + DIFF 6. Cervicothoracic somatic dysfunction - ICD9: 739.1, ICD10: M99.01 OMT per request: myofascial release, HVLA cervical and thoracic segments with improvement. Lesli Feliz PA-C CNOV Observed: 02/24/2018 Status: COMPLETED Source: [place] 1:00 PM [facility] Office Visit (FAMPWS) HARSHIL ALLISON ([id number]) 1975 M Date Time Provider Department 02/24/18 1:00 PM Jonah FELIZ) [facility] During your visit today, we recorded the following information about you: Temperature Pulse Respiration Blood pressure 96.7 degrees 64/minute 20/minute 100/64 Weight Height 101.2 kg 1.798 m Paty Grewal LPN 02/24/2018 1:10 PM Signed Waist circumference 37.5in M Elie Feliz PA-C 02/24/2018 6:26 PM Signed 42 year old male with c/o here to establish care 1. Neck and back pain: asking for OMT. Chronic. Saw chiropractor in [place]. No numbness, tingling or radiating pain. 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 2. Hand rash. Identifies as eczema. Using bag balm. On-going for most of adult like. 3. Warts x 2 on posterior left hand. On for a few years, one for a few months. 4. NSTEMI in June 2017; sees Goyo Amaya. Has chest pain a Lot: feels like something that needs scratched. No anything similar to chest pain with SC. Reviewed with developer advisor, not concerned. On metoprolol. No use of NTG. On ASA 81mg, Lipitor and Plavix. No complications with medication. No SOB, dyspnea, orthopnea, racing or irregular heartbeats, palpitations, syncopal sx, nausea, or heartburn. 5. Identifies heartburn. Takes ranitidine OTC once a day which keeps it controlled. No change in bowel habits, black stools or rectal bleeding. 6. ANTOINETTE: wears CPAP 7. Depression. In counseling dEith Miramontes. Managed well on Lexapro over last 2 years. Sleep is good. No thought self self harm. HISTORIES No family history on file. PAST MEDICAL HISTORY Diagnosis Date - GERD (gastroesophageal reflux disease) - STEMI (ST elevation myocardial infarction) ([facility]) 06/2017 PAST SURGICAL HISTORY Procedure Laterality Date - SEPTOPLASTY 2007 Turbinate Reduction Social History Marital status: Spouse name: Years of education: Number of children: Social History Main Topics Smoking status: Former Smoker Packs/day: 0.00 Years: 0.00 Types: Cigars Smokeless status: Never Used Alcohol use: Yes Comment: occasional Drug use: No ACTIVE PROBLEM LIST Coronary Artery Disease Involving [place] Coronary Artery of [place] Heart Without Angina Pectoris Depression, Major Eczema Gerd Without Esophagitis Antoinette (Obstructive Sleep Apnea) Cpap (Continuous Positive Airway Pressure) Dependence Current Outpatient Prescriptions: diphenhydrAMINE (BENADRYL) 25 mg capsule Take 50 mg by mouth at bedtime as needed. Disp: Rfl: acetaminophen (TYLENOL EXTRA STRENGTH) 500 mg tablet Take 1,000 mg by mouth every 8 hours as needed. Disp: Rfl: escitalopram oxalate (LEXAPRO) 10 mg tablet Take 1 tablet by mouth once daily. Disp: 30 tablet Rfl: 1 metoprolol succinate ER (TOPROL XL) 25 mg 24 hr tablet Take 1 tablet by mouth once daily. Disp: 90 tablet Rfl: 3 clopidogrel (PLAVIX) 75 mg tablet Take 1 tablet by mouth once daily. Disp: 90 tablet Rfl: 3 atorvastatin (LIPITOR) 80 mg tablet Take 1 tablet by mouth once daily. Disp: 90 tablet Rfl: 3 triamcinolone acetonide topical 0.5 % ointment Apply 1 application to affected area twice daily. Disp: 15 g Rfl: 3 aspirin 81 mg chewable tablet Take 81 mg by mouth once daily. Disp: Rfl: ranitidine (ZANTAC) 150 mg tablet Take 150 mg by mouth once daily. Disp: Rfl: nitroglycerin sublingual (NITROQUICK) 0.4 mg SL tablet Dissolve 0.4 mg under the tongue every 5 minutes as needed. Disp: Rfl: No current facility-administered medications for this visit. TETANUS due on 1985 ONE PNEUMOVAX PRIOR TO AGE 64 due on 1993 EXAM: BP 100/64 Pulse 64 Temp (!) 35.9 ?C (96.7 ?F) (Tympanic) Resp 20 Ht 179.8 cm (5' 10.79ANDquot;) Wt 101.2 kg (223 lb) BMI 31.29 kg/m2 Pleasant overweight adult male in no acute distress. Alert and oriented all spheres. Normal affect and cognition. Speech normal. No deficits to learning or comprehension. Skin warm, dry, pink to lips and nailbeds. Normal turgor. Respirations regular and unlabored. HEENT WNL. TM's clear. Nose and oropharynx free from injection or lesion. No cervical lymph nodes. Thyroid non-tender, no masses Neck TTP on bilateral posterior muscles. Mild restriction with pain on right side. Chest CTA. HRRR without murmur or gallop. Abd: rounded, bowel sounds active. No pulsatile masses. Non- tender. No rebound, guarding, or peritoneal signs. No masses. No organomegaly. Clemente's punch: negative. No flank pain. No inguinal or axillary lymphadenopathy. Back with normal posture: even hips and shoulders. Flexion to mid calf. SIJs are open. Neck normal lordosis. Tender trigger points bilaterally. TTPs also in upper back. Extrem: no clubbing, cyanosis, edema. Extremities are warm and pink with prompt capillary refill. Bilateral hand with powdery and scaly dermatitis with cracks and small fissures in joint and palm lines. ASSESSMENT/PLAN: 1. Need for Tdap vaccination - ICD9: V06.1, ICD10: Z23 (primary diagnosis) - TDAP 2. Episode of recurrent major depressive disorder, unspecified depression episode severity (HCC) - ICD9: 296.30, ICD10: F33.9 Controlled well on medication: refill and follow - ESCITALOPRAM 10 MG TABLET 3. Coronary artery disease involving big sandy coronary artery of big sandy heart without angina pectoris - ICD9: 414.01, ICD10: I25.10 Follows with Goyo Amaya - LIPID PANEL BASIC - COMP METABOLIC PANEL . Tinea manuum - ICD9: 110.2, ICD10: B35.2 - Treat with lotrisone twice a day until rash resolves and then another week 5. Viral warts, unspecified type - ICD9: 078.10, ICD10: B07.9 We discussed risks and benefits of cryotherapy as well as other options for wart treament: agreed to proceed. 15 sec freeze twice to each area. - CBC + DIFF 6. Cervicothoracic somatic dysfunction - ICD9: 739.1, ICD10: M99.01 OMT per request: myofascial release, HVLA cervical and thoracic segments with improvement. F.u priyankn VIKASH Keller PA-C 02/24/2018 2:12 PM Addendum Please return to the office on approximately 6 months. Open access hours are: Saturday 8 am-6 pm Saturday 8 am-4 pm Saturday 8 am-4 pm 8 am-6 pm Saturday 8 am-4 pm Warts: Areas should blister and peel over several days. Anticipate tenderness over treated areas. Using a corn pad or callus pad to alleviate pressure may help. If areas are draining, cover with Bacitracin ointment OTC and a dry sterile dressing. Usually areas will not drain. If any unusual symptoms such as fever, pus, red streaks or signs of infections, call the office. Otherwise, recheck in three weeks. Referring Provider: SELF [200] Allergies As of Date: 02/24/2018 (No Known Allergies) Date Reviewed: 02/24/2018 Reviewed by: Paty Grewal LPN - Fully Assessed Reason for Visit: Establish Care [42] Primary Visit Diagnosis:Need for Tdap vaccination [Z23] Other Visit Diagnoses:Episode of recurrent major depressive disorder, unspecified depression episode severity (HCC) [F33.9] Coronary artery disease involving big sandy coronary artery of big sandy heart without angina pectoris [I25.10] Tinea manuum [B35.2] Viral warts, unspecified type [B07.9] Cervicothoracic somatic dysfunction [M99.01] Order(s):escitalopram oxalate (LEXAPRO) 10 mg tabletTake 1 tablet by mouth once daily.Disp: 30 tabletRfl: 5 TDAP VACCINE AGE 7+ IM [[id number]] Order #: [id number] LIPID PANEL BASIC [SQLIPB] Order #: [id number] FUTURE COMP METABOLIC PANEL [SQCMP] Order #: [id number] FUTURE CBC + DIFF [SQCBCDIF] Order #: [id number] FUTURE clotrimazole-betamethasone (LOTRISONE) creamApply 1 application to affected area twice daily. UNTIL CLEAR FOR UP TO 2-3 WEEKSDisp: 30 gRfl: 2 Prescriptions as of 02/24/2018 Sig: DIPHENHYDRAMINE 25 MG CAPSULE Take 50 mg by mouth at bedtim* ACETAMINOPHEN 500 MG TABLET Take 1,000 mg by mouth every * ESCITALOPRAM 10 MG TABLET Take 1 tablet by mouth once d* METOPROLOL SUCCINATE ER 25 MG* Take 1 tablet by mouth once d* CLOPIDOGREL 75 MG TABLET Take 1 tablet by mouth once d* ATORVASTATIN 80 MG TABLET Take 1 tablet by mouth once d* TRIAMCINOLONE ACETONIDE 0.5 %* Apply 1 application to affect* ASPIRIN 81 MG CHEWABLE TABLET Take 81 mg by mouth once danni* RANITIDINE 150 MG TABLET Take 150 mg by mouth once kira* NITROGLYCERIN 0.4 MG SUBLINGU* Dissolve 0.4 mg under the ton* CLOTRIMAZOLE-BETAMETHASONE 1 * Apply 1 application to affect* Problem List As Of Date 02/24/2018 Noted Resolved Coronary artery disease involving big sandy talbert*INVALID FOR* More... Depression, major [F32.9] INVALID FOR* Eczema [L30.9] INVALID FOR* GERD without esophagitis [K21.9] INVALID FOR* ANTOINETTE (obstructive sleep apnea) [G47.33] INVALID FOR* CPAP (continuous positive airway pressure) depe*INVALID FOR* Other instructions from your clinician: Please return to the office on approximately 6 months. Open access hours are: Saturday 8 am-6 pm Saturday 8 am-4 pm Saturday 8 am- 4 pm 8 am- 6 pm Saturday 8 am-4 pm Warts: Areas should blister and peel over several days. Anticipate tenderness over treated areas. Using a corn pad or callus pad to alleviate pressure may help. If areas are draining, cover with Bacitracin ointment OTC and a dry sterile dressing. Usually areas will not drain. If any unusual symptoms such as fever, pus, red streaks or signs of infections, call the office. Otherwise, recheck in three weeks. Visit Notes: >> Paty Grewal LPN SatFeb 24, 2018 1:10 PM Status: Signed Waist circumference 37.5in Prescriptions ordered this encounter Disp Refills Start End ESCITALOPRAM 10 MG TABLET 30 t* 5 02/24/2018 Route: ORAL Sig: Take 1 tablet by mouth once daily. CLOTRIMAZOLE-BETAMETHASONE 1 %-0.05 * 30 g 2 02/24/2018 Route: TOPICAL Sig: Apply 1 application to affected area twice daily. UNTIL CLEAR FOR UP TO 2-3 WEEKS Medications Discontinued During This Encounter escitalopram oxalate (LEXAPRO) 10 mg* 30 t* 1 01/28/2018 02/24/2018 Route: ORAL Sig: Take 1 tablet by mouth once daily. Disc: Reason for discontinue is not on file. Disposition: Return in about 6 months (around 08/26/2018). Follow-up and Disposition History Recorded Encounter Status:Closed by Jonah FELIZ PA-C on 02/24/18 PROGRESS Observed: 02/02/2018 Status: COMPLETED Source: [place] 12:30 PM [facility] [place] REPOSITORY HNO ID: [id number] Author: Gilma (Relationship Mgr) FELIX Bansal.[employer] Service: (none) Author Type: Nurse Practitioner Type: Progress Notes Filed: 02/02/2018 12:47 PM Note Text: Subjective HPI Harshil Allison is a 42 year old male who presents with a cough, sinus congestion. He has had symptoms for one week. He has taken tylenol and benadryl and mucinex. Review of Systems Constitutional: Positive for fever (at onset of illness). HENT: Positive for congestion and sinus pain. Negative for ear pain and sore throat. Respiratory: Positive for cough. Negative for shortness of breath. Cardiovascular: Negative. Musculoskeletal: Negative. Negative for myalgias. Skin: Negative. Negative for rash. BP 102/84 Pulse 60 Temp 37.1 ?C (98.7 ?F) (Left Tympanic) Resp 16 Wt 99.3 kg (219 lb) SpO2 97% BMI 30.54 kg/m2 PAST MEDICAL HISTORY Diagnosis Date - GERD (gastroesophageal reflux disease) - STEMI (ST elevation myocardial infarction) ([facility]) 06/2017 PAST SURGICAL HISTORY Procedure Laterality Date - SEPTOPLASTY 2007 Turbinate Reduction ALLERGIES Review of patient's allergies indicates no known allergies. MEDICATIONS escitalopram oxalate (LEXAPRO) 10 mg tablet Take 1 tablet by mouth once daily. metoprolol succinate ER (TOPROL XL) 25 mg 24 hr tablet Take 1 tablet by mouth once daily. clopidogrel (PLAVIX) 75 mg tablet Take 1 tablet by mouth once daily. atorvastatin (LIPITOR) 80 mg tablet Take 1 tablet by mouth once daily. triamcinolone acetonide topical 0.5 % ointment Apply 1 application to affected area twice daily. aspirin 81 mg chewable tablet Take 81 mg by mouth once daily. ranitidine (ZANTAC) 150 mg tablet Take 150 mg by mouth once daily. nitroglycerin sublingual (NITROQUICK) 0.4 mg SL tablet Dissolve 0.4 mg under the tongue every 5 minutes as needed. No family history on file. Social History Substance Use Topics - Smoking status: Former Smoker Types: Cigars - Smokeless tobacco: Never Used - Alcohol use Yes Comment: occasional Objective Physical Exam Constitutional: He is well-developed, well-nourished, and in no distress. HENT: Head: Normocephalic. Right Ear: External ear and ear canal normal. Tympanic membrane is injected. A middle ear effusion is present. Left Ear: Tympanic membrane, external ear and ear canal normal. Nose: Nose normal. No rhinorrhea. Mouth/Throat: Uvula is midline, oropharynx is clear and moist and mucous membranes are normal. No posterior oropharyngeal edema or posterior oropharyngeal erythema. Eyes: Conjunctivae are normal. Right eye exhibits no discharge. Left eye exhibits no discharge. Neck: Neck supple. Cardiovascular: Normal rate, regular rhythm and normal heart sounds. Pulmonary/Chest: Effort normal and breath sounds normal. No respiratory distress. He has no wheezes. He has no rales. Lymphadenopathy: He has no cervical adenopathy. Neurological: He is alert. Skin: Skin is warm and dry. No rash noted. Nursing note and vitals reviewed. ASSESSMENT/PLAN: 1. Right otitis media with effusion - ICD9: 381.4, ICD10: H65.91 - Will begin treatment with Amoxicillin for 10 days - The patient should also be given Mucinex for the first 5- 7 days of treatment. - Supportive care with plenty of fluids, rest, and analgesia prn. - Follow-up with your PCP in 3-5 days if symptoms have not improved or sooner if symptoms worsen - Discussed red flags and need for immediate medical evaluation if any occur. - Discussed supportive care treatment with fluids, rest and analgesia. - Discussed expected course of illness Gilma Bansal APRN.[employer] CNOV Observed: 02/02/2018 Status: COMPLETED Source: [place] 12:15 PM [facility] Office Visit ([facility]) HARSHIL ALLISON ([id number]) 1975 M Date Time Provider Department 02/02/18 12:15 PM GILMA BANSAL ([place]) [facility] During your visit today, we recorded the following information about you: Temperature Pulse Respiration Blood pressure 98.7 degrees 60/minute 16/minute 102/84 Weight 99.3 kg Gilma Bansal APRN.[facility]OSS IBRAHIM 02/02/2018 12:47 PM Signed Subjective HPI Harshil Allison is a 42 year old male who presents with a cough, sinus congestion. He has had symptoms for one week. He has taken tylenol and benadryl and mucinex. Review of Systems Constitutional: Positive for fever (at onset of illness). HENT: Positive for congestion and sinus pain. Negative for ear pain and sore throat. Respiratory: Positive for cough. Negative for shortness of breath. Cardiovascular: Negative. Musculoskeletal: Negative. Negative for myalgias. Skin: Negative. Negative for rash. BP 102/84 Pulse 60 Temp 37.1 ?C (98.7 ?F) (Left Tympanic) Resp 16 Wt 99.3 kg (219 lb) SpO2 97% BMI 30.54 kg/m2 PAST MEDICAL HISTORY Diagnosis Date - GERD (gastroesophageal reflux disease) - STEMI (ST elevation myocardial infarction) ([facility]) 06/2017 PAST SURGICAL HISTORY Procedure Laterality Date - SEPTOPLASTY 2007 Turbinate Reduction ALLERGIES Review of patient's allergies indicates no known allergies. MEDICATIONS escitalopram oxalate (LEXAPRO) 10 mg tablet Take 1 tablet by mouth once daily. metoprolol succinate ER (TOPROL XL) 25 mg 24 hr tablet Take 1 tablet by mouth once daily. clopidogrel (PLAVIX) 75 mg tablet Take 1 tablet by mouth once daily. atorvastatin (LIPITOR) 80 mg tablet Take 1 tablet by mouth once daily. triamcinolone acetonide topical 0.5 % ointment Apply 1 application to affected area twice daily. aspirin 81 mg chewable tablet Take 81 mg by mouth once daily. ranitidine (ZANTAC) 150 mg tablet Take 150 mg by mouth once daily. nitroglycerin sublingual (NITROQUICK) 0.4 mg SL tablet Dissolve 0.4 mg under the tongue every 5 minutes as needed. No family history on file. Social History Substance Use Topics - Smoking status: Former Smoker Types: Cigars - Smokeless tobacco: Never Used - Alcohol use Yes Comment: occasional Objective Physical Exam Constitutional: He is well-developed, well-nourished, and in no distress. HENT: Head: Normocephalic. Right Ear: External ear and ear canal normal. Tympanic membrane is injected. A middle ear effusion is present. Left Ear: Tympanic membrane, external ear and ear canal normal. Nose: Nose normal. No rhinorrhea. Mouth/Throat: Uvula is midline, oropharynx is clear and moist and mucous membranes are normal. No posterior oropharyngeal edema or posterior oropharyngeal erythema. Eyes: Conjunctivae are normal. Right eye exhibits no discharge. Left eye exhibits no discharge. Neck: Neck supple. Cardiovascular: Normal rate, regular rhythm and normal heart sounds. Pulmonary/Chest: Effort normal and breath sounds normal. No respiratory distress. He has no wheezes. He has no rales. Lymphadenopathy: He has no cervical adenopathy. Neurological: He is alert. Skin: Skin is warm and dry. No rash noted. Nursing note and vitals reviewed. ASSESSMENT/PLAN: 1. Right otitis media with effusion - ICD9: 381.4, ICD10: H65.91 - Will begin treatment with Amoxicillin for 10 days - The patient should also be given Mucinex for the first 5- 7 days of treatment. - Supportive care with plenty of fluids, rest, and analgesia prn. - Follow-up with your PCP in 3-5 days if symptoms have not improved or sooner if symptoms worsen - Discussed red flags and need for immediate medical evaluation if any occur. - Discussed supportive care treatment with fluids, rest and analgesia. - Discussed expected course of illness ROSS Bautista APRN.[employer] IBRAHIM 02/02/2018 12:35 PM Addendum Treatment for Viral Upper Respiratory Tract Infections Your body will kill off the virus by itself. Additionally, you can prime your body's immune system. This may help you get better more quickly. 1. Drink lots of fluids - at least one gallon of non-caffeinated liquids per day 2. Make sure you are eating well 3. Get plenty of rest - at least 8 hours of sleep per night for adults and more for children We do not have any medications that kill off these viruses. Antibiotics are used to treat bacterial infections; however, they are not active against viral infections. There are some things that might help you feel better, though. 1. Vaporizers, humidifiers, hot showers, and hot fluids help open respiratory and sinus passages 2. [place] Nasal [place] may offer relief of nasal and head congestion 3. Edgar's Vapor Rub placed on a hot towel and draped over the head may relieve congestion 4. Tylenol and Advil help control fevers and headaches 5. Salt water gargles help relieve sore throats 6. Chloraceptic spray or throat lozenges may also help relieve sore throat symptoms 7. Mucinex will help loosen up secretions and also provide relief from a cough Occasionally, viral infections turn into something more serious. You should see your doctor or return to the Urgent Care if: 1. You have fevers for longer than five days 2. You have fevers above 102 degrees 3. You are still sick after 10 days 4. You have shortness of breath or wheezing After several days you are getting worse rather than better OTITIS MEDIA GENERAL INFORMATION: Otitis media is an infection of the middle ear. The middle ear sits behind the eardrum. This infection may be caused by a virus or bacteria and often follows a cold. Children often have repeat ear infections. Otitis media is not contagious. INSTRUCTIONS: 1. An antibiotic has been prescribed. It should be taken exactly as prescribed. Do not stop the medicine even if the symptoms go away. 2. Iqqk-xcg-rwksyxl pain medication may be taken or other pain medication as prescribed by the doctor. 3. Nothing should be placed in the ear unless instructed by your doctor. 4. The patient may return to school/daycare or work when the temperature is normal (98.6 F or 37 C). 5. The patient should not swim while the ear is infected. CONTACT YOUR DOCTOR IF YOU OR YOUR CHILD: 1. Does not feel better within 36 hours. 2. Develops a temperature over 102E F (39E C). 3. Starts vomiting or has diarrhea. 4. Develops drainage from the affected ear. 5. Has any new problem that may be related to the medicine prescribed. RETURN TO THE ED IF: 1. You or your child has a severe headache or pain around the ear. 2. You or your child notice swelling around the ear. 3. You or your child has a seizure (convulsion), twitching of the facial muscles, or passes out. 4. You or your child is dizzy, has a stiff neck, or cannot walk or talk normally. 5. Your child becomes more irritable or listless (not interested in his or her surroundings, does not get soothed by you holding him or her). Referring Provider: SELF [200] Allergies As of Date: 02/02/2018 (No Known Allergies) Date Reviewed: 02/02/2018 Reviewed by: Gilma ([facility]) FELIX Bansal.[facility] - Fully Assessed Reason for Visit: Cough [28] Chest Congestion [236] Primary Visit Diagnosis:Right otitis media with effusion [H65.91] Order(s):amoxicillin (AMOXIL) 875 mg tabletTake 1 tablet by mouth twice daily for 10 days.Disp: 20 tabletRfl: 0 Prescriptions as of 02/02/2018 Sig: AMOXICILLIN 875 MG TABLET Take 1 tablet by mouth twice * ESCITALOPRAM 10 MG TABLET Take 1 tablet by mouth once d* METOPROLOL SUCCINATE ER 25 MG* Take 1 tablet by mouth once d* CLOPIDOGREL 75 MG TABLET Take 1 tablet by mouth once d* ATORVASTATIN 80 MG TABLET Take 1 tablet by mouth once d* TRIAMCINOLONE ACETONIDE 0.5 %* Apply 1 application to affect* ASPIRIN 81 MG CHEWABLE TABLET Take 81 mg by mouth once danni* RANITIDINE 150 MG TABLET Take 150 mg by mouth once kira* NITROGLYCERIN 0.4 MG SUBLINGU* Dissolve 0.4 mg under the ton* Problem List As Of Date 02/02/2018 Noted Resolved Coronary artery disease involving big sandy talbert*INVALID FOR* More... Depression, major [F32.9] INVALID FOR* Eczema [L30.9] INVALID FOR* GERD without esophagitis [K21.9] INVALID FOR* ANTOINETTE (obstructive sleep apnea) [G47.33] INVALID FOR* CPAP (continuous positive airway pressure) depe*INVALID FOR* Other instructions from your clinician: Treatment for Viral Upper Respiratory Tract Infections Your body will kill off the virus by itself. Additionally, you can prime your body's immune system. This may help you get better more quickly. 1. Drink lots of fluids - at least one gallon of non-caffeinated liquids per day 2. Make sure you are eating well 3. Get plenty of rest - at least 8 hours of sleep per night for adults and more for children We do not have any medications that kill off these viruses. Antibiotics are used to treat bacterial infections; however, they are not active against viral infections. There are some things that might help you feel better, though. 1. Vaporizers, humidifiers, hot showers, and hot fluids help open respiratory and sinus passages 2. [place] Nasal [place] may offer relief of nasal and head congestion 3. Edgar's Vapor Rub placed on a hot towel and draped over the head may relieve congestion 4. Tylenol and Advil help control fevers and headaches 5. Salt water gargles help relieve sore throats 6. Chloraceptic spray or throat lozenges may also help relieve sore throat symptoms 7. Mucinex will help loosen up secretions and also provide relief from a cough Occasionally, viral infections turn into something more serious. You should see your doctor or return to the Urgent Care if: 1. You have fevers for longer than five days 2. You have fevers above 102 degrees 3. You are still sick after 10 days 4. You have shortness of breath or wheezing After several days you are getting worse rather than better OTITIS MEDIA GENERAL INFORMATION: Otitis media is an infection of the middle ear. The middle ear sits behind the eardrum. This infection may be caused by a virus or bacteria and often follows a cold. Children often have repeat ear infections. Otitis media is not contagious. INSTRUCTIONS: 1. An antibiotic has been prescribed. It should be taken exactly as prescribed. Do not stop the medicine even if the symptoms go away. 2. Zgqh-zat-bhmslcn pain medication may be taken or other pain medication as prescribed by the doctor. 3. Nothing should be placed in the ear unless instructed by your doctor. 4. The patient may return to school/daycare or work when the temperature is normal (98.6 F or 37 C). 5. The patient should not swim while the ear is infected. CONTACT YOUR DOCTOR IF YOU OR YOUR CHILD: 1. Does not feel better within 36 hours. 2. Develops a temperature over 102E F (39E C). 3. Starts vomiting or has diarrhea. 4. Develops drainage from the affected ear. 5. Has any new problem that may be related to the medicine prescribed. RETURN TO THE ED IF: 1. You or your child has a severe headache or pain around the ear. 2. You or your child notice swelling around the ear. 3. You or your child has a seizure (convulsion), twitching of the facial muscles, or passes out. 4. You or your child is dizzy, has a stiff neck, or cannot walk or talk normally. 5. Your child becomes more irritable or listless (not interested in his or her surroundings, does not get soothed by you holding him or her). Prescriptions ordered this encounter Disp Refills Start End AMOXICILLIN 875 MG TABLET 20 t* 0 02/02/2018 02/12/2018 Route: ORAL Sig: Take 1 tablet by mouth twice daily for 10 days. Encounter Status:Closed by GILMA BANSAL on 02/02/18 PROGRESS Observed: 12/09/2017 Status: COMPLETED Source: [place] 8:49 AM [facility]INIC OTHER [facility]AMPUS REPOSITORY O ID: [id number] Author: Gary Amaya Service: (none) Author Type: Physician Type: Progress Notes Filed: 12/09/2017 12:50 PM Note Text: PERTINENT CARDIAC HISTORY ASHD - IMI 06/27, PCI dominant Cx (DIDIER) 06/27 HL ANTOINETTE - CPAP ADHERENCE TO GUIDELINES PORTER-I or ARB for HF with prior LVEF<40 (NQF 0081) - N/A ASA or Plavix for ASHD (NQF 0067) - met Beta cassidy for ASHD with prior SC or prior LVEF<40 (NQF 0070) - met Beta cassidy for HF with prior LVEF<40 (NQF 0083) - N/A PORTER-I or ARB for ASHD with DM or prior LVEF<40 (NQF 0066) - hypotension Statin therapy for ASHD or FHL or DM - met BMI documented and plan if >25 (NQF 0421) - lifestyle recommendation form Tobacco use screening and referral (NQF 0028) - lifestyle recommendation form Recommendation for whole food, plant based diet - lifestyle recommendation form CLINICAL IMPRESSION/PLAN: Harshil Allison is doing well. His chest discomfort is atypical for ischemia and stable. I discussed the appropriate use of nitroglycerin. I've encouraged him to remain active. I asked him to contact me if he has any exercise intolerance or exercise-induced discomfort. His metoprolol will be changed to succinate, so that he can take it once daily. I've encouraged him to increase exercise and get his weight under better control. I will see him in 6 months or as needed. Written and verbal health teaching given to patient, patient verbalizes understanding and agrees with treatment plan. This note was generated using [employer] voice recognition system, and there may be some incorrect words, spellings, and punctuation that were not noted in checking the note before saving. DIAGNOSIS FOR VISIT: ASHD HISTORY OF PRESENT ILLNESS Harshil Allisno returns for follow-up of his hypertension and coronary disease. He reports that he has occasional pressure in the chest with emotional stress at work. This lasts minutes and relieved spontaneously. He has not required any nitroglycerin. He reports stable exercise tolerance. He's had no exertional chest tightness. The interscapular pain has improved. He denies orthopnea, edema, syncope, palpitations, TIAs, amaurosis and claudication. He has been using his short acting metoprolol once daily. ALLERGIES: ALLERGIES No Known Allergies CURRENT OUTPATIENT MEDICATIONS: atorvastatin (LIPITOR) 80 mg tablet Take 1 tablet by mouth once daily. metoprolol tartrate, short acting, (LOPRESSOR) 25 mg tablet Take 0.5 tablets by mouth twice daily. triamcinolone acetonide topical 0.5 % ointment Apply 1 application to affected area twice daily. escitalopram oxalate (LEXAPRO) 10 mg tablet Take 1 tablet by mouth once daily. clopidogrel (PLAVIX) 75 mg tablet Take 1 tablet by mouth once daily. aspirin 81 mg chewable tablet Take 81 mg by mouth once daily. ranitidine (ZANTAC) 150 mg tablet Take 150 mg by mouth once daily. nitroglycerin sublingual (NITROQUICK) 0.4 mg SL tablet Dissolve 0.4 mg under the tongue every 5 minutes as needed. PHYSICAL EXAMINATION: VITAL SIGNS: BP 102/62 Pulse 70 Ht 5' 11 (1.80m) Chest: Clear to percussion and auscultation. Trachea is midline. Air entry is equal. Cardiac: Regular rhythm. S1 and S2 are normal. PMI is nondisplaced. There are no murmurs, rubs or gallops. Carotids are brisk without bruits. JVP is less than 10 cm. Abdomen: Soft and nontender. There are no pulsatile masses or bruits. No liver enlargement. Bowel sounds are active. Extremities: No edema. Pulses are intact and symmetrical. Recent labs were reviewed. Renal function is normal. LDL 61. Recent nuclear stress test shows no evidence of ischemia. Electronically Signed: Gary Amaya MD December 09, 2017 8:49 AM CC: No Pcp CNOV Observed: 12/09/2017 Status: COMPLETED Source: [place] 8:30 AM [facility] REPOSITORY Office Visit (AGCARDWST) HARSHIL ALLISON ([id number]) 1975 M Date Time Provider Department 12/09/17 8:30 AM GARY AMAYA During your visit today, we recorded the following information about you: Pulse Blood pressure Height 70/minute 102/62 1.803 m Gary Amaya MD 12/09/2017 12:50 PM Signed PERTINENT CARDIAC HISTORY ASHD - IMI 06/27, PCI dominant Cx (DIDIER) 06/27 HL ANTOINETTE - CPAP ADHERENCE TO GUIDELINES PORTER-I or ARB for HF with prior LVEFANDlt;40 (NQF 0081) - N/A ASA or Plavix for ASHD (NQF 0067) - met Beta cassidy for ASHD with prior SC or prior LVEFANDlt;40 (NQF 0070) - met Beta cassidy for HF with prior LVEFANDlt;40 (NQF 0083) - N/A PORTER-I or ARB for ASHD with DM or prior LVEFANDlt;40 (NQF 0066) - hypotension Statin therapy for ASHD or FHL or DM - met BMI documented and plan if ANDgt;25 (NQ 0421) - lifestyle recommendation form Tobacco use screening and referral ([facility] 0028) - lifestyle recommendation form Recommendation for whole food, plant based diet - lifestyle recommendation form CLINICAL IMPRESSION/PLAN: Harshil Allison is doing well. His chest discomfort is atypical for ischemia and stable. I discussed the appropriate use of nitroglycerin. I've encouraged him to remain active. I asked him to contact me if he has any exercise intolerance or exercise-induced discomfort. His metoprolol will be changed to succinate, so that he can take it once daily. I've encouraged him to increase exercise and get his weight under better control. I will see him in 6 months or as needed. Written and verbal health teaching given to patient, patient verbalizes understanding and agrees with treatment plan. This note was generated using [employer] voice recognition system, and there may be some incorrect words, spellings, and punctuation that were not noted in checking the note before saving. DIAGNOSIS FOR VISIT: ASHD HISTORY OF PRESENT ILLNESS Harshil Allison returns for follow-up of his hypertension and coronary disease. He reports that he has occasional pressure in the chest with emotional stress at work. This lasts minutes and relieved spontaneously. He has not required any nitroglycerin. He reports stable exercise tolerance. He's had no exertional chest tightness. The interscapular pain has improved. He denies orthopnea, edema, syncope, palpitations, TIAs, amaurosis and claudication. He has been using his short acting metoprolol once daily. ALLERGIES: ALLERGIES No Known Allergies CURRENT OUTPATIENT MEDICATIONS: atorvastatin (LIPITOR) 80 mg tablet Take 1 tablet by mouth once daily. metoprolol tartrate, short acting, (LOPRESSOR) 25 mg tablet Take 0.5 tablets by mouth twice daily. triamcinolone acetonide topical 0.5 % ointment Apply 1 application to affected area twice daily. escitalopram oxalate (LEXAPRO) 10 mg tablet Take 1 tablet by mouth once daily. clopidogrel (PLAVIX) 75 mg tablet Take 1 tablet by mouth once daily. aspirin 81 mg chewable tablet Take 81 mg by mouth once daily. ranitidine (ZANTAC) 150 mg tablet Take 150 mg by mouth once daily. nitroglycerin sublingual (NITROQUICK) 0.4 mg SL tablet Dissolve 0.4 mg under the tongue every 5 minutes as needed. PHYSICAL EXAMINATION: VITAL SIGNS: BP 102/62 Pulse 70 Ht 5' 11ANDquot; (1.80m) Chest: Clear to percussion and auscultation. Trachea is midline. Air entry is equal. Cardiac: Regular rhythm. S1 and S2 are normal. PMI is nondisplaced. There are no murmurs, rubs or gallops. Carotids are brisk without bruits. JVP is less than 10 cm. Abdomen: Soft and nontender. There are no pulsatile masses or bruits. No liver enlargement. Bowel sounds are active. Extremities: No edema. Pulses are intact and symmetrical. Recent labs were reviewed. Renal function is normal. LDL 61. Recent nuclear stress test shows no evidence of ischemia. Electronically Signed: Gary Amaya MD December 09, 2017 8:49 AM CC: No Pcp Referring Provider: GARY AMAYA [[id number]] Allergies As of Date: 12/09/2017 (No Known Allergies) Date Reviewed: 12/09/2017 Reviewed by: Jose DesouzaRn) TAMARA Grimaldo - Fully Assessed Reason for Visit: Follow Up [171] Cmt: 3 month Primary Visit Diagnosis:Hypertension, essential [I10] Other Visit Diagnosis:ASHD (arteriosclerotic heart disease) [I25.10] Order(s):metoprolol succinate ER (TOPROL XL) 25 mg 24 hr tabletTake 1 tablet by mouth once daily.Disp: 90 tabletRfl: 3 clopidogrel (PLAVIX) 75 mg tabletTake 1 tablet by mouth once daily.Disp: 90 tabletRfl: 3 atorvastatin (LIPITOR) 80 mg tabletTake 1 tablet by mouth once daily.Disp: 90 tabletRfl: 3 Prescriptions as of 12/09/2017 Sig: CLOPIDOGREL 75 MG TABLET Take 1 tablet by mouth once d* ATORVASTATIN 80 MG TABLET Take 1 tablet by mouth once d* TRIAMCINOLONE ACETONIDE 0.5 %* Apply 1 application to affect* ESCITALOPRAM 10 MG TABLET Take 1 tablet by mouth once d* ASPIRIN 81 MG CHEWABLE TABLET Take 81 mg by mouth once danni* RANITIDINE 150 MG TABLET Take 150 mg by mouth once kira* NITROGLYCERIN 0.4 MG SUBLINGU* Dissolve 0.4 mg under the ton* METOPROLOL SUCCINATE ER 25 MG* Take 1 tablet by mouth once d* Problem List As Of Date 12/09/2017 Noted Resolved Coronary artery disease involving big sandy talbert*INVALID FOR* More... Depression, major [F32.9] INVALID FOR* Eczema [L30.9] INVALID FOR* GERD without esophagitis [K21.9] INVALID FOR* ANTOINETTE (obstructive sleep apnea) [G47.33] INVALID FOR* CPAP (continuous positive airway pressure) depe*INVALID FOR* Prescriptions ordered this encounter Disp Refills Start End METOPROLOL SUCCINATE ER 25 MG TABLET* 90 t* 3 12/09/2017 Route: ORAL Sig: Take 1 tablet by mouth once daily. CLOPIDOGREL 75 MG TABLET 90 t* 3 12/09/2017 Route: ORAL Sig: Take 1 tablet by mouth once daily. ATORVASTATIN 80 MG TABLET 90 t* 3 12/09/2017 Route: ORAL Sig: Take 1 tablet by mouth once daily. Medications Discontinued During This Encounter metoprolol tartrate, short acting, (* 30 t* 11 10/25/2017 12/09/2017 Route: ORAL Sig: Take 0.5 tablets by mouth twice daily. Disc: Reason for discontinue is not on file. clopidogrel (PLAVIX) 75 mg tablet 30 t* 11 09/09/2017 12/09/2017 Route: ORAL Sig: Take 1 tablet by mouth once daily. Disc: Reason for discontinue is not on file. atorvastatin (LIPITOR) 80 mg tablet 30 t* 11 10/25/2017 12/09/2017 Route: ORAL Sig: Take 1 tablet by mouth once daily. Disc: Reason for discontinue is not on file. Classic SmartForms filed during this visit: Extended Vitals Encounter Status:Closed by GARY AMAYA MD on 12/09/17 ALLERGIES ALLERGIES DATE TYPE / CODE NAME / CODE REACTION SEVERITY SOURCE 12/01/2018 Drug No Known Unknown [facility] All[facility]/416 Allergies/X29997 [facility] 722977(SNOM 0388(RXNORM) Repository ED CT) 07/29/2018 Environ/420 SEASONAL OTHER: SEE [facility] 563138(SNOM ALLERGIES [facility] [place] ED CT) Repository Drug NO KNOWN [facility] Class/66571 ALLERGIES Other [place] 1003(SNOMED Repository CT) NG/[id number] NO KNOWN [place] [facility] 6(SNOMED ALLERGIES [facility]) Repository ENCOUNTERS ENCOUNTERS ADMIT/DISCHARGE ACCOUNT NUMBER ADMITTING ENCOUNTER LOCATION SOURCE CLASS 12/01/2018/12/01/19 [id number] Ambulatory BMSBuilding: [place] 19 BMS.[facility] Repository 10/27/2018/10/28/20 [id number] Ambulatory [address] Repository 10/21/2018 [id number] Ambulatory BMSBuilding: [facility] Repository 10/20/2018 [id number] [place], Ambulatory BMSBuilding: [facility] BMS.[facility] Repository 10/20/2018/10/21/20 [id number] [place], Ambulatory [place] ding:PCURoom Repository : [id number]: 1 10/20/2018 [id number] [place], Ambulatory BMSBuilding: [place] [facility] BMS.[facility] Repository 10/20/2018 [id number] Ambulatory BMSBuilding: [facility] Repository 09/01/2018/09/02/20 [id number] Ambulatory [address] [place] Repository 09/01/2018/09/02/20 [id number] Ambulatory [address] [place] Repository 08/04/2018/08/04/20 [id number] Ambulatory [address] [place] Repository 07/29/2018/07/30/20 [id number] Ambulatory [address] [place] Repository 07/28/2018/07/28/20 [id number] Ambulatory [address] [place] Repository 07/26/2018/07/28/20 [id number] Ambulatory [address] [place] Repository 07/07/2018/07/08/20 [id number] Ambulatory [address] [place] Repository 07/07/2018/07/09/20 [id number] Ambulatory [address] [place] Repository 06/30/2018/07/01/20 [id number] Ambulatory [address] [place] Repository 06/27/2018 [id number] Ambulatory [facility] MEDICAL Repository CENTERBuildi ng:CAGWS 06/23/2018/06/23/20 [id number] Ambulatory [address] [place] Repository 06/16/2018/06/18/20 [id number] Ambulatory [address] [place] Repository 06/16/2018 [id number] Ambulatory [facility] [place] Repository 06/16/2018/06/16/20 [id number] Ambulatory [facility] [place] Repository 05/22/2018/05/22/20 [id number] Ambulatory [facility] [place] Repository 05/05/2018/05/05/20 [id number] Ambulatory [facility] [address] [facility] [place] Repository 05/05/2018/05/07/20 [id number] Ambulatory [place] [address] [facility] [place] Repository 04/14/2018/04/14/20 [id number] Ambulatory [place] [address] [facility] [place] Repository 02/24/2018/02/26/20 [id number] Ambulatory [place] [address] [facility] [place] Repository 02/07/2018 [id number] Ambulatory [facility] MEDICAL Repository CENTERBuildi ng:PAVITHRA 02/02/2018/02/03/20 [id number] Ambulatory [address] [place] Repository 12/09/2017/12/09/19 [id number] Ambulatory [address] Other [place] Repository 12/09/2017/12/09/19 [id number] Ambulatory [address] MEDICAL Repository CENTERBuildi ng:PAVITHRA PAYERS PAYERS ENCOUNTER GUARANTOR PAYER SUBSCRIBER SOURCE 12/01/2018 HARSHIL A Primary HARSHIL A [place] [id number] N Insurance:ANTHEMPolic BackOpsMERMUNSON [facility]ITAL[facility]: Ph.[facility] y Number: [id number], [place] [id number] Repository 53[address]Mpf: ([phone]) Date:3336-05-63PY [phone] () [id number] [place] [address] 46581UB: 12/01/2018 Secondary NOT GIVENUNK [place] Insurance:SELF PAY [facility] Number: Effective Repository Date:2018-10-21 10/21/2018 HARSHIL A Primary HARSHIL A [place] [id number] Insurance:[facility]Mon[facility] HospitalOB: [facility] earthmine [facility] y Number: [id number], [place] [id number] Repository 685[address]Bzc: ([phone]) Date:0134-65-01IZ [phone] () [id number] [place] [address] 04376OT: 10/21/2018 Secondary NOT GIVENUNK [place] Insurance:SELF PAY [facility] Number: Effective Repository Date:2018-10-21 10/20/2018 HARSHIL A Primary HARSHIL A [place] [id number] Insurance:ANTHEMPolic ZIMMERMANDOB: [facility] earthmine [facility] y Number: [id number], [place] [id number] Repository 88643Ied: ([phone]) Date:6092-24-90KO [phone] () [address] [place] [address] 69153VM: 10/20/2018 Secondary NOT GIVENUNK [place] Insurance:SELF PAY [facility] Number: Effective Repository Date:2018-10-20 10/20/2018 HARSHIL A Primary HARSHIL A [place] [id number] Insurance:ANTHEMPolic ZIMMERMANDOB: [facility] y Number: [id number], [place] [id number] Repository 18907Jxq: [phone]) Date:5864-96-01YU [phone] () [address] [place] [address] 67337WL: 10/20/2018 Secondary NOT GIVENUNK [place] Insurance:SELF PAY [facility] Number: Effective Repository Date:2018-10-20 10/20/2018 HARSHIL A Primary HARSHIL A [place] [id number] Insurance:ANTHEMPolic ZIMMERMANDOB: [facility] y Number: [id number], [place] [id number] Repository 11657Bkw: ([phone]) Date:0830-99-57JI [phone] () [id number] [place] [address] 96094AC: 10/20/2018 Secondary NOT GIVENUNK [place] Insurance:SELF PAY [facility] Number: Effective Repository Date:2018-10-20 10/20/2018 HARSHIL A Primary HARSHIL A [place] [id number] [facility] ZIMMERMANDOB: [facility] y Number: [id number], [place] [id number] Repository 56[address]Qrp: ([phone]) Date:2316-07-22VM [phone] () [id number], [place] [address]FM: 10/20/2018 Secondary NOT GIVENUNK [place] Insurance:SELF PAY [facility] Number: Effective Repository Date:2018-10-20 06/27/[address] [facility] ZIMMERMANDOB: Insurance:BLUE ACCESS ZIMMERMANDOB: Health System PPOPolicy Number: [id number] Repository [place] [id number] [place], [place] Date: [address]Vvo: () 02/07/2018 [place] Primary [facility] ZIMMERMANDOB: Insurance:BLUE ACCESS ZIMMERMANDOB: Health System PPOPolicy Number: [id number] Repository [place] [id number] [place], [place] Date: [address]Djz: () 12/09/[address] [facility] General ZIMMERMANDOB: Insurance:BLUE ACCESS ZIMMERMANDOB: Health System PPOPolicy Number: [id number] Repository [place] [id number] [place], [place] Date: [address]Hdw: ()
== END 2018-10-21 11:22 | disposition home or self-care (01) ==
LOC: ED 15:20 → PCU 16:29
PROVIDERS: Admitting Provider Internal Medicine; Emergency Provider Emergency Medicine; Family Provider Physician Assistant; PCP Physician Assistant; Visit Provider Internal Medicine
DX: R07.89 Other chest pain (principal); E78.5 Hyperlipidemia, unspecified; I25.2 Old myocardial infarction; I10 Essential (primary) hypertension; F32.9 Major depressive disorder, single episode, unspecified; I25.10 Atherosclerotic heart disease of native coronary artery without angina pectoris; K21.9 Gastro-esophageal reflux disease without esophagitis; Z79.899 Other long term (current) drug therapy; Z79.02 Long term (current) use of antithrombotics/antiplatelets; Z79.82 Long term (current) use of aspirin; Z95.5 Presence of coronary angioplasty implant and graft
CPT/HCPCS: 36415; 71045; 78452; 80048; 84484; 85025; 85610; 85730; 93005; 93017; 99218; 99284; A9500; A4216; G0378

== ENCOUNTER 2022-03-02 10:57 | Emergency (ER) | payer MEDICAID, SELFPAY ==
[2022-03-02 10:59] VITALS: BP 129/84; PULSE 76; RESP 16; TEMP 35.8; O2SAT 97; BMI 36.7
--- NOTE | 2022-03-02 11:08 | EDS_ITS ---
HPI History of Present Illness Chief Complaint: Wound Detail of Chief Complaint: Wound proximal posterior left thigh near the inferior left buttocks crease Informant: patient Onset/Context/Timing Onset: Days (First noted on Saturday) Context: Sudden Onset Timing: Continuous Quality: Redness, pain Location: Previously noted Current Severity: Mild Maximum Severity: Mild Worsened by: Nothing Relieved by: Nothing Associated Symptoms Associated Symptoms: Chills Saturday Narrative Narrative: Patient is a 46-year-old male who presents because of celluliti s/abscess proximal posterior left thigh that has gotten worse and spite of cephalexin 4 times daily. Patient did report chills on Saturday. Has had no documented fever. He is not diabetic. He is on no immunosuppressive meds. He has not attempted to drain the wound. He has been putting hot compresses in the area. He states he read quired drainage of an abscess several years ago. Prior similar symptoms: Yes Recent Illness/Hospitalization: No PFSH PFSH Medical History CAD (coronary artery disease) Depression Hyperlipidemia Hypertension [place] (myocardial infarction) ANTOINETTE (obstructive sleep apnea) Home Medications escitalopram oxalate 10 mg PO DAILY 11/09/15 [History Last Taken 10/20/18] aspirin 81 mg PO DAILY@0800 10/20/18 [History Last Taken 10/20/18] atorvastatin 80 mg PO QHS 10/20/18 [History Last Taken 10/19/18] clopidogrel 75 mg PO DAILY 10/20/18 [History Last Taken 10/20/18] erythromycin 1 applicatio EACH EYE QHS 10/20/18 [History Last Taken 10/19/18] fluorometholone 1 drp EACH EYE TID 10/20/18 [History Last Taken 10/20/18] isosorbide mononitrate 30 mg PO DAILY 10/20/18 [History Last Taken 10/20/18] nitroglycerin 0.4 mg SUBLINGUAL Q5M PRN 10/20/18 [History Last Taken Unknown] ranitidine HCl 150 mg PO BID 10/20/18 [History Last Taken 10/20/18] acetaminophen 1,000 mg PO Q8H PRN PRN #30 tab 10/21/18 [Rx Last Taken Unknown] metoprolol succinate 12.5 mg PO QHS #0 10/21/18 [Rx Last Taken 10/19/18] Lactobacillus acidophilus 10,000 mmu cells PO DAILY 12/01/18 [History Last Taken Unknown] clotrimazole-betamethasone 1 %-0.05 % topical cream 1 applic TOPICAL HS g 12/01/18 [History Last Taken Unknown] melatonin 10 mg capsule 20 mg PO HS cap 12/01/18 [History Last Taken Unknown] nystatin 100,000 unit/gram topical cream 1 applic TOPICAL BID 12/01/18 [History Last Taken Unknown] sulfamethoxazole-trimethoprim 1 tab PO BID #14 tablet 03/02/22 [Rx Last Taken Unknown] Allergy/AdvReac Type Severity Reaction Status Date / Time No Known Allergies Allergy Verified 03/02/22 11:02 Family History Father ALL (acute lymphoblastic leukemia) Arthritis Glaucoma Mother Tachycardia Sister Thyroid disorder Surgical History septoplasty and turbinate reduction Social History household members: significant other housing: house 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, [employer], [employer] pets and animals: No Smoking Status: Never smoker second hand exposure: No alcohol intake: current alcohol intake frequency: a few times a week Alcohol type: beer and hard liquor substance use type: does not use ROS ROS ED Constitutional Constitutional ED: Reports chills; Denies fever(s), subjective, sweats or weight loss Cardiovascular Cardiovascular: Denies chest pain or palpitations Respiratory/Chest Respiratory/Chest: Denies dyspnea Gastrointestinal Gastrointestinal: Denies nausea or vomiting Musculoskeletal Musculoskeletal: Denies arthralgias, back pain, myalgias or neck pain Integumentary Reports abscess and rash; Denies Abrasions Neurologic Neurologic: Denies paresthesias or weakness Hematologic/Lymphatic Hematologic/Lymphatic: Denies anemia, easy bleeding, easy bruising or lymphadenopathy EXAM Physical Exam Const Vital Signs: 03/02/22 10:59 Temperature 96.4 F L Temperature Source Temporal Pulse Rate 76 Respiratory Rate 16 Blood Pressure 129/84 H Blood Pressure Mean 99 Pulse Ox 97 Oxygen Delivery Method Room Air Positive well nourished, well developed and obese General Appearance ED: well developed and NAD; Negative for cyanotic, diaphoretic or pallor Nutritional Appearance: obese HEENT Reports moist mucous membranes Negative for trauma or tenderness Eyes PERRL and EOMs intact bilaterally General Eye ED: Negative for pale conjunctiva or scleral icterus Neck no lymphadenopathy, supple and no JVD Resp normal respiratory effort Cardio regular rate and regular rhythm Back/Spine no CVA tenderness Extremity Negative for normal to inspection Extremity Narrative: There is an area of erythema that has been highlighted by nurse at place of employment. The redness has been expanding. The area is warm, indurated and fluctuant. There is no lymphangitis. Findings are consistent with abscess and cellulitis. General Extremety ED: Yes tenderness; Negative for edema General Extremity: Negative for edema Neuro oriented x3 and CN's II-XII intact bilaterally Sensorium / Orientation: alert Motor Exam: strength 5/5 throughout Skin No no rashes or lesions noted and skin turgor normal Skin Narrative: Previously noted General Skin Exam: elasticity normal; Negative for jaundice or pallor MDM MDM MDM Narrative Medical decision making narrative: Patient has an abscess with cellulitis. Patient was informed treatment is I&D and will place on Bactrim since this most likely is due to MRSA. He was instructed to continue taking the cephalexin that he was prescribed by practitioner. Area erythema is 4.5 x 2.5 cm. Procedures Other Procedures Procedure(s): Patient was consented for incision and drainage of cellulitis abscess of the proximal posterior left thigh. He was prepped draped sterile manner. The area was Nestabs by local infiltrat ion and field block. Incision was made. Patient had slight discomfort during blunt dissection. There were multiple areas small pockets. A total of 10 cc of green purulent material was noted. Cavity was irrigated. Wick was placed. Patient received first dose of Bactrim in the emergency department. Discharge Plan Triage Chief Complaint: Wound ED Provider: Brandan Mckenzie Dx/Rx/DC Orders Clinical Impression: Abscess and cellulitis of gluteal region Prescriptions: New sulfamethoxazole-trimethoprim [sulfamethoxazole-trimethoprim] 1 TABLET tablet 1 tab PO BID Qty: 14 RF: 0 No Action Lactobacillus acidophilus [Acidophilus] capsule 10,000 mmu cells PO DAILY RF: 0 melatonin 10 mg capsule 20 mg PO HS RF: 0 clotrimazole-betamethasone 1-0.05 % cream 1 applic TOPICAL HS RF: 0 nystatin 100,000 unit/gram cream 1 applic TOPICAL BID RF: 0 escitalopram oxalate 10 MG tablet 10 mg PO DAILY RF: 0 atorvastatin 80 MG tablet 80 mg PO QHS RF: 0 clopidogrel 75 MG tablet 75 mg PO DAILY RF: 0 ranitidine HCl 150 MG tablet 150 mg PO BID RF: 0 aspirin 81 MG tablet,chewable 81 mg PO DAILY@0800 RF: 0 isosorbide mononitrate 30 MG tablet 30 mg PO DAILY RF: 0 erythromycin 1 GM ointment 1 applicatio EACH EYE QHS RF: 0 fluorometholone 5 ML drops,suspension 1 drp EACH EYE TID RF: 0 nitroglycerin 0.4 MG tablet 0.4 mg Sublingual Q5M PRN (Reason: Chest Pain) RF: 0 metoprolol succinate 25 MG tablet 12.5 mg PO QHS Qty: 0 RF: 0 acetaminophen 500 MG tablet 1,000 mg PO Q8H PRN PRN (Reason: Pain) Qty: 30 RF: 0 Primary Care Provider: Jonah Feliz Referrals: Jonah Feliz PA [Primary Care Provider] - 2 Days for wound check Activity Restrictions/Additional Instructions: Call Reji Feliz's office once you leave for wound check and removal of wick on Saturday. If you develop a temperature greater than 100, have shaking chills or if the erythema continues to expand after 24 hours return to the emergency department Disposition Disposition: Home, Self Care
[2022-03-02] MEDS: Lidocaine 1% (20 ml mdv) 20 ML Vial INFILT (11:33)
[2022-03-02] MEDS: Smz/Tmp Ds Tablet 1 TABLET PO (11:33)
== END 2022-03-02 11:57 | disposition home or self-care (01) ==
PROVIDERS: Emergency Provider Emergency Medicine; PCP Physician Assistant; Visit Provider Emergency Medicine
DX: L02.31 Cutaneous abscess of buttock (principal); I25.10 Atherosclerotic heart disease of native coronary artery without angina pectoris; L03.317 Cellulitis of buttock; I10 Essential (primary) hypertension; E78.5 Hyperlipidemia, unspecified; I25.2 Old myocardial infarction; G47.33 Obstructive sleep apnea (adult) (pediatric); F32.A Depression, unspecified; Z79.899 Other long term (current) drug therapy; Z79.82 Long term (current) use of aspirin; E66.9 Obesity, unspecified; Z68.36 Body mass index [BMI] 36.0-36.9, adult
CPT/HCPCS: 10060; 99282

== ENCOUNTER 2022-05-24 08:08 | Emergency (ER) | payer MEDICAID, SELFPAY ==
[2022-05-24 08:09] VITALS: BP 144/84; PULSE 71; RESP 16; TEMP 36.6; O2SAT 99; BMI 35.4
--- NOTE | 2022-05-24 08:24 | EDS_ITS ---
HPI History of Present Illness Chief Complaint: Wound Detail of Chief Complaint: Abscess to left posterior thigh Informant: patient Narrative Narrative: Patient presents with abscess to left posterior thigh that started initially 5 days ago. Patient was seen 2 days ago by his primary care physician and started on Keflex and Bactrim. Patient feels like the swelling is worsened. No fever at home. Patient has had to have these lanced in the past. Patient is not diabetic. [facility] Medical History CAD (coronary artery disease) Depression Hyperlipidemia Hypertension [place] (myocardial infarction) ANTOINETTE (obstructive sleep apnea) Home Medications escitalopram oxalate 10 mg tablet 10 mg PO DAILY mental health 11/09/15 [History Last Taken 10/20/18] aspirin 81 mg chewable tablet 81 mg PO DAILY@0800 health maintenance 10/20/18 [History Last Taken 10/20/18] atorvastatin 80 mg tablet 80 mg PO QHS cholesterol 10/20/18 [History Last Taken 10/19/18] clopidogrel 75 mg tablet 75 mg PO DAILY blood thinner 10/20/18 [History Last Taken 10/20/18] erythromycin 5 mg/gram (0.5 %) eye ointment 1 applicatio EACH EYE QHS 10/20/18 [History Last Taken 10/19/18] fluorometholone 0.1 % eye drops,suspension 1 drp EACH EYE TID 10/20/18 [History Last Taken 10/20/18] isosorbide mononitrate 30 mg tablet,extended release 24 hr 30 mg PO DAILY heart 10/20/18 [History Last Taken 10/20/18] nitroglycerin 0.4 mg sublingual tablet 0.4 mg sublingual Q5M PRN Chest Pain 10/20/18 [History Last Taken Unknown] ranitidine HCl 150 mg tablet 150 mg PO BID gerd 10/20/18 [History Last Taken 10/20/18] acetaminophen 500 mg tablet 1,000 mg PO Q8H PRN PRN Pain #30 tabs 10/21/18 [Rx Last Taken Unknown] metoprolol succinate 25 mg tablet,extended release 24 hr 12.5 mg PO QHS blood pressure/heart ##0 10/21/18 [Rx Last Taken 10/19/18] Lactobacillus acidophilus (Acidophilus capsule) 10,000 mmu cells PO DAILY 12/01/18 [History Last Taken Unknown] clotrimazole-betamethasone 1 %-0.05 % topical cream 1 applic topical HS 12/01/18 [History Last Taken Unknown] melatonin 10 mg capsule 20 mg PO HS 12/01/18 [History Last Taken Unknown] nystatin 100,000 unit/gram topical cream 1 applic topical BID 12/01/18 [History Last Taken Unknown] sulfamethoxazole 800 mg-trimethoprim 160 mg tablet 1 tab PO BID #14 TABLETS 03/02/22 [Rx Last Taken Unknown] Allergy/AdvReac Type Severity Reaction Status Date / Time No Known Allergies Allergy Verified 05/24/22 08:11 Family History Father ALL (acute lymphoblastic leukemia) Arthritis Glaucoma Mother Tachycardia Sister Thyroid disorder Surgical History septoplasty and turbinate reduction Social History household members: significant other housing: house current occupation: [employer], [employer], [employer] pets and animals: No Smoking Status: Never smoker second hand exposure: No alcohol intake: current alcohol intake frequency: a few times a week Alcohol type: beer and hard liquor substance use type: does not use ROS ROS ED Review of Systems ROS Unobtainable: other Constitutional Constitutional ED: Reports lethargy; Denies chills, fever(s), sweats or weight loss Eyes Eyes: Denies blurry vision, change in vision or diplopia ENT ENT ED: Denies rhinorrhea or sore throat Cardiovascular Cardiovascular: Denies chest pain, orthopnea or racing heartbeat Respiratory/Chest Respiratory/Chest: Reports dyspnea and dyspnea on exertion; Denies cough, orthopnea or sputum Gastrointestinal Gastrointestinal: Denies abdominal pain, diarrhea, nausea or vomiting Genitourinary Genitourinary ED: Denies dysuria, hematuria or urinary frequency Musculoskeletal Musculoskeletal: Denies arthralgias, back pain, myalgias or neck pain Integumentary Reports abscess and other Details: Abscess left posterior thigh ; Denies Abrasions or rash Neurologic Neurologic: Denies headache(s) or weakness Psychiatric Psychiatric: Denies anxiety, depression or suicidal thoughts Endocrine Endocrinology: Denies polydipsia, polyphagia or polyuria Hematologic/Lymphatic Hematologic/Lymphatic: Denies easy bleeding, easy bruising or lymphadenopathy Allergic/Immunologic Allergic/Immunologic ED: Denies mouth swelling, tongue swelling or urticaria EXAM Physical Exam Const Vital Signs: 05/24/22 08:09 Temperature 97.9 F Temperature Source Temporal Pulse Rate 71 Respiratory Rate 16 Blood Pressure 144/84 H Blood Pressure Mean 104 Pulse Ox 99 Oxygen Delivery Method Room Air Positive well nourished and well developed General Appearance ED: well developed and NAD HEENT Reports TM's clear and moist mucous membranes normocephalic and atraumatic; Negative for trauma or tenderness Tympanic Membrane ED: Yes TM's clear Eyes PERRL and EOMs intact bilaterally General Eye ED: Negative for pale conjunctiva or scleral icterus Neck no lymphadenopathy, supple and no JVD General: Negative for tenderness Chest Wall inspection of chest normal and palpation of chest normal Chest: Negative for tenderness Resp normal respiratory effort and clear to auscultation bilaterally Effort and Inspection: Negative for respiratory distress or pain with movement Auscultation: Negative for rhonchi, wheezes or diminished lung sounds Cardio regular rate, regular rhythm, S1 normal heart sound, S2 normal heart sound and no murmurs Peripheral Pulses: pulses 2+ throughout GI normal to inspection, nondistended, normoactive bowel sounds, soft to palpation, non-tender, non-distended and no masses Back/Spine no CVA tenderness and no thoracic nor lumbar tenderness Extremity Extremity Narrative: Left posterior thigh-patient has a soft tissue swelling measuring approximately 5 cm in diameter with some faint surrounding erythema. Central portion somewhat fluctuant and excoriated. No lymphangitic streaking noted. No significant cellulitic changes noted. General Extremety ED: Negative for edema General Extremity: Negative for edema Neuro oriented x3, CN's II-XII intact bilaterally, no sensory deficits noted and gait normal Sensorium / Orientation: awake, alert, oriented to person, oriented to place and oriented to time Motor Exam: strength 5/5 throughout and strength abnormal Psych mental status grossly normal Skin no rashes or lesions noted and no wounds MDM MDM MDM Narrative Medical decision making narrative: We performed an incision and drainage and only small amount of thick purulent debris was expressed. This point I suspect more of a cellulitic process. Patient to continue with his antibiotics. He is advised to return if increasing pain, redness, swelling, fever, or condition should worsen anyway. Procedures Other Procedures Procedure(s): Patient offered incision and drainage of suspected abscess. Patient was in agreement. Area of the skin was cleansed with Shur-Clens. Used 1% lidocaine to locally anesthetize the area about 6 cc. Using an 11 blade I made a 2 cm incision into the most central portion of the suspected abscess and small amount of thick purulent debris was expressed. I used curved hemostats to undermine the subcutaneous tissue and just minimal drainage obtained. Wound was cleansed with saline and irrigated. Clean dressing was applied. At this point I suspect more of a cellulitic process. Discharge Plan Triage Chief Complaint: Wound ED Provider: Niya Vidal Dx/Rx/DC Orders Clinical Impression: Abscess of left thigh Instructions: ED Abscess Incision And Drainage Prescriptions: No Action Lactobacillus acidophilus [Acidophilus] capsule 10,000 mmu cells PO DAILY melatonin 10 mg capsule 20 mg PO HS clotrimazole-betamethasone 1-0.05 % cream 1 applic TOPICAL HS nystatin 100,000 unit/gram cream 1 applic TOPICAL BID escitalopram oxalate 10 MG tablet 10 mg PO DAILY atorvastatin 80 MG tablet 80 mg PO QHS clopidogrel 75 MG tablet 75 mg PO DAILY Label Comments: TAKE 1 TABLET EVERY DAY ranitidine HCl 150 MG tablet 150 mg PO BID aspirin 81 MG tablet,chewable 81 mg PO DAILY@0800 isosorbide mononitrate 30 MG tablet 30 mg PO DAILY erythromycin 1 GM ointment 1 applicatio EACH EYE QHS Label Comments: Apply 1/4 application into both eyes at bedtime fluorometholone 5 ML drops,suspension 1 drp EACH EYE TID Label Comments: instill 1 drop into both eyes 3 times a day nitroglycerin 0.4 MG tablet 0.4 mg Sublingual Q5M PRN (Reason: Chest Pain) metoprolol succinate 25 MG tablet 12.5 mg PO QHS Qty: 0 0RF Label Comments: TAKE 1 TABLET EVERY DAY acetaminophen 500 MG tablet 1,000 mg PO Q8H PRN PRN (Reason: Pain) Qty: 30 0RF sulfamethoxazole-trimethoprim [sulfamethoxazole-trimethoprim] 1 TABLET tablet 1 tab PO BID Qty: 14 0RF Primary Care Provider: Jonah Feliz Referrals: Jonah Feliz PA [Primary Care Provider] - 3-5 Days Disposition Disposition: Home, Self Care
[2022-05-24] MEDS: Lidocaine 1% (20 ml mdv) 20 ML Vial 6 ML INFILT (08:26)
[2022-05-24 08:46] VITALS: BP 144/84; PULSE 71; RESP 18
[2022-05-24 08:47] VITALS: BP 144/84; PULSE 71; RESP 18; TEMP 36.6; O2SAT 99
== END 2022-05-24 08:48 | disposition home or self-care (01) ==
PROVIDERS: Emergency Provider Emergency Medicine; PCP Physician Assistant; Visit Provider Emergency Medicine
DX: L02.416 Cutaneous abscess of left lower limb (principal); I10 Essential (primary) hypertension; E78.5 Hyperlipidemia, unspecified; I25.10 Atherosclerotic heart disease of native coronary artery without angina pectoris; I25.2 Old myocardial infarction; G47.33 Obstructive sleep apnea (adult) (pediatric); F32.A Depression, unspecified; Z79.899 Other long term (current) drug therapy; Z79.82 Long term (current) use of aspirin
CPT/HCPCS: 10060; 99283

== ENCOUNTER 2022-10-04 18:14 | Emergency (ER) | payer MEDICAID, SELFPAY ==
[2022-10-04 18:14] VITALS: BP 114/67; PULSE 77; RESP 16; TEMP 36.7; O2SAT 100; BMI 35.9
--- NOTE | 2022-10-04 18:37 | EDS_ITS ---
HPI History of Present Illness Chief Complaint: Laceration Informant: patient Onset/Context/Timing Onset: Today Context: Sudden Onset Timing: Continuous Quality of Pain: - (sore) Location: right thumb Current Severity: Mild Maximum Severity: Moderate Worsened by: palpation Relieved by: leaving alone Associated Symptoms Associated Symptoms: Negative for Parasthesia, Weakness or Loss of Funtion Narrative Narrative: Patient is left hand dominant male who accidentally cut his right thumb while removing the blades from an electric carving knife. Tetanus Immunization: >10 years [facility] Medical History CAD (coronary artery disease) Depression Hyperlipidemia Hypertension [place] (myocardial infarction) ANTOINETTE (obstructive sleep apnea) Home Medications escitalopram oxalate 10 mg tablet 10 mg PO DAILY mental health 11/09/15 [History Last Taken 10/20/18] aspirin 81 mg chewable tablet 81 mg PO DAILY@0800 health maintenance 10/20/18 [History Last Taken 10/20/18] atorvastatin 80 mg tablet 80 mg PO QHS cholesterol 10/20/18 [History Last Taken 10/19/18] clopidogrel 75 mg tablet 75 mg PO DAILY blood thinner 10/20/18 [History Last Taken 10/20/18] erythromycin 5 mg/gram (0.5 %) eye ointment 1 applicatio EACH EYE QHS 10/20/18 [History Last Taken 10/19/18] fluorometholone 0.1 % eye drops,suspension 1 drp EACH EYE TID 10/20/18 [History Last Taken 10/20/18] isosorbide mononitrate 30 mg tablet,extended release 24 hr 30 mg PO DAILY heart 10/20/18 [History Last Taken 10/20/18] nitroglycerin 0.4 mg sublingual tablet 0.4 mg sublingual Q5M PRN Chest Pain 10/20/18 [History Last Taken Unknown] ranitidine HCl 150 mg tablet 150 mg PO BID gerd 10/20/18 [History Last Taken 10/20/18] acetaminophen 500 mg tablet 1,000 mg PO Q8H PRN PRN Pain #30 tabs 10/21/18 [Rx Last Taken Unknown] metoprolol succinate 25 mg tablet,extended release 24 hr 12.5 mg PO QHS blood pressure/heart ##0 10/21/18 [Rx Last Taken 10/19/18] Lactobacillus acidophilus (Acidophilus capsule) 10,000 mmu cells PO DAILY 12/01/18 [History Last Taken Unknown] clotrimazole-betamethasone 1 %-0.05 % topical cream 1 applic topical HS 12/01/18 [History Last Taken Unknown] melatonin 10 mg capsule 20 mg PO HS 12/01/18 [History Last Taken Unknown] nystatin 100,000 unit/gram topical cream 1 applic topical BID 12/01/18 [History Last Taken Unknown] sulfamethoxazole 800 mg-trimethoprim 160 mg tablet 1 tab PO BID #14 TABLETS 03/02/22 [Rx Last Taken Unknown] Allergy/AdvReac Type Severity Reaction Status Date / Time No Known Allergies Allergy Verified 05/24/22 08:11 Family History Father ALL (acute lymphoblastic leukemia) Arthritis Glaucoma Mother Tachycardia Sister Thyroid disorder Surgical History septoplasty and turbinate reduction Social History household members: significant other housing: house 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, [employer] pets and animals: No Smoking Status: Never smoker second hand exposure: No alcohol intake: current alcohol intake frequency: a few times a week Alcohol type: beer and hard liquor substance use type: does not use ROS ROS ED Constitutional Constitutional ED: Denies chills or fever(s) Musculoskeletal Musculoskeletal: Reports extremity pain; Denies neck pain Integumentary Reports wounds; Denies Abrasions or rash Neurologic Neurologic: Denies paresthesias or weakness EXAM Physical Exam Const Vital Signs: 10/04/22 18:14 Temperature 98.1 F Temperature Source Temporal Pulse Rate 77 Respiratory Rate 16 Blood Pressure 114/67 Blood Pressure Mean 82 Pulse Ox 100 Oxygen Delivery Method Room Air Positive well nourished and well developed General Appearance ED: well developed and NAD Neck full ROM and supple Back/Spine normal ROM and normal to inspection Extremity Extremity Narrative: Laceration to the ulnar aspect of the distal phalanx right thumb, no nailbed i njury, no nail injury of although the laceration abuts it, normal flexion and extension of the thumb. Neuro oriented x3, no focal motor deficits and no sensory deficits noted Sensorium / Orientation: alert Psych mental status grossly normal and thought process normal Skin Skin Narrative: 2 centimeter full-thickness laceration into subcutaneous tissue distal phalanx right thumb ulnar aspect see above. Clean-appearing. Rashes: no rashes MDM MDM MDM Narrative Medical decision making narrative: Patient's tetanus was updated and his laceration was repaired see the procedure note. Given appropriate discharge instructions after dressing it with bacitracin, sutures out in approximately 7-10 days. Procedures Lacerations R thumb: Length: 2 cm Depth: Sub Q Shape: Linear (curvilinear) Prep: Sterile Conditions and Chlorhexadine Laceration repair: Irrigated, Lidocaine (1%, 1cc), Lidocaine with epi (topical LET pretx), Local and Skin sutures Irrigated (ml): 60 Number of Sutures/Katelyn: 4 Suture Information: Ethilon, Simple and 5-0 Discharge Plan Triage Chief Complaint: Laceration ED Provider: Khoi Foss Dx/Rx/DC Orders Clinical Impression: Laceration of right thumb, Immunization, tetanus-diphtheria Instructions: ED Laceration, Hand: All Closures Prescriptions: No Action Lactobacillus acidophilus [Acidophilus] capsule 10,000 mmu cells PO DAILY melatonin 10 mg capsule 20 mg PO HS clotrimazole-betamethasone 1-0.05 % cream 1 applic TOPICAL HS nystatin 100,000 unit/gram cream 1 applic TOPICAL BID escitalopram oxalate 10 MG tablet 10 mg PO DAILY atorvastatin 80 MG tablet 80 mg PO QHS clopidogrel 75 MG tablet 75 mg PO DAILY Label Comments: TAKE 1 TABLET EVERY DAY ranitidine HCl 150 MG tablet 150 mg PO BID aspirin 81 MG tablet,chewable 81 mg PO DAILY@0800 isosorbide mononitrate 30 MG tablet 30 mg PO DAILY erythromycin 1 GM ointment 1 applicatio EACH EYE QHS Label Comments: Apply 1/4 application into both eyes at bedtime fluorometholone 5 ML drops,suspension 1 drp EACH EYE TID Label Comments: instill 1 drop into both eyes 3 times a day nitroglycerin 0.4 MG tablet 0.4 mg Sublingual Q5M PRN (Reason: Chest Pain) metoprolol succinate 25 MG tablet 12.5 mg PO QHS Qty: 0 0RF Label Comments: TAKE 1 TABLET EVERY DAY acetaminophen 500 MG tablet 1,000 mg PO Q8H PRN PRN (Reason: Pain) Qty: 30 0RF sulfamethoxazole-trimethoprim [sulfamethoxazole-trimethoprim] 1 TABLET tablet 1 tab PO BID Qty: 14 0RF Primary Care Provider: Jonah Feliz Referrals: Jonah Feliz, PA [Primary Care Provider] - 10 Day for suture removal Disposition Disposition: Home, Self Care
[2022-10-04] MEDS: Lidocaine/Epi/Tetracaine 50 ML 1 APPLIC TOPICAL (19:21)
[2022-10-04] MEDS: Diphth,Pertuss(Acell),Tet Vac 0.5 ML Vial IM (19:21)
== END 2022-10-04 20:12 | disposition home or self-care (01) ==
PROVIDERS: Emergency Provider Emergency Medicine; PCP Physician Assistant; Visit Provider Emergency Medicine
DX: S61.011A Laceration without foreign body of right thumb without damage to nail, initial encounter (principal); I25.10 Atherosclerotic heart disease of native coronary artery without angina pectoris; I10 Essential (primary) hypertension; E78.5 Hyperlipidemia, unspecified; W29.1XXA Contact with electric knife, initial encounter; Z23 Encounter for immunization
CPT/HCPCS: 12001; 90471; 90715; 99283

== ENCOUNTER 2022-11-14 15:00 | Outpatient (RCR) | payer MEDICAID, SELFPAY ==
--- NOTE | 2022-10-01 08:30 | HP.PTEVAL_ITS ---
Patient's Visit Information HARSHIL COREA is a 47 year old M referred to Physical Therapy by EVER Keller with a diagnosis of B chronic shoulder pain. Date of Evaluation: 09/27/22 Physical Therapist: Hieu Durbin DPT - Visit Plan Frequency: 2x /Week Duration: 4 Weeks Plan: Start with rhomboid and mid trap strengthening. Add in B shoulder ER, IR strengthening as well. Progress HEP. shoulder pass through x10. mid row PTB 3x10. shoulder ER PTB 2x10/ea. shoulder ER sidelying 2# 3x10/ea. patient given above as HEP 09/27/22 - Subjective Pt. is here today for his initial evaluation with diagnosis of B chronic shoulder pain. Pt. 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 He reports no mech of injury. He also has anterior L shoulder pain again no mech of injury, but seems to progress over the past few months. Increases pain: lifting, reaching, dressing. No much issues with sleeping. Decreases pain: use of analgesic cream. No N/T noted. Pt. reports greatest issue is iwth lifting over head. 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 - Pain R scapulae Pain Intensity (Out of 10): 0 Pain Intensity Range: 0, 6 L anterior shoulder Pain Intensity (Out of 10): 2 Pain Intensity Range: 0, 6 - Objective POSTURE: Pt. has slight rounded shoulders bilaterally with increased thoracic kyphosis. Pt. has slight FH posture, but is able to correct with VC/TCing. PALPATION: Pt. has tenderness along L biceps tendon and anterior shoulder. No UT or scapular issues noted. Pt. has mild tenderness along R mid trap/rhomboid region. No RTC insertional pain. NEURO: normal bilaterally with DTR and light/sharp touch. ROM: Pt. has full ROM of B shoulders, but does have mild increase in symptoms with L functional IR. No pain with R shoulder ROM. Stiffness noted in middle thoracic region. MMT: RUE: 5-/5 throughout, R mid trap- 4+/5, lower trap 4/5, rhomboid 4+/5, IR 4+/5, ER 5-/5. LUE: 5/5 throughout, except shoulder ER 4+/5, IR 4+/5, ext 5/5. - Special Tests R Shoulder Drop Sign - IS Test: Negative R Shoulder Empty Can - SS: Negative R Shoulder Belly Press - SupScap: Negative R Shoulder Neer - Impingement: Negative R Shoulder [place] - Impingement: Negative R Shoulder Biceps Load Test - Labrum: Negative R Shoulder Speeds Test - Labrum/Biceps: Negative L Shoulder Lift Off Test - Subscapular Tear: Positive L Shoulder Drop Sign - IS Test: Negative L Shoulder Empty Can - SS: Negative L Shoulder Belly Press - SupScap: Positive L Shoulder Neer - Impingement: Positive L Shoulder [place] - Impingement: Negative L Shoulder Biceps Load Test - Labrum: Negative L Shoulder Speeds Test - Labrum/Biceps: Negative - Balance/Special Test Scores Quick DASH Score: 15.9075 - Goals Goal 1:: LTG: Pt. to be I with HEP for B shoulder and scapular strengthening. Goal Time Frame: 4-6 Weeks Goal 2:: STG: pt. to report no pain with L shoulder functional IR motions. Goal Time Frame: 2 Weeks Goal 3:: LTG: Pt. to have 5/5 strength throughout BUEs without increase in symptoms. 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 Goal Time Frame: 2-4 Weeks - Rehabilitation Potential Physical Therapy Diagnosis: Pt. has signs and symptoms consistent with B chronic shoulder pain. Pt. seems to have a more scapular issues on the R side and slight RTC pathology, non tear, on L side. Pt. would benefit from PT to increase his strength in B UE and scapular musculature. Rehabilitation Potential: Excellent - Anticipated Interventions Patient/Client Instruction: Educate patient on: Condition, Plan of Care, Risk Factors, Benefits of Fitness Program For the Purpose of:: To foster healthy habits, To improve decision making, To facilitate caregiver knowledge, To improve self management, To prevent re- injury, To improve ability to perform tasks related to life management Therapeutic Exercise to Include: Strength training, Power training, Body mechanics, Postural training, Flexibilty training, Jonah Exercises, Scapular Strength/Stabilization For the Purpose of:: To decrease pain, To increase ROM, To improve nutrient delivery to tissue, To increase oxygenation perfusion, To improve muscle performance and motor function, To improve ability to perform ADL's, To improve health of tissue, To decrease soft tissue restriction, To increase flexibility/ROM Thank you for the opportunity to evaluate your patient. For Medicare and Medicare HMO plans, please review the plan of care and approve it. It will need to be FAXED BACK to us at [phone] for Medicare purposes. For Medicare only, by signing this I certify the plan of care. Please let me know if there are questions or concerns regarding this plan of care. Physician Signature: Date:
--- NOTE | 2022-10-10 16:19 | HP.PTREVAL_ITS ---
EVER Keller, It has been my pleasure to treat HARSHIL COREA over the last 2 visits for B chronic shoulder pain. Please see the progress note below for an update on the physical therapy plan of care! Subjective: Pt. reports not doing his exercises since last visit, but plans to start doing them now. Objective/Function: Pt. did bring in script for his ankle with diagnosis of L ankle instability. Pt. is now wearing an ASO brace on LLE, but not sure if it is helping or now. He has pain at ATFL, pain along lateral ankle. He reports no mech of injury, but had increasing symptoms with running on uneven ground while referring foot ball games. He had some mild laxity with inversion testing. He has some weakness into ankle EVR and slight DF. I did not see any ligament damage or severe instability. I think he would do well with ankle strengthening and proprioception exercises progressing to weaning from brace as tolerated. He is to wear the brace for sporting events to reduce ankle pain. He did well with his strengthening exercises this date without issues. Pt. reports no pain post PT. Plan Plan: Start with rhomboid and mid trap strengthening. Add in B shoulder ER, IR strengthening as well. Progress HEP. Assessed L ankle this date 10/10- add in ankle strengthening and proprioception exercises as tolerated to L ankle. 60 additional units of PT approved this date. shoulder pass through x10. mid row PTB 3x10. shoulder ER PTB 2x10/ea. shoulder ER sidelying 2# 3x10/ea. patient given above as HEP 09/27/22 Balance/Gait/Functional tests - Balance/Special Test Scores Lower Extremity Functional Score: 59 Quick DASH Score: 15.9075 Goals Goal 1:: LTG: Pt. to be I with HEP for B shoulder and scapular strengthening. Goal Time Frame: 4-6 Weeks Goal 2:: STG: pt. to report no pain with L shoulder functional IR motions. Goal Time Frame: 2 Weeks Goal 3:: LTG: Pt. to have 5/5 strength throughout BUEs without increase in symptoms. 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 Goal Time Frame: 2-4 Weeks Goal Progress: Progressing Goal 5:: LTG: Pt. to have 5/5 strength throughout L ankle EVR and DF. Goal Time Frame: 4-6 Weeks Goal Progress: Progressing Goal 6:: LTG: Pt. to have good stability of L ankle with heel raises, walking and running with decreased presence of L ankle instability and no pain. Anticipated Interventions Patient/Client Instruction: Educate patient on: Condition, Plan of Care, Risk Factors, Benefits of Fitness Program For the Purpose of:: To foster healthy habits, To improve decision making, To facilitate caregiver knowledge, To improve self management, To prevent re- injury, To improve ability to perform tasks related to life management Therapeutic Exercise to Include: Strength training, Power training, Body mechanics, Postural training, Flexibilty training, Jonah Exercises, Scapular Strength/Stabilization For the Purpose of:: To decrease pain, To increase ROM, To improve nutrient delivery to tissue, To increase oxygenation perfusion, To improve muscle performance and motor function, To improve ability to perform ADL's, To improve health of tissue, To decrease soft tissue restriction, To increase flexibility/ROM Please do not hesitate to contact me at [phone] by phone or Fax: if you have questions or concerns regarding this new plan of care! Sincerely, Hieu Durbin DPT
== END 2022-11-14 19:00 | disposition home or self-care (01) ==
LOC: PT 15:00
PROVIDERS: PCP Physician Assistant; Referring Provider Physician Assistant; Visit Provider Physician Assistant
DX: M25.511 Pain in right shoulder (principal); M25.512 Pain in left shoulder; G89.29 Other chronic pain; S93.492S Sprain of other ligament of left ankle, sequela; M25.372 Other instability, left ankle
CPT/HCPCS: 97110; 97140; 97161; 97530

== ENCOUNTER → 2023-01-16 | Outpatient (CLI) | payer MEDICAID, SELFPAY | END | disposition home or self-care (01) | LOC: SL 20:10 | PROVIDERS: PCP Physician Assistant; Visit Provider Psychiatry & Neurology Sleep Medicine | DX: G47.33 Obstructive sleep apnea (adult) (pediatric) (principal) | CPT/HCPCS: 95810 ==

== ENCOUNTER → 2023-03-08 | Outpatient (CLI) | payer MEDICAID, SELFPAY | END | disposition home or self-care (01) | LOC: SL 20:08 | PROVIDERS: PCP Physician Assistant; Referring Provider Psychiatry & Neurology Sleep Medicine; Visit Provider Psychiatry & Neurology Sleep Medicine | DX: G47.33 Obstructive sleep apnea (adult) (pediatric) (principal) | CPT/HCPCS: 95811 ==

== ENCOUNTER → 2023-04-05 | Outpatient (CLI) | payer MEDICAID, SELFPAY | END | disposition home or self-care (01) | LOC: SL 12:20 | PROVIDERS: PCP Physician Assistant; Visit Provider Psychiatry & Neurology Sleep Medicine | DX: G47.33 Obstructive sleep apnea (adult) (pediatric) (principal) ==

== ENCOUNTER → 2023-09-05 | Outpatient (CLI) | payer OTHER, SELFPAY ==
[2023-09-05 17:35] LABS: Absolute Lymphocyte Count 1.69 X10^3/uL (0.83-4.51); Absolute Neutrophil Count 2.5 X10^3/uL (2.0-7.7); Basophil# 0.04 X10^3/uL; Basophil% 0.8 % (0-1); Eosinophil# 0.07 X10^3/uL; Eosinophils% 1.4 % (0-5); Hematocrit 42.7 % (40-54); Hemoglobin 14.2 g/dL (13.0-16.5); Lymphocyte # 1.69 X10^3/ul (0.83-4.51); Lymphocyte % 34.2 % (19-41); Mean Corp Hgb Conc 33.3 g/dL (32-36); Mean Corpuscular Hgb 29.4 pg (27.0-32.0); Mean Corpuscular Volume 88.4 fL (80-94); Mean Platelet Vol. 10.8 fl (6.2-12.0); Monocyte# 0.62 X10^3/uL; Monocyte% 12.6 % (0-10); NRBC Flagged by Analyzer 0 % (0-5); Neutrophil # 2.51 X10^3/uL (2.7-7.7); Neutrophil % 50.8 % (47-70); Platelet Count 172 K/mm3 (150-450); RBC Distribution Width CV 13.5 % (11.6-14.6); RBC Distribution Width SD 43.6 fl (35.1-43.9); Red Blood Count 4.83 M/mm3 (4.6-6.2); White Blood Count 4.9 K/mm3 (4.4-11.0)
[2023-09-05 18:14] LABS: ALB/GLOB Ratio 0.8 RATIO (0.9-2.4); AST(SGOT) 35 U/L (15-37); Alanine Aminotransfer ALT/SGPT 46 U/L (16-61); Albumin, Serum 3.7 g/dL (3.2-5.0); Alkaline Phosphatase 85 U/L (45-117); Anion Gap 6 (5-15); BUN 14 mg/dL (7-18); BUN/Creat Ratio 14.1 RATIO (10-20); Calcium,Total 9.2 mg/dL (8.5-10.1); Chloride 102 mmol/L (98-107); Cholesterol 110 mg/dL (200); EST Glomerular Filtration Rate 85 mL/min (>60); Est Glom Filt Rate - Afr Amer 102 mL/min (>60); Globulin 4.7 g/dL (2.2-4.2); Glucose 91 mg/dL (74-106); High Density Lipoprotein 43 mg/dL; Potassium 3.8 mmol/L (3.5-5.1); Protein, Total 8.4 g/dL (6.4-8.2); Sodium Level 136 mmol/L (136-145); Triglycerides 72 mg/dL; Very Low Density Lipoprotein 14 mg/dL (5-40)
== END | disposition home or self-care (01) ==
LOC: MFPLAB 14:55
PROVIDERS: PCP Family Medicine; Visit Provider Family Medicine
DX: I25.10 Atherosclerotic heart disease of native coronary artery without angina pectoris (principal); I10 Essential (primary) hypertension
CPT/HCPCS: 36415; 80053; 80061; 85025

== ENCOUNTER 2024-06-17 08:18 | Day surgery (SDC) | payer OTHER, SELFPAY ==
--- NOTE | 2024-06-17 08:28 | PRE.ANES_ITS ---
ASA Classification* ASA Classification ASA Classification: 3 Assessment & Plan Anesthesia* Anesthesia Assessment Anesthesia Assessment: Discussed sedation and/or anesthesia options, risks, benefits, and alternatives with patient/parents/legal guardian/POA. Questions invited. The patient/parents/legal guardian/POA seems to understand and agrees to proceed with anesthesia plan. Reviewed the physical assessment, medical history, allergy history and patient home medications list prior to surgery/procedure/anesthetic and documented any changes. Performed airway and anesthesia risk assessments. Anesthesia Type Anesthesia Type: MAC Anesthesia Focused Assessment* Airway Assessment Mouth opens: >3 cm Mallampati Score: II Focused Labs Anesthesia Preop lab: CBC WBC 4.9 K/mm3 (4.4-11.0) 09/05/23 14:56 RBC 4.83 M/mm3 (4.6-6.2) 09/05/23 14:56 Hgb 14.2 g/dL (13.0-16.5) 09/05/23 14:56 Hct 42.7 % (40-54) 09/05/23 14:56 Plt Count 172 K/mm3 (150-450) 09/05/23 14:56 CHEMISTRY Potassium 3.8 mmol/L (3.5-5.1) 09/05/23 14:56 Sodium 136 mmol/L (136-145) 09/05/23 14:56 BUN 14 mg/dL (7-18) 09/05/23 14:56 Creatinine 1.00 mg/dL (0.70-1.30) 09/05/23 14:56 Glucose 91 mg/dL (74-106) 09/05/23 14:56 COAG PT 14.1 SECONDS (11.7-14.9) 10/21/18 05:30 Pre-Assessment Diagnosis/Proposed Procedure Planned Operative Procedure(s): COLONOSCOPY-OA Anesthesia History Anesthesia History - front desk monitor: Anesthesia History - front desk monitor Hx Hospitalization No 06/15/24 12:05 Any Problems With Anesthesia No 06/15/24 12:05 Cholinesterase deficiency No 06/15/24 12:05 You/Your Family Experience No 06/15/24 12:05 fever (hyperthermia) with Relationship Recent Exposure to Contagious Disease Does patient have nerve No 06/15/24 12:05 stimulator Patient instructed to have device shut off --Does patient have Pacemaker or ICD? When Was Last Pacemaker Check QUESTION #4 FULL TEXT: You/Your Family Experience fever (hyperthermia) with Anesthesia Last Oral Intake Last Oral intake: Last Oral Intake NPO since Meds taken in AM with sips of water? Meds patient instructed to take am of surgery PONV PONV - front desk monitor: PONV - front desk monitor Female Yes 06/15/24 12:05 HX of Motion Sickness No 06/15/24 12:05 HX of N/V After Surgery No 06/15/24 12:05 Non-Smoker Yes 06/15/24 12:05 Duration of Surgery greater No 06/15/24 12:05 than 60 minutes Number of Risk Factors 2 06/15/24 12:05 PONV Score Moderate Risk 06/15/24 12:05 Height & Weight Height & Weight: Anesthesia: Height & Weight Height 5 ft 11 in 05/11/24 10:00 Respiratory Assessment Respiratory Assessment - front desk monitor: Respiratory Tract Infection Hx - front desk monitor Hx Respiratory Tract Infection No 06/15/24 12:05 STOP Sleep Apnea STOP Sleep Apnea - front desk monitor: STOP Sleep Apnea - front desk monitor Hx Hypertension Yes: CONTROLLED ON MED 06/15/24 12:05 Hx Sleep Apnea Yes: CPAP 06/15/24 12:05 CPAP Yes 06/15/24 12:05 BIPAP No 06/15/24 12:05 Do you snore loudly (louder than talking or can be heard Do you often feel tired/ fatigued/ sleepy during daytime? Has anyone observed you stop breathing during sleep? STOP Results Positive 06/15/24 12:05 QUESTION #5 FULL TEXT : Do you snore loudly (louder than talking or can be heard through closed doors)? 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 Specify any problems Hx of Preganancy in last 3 N/A 06/15/24 12:05 Months Nurse Filling Out Transfusion VCHRISTIN 06/15/24 12:05 & Questions: Date: 06/15/24 06/15/24 12:05 Time: 12:06 06/15/24 12:05 Patient unable to answer at this time (ie. confused, unrespo /Reproduction History /Reproductive History - front desk monitor: /Reproductive Hx- front desk monitor Hx Now Gestational Age (in weeks): EDC: Hx Hx Para Hx Section SAB Active Medications Active Medications: Current Medications Generic Name Dose Route Start Last Admin Trade Name Freq PRN Reason Stop Dose Admin Lactated Ringer's 1,000 mls @ 15 mls/hr 06/17/24 08:30 IV .Q48H [facility] PFSH Medical History (Updated 06/15/24 @ 12:05 by Sheila Martell) Wears glasses MRSA infection Alcohol use Arthritis High cholesterol Excessive bleeding Gastric reflux Non-smoker CPAP (continuous positive airway pressure) dependence Sleep apnea History of stress test Cardiology follow-up encounter ANTOINETTE on CPAP Benign prostatic hyperplasia without lower urinary tract symptoms [place] (myocardial infarction) ANTOINETTE (obstructive sleep apnea) CAD (coronary artery disease) Depression Hypertension Hyperlipidemia Home Medications ?Medication ?Instructions ?Recorded ?Last Taken ?Type aspirin 81 mg chewable tablet 81 mg PO DAILY@0800 health 10/20/18 06/14/24 History maintenance atorvastatin 80 mg tablet 80 mg PO DAILY cholesterol 10/20/18 10/19/18 History erythromycin 5 mg/gram (0.5 %) eye 1 applicatio EACH EYE QHS 10/20/18 10/19/18 History ointment nitroglycerin 0.4 mg sublingual 0.4 mg sublingual Q5M PRN Chest 10/20/18 Unknown History tablet Pain acetaminophen 500 mg tablet 1,000 mg (2 x 500 mg) PO Q8H PRN 10/21/18 Unknown Rx PRN Pain #30 tabs melatonin 10 mg capsule 20 mg PO HS 12/01/18 Unknown History cyclosporine 0.05 % eye drops in a 1 drp ophthalmic (eye) BID 05/11/24 Unknown History dropperette (Restasis) diphenhydramine HCl 25 mg tablet 25 mg PO ONCE PRN sleep 05/11/24 Unknown History (Benadryl Allergy) hydrochlorothiazide 12.5 mg tablet 12.5 mg PO DAILY 05/11/24 Unknown History isosorbide mononitrate 30 mg 30 mg PO DAILY heart 05/11/24 Unknown History tablet,extended release 24 hr omeprazole 20 mg capsule,delayed 20 mg PO DAILY PRN GERD 05/11/24 Unknown History release metoprolol succinate 25 mg 12.5 mg PO DAILY blood 06/15/24 Unknown History tablet,extended release 24 hr pressure/heart Allergy/AdvReac Type Severity Reaction Status Date / Time No Known Allergies Allergy Verified 06/17/24 08:28 Family History (Updated 05/11/24 @ 09:48 by Juanita Ellison) Father ALL (acute lymphoblastic leukemia) Arthritis Glaucoma Mother Tachycardia Heart disease Sister Thyroid disorder Surgical History (Updated 05/11/24 @ 09:47 by Juanita Ellison) Hx of cardiac cath Hx of heart artery stent septoplasty and turbinate reduction Social History household members: significant other housing: house 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
[2024-06-17 08:38] VITALS: BP 135/73; PULSE 65; RESP 16; TEMP 36.4; O2SAT 96; BMI 33.2
[2024-06-17] MEDS: Lactated Ringers 1,000 ML 15 ML IV (08:42)
--- NOTE | 2024-06-17 09:30 | COLBX_PTH ---
PATIENT: HARSHIL COREA LOC: EN U#:[id number] AGE/SX: 49/M ROOM: RE06/17/[address]: Dr. Avelino Mendez DO : 1975 BED: DIS: 06/17/2024 SPEC #: [id number] RECD: 06/17/24 13:07 STATUS: JINNY ASHANTI #: [id number] RYAN: 06/17/24 09:[address]: Avelino Mendez DEPT: SURGICAL PATHOLOGY RECD BY: Abelino Lugo ENTERED: 06/17/24 13:37 SP TYPE: COLON BX OT DR: Dr. Dave Chun MD Tissues: COLON BIOPSY Procedures: Surgery Specimen Level IV HEADER OPERATION: Colonoscopy PRE-OP DIAGNOSIS: Encounter for screening for malignant neoplasm of colon TISSUE SUBMITTED: Hepatic flexure polyp biopsy MICROSCOPIC DIAGNOSIS Colonic polyp at hepatic flexure, biopsy: Tubular adenoma. AM/mr 06/18/2024 MICROSCOPIC DESCRIPTION Slides are reviewed. GROSS DESCRIPTION Received in fixative is one container labeled with the patient's name and designated Hepatic flexure polyp biopsy. The specimen consists of one irregular fragment of light trevizo soft tissue that measures 0.5 x 0.4 x 0.1 cm. The specimen is totally submitted in one cassette. GRISELDA/ 06/17/2024 TC:5 CPT:55854
--- NOTE | 2024-06-17 09:41 | HP.PCM_ITS ---
[facility] - General General Date of Admission: 06/17/24 Date of Service: 06/17/24 Chief Complaint: Screening colonoscopy HPI Narrative HARSHIL COREA, is a 49 M who presents today for screening colonoscopy. He has not had a colonoscopy in the past. He has a past medical history of hyperlipidemia hypertension, CAD and obstructive sleep apnea. He does take aspirin on a daily basis. He is not having any abdominal pain no cramping no chest pain or shortness of breath overall he is in very good health. [facility] Medical History (Updated 06/15/24 @ 12:05 by Sheila Martell) Wears glasses MRSA infection Alcohol use Arthritis High cholesterol Excessive bleeding Gastric reflux Non-smoker CPAP (continuous positive airway pressure) dependence Sleep apnea History of stress test Cardiology follow-up encounter ANTOINETTE on CPAP Benign prostatic hyperplasia without lower urinary tract symptoms [place] (myocardial infarction) ANTOINETTE (obstructive sleep apnea) CAD (coronary artery disease) Depression Hypertension Hyperlipidemia Home Medications ?Medication ?Instructions ?Recorded ?Last Taken ?Type aspirin 81 mg chewable tablet 81 mg PO DAILY@0800 health 10/20/18 06/14/24 History maintenance atorvastatin 80 mg tablet 80 mg PO DAILY cholesterol 10/20/18 06/16/24 History erythromycin 5 mg/gram (0.5 %) eye 1 applicatio EACH EYE QHS 10/20/18 06/16/24 History ointment nitroglycerin 0.4 mg sublingual 0.4 mg sublingual Q5M PRN Chest 10/20/18 06/16/24 History tablet Pain acetaminophen 500 mg tablet 1,000 mg (2 x 500 mg) PO Q8H PRN 10/21/18 Unknown Rx PRN Pain #30 tabs melatonin 10 mg capsule 20 mg PO HS 12/01/18 06/16/24 History cyclosporine 0.05 % eye drops in a 1 drp ophthalmic (eye) BID 05/11/24 06/16/24 History dropperette (Restasis) diphenhydramine HCl 25 mg tablet 25 mg PO ONCE PRN sleep 05/11/24 Unknown History (Benadryl Allergy) hydrochlorothiazide 12.5 mg tablet 12.5 mg PO DAILY 05/11/24 06/16/24 History isosorbide mononitrate 30 mg 30 mg PO DAILY heart 05/11/24 06/17/24 History tablet,extended release 24 hr omeprazole 20 mg capsule,delayed 20 mg PO DAILY PRN GERD 05/11/24 06/16/24 History release metoprolol succinate 25 mg 12.5 mg PO DAILY blood 06/15/24 06/17/24 History tablet,extended release 24 hr pressure/heart Allergy/AdvReac Type Severity Reaction Status Date / Time No Known Allergies Allergy Verified 06/17/24 08:37 Family History (Updated 05/11/24 @ 09:48 by Juanita Ellison) Father ALL (acute lymphoblastic leukemia) Arthritis Glaucoma Mother Tachycardia Heart disease Sister Thyroid disorder Surgical History (Updated 05/11/24 @ 09:47 by Juanita Ellison) Hx of cardiac cath Hx of heart artery stent septoplasty and turbinate reduction Social History household members: significant other housing: house 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, [employer] pets and animals: No Smoking Status: Never smoker second hand exposure: No alcohol intake: current alcohol intake frequency: a few times a week Alcohol type: beer and hard liquor substance use type: does not use ROS Review of Systems ROS Unobtainable: other Constitutional Constitutional: Denies fatigue, fever(s), poor appetite, weight gain or weight loss ENT HEENT: Denies mouth lesions Cardiovascular Cardiovascular: Denies abdominal bloating, abdominal edema or abdominal pain Respiratory/Chest Respiratory/Chest: Denies change in mental status, change in phlegm color, chest congestion or chest tightness Gastrointestinal Gastrointestinal: Denies belching, bloating, change in bowel habits, change in stool character, chewing difficulty, coffee ground emesis, constipation, cramping, diarrhea, dyspepsia, dysphagia, early satiety, excessive flatus, fecal incontinence, heartburn, hematemesis, hematochezia, hemorrhoids, loose stools, melena, nausea, odynophagia, rectal bleeding, tenesmus, vomiting or weight changes Genitourinary Genitourinary: Denies abdominal discomfort, burning urination or itching Musculoskeletal Musculoskeletal: Reports as per HPI; Denies muscle weakness or myalgias Integumentary Integumentary: Denies jaundice Neurologic Neurologic: Denies lack of coordination or weakness Psychiatric Psychiatric: Denies confusion, depression, memory loss, mood swings, paranoia or suicidal ideation Endocrine Endocrinology: Denies systems reviewed and no addt'l complaints, except as documented Hematologic/Lymphatic Hematologic/Lymphatic: Denies anemia, easy bleeding, easy bruising or lymphadenopathy Allergic/Immunologic Allergic/Immunologic: Denies systems reviewed and no addt'l complaints, except as documented Vital Signs Vital Signs Vital Signs: 06/17/24 08:38 06/17/24 08:38 Temperature 97.5 F L Temperature Source Temporal Pulse Rate 65 Respiratory Rate 16 Respiratory Pattern Normal Blood Pressure 135/73 H Blood Pressure Mean 93 Blood Pressure Source Monitor Blood Pressure Position Semi-Fowlers Blood Pressure Location Right Arm Pulse Ox 96 Oxygen Delivery Method Room Air Weight Weight: 238 lb 1.588 oz Body Mass Index (BMI) 33.2 Physical Exam Const alert General Appearance: cooperative Orientation / Consciousness: oriented to person HEENT hearing grossly normal bilaterally Head and Scalp: normal to inspection Face and Sinus: face symmetric Nose: external nose normal Mouth: oral and palatal mucosa normal Eyes conjunctivae normal General Eye: normal appearance of both eyes Neck full ROM General: normal visual inspection Lymph Lymphatic: no lymphadenopathy noted Chest inspection of chest normal and palpation of chest normal Chest: symmetrical chest wall rise Resp normal respiratory effort Effort and Inspection: able to speak in complete sentences Cardio regular rate GI non-distended Percussion: normal to percussion Rectal Exam: deferred Neuro Speech: speech normal Gait (Neuro): normal gait Assessment & Plan Assessment/Plan (1) Encounter for screening for malignant neoplasm of colon: PLAN: He was explained alternatives, risk, benefits including outstanding bleeding, infection, sepsis, perforation, need for emergent surgery and . He we will of an ASA of 3.
[2024-06-17 10:15] VITALS: BP 135/73; BP 98/64; RESP 63; TEMP 36.2; O2SAT 97
--- NOTE | 2024-06-17 10:18 | OP.COLON_ITS ---
Patient Name: Prem Allison Procedure Date: 06/17/2024 9:43 AM Date of : 1975 Age: 49 Procedure: Colonoscopy Indications: Screening for colorectal malignant neoplasm Providers: Avelino Mendez DO Medicines: Monitored Anesthesia Care Patient Profile: This is a 49 year old male. Refer to note in patient chart for documentation of history and physical. Last Colonoscopy: none. The patient's first colonoscopy is today. Complications: No immediate complications. Procedure: Pre-Anesthesia Assessment: - Prior to the procedure, a History and Physical was performed, and patient medications and allergies were reviewed. The patient is competent. The risks and benefits of the procedure and the sedation options and risks were discussed with the patient. All questions were answered and informed consent was obtained. Patient identification and proposed procedure were verified by the physician in the pre-procedure area. Mental Status Examination: alert and oriented. Airway Examination: normal oropharyngeal airway and neck mobility. Respiratory Examination: clear to auscultation. CV Examination: normal. Prophylactic Antibiotics: The patient does not require prophylactic antibiotics. Prior Anticoagulants: The patient has taken no anticoagulant or antiplatelet agents. ASA Grade Assessment: II - A patient with mild systemic disease. After reviewing the risks and benefits, the patient was deemed in satisfactory condition to undergo the procedure. The anesthesia plan was to use monitored anesthesia care (MAC). Immediately prior to administration of medications, the patient was re-assessed for adequacy to receive sedatives. The heart rate, respiratory rate, oxygen saturations, blood pressure, adequacy of pulmonary ventilation, and response to care were monitored throughout the procedure. The physical status of the patient was re-assessed after the procedure. After I obtained informed consent, the scope was passed under direct vision. Throughout the procedure, the patient's blood pressure, pulse, and oxygen saturations were monitored continuously. The was introduced through the anus and advanced to the cecum, identified by appendiceal orifice and ileocecal valve. The colonoscopy was performed without difficulty. The patient tolerated the procedure well. The quality of the bowel preparation was adequate. The ileocecal valve, appendiceal orifice, and rectum were photographed. Scope In: 9:55:23 AM Scope Withdrawal Time 0 hours 8 minutes 40 seconds Scope Out: 10:09:07 AM Total Procedure Duration Time 0 hours 13 minutes 44 seconds Findings: The perianal and digital rectal examinations were normal. A 5 mm polyp was found in the hepatic flexure. The polyp was sessile. The polyp was removed with a jumbo cold forceps. Resection and retrieval were complete. Verification of patient identification for the specimen was done. Estimated blood loss was minimal. Multiple small-mouthed diverticula were found in the recto-sigmoid colon and sigmoid colon. The exam was otherwise without abnormality on direct and retroflexion views. Impression: - One 5 mm polyp at the hepatic flexure, removed with a jumbo cold forceps. Resected and retrieved. - Diverticulosis in the recto-sigmoid colon and in the sigmoid colon. - The examination was otherwise normal on direct and retroflexion views. Recommendation: - Discharge patient to home. - Resume previous diet. - Continue present medications. - Await pathology results. - Repeat colonoscopy in 5 years for surveillance. Procedure Code(s): --- Professional --- 12261, Colonoscopy, flexible; with biopsy, single or multiple CPT copyright 2021 [employer]. All rights reserved. The codes documented in this report are preliminary and upon diesel dragline operator review may be revised to meet current compliance requirements. Avelino Mendez DO 06/17/2024 10:17:40 AM This report has been signed electronically. Number of Addenda: 0 Note Initiated On: 06/17/2024 9:43 AM
--- NOTE | 2024-06-17 10:18 | OP.CCLET_ITS ---
06/17/2024 Dave Chun [address] [place] [address] Re : Colonoscopy procedure for Prem Allison Dear Dr. Chun This procedure was performed on Monday, June 17, 2024. My impressions and recommendations are as follows: Impressions : - One 5 mm polyp at the hepatic flexure, removed with a jumbo cold forceps. Resected and retrieved. - Diverticulosis in the recto-sigmoid colon and in the sigmoid colon. - The examination was otherwise normal on direct and retroflexion views. Recommendations : - Discharge patient to home. - Resume previous diet. - Continue present medications. - Await pathology results. - Repeat colonoscopy in 5 years for surveillance. My findings are described in the full procedure note, which is enclosed. If I can be of further assistance, please feel free to contact me at . Sincerely, Avelino Mendez, 06/17/2024 10:17:40 AM This report has been signed electronically.
--- NOTE | 2024-06-17 10:19 | PCM.POST.ANE ---
Anesthesia: Postop Eval I Current Vital Signs Temperature: 97.2 F Pulse Rate: 67 Blood Pressure: 98/64 Respiratory Rate: 16 Pulse Ox: 97 Oxygen Delivery Method: Room Air Assessment Airway patent: Yes Spontaneous unlabored respirations: Yes Mental status: Asleep nausea: No Vomiting: No Anesthesia Complication: No Fluid Hydration Crystalloid volume administer (ml): 600 Total IV fluid infused: 600 Progress Note Anesthesia document: Postop Eval 1 completed: Yes
[2024-06-17 10:20] VITALS: BP 135/73; BP 97/61; BP 98/64; PULSE 63; PULSE 67; RESP 16; TEMP 36.2; O2SAT 97
--- NOTE | 2024-06-17 10:20 | PCM.POSTANE2 ---
Anesthesia Postop Eval I Sum Anesthesia Postop Eval I Summary Anesthesia Postop Eval I Summary: Anesthesia Postop Eval I: Assessment Summary Airway patent Spontaneous unlabored respirations Mental status nausea Vomiting Anesthesia Postop Eval I: Fluid Summary Crystalloid volume administer (ml) Colloids volume administered ( ml) Blood Product volume administered (ml) Total IV fluid infused Anesthesia Postop Eval I: Summary Notes Anesthesia Complication Anesthesia Complication Comment: Post-operative progress note Anesthesia: Postop Eval II Evaluation Mental status: Awake Pain Level: 0 nausea: No Vomiting: No Complications Anesthesia Complication: No
[2024-06-17 10:25] VITALS: BP 135/73; BP 96/65; PULSE 70; RESP 16; O2SAT 96
[2024-06-17 10:30] VITALS: BP 110/68; BP 135/73; PULSE 71; RESP 16; TEMP 36.5; O2SAT 96
[2024-06-17 11:03] VITALS: BP 135/73
== END 2024-06-17 11:10 | disposition home or self-care (01) ==
LOC: EN 08:19 → AC 08:20
PROVIDERS: PCP Family Medicine; Referring Provider Family Medicine; Visit Provider Internal Medicine Gastroenterology
PROC: 0DJD8ZZ Inspection of Lower Intestinal Tract, Via Natural or Artificial Opening Endoscopic (ICD-10-PCS; CPT 45378; principal; 2024-06-17 09:25)
DX: Z12.11 Encounter for screening for malignant neoplasm of colon (principal); K63.5 Polyp of colon; I25.10 Atherosclerotic heart disease of native coronary artery without angina pectoris; I10 Essential (primary) hypertension; K57.30 Diverticulosis of large intestine without perforation or abscess without bleeding; Z79.82 Long term (current) use of aspirin; E78.00 Pure hypercholesterolemia, unspecified; G47.33 Obstructive sleep apnea (adult) (pediatric); Z99.89 Dependence on other enabling machines and devices; I25.2 Old myocardial infarction; Z79.899 Other long term (current) drug therapy; K21.9 Gastro-esophageal reflux disease without esophagitis; Z95.5 Presence of coronary angioplasty implant and graft
CPT/HCPCS: 45380; 88305; J7120; J2405

== ENCOUNTER → 2024-08-11 | Outpatient (CLI) | payer OTHER, SELFPAY ==
--- NOTE | 2024-08-11 16:04 | RAD_ITS ---
INDICATION: Cough EXAMINATION/TECHNIQUE: X-RAY - XR Chest 2 Views COMPARISON: Prior study dated: 10/20/2018 FINDINGS: LINES/DEVICES: None. LUNGS: The lungs are well expanded. Mild bronchial wall thickening. No consolidation, edema or effusion. No pneumothorax. MEDIASTINUM AND CARDIOVASCULAR STRUCTURES: Cardiac silhouette not enlarged. Central airways and mediastinal contour are unremarkable. BONES AND SOFT TISSUES: No acute abnormality. RAD/Chest PA and Lateral IMPRESSION: No consolidation. Bronchial wall thickening can be seen with a small airways process such as asthma or atypical/viral infection. Electronically Signed: Vishal Car MD at 1:59 EDT ,
== END | disposition home or self-care (01) ==
LOC: MTRAD 16:04
PROVIDERS: PCP Family Medicine; Referring Provider Family Medicine; Visit Provider Family Medicine
DX: R05.9 Cough, unspecified (principal)
CPT/HCPCS: 71046

== ENCOUNTER → 2025-01-13 | Outpatient (CLI) | payer OTHER, SELFPAY | END | disposition home or self-care (01) | PROVIDERS: PCP Family Medicine; Visit Provider Nurse Practitioner Family | DX: L72.3 Sebaceous cyst (principal) | CPT/HCPCS: 87070; 87077; 87186; 87205 ==

== ENCOUNTER → 2025-05-12 | Outpatient (CLI) | payer OTHER, SELFPAY ==
--- NOTE | 2025-05-12 08:12 | RAD_ITS ---
PROCEDURE: KNEE 4 OR MORE VIEWS 05/12/2025 REASON FOR EXAM: KNEE PAIN/SWELLING TECHNIQUE: KNEE 4 OR MORE VIEWS COMPARISON: None. RAD/Knee 4 or More Views IMPRESSION: No left knee joint effusion is seen. Mild left knee degenerative changes are most apparent at the patellofemoral art iculation and to a lesser extent in the medial compartment. No definite joint space narrowing is noted. No fracture or dislocation is evident. Reading Location: [place] [id number]
--- NOTE | 2025-05-12 08:12 | RAD_ITS ---
PROCEDURE: KNEE 4 OR MORE VIEWS 05/12/2025 REASON FOR EXAM: KNEE PAIN/SWELLING TECHNIQUE: KNEE 4 OR MORE VIEWS COMPARISON: None. RAD/Knee 4 or More Views IMPRESSION: No left knee joint effusion is seen. Mild left knee degenerative changes are most apparent at the patellofemoral art iculation and to a lesser extent in the medial compartment. No definite joint space narrowing is noted. No fracture or dislocation is evident. Reading Location: [place] [id number]
--- NOTE | 2025-05-12 08:12 | RAD_ITS ---
PROCEDURE: HIP, UNI W/ PELVIS 2-3 VIEWS 05/12/2025 REASON FOR EXAM: STIFF HIP, L LEG PAIN TECHNIQUE: HIP, UNI W/ PELVIS 2-3 VIEWS COMPARISON: None. RAD/HIP, UNI W/ Pelvis 2-3 Views IMPRESSION: Mild degenerative changes are seen of the visualized lower lumbar spine. Sacroiliac joints appear symmetric and within the normal range for age. Minimal degenerative changes of the hips are seen, without associated joint emanuel rowing. No evidence of femoral head osteonecrosis. No fracture or dislocation is evident. Reading Location: [place] [id number]
--- NOTE | 2025-05-12 08:12 | RAD_ITS ---
PROCEDURE: HIP, UNI W/ PELVIS 2-3 VIEWS 05/12/2025 REASON FOR EXAM: STIFF HIP, L LEG PAIN TECHNIQUE: HIP, UNI W/ PELVIS 2-3 VIEWS COMPARISON: None. RAD/HIP, UNI W/ Pelvis 2-3 Views IMPRESSION: Mild degenerative changes are seen of the visualized lower lumbar spine. Sacroiliac joints appear symmetric and within the normal range for age. Minimal degenerative changes of the hips are seen, without associated joint emanuel rowing. No evidence of femoral head osteonecrosis. No fracture or dislocation is evident. Reading Location: [place] [id number]
[2025-05-12 08:45] LABS: Hematocrit 41.8 % (40-54); Hemoglobin 14.6 g/dL (13.0-16.5); Immature Granulocytes Count 0.010 X10^3/uL (0.0-0.0); Mean Corp Hgb Conc 34.9 g/dL (32-36); Mean Corpuscular Volume 87.8 fL (80-94); Mean Platelet Vol. 10.7 fl (6.2-12.0); NRBC Flagged by Analyzer 0 % (0-5); Platelet Count 144 K/mm3 (150-450); RBC Distribution Width CV 13.4 % (11.6-14.6); RBC Distribution Width SD 42.5 fl (35.1-43.9); Red Blood Count 4.76 M/mm3 (4.6-6.2); White Blood Count 3.3 K/mm3 (4.4-11.0)
[2025-05-12 09:25] LABS: Creatinine, Urine (random) 172.00 mg/dL (39.00-259.00); Microalbumin,Random Urine < 12.0 mg/L (NO RANGE EST.)
[2025-05-12 09:39] LABS: AST(SGOT) 40 U/L (<=37); Alanine Aminotransfer ALT/SGPT 42 U/L (<=46); Albumin, Serum 4.1 g/dL (3.5-5.0); Alkaline Phosphatase 66 U/L (40-129); Anion Gap 11 (5-15); BUN 14 mg/dL (4-19); BUN/Creat Ratio 15.8 RATIO (10-20); Calcium,Total 9.4 mg/dL (7.6-11.0); Carbon Dioxide 23.8 mmol/L (21.0-32.0); Chloride 103 mmol/L (98-108); Cholesterol 115 mg/dL (<=200); Globulin 3.6 g/dL (2.2-4.2); Glucose 105 mg/dL (70-99); Low Density Lipoprotein Calc. 58 mg/dL; Potassium 3.9 mmol/L (3.3-5.1); Triglycerides 101 mg/dL; Very Low Density Lipoprotein 20 mg/dL (5-40); cholesterol:hdl ratio screen 3.16
[2025-05-12 09:43] LABS: PSA,Total - Annual Screen 0.36 ng/mL (0.02-4.00)
[2025-05-14 08:08] LABS: Immunoglobulin A 519 mg/dL (90-386)
== END | disposition home or self-care (01) ==
PROVIDERS: PCP Family Medicine; Referring Provider Family Medicine; Visit Provider Family Medicine
DX: M79.605 Pain in left leg (principal); M35.01 Sjogren syndrome with keratoconjunctivitis; I25.10 Atherosclerotic heart disease of native coronary artery without angina pectoris; I10 Essential (primary) hypertension; L29.89 Other pruritus; Z12.5 Encounter for screening for malignant neoplasm of prostate
CPT/HCPCS: 36415; 73502; 73564; 80053; 80061; 82043; 82570; 82784; 83516; 84153; 85025; 86255; G0103